=== PATIENT | female | born 1960 | race Caucasian/White ===

== ENCOUNTER → 2019-05-16 00:01 | Outpatient (RCR) | payer BC, MEDICAID, SELFPAY | LOC: ONCMED 04-18 10:42 | PROVIDERS: Visit Provider Internal Medicine Hematology & Oncology | DX: Z51.12 Encounter for antineoplastic immunotherapy (principal); C50.811 Malignant neoplasm of overlapping sites of right female breast; C77.3 Secondary and unspecified malignant neoplasm of axilla and upper limb lymph nodes; D70.1 Agranulocytosis secondary to cancer chemotherapy; K52.1 Toxic gastroenteritis and colitis; D69.59 Other secondary thrombocytopenia; T45.1X5A Adverse effect of antineoplastic and immunosuppressive drugs, initial encounter; D64.9 Anemia, unspecified; R26.9 Unspecified abnormalities of gait and mobility; R25.1 Tremor, unspecified; R11.0 Nausea; R53.1 Weakness; R53.83 Other fatigue; Z51.81 Encounter for therapeutic drug level monitoring; Z79.899 Other long term (current) drug therapy; Z17.1 Estrogen receptor negative status [ER-]; F43.21 Adjustment disorder with depressed mood; Z95.828 Presence of other vascular implants and grafts | CPT/HCPCS: 36430; 36591 ×2; 36593; 70553; 80053 ×4; 82607; 82728; 82746; 83540; 83550; 83735; 84443; 85025 ×5; 86850; 86900; 86901; 86920; 93306; 96361 ×2; 96365 ×2; 96367 ×4; 96372 ×2; 96374; 96375; 96413 ×2; 96417 ×2; 96523; 99214 ×3; A9579; J1100 ×4; J1453 ×2; J1642 ×8; J2405 ×2; J2469 ×2; J2505 ×2; J2997 ×2; J3490 ×2; J7050 ×9; J9045 ×2; J9171 ×2; J9306 ×2; J9355 ×2; P9016 ==

== ENCOUNTER 2019-05-24 14:11 | Outpatient (CLI) | payer MEDICAID, SELFPAY ==
--- NOTE | 2019-05-24 14:23 | US_ITS ---
WS: [id number] ULTRASOUND BREAST RIGHT TECHNIQUE: Ultrasound right breast focused area of concern. CLINICAL INFORMATION: RIGHT BREAST CANCER COMPARISON: Ultrasound January 17, 2019 and FINDINGS: Again seen is the hypoechoic biopsy-proven infiltrating ductal carcinoma 9 O'clock position right adilene ast. This is significantly smaller today measuring approximately 9.7 x 3.5 x 7.3 mm compared to 16 x 12 x 20 mm. Adjacent biopsy clip. A few small hypoechoic cystic appearing lesions at the 9:00 and 11: 00 position the largest measuring 4.3 mm Multiple enlarged lymph nodes right axilla the 2 largest measuring 2.1 x 0.7 x 1.3 cm and 2.1 x 0.6 x 1.7 CM. Previously the largest lymph node measured 2.5 x 1.4 cm US/US breast RT limited* [id number] IMPRESSION: 1. Significant interval improvement in the biopsy proven ductal carcinoma 9 O' clock position right breast today measuring 9.7 x 3.5 x 7.3 mm compared to 16 x 12 x 20 mm previously 2. Multiple enlarged lymph nodes right axilla the largest measuring up to 2.1 CM. This is decreased in size from previous where it measured 2.5 x 1.4 cm BI-RADS 6
[2019-05-24 15:58] LABS: Basophils % 0.4 %; Eosinophils % 0.3 %; Hematocrit 29.2 % (37.0-47.0); Hemoglobin 9.9 g/dL (11.5-15.3); Lymphocytes # 1.5 10^3/uL (0.8-4.8); Lymphocytes % 19.2 %; Mean Corpuscular HGB Conc 33.9 g/dL (30.0-36.0); Mean Corpuscular Hemoglobin 31.8 pg (28.0-34.0); Mean Corpuscular Volume 93.9 fL (81-99); Mean Platelet Volume 11.2 fL (7.4-10.4); Monocytes # 0.4 10^3/uL (0.2-0.9); Monocytes % 4.6 %; Neutrophils # 5.8 10^3/uL (1.8-7.7); Neutrophils % 74.1 %; Nucleated Red Blood Cells % 0 %; Platelet Count 78 10^3/cmm (130-400); Red Blood Count 3.11 10^6/uL (4.1-5.3); Red Cell Distribution Width 17.8 % (12.1-15.1); White Blood Count 7.9 10^3/uL (4.0-10.0)
== END 2019-05-24 14:12 | disposition home or self-care (01) ==
LOC: RAD 14:16
PROVIDERS: PCP Internal Medicine Hematology & Oncology; Visit Provider Internal Medicine Hematology & Oncology
DX: C50.411 Malignant neoplasm of upper-outer quadrant of right female breast (principal); C50.811 Malignant neoplasm of overlapping sites of right female breast; C77.3 Secondary and unspecified malignant neoplasm of axilla and upper limb lymph nodes
CPT/HCPCS: 76642; 85025

== ENCOUNTER 2019-05-31 05:35 | Outpatient (RCR) | payer MEDICAID, SELFPAY ==
[2019-05-30 18:19] LABS: Basophils # 0.1 10^3/uL (0.0-0.1); Basophils % 0.7 %; Eosinophils % 0.1 %; Hematocrit 32.3 % (37.0-47.0); Hemoglobin 10.5 g/dL (11.5-15.3); Lymphocytes # 0.8 10^3/uL (0.8-4.8); Lymphocytes % 9.4 %; Mean Corpuscular HGB Conc 32.5 g/dL (30.0-36.0); Mean Corpuscular Hemoglobin 30.9 pg (28.0-34.0); Mean Platelet Volume 10.9 fL (7.4-10.4); Monocytes # 0.2 10^3/uL (0.2-0.9); Monocytes % 2.6 %; Neutrophils # 7.5 10^3/uL (1.8-7.7); Nucleated Red Blood Cells % 0 %; Platelet Count 90 10^3/cmm (130-400); White Blood Count 8.8 10^3/uL (4.0-10.0)
[2019-05-30 19:01] LABS: Alanine Aminotransferase 19 U/L (0-33); Albumin Level 4.5 g/dL (3.5-5.2); Alkaline Phosphatase 103 IU/L (35-105); Anion Gap 20.3 (5-19); Aspartate Amino Transferase 18 U/L (0-32); Blood Urea Nitrogen 17 mg/dL (6-20); Calcium 9.9 mg/Dl (8.6-10.0); Carbon Dioxide 22 mmol/L (22-29); Chloride 101 mmol/L (98-107); Globulin 2.1 g/dL (1.3-4.6); Glomerular Filtration Rate 85.6 mL/min (90-130); Glucose 238 mg/dL (74-109); Potassium 4.3 mmol/L (3.5-5.1); Sodium 139 mmol/L (136-145); Total Bilirubin 0.5 mg/dL (0.15-1.2); Total Protein 6.6 g/dL (6.6-8.7)
[2019-05-31] MEDS: sodium chloride 0.9% 500 ML IV (09:55)
--- NOTE | 2019-06-01 07:59 | ONC FU_ITS ---
Dr. Vela follow up note Patient: Jasmin Ortiz Unit #: [id number]: 1960 Dicatated By: John Vela M.D.Date of Visit:May 31, 2019 Onc Med Follow-up/Prog Note History of Present Illness: Mrs. Ortiz is a 58-year-old female who noted pain/discomfort in her right breast and subsequently a mass. She underwent mammogram on 01/17/2019 which showed at 9:00 position, 5 cm from the nipple there is 1.6 x 1.2 x 2 cm hypoechoic solid nodule with irregular borders suspicious for neoplasm. In addition, it reported multiple enlarged right axillary lymph nodes, the largest measuring 2.5 x 1.4 cm. Skin thickness at 9:00 measures approximately 1.7 mm, it was read as BI-RADS 5. Ultrasound confirmation was done. Ms Ortiz underwent ultrasound-guided biopsy of right breast mass. The pathology came back reporting infiltrating carcinoma. Ultrasound-guided biopsy of right axillary lymph node biopsy also confirmed infiltrating carcinoma and breast cancer prognostic profile showed estrogen receptor less than 1%, progesterone less than 1% e.g. ER/MS negative HER-2/lyndon 3+ positive, Ki-67 13%, intermediate prognostic risk. 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 History of weight loss, due to poor appetite and off and on night sweats since May 2018 also occasionally fever. As far as breast cancer risk analysis concern, her menarche was at age 12, never had a , she took some hormonal supplement in 1991 when she underwent menopause but did not take any hormone the last 10 years. No family history of breast cancer. CT PET scan was requested but insurance declined coverage but allowed CT scan of chest abdomen pelvis which was done on 01/14/2019 showed no evidence of metastatic disease but with right breast mass and right axillary lymphadenopathy patient She underwent echocardiogram on 03/10/2019 which showed ejection fraction 65%. Ms Ortiz underwent ultrasound renal arterial Doppler ordered by Dr. sidhu; which showed no sonographic evidence of hemodynamically significant renal artery stenosis bilaterally. her who reports that he has seen her speech to be slurred at times and her mouth is drawing at times he states this is not super new but seems to be little worse. He states is been going on since the summer. His story is that she presented to the emergency room with a blood pressure of 250/150 and nothing was done about it . He states she reminds me of a stroke patient . He reports that she is having a slower weaker more shuffling gait. He is also noted that her left hand has consistent persistent movement such as tremors. Underwent MRI scan of the brain on 05/04/2009 which showed widespread chronic small vessel ischemic changes. 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 Cerebral and cerebellar atrophy No evidence of metastatic disease f/u Sonogram of right breast and axilla was done on 05/24/2019 after 3 cycles of chemotherapy showed significant interval improvement in the biopsy-proven ductal carcinoma at 9:00 position right breast measuring 9.7 x 3.5 x 7.3 mm compared to 16 x 12 x 20 mm previously. Multiple enlarged lymph nodes right axilla the largest measuring 2.1 cm is decreased in size from previously related was 2.5 x 1.4 cm. Came for follow-up, complaining of generalized weakness and fatigue, but no nausea or vomiting, no diarrhea constipation, no fever or chills. Patient said chemotherapy is very hard on her especially due to generalized weakness and fatigue. And also complaining of excessive urination and thirst. No peripheral numbness, no mouth sores or leg swelling. Tolerating neoadjuvant chemotherapy with TCH(P) with expected side effects. Medications: Atorvastatin Calcium 1 Tablet (of 20 mg) Oral daily, Dexamethasone (4 mg) Tablet Oral Take as Directed, HumuLIN R (100 Units/mL) Injection Take as Directed, hydroCHLOROthiazide 1 Tablet (of 25 mg) Oral daily, LORazepam 0.5 - 1 Tablet (of 1 mg) Oral t.i.d. PRN, Magnesium Oxide 1 Tablet (of 400 mg) Oral b.i.d., metFORMIN HCl 1 Tablet (of 500 mg) Oral b.i.d., OLANZapine 1 Tablet (of 20 mg) Oral at bedtime, Prochlorperazine Maleate 1 Tablet (of 10 mg) Oral q 4 hours PRN, Sertraline HCl 1 Tablet (of 50 mg) Oral daily, Valsartan 1 Tablet (of 160 mg) Oral daily Allergies: No Known Allergies. Review of Systems: Constitutional - Appetite is poor and weight is stable. No fever, chills, hot flashes. Positive for night sweats. Energy level is poor, ENMT - No sinus congestion/drainage. No mouth sores. No sore throat or difficulty swallowing, Hematologic/Lymphatic - Positive for easy bruising, Respiratory - Positive for shortness of breath and cough. No pleuritic pain or hemoptysis, Cardiovascular - Positive for palpitations, Gastrointestinal - Positive for nausea, no vomiting. No heartburn or acid reflux. No diarrhea or constipation. No blood in the stool or black stools, Genitourinary (F) - No dysuria or hematuria. No urinary frequency. No urgency. Positive for incontinence, Musculoskeletal - No joint or bone pain, Neurologic - No headache or dizziness. Hx of stroke, Psychiatric - Positive for depression, anxiety and insomnia. Vital Signs: Performed on May 31, 2019 08:51 Height - 62.00 in Weight - 151.2 lbs BSA - 1.70 sq.m BMI - 27.66 Temperature - 99.3 F (HIGH) Pulse - 87 /min Respiration - 20 /min BP - 160/97 mm(hg) (HIGH) O2 Sat - 97 % Pain - 0 Performance Status: 2 - Ambulatory/capable of all self-care, unable to perform any work activities. Up and about more than 50% of waking hours. (ECOG) Physical Examination: Respiratory - Lungs are clear to auscultation without rhonchi or wheezing, Cardiovascular - Regular rate and rhythm of heart, Extremities - no edema. Lab/Imaging: Test performed on May 30, 2019 10:25 Glucose 238 mg/dL BUN 17 mg/dL Creatinine 0.7 mg/dL Cr Clearance (Est) 92.95 mL/min Sodium 139 mmol/L Potassium 4.3 mmol/L Chloride 101 mmol/L CO2 22 mmol/L Calcium 9.9 mg/dL Protein, Total 6.6 g/dL Albumin 4.5 g/dL Globulin 2.1 g/dL Bilirubin, Total 0.5 mg/dL Alkaline Phosphatase 103 IU/L AST (SGOT) 18 IU/L ALT (SGPT) 19 IU/L WBC 8.8 10^9/L RBC 3.40 10^12/L HGB 10.5 g/dL HCT 32.3 % MCV 95.0 fl MCH 30.9 pg MCHC 32.5 g/dL RDW 20.0 % Platelet Count 90 10^9/L MPV 10.9 fL Neutrophils (Gran) 7.5 10^9/L Lymphocytes 0.8 10^9/L Monocytes 0.2 10^9/L Eosinophils 0.0 10^9/L Basophils 0.1 10^9/L Manual Lymphocytes 9.4 % Manual Monocytes 2.6 % Manual Eosinophils 0.1 % Manual Basophils 0.7 % NRBCs 0.0 /100 WBC Test performed on May 24, 2019 15:47 Neutrophil % 0.3 % Test performed on May 15, 2019 11:00 ABO & Rh Type # 2 AB POSITIVE Test performed on May 15, 2019 09:10 Packed Red Cells (PRBC) [id number] TRANSFUSED PRODUCT: LEUKOREDUCED RED CELL 1ST CONT COUNT: 1 Lymphocyte % 23.1 % Monocyte % 2.8 % Eosinophil % 1.1 % Basophils % 1.0 % CBC Slide Review SLIDE REVIEW PERFORM SLIDE REVIEW AGREES WITH AUTOMATED RESULTS Type & Screen BLD TYPE AB POSITIVE AB SCREEN GEL NEGATIVE BLD TYPE AB POSITIVE AB SCREEN GEL NEGATIVE Test performed on May 09, 2019 10:19 Anion Gap 13.7 eGFR 85.6 mL/min Test performed on Apr 18, 2019 10:55 Magnesium 1.8 mg/dL Test performed on Mar 02, 2019 13:08 CA 27.29 21.33 U/mL Impression: Right breast cancer with biopsy-proven right axillary lymph node involvement per ultrasound-guided biopsy done on 02/09/2019 which showed ER less than 1% MS less than 1% e.g. ER/MS negative and HER-2/lyndon 3+ positive, Ki-67 13% Mammogram done on 01/17/2019 showed right breast mass at 9:00 position, 5 cm from the nipple there is 1.6 x 1.2 x 2.0 cm mass irregular borders, in addition multiple enlarged right axillary lymph nodes, the largest measuring 2.5 x 1.4 Adjustment disorder/depression since teenager-controlled with medication at present. Being HER-2/lyndon positive, she was offered neoadjuvant chemotherapy regimen with docetaxel/carboplatin/Herceptin/pertuzumab every 3 weeks ???6 cycles followed by surgery. Mrs Ortiz and her prefer to preserve her breast. Mrs. Ortiz did have Port-A-Cath placement in the left sub-clavian vein by Dr. Howell on 03/09/2019. She began her first cycle of chemotherapy on 03/29/2019. She has required supportive care with hydration due to nausea and persistent diarrhea. Plan: Discussed with patient regarding her labs white blood count 8.8 hemoglobin 10.5 crit 32.3 platelets 90,000 absolute neutrophil count 7500 CMP within normal limit except glucose 238. Clinically, patient is doing reasonably well, tolerating neoadjuvant chemotherapy with TCH(P) but with expected side effects special generalized weakness and fatigue which could be multifactorial especially with uncontrolled hyperglycemia, this morning her blood sugar was around 400 as patient due to premedication with steroids last night and repeat blood sugar was again in the mid 300s. Patient is concerned about chemotherapy related side effects and her follow-up sonogram of right breast and right axilla she has shown some benefits from 3/6 cycles of neoadjuvant chemotherapy. Her follow-up lab shows progressive thrombocytopenia but now with some improvement, we will hold her schedule chemotherapy today and then repeat her CBC in 1 week if it shows resolution of thrombocytopenia then will consider next cycle of chemotherapy in the meantime we will discuss her case with Dr. Howell regarding timing of surgery as patient is discouraged and somewhat reluctant to continue neoadjuvant chemotherapy. Patient was reassured most of her symptoms are due to hyperglycemia in addition to due to chemotherapy and diabetes teaching was reinforced and also discuss about appropriate use of sliding scale. We will refer her to Dr. Howell for evaluation and if patient decided to proceed with surgery then we'll see her back after definitive surgery and then plan accordingly otherwise we'll continue neoadjuvant chemotherapy the completion.And if after surgery , final pathology report shows residual disease then will consider [place] Patient was advised to follow diabetic diet and sliding scale as recommended and also maintain good hydration. We will also give a normal saline 500 mL today and then use regular insulin based on sliding scale. Signed By: John Vela M.D. <<Signature on File>>
== END 2019-06-16 23:59 | disposition home or self-care (01) ==
LOC: ONCMED 05:35
PROVIDERS: Nurse Practitioner; Visit Provider Internal Medicine Hematology & Oncology
DX: C50.411 Malignant neoplasm of upper-outer quadrant of right female breast (principal); C77.3 Secondary and unspecified malignant neoplasm of axilla and upper limb lymph nodes; R73.9 Hyperglycemia, unspecified; Z17.1 Estrogen receptor negative status [ER-]; I70.1 Atherosclerosis of renal artery; G47.00 Insomnia, unspecified; F43.21 Adjustment disorder with depressed mood; Z79.899 Other long term (current) drug therapy; Z79.4 Long term (current) use of insulin
CPT/HCPCS: 36415; 80053; 85025; 96360; 96372; 99214; J1815; J7040

== ENCOUNTER → 2019-06-15 13:12 | Outpatient (BNVA) | payer MEDICAID, SELFPAY | PROVIDERS: Visit Provider Nurse Practitioner Psychiatric/Mental Health | DX: F06.30 Mood disorder due to known physiological condition, unspecified (principal); F41.9 Anxiety disorder, unspecified | CPT/HCPCS: 99214 ==

== ENCOUNTER 2019-06-22 09:22 | Observation (INO) | payer MEDICAID, SELFPAY ==
[2019-06-21 09:51] VITALS: BMI 24.4
[2019-06-22] VITALS (18 sets, daily range): BP systolic 84–157; BP diastolic 51–79; PULSE 74–87; RESP 12–20; TEMP 36.4–37; O2SAT 71–100
[2019-06-22 06:22] LABS: Glucose Point of Care 254 mg/dL (70-110)
[2019-06-22] MEDS: sodium chloride 0.9% 1,000 ML 30 ML IV (06:30)
--- NOTE | 2019-06-22 06:35 | ANES.PREANE2 ---
Pre-Anesthetic Assessment Pre-Anesthetic Assessment: Height/Weight: Height 1.61 m Weight 63.503 kg Temp Pulse Resp BP Pulse Ox 97.5 F L 87 18 110/79 97 06/22/19 06:11 06/22/19 06:11 06/22/19 06:11 06/22/19 06:11 06/22/19 06:11 Preop Diagnosis: Right Breast CA Proposed Procedure: Operation Date: 06/22/19 07:30 Proposed Procedures p Right Mastectomy Radial(Right) - Miguel Howell MD s Left Mastectomy Simple(Left) - Miguel Howell MD Last intake: Intake Last Liquid Date 06/21/19 Last Liquid Time 15:00 Last Solid Date 06/21/19 Last Solid Time 15:00 Social: Social History: Tobacco Packs per day: .5 Pack years: 4 Comment: 1 year Exam: Pre-Anes Outpt Exam: alert, oriented x 3, clear to auscultation bilaterally and regular rate & rhythm Airway: Submandibular: WNL Cervical ROM: WNL MP: 1 CV/HEM: CV/HEM: HTN (rx'd x 1y) : Comments: hx stones Metabolic: Metabolic: DM and Hyperlipidemia Comments: rx'd 4 months, normally 215-450 Neuropsych: Neuropsych: CVA (left sided weakness, CT with hemorrhage on right side) Anesthetic Plan: ASA status: 3 Anesthesia: General Meds/Allergies Current Medications: Current Medications Generic Name Dose Route Start Last Admin Trade Name Freq PRN Reason Stop Dose Admin Sodium Chloride 1,000 mls @ 30 ml s/hr 06/22/19 06:15 06/22/19 06:30 Sodium Chloride 0.9% IV 06/23/19 06:14 30 mls/hr .Q24H LUIS FERNANDO Administration PFSH Anesthesia PFSH: Social History (Updated 06/15/19 @ 13:38 by Jessica Doss LPN) Smoking and tobacco status: never smoked Second hand smoke exposure: Yes Data Anesthesia Other Labs: Laboratory Results - last 48 hr 06/22/19 06:20 POC Glucose 254 Cardiac Studies: No Data to Display
--- NOTE | 2019-06-22 06:47 | PM.HPUD ---
H&P update H&P Update: DATE OF SURGERY/PROCEDURE: 06/22/19 DATE H&P PERFORMED: 06/13/19 PREOP DIAGNOSIS: Right Breast CA PLANNED PROCEDURE: Operation Date: 06/22/19 07:30 Proposed Procedures p Right Mastectomy Modified Radical(Right) - Miguel Howell MD s Left Mastectomy Simple(Left) - Miguel Howell MD Full H&P Medications/Allergies: Current Medications: Current Medications Generic Name Dose Route Start Last Admin Trade Name Freq PRN Reason Stop Dose Admin Sodium Chloride 1,000 mls @ 30 ml s/hr 06/22/19 06:15 06/22/19 06:30 Sodium Chloride 0.9% IV 06/23/19 06:14 30 mls/hr .Q24H LUIS FERNANDO Administration Perinent History: Social History: Social History Smoking and tobacco status: never smoked Second hand smoke exposure: Yes
[2019-06-22] MEDS: insulin regular-human 100 units/1 mL 5 UNIT IVP (07:41)
[2019-06-22 07:54] LABS: Glucose Point of Care 200 mg/dL (70-110)
[2019-06-22] MEDS: neomycin-poly-bacitracin oint 28 gm 1 APPLIC TOPICAL (09:01)
--- NOTE | 2019-06-22 09:04 | PM.OP ---
Operative Report Date of procedure: June 22, 2019 Pre-op Diagnosis: Node positive right breast cancer, desiring bilateral mastectomy. Post-op diagnosis: same Procedure Done: 1. Right modified radical mastectomy. 2. Left simple mastectomy. Specimens removed/disposition: 1. Right breast with axillary tail. 2. Left breast. Surgeon: Miguel Howell Anesthesia: General Estimated blood loss (mL): 25 Complications: None. Condition: stable Disposition: PACU Procedure: The patient was brought to the operating room and was placed in a supine position on the operating room table. General endotracheal anesthesia was induced by means of a laryngeal mask airway. The breasts and axillae were prepped and draped in a sterile fashion. Attention was first directed to the right side. An elliptical incision was carried out from the sternum, surrounding the entire nipple areolar complex and coming back together at the inferior aspect of the axilla. Cautery was used to divide the dermis and was used to maintain hemostasis throughout the procedure. Skin flaps were created both superiorly and inferiorly by elevating the skin with skin hooks and using cautery to divide the breast tissue at the junction of the breast tissue and subcutaneous fat. This was carried out down to the chest wall both superiorly and inferiorly as well as medially, encompassing all of the breast tissue. The breast was then taken off of the chest wall using cautery from a medial to lateral direction. Significant vessels seen during the dissection were ligated with ties of 2-0 Vicryl. The dissection was then carried out around the lateral edge of the pectoralis muscle and the axilla was entered. Medially, the dissection was carried out along the chest wall and the long thoracic nerve was identified. The dissection was carried out laterally and posteriorly and the thoracodorsal vessels and nerve were identified. The tissue anterior to the nerves was brought inferiorly, once again ligating vessels with ties of 2-0 Vicryl. The specimen was removed. The entire wound was irrigated and some small bleeding points were controlled with cautery. Attention was then directed to the left side. A similar procedure was carried out with the exception of the axillary dissection. Removal of the breast was identical. A 19 [place] fluted Fredrick drain was brought from the left side of the chest underneath the sternal skin and then through a separate stab incision underneath the incision laterally under the right axilla. The drain was sewn in at the skin using a suture of 2-0 silk. The drain was laid along the anterior chest wall all the way across the chest under the skin flaps. The dermis at the incisions were brought back together using multiple inverted interrupted sutures of 3-0 Vicryl and the skin was finally approximated using skin harlan at both incisions. Some triple antibiotic ointment was placed over the incisions and sterile fluff dressings and a binder were then placed. The patient was subsequently taken to the recovery room in stable condition postoperatively.
--- NOTE | 2019-06-22 09:36 | SUR.PHASEI ---
BG 180
[2019-06-22 09:53] LABS: Glucose Point of Care 180 mg/dL (70-110)
[2019-06-22 10:58] LABS: Glucose Point of Care 217 mg/dL (70-110)
[2019-06-22] MEDS: sodium chloride 0.9% 1,000 ML 100 ML IV ×2 (11:14→19:52)
[2019-06-22] MEDS: HYDROcodone-acetaminophen 5-325 mg Tablet PO ×3 (11:44→22:01)
[2019-06-22] MEDS: heparin 5,000 unit/mL INJ 1 mL 5000 UNIT SUBCUT ×2 (11:45→22:02)
[2019-06-22] MEDS: atorvastatin 40 mg Tablet 20 MG PO (11:47)
[2019-06-22] MEDS: sodium chloride 0.9% 500 ML IV (11:48)
[2019-06-22] MEDS: ceFAZolin 1,000 MG in sodium chloride 0.9% (plus) 50 ML 100 MG IV (15:59)
[2019-06-22 17:03] LABS: Glucose Point of Care 245 mg/dL (70-110)
[2019-06-22] MEDS: magnesium oxide 400 mg tablet PO (17:41)
[2019-06-22] MEDS: metformin 500 mg Tablet PO (17:42)
[2019-06-22] MEDS: OLANZapine 10 mg TABLET 20 MG PO (22:01)
[2019-06-22 22:22] LABS: Glucose Point of Care 178 mg/dL (70-110)
[2019-06-23 00:51] VITALS: BP 109/74; PULSE 78; RESP 15; TEMP 36.9; O2SAT 95
[2019-06-23] MEDS: ceFAZolin 1,000 MG in sodium chloride 0.9% (plus) 50 ML 100 MG IV ×2 (00:56→08:03)
[2019-06-23] MEDS: sertraline 100 mg Tablet 200 MG PO (05:32)
[2019-06-23] MEDS: HYDROcodone-acetaminophen 5-325 mg Tablet PO (05:32)
[2019-06-23] MEDS: sodium chloride 0.9% 1,000 ML 100 ML IV (05:33)
[2019-06-23 05:39] LABS: Glucose Point of Care 160 mg/dL (70-110)
[2019-06-23] MEDS: atorvastatin 40 mg Tablet 20 MG PO (08:01)
[2019-06-23] MEDS: losartan 50 mg Tablet PO (08:01)
[2019-06-23] MEDS: magnesium oxide 400 mg tablet PO (08:01)
[2019-06-23] MEDS: hydroCHLOROthiazide 25 mg Tablet PO (08:01)
[2019-06-23] MEDS: metformin 500 mg Tablet PO (08:02)
--- NOTE | 2019-06-23 08:04 | PM.DCS ---
Discharge Providers Date of Admission: 06/22/19 09:22 Date of Discharge: Date of Discharge: June 23, 2019 Attending Provider at Admission: Miguel Howell MD Attending Provider at Discharge: Miguel Howell MD Primary Care Provider: Miguel Howell MD Diagnoses at Discharge Other Information Additional DC diagnoses/information: Node positive right breast cancer. Status post right modified radical mastectomy/left prophylactic simple mastectomy. Hospital Course Discharge Summary: The patient came into the hospital on 06/22/2019 and on the same day underwent a right modified radical mastectomy and left simple mastectomy. Postoperatively she was kept on the floor and did well overnight. By the following morning her discomfort was very mild. Her drain was draining some serosanguineous fluid. She was anxious to go home. She was instructed with respect to wound care, activity limitations, bathing, etc. Arranges were made for the patient to see me in the office as an outpatient. Physical Exam Narrative: EXAM NARRATIVE: The patient's mastectomy garment is in place. The Fredrick drain has some serosanguineous fluid in the bulb. Discharge Data Data Completed and Pending: Pending at discharge Category Date Time Status Pathology: Surgic al [PTH] Routine Pth 06/22/19 09:19 Received Labs from last 24 hours 06/23/19 06/22/19 06/22/19 05:34 22:11 16:55 POC Glucose 160 178 245 06/22/19 06/22/19 10:52 09:33 POC Glucose 217 180 Vitals: Last Vital Signs Temp 98.5 F 06/23/19 00:51 Pulse 78 06/23/19 00:51 Resp 15 06/23/19 00:51 BP 109/74 06/23/19 00:51 Pulse Ox 95 06/23/19 00:51 Discharge Plan Discharge Patient Disposition: Home, Self-Care Condition: Stable Prescriptions: New hydrocodone-acetaminophen 5-325 mg tablet 1 - 2 tab PO Q5H PRN (Reason: pain) Qty: 30 RF: 0 Continued atorvastatin 20 mg tablet 20 mg PO DAILY RF: 0 metformin 500 mg tablet 500 mg PO BID RF: 0 magnesium oxide 400 mg magnesium tablet 400 mg PO BID RF: 0 olanzapine 20 mg tablet 20 mg PO .QHS Qty: 30 RF: 1 sertraline 100 mg tablet 200 mg PO QAM Qty: 60 RF: 1 hydrochlorothiazide 25 mg tablet 25 mg PO DAILY RF: 0 valsartan 160 mg tablet 160 mg PO DAILY RF: 0 ondansetron HCl [Zofran] 4 mg tablet 8 mg PO TID PRN (Reason: nausea and vomiting) RF: 0 Discharge Orders: Discharge Order (Routine); Ordered 06/23/19 Ordered By: Miguel Howell Referrals: Miguel Howell MD [Primary Care Provider] - 2 weeks Discharge Diet: Advance as tolerated Discharge Activity: Increase activity as tolerated Activity Restrictions/Additional Instructions: 1. Discharge to home today. 2. Appointment to see me in 10-14 days. 3. Bandage may be removed as early as later today to shower. Keep postmastectomy garment on when not bathing. 4. Nursing: Please teach patient how to empty Fredrick drain and reconstitute bulb. Empty Fredrick drain at home as needed. 5. When dressing is off daily, manually massage/press on the areas around the incision to flatten out any ripples or ridges that may be developing to keep the skin flat. 6. [place] 5/325 1-2 tablets by mouth every 5 hours as needed for pain. #30, no refills. Discharge Attestations Time Spent in Discharge Care*: less than 30 min Quality Metrics Clinical Quality Measures During this hospital stay, did patient experience: None Coding Level of Care Code Acute Skiver Uppers Or Linings for Dakota Farr
[2019-06-23 08:12] VITALS: BP 121/84; PULSE 75; RESP 22; TEMP 36.7; O2SAT 96
[2019-06-23 08:32] VITALS: BP 121/84; PULSE 75; RESP 22; TEMP 36.7; O2SAT 96
[2019-06-23 09:46] VITALS: PULSE 73; O2SAT 94
[2019-06-23] MEDS: heparin 5,000 unit/mL INJ 1 mL 5000 UNIT SUBCUT (10:08)
--- NOTE | 2019-06-23 10:11 | PC.NURSE ---
IV DC'd intact at this time. Minimal bleeding noted.
[2019-06-23 10:45] LABS: Glucose Point of Care 219 mg/dL (70-110)
--- NOTE | 2019-06-23 10:46 | PC.NURSE ---
Pt and educated on YESENIA drain and wound care. Verbalized understanding.
[2019-06-23 10:47] VITALS: PULSE 73; O2SAT 94
== END 2019-06-23 10:48 | disposition home or self-care (01) ==
LOC: MEDSURG 09:28
PROVIDERS: Admitting Provider Surgery; PCP Surgery; Visit Provider Surgery
PROC: (CPT 19303; principal; 2019-06-22 07:30)
PROC: (CPT 19303; 2019-06-22 07:30)
DX: C50.411 Malignant neoplasm of upper-outer quadrant of right female breast (principal); I10 Essential (primary) hypertension; E11.9 Type 2 diabetes mellitus without complications; E78.5 Hyperlipidemia, unspecified; Z79.4 Long term (current) use of insulin; Z82.49 Family history of ischemic heart disease and other diseases of the circulatory system; Z83.3 Family history of diabetes mellitus
CPT/HCPCS: 19303; 19307; 12345; 36416; 82962; 88309; 96361; 96365; 96372; 96374; G0378; J0131; J0690; J1644; J1815; J2001; J2405; J2704; J3010; J3490; J7030; J7040

== ENCOUNTER 2019-07-03 12:35 | Outpatient (RCR) | payer MEDICAID, SELFPAY ==
[2019-06-20 10:41] LABS: Basophils # 0.1 10^3/uL (0.0-0.1); Basophils % 0.6 %; Eosinophils % 12.4 %; Hematocrit 34.3 % (37.0-47.0); Hemoglobin 11.2 g/dL (11.5-15.3); Lymphocytes # 1.8 10^3/uL (0.8-4.8); Lymphocytes % 23.2 %; Mean Corpuscular HGB Conc 32.7 g/dL (30.0-36.0); Mean Corpuscular Hemoglobin 31.7 pg (28.0-34.0); Mean Corpuscular Volume 97.2 fL (81-99); Monocytes # 0.6 10^3/uL (0.2-0.9); Monocytes % 7.1 %; Neutrophils # 4.3 10^3/uL (1.8-7.7); Neutrophils % 56.2 %; Nucleated Red Blood Cells % 0 %; Platelet Count 139 10^3/cmm (130-400); Red Blood Count 3.53 10^6/uL (4.1-5.3); Red Cell Distribution Width 16.1 % (12.1-15.1); White Blood Count 7.7 10^3/uL (4.0-10.0)
[2019-06-20 10:56] LABS: Alanine Aminotransferase 14 U/L (0-33); Alkaline Phosphatase 122 IU/L (35-105); Anion Gap 16.3 (5-19); Aspartate Amino Transferase 14 U/L (0-32); Blood Urea Nitrogen 24 mg/dL (6-20); Calcium 10.1 mg/dL (8.5-10.5); Carbon Dioxide 21 mmol/L (22-29); Chloride 104 mmol/L (98-107); Globulin 3.2 g/dL (1.3-4.6); Glomerular Filtration Rate 64.1 mL/min (90-130); Glucose 228 mg/dL (74-109); Potassium 4.3 mmol/L (3.5-5.1); Sodium 137 mmol/L (136-145); Total Bilirubin 0.4 mg/dL (0.15-1.2); Total Protein 7.2 g/dL (6.6-8.7)
[2019-07-03 16:12] LABS: Basophils % 0.7 %; Eosinophils # 0.5 10^3/uL (0.0-0.8); Eosinophils % 9.3 %; Hematocrit 30.3 % (37.0-47.0); Hemoglobin 9.5 g/dL (11.5-15.3); Lymphocytes # 1.6 10^3/uL (0.8-4.8); Lymphocytes % 30.5 %; Mean Corpuscular HGB Conc 31.4 g/dL (30.0-36.0); Mean Corpuscular Hemoglobin 29.9 pg (28.0-34.0); Mean Corpuscular Volume 95.3 fL (81-99); Mean Platelet Volume 9.9 fL (7.4-10.4); Monocytes # 0.3 10^3/uL (0.2-0.9); Monocytes % 6.4 %; Neutrophils # 2.8 10^3/uL (1.8-7.7); Neutrophils % 52.7 %; Nucleated Red Blood Cells % 0 %; Platelet Count 255 10^3/cmm (130-400); Red Blood Count 3.18 10^6/uL (4.1-5.3); Red Cell Distribution Width 14.2 % (12.1-15.1); White Blood Count 5.4 10^3/uL (4.0-10.0)
[2019-07-03 18:59] LABS: Alanine Aminotransferase 10 U/L (0-33); Albumin Level 3.4 g/dL (3.5-5.2); Alkaline Phosphatase 100 IU/L (35-105); Anion Gap 17.3 (5-19); Aspartate Amino Transferase 12 U/L (0-32); Blood Urea Nitrogen 12 mg/dL (6-20); Calcium 9.9 mg/dL (8.5-10.5); Carbon Dioxide 22 mmol/L (22-29); Chloride 105 mmol/L (98-107); Globulin 3.4 g/dL (1.3-4.6); Glomerular Filtration Rate 64.1 mL/min (90-130); Glucose 162 mg/dL (65-115); Potassium 4.3 mmol/L (3.5-5.1); Sodium 140 mmol/L (136-145); Total Bilirubin 0.3 mg/dL (0.15-1.2); Total Protein 6.8 g/dL (6.6-8.7)
== END 2019-07-15 23:59 | disposition home or self-care (01) ==
LOC: ONCMED 12:35
PROVIDERS: Internal Medicine Hematology & Oncology; Visit Provider Nurse Practitioner
DX: C50.411 Malignant neoplasm of upper-outer quadrant of right female breast (principal); D69.59 Other secondary thrombocytopenia; C77.3 Secondary and unspecified malignant neoplasm of axilla and upper limb lymph nodes; F43.21 Adjustment disorder with depressed mood; Z17.1 Estrogen receptor negative status [ER-]; Z79.899 Other long term (current) drug therapy
CPT/HCPCS: 36415; 80053; 85025; G0463

== ENCOUNTER → 2019-07-13 11:49 | Outpatient (BNVA) | payer MEDICAID, SELFPAY | PROVIDERS: PCP Surgery; Visit Provider Nurse Practitioner Psychiatric/Mental Health | DX: F06.30 Mood disorder due to known physiological condition, unspecified (principal); F41.9 Anxiety disorder, unspecified | CPT/HCPCS: 99213 ==

== ENCOUNTER 2019-08-11 09:31 | Outpatient (RCR) | payer MEDICAID, SELFPAY ==
--- NOTE | 2019-07-26 15:36 | ONC FU_ITS ---
Dr. Vela follow up note Patient: Jasmin Ortiz Unit #: [id number]: 1960 Dicatated By: John Vela M.D.Date of Visit:Jul 26, 2019 Onc Med Follow-up/Prog Note History of Present Illness: Mrs. Ortiz is a 58-year-old female who noted pain/discomfort in her right breast and subsequently a mass. She underwent mammogram on 01/17/2019 which showed at 9:00 position, 5 cm from the nipple there is 1.6 x 1.2 x 2 cm hypoechoic solid nodule with irregular borders suspicious for neoplasm. In addition, it reported multiple enlarged right axillary lymph nodes, the largest measuring 2.5 x 1.4 cm. Skin thickness at 9:00 measures approximately 1.7 mm, it was read as BI-RADS 5. Ultrasound confirmation was done. Ms Ortiz underwent ultrasound-guided biopsy of right breast mass. The pathology came back reporting infiltrating carcinoma. Ultrasound-guided biopsy of right axillary lymph node biopsy also confirmed infiltrating carcinoma and breast cancer prognostic profile showed estrogen receptor less than 1%, progesterone less than 1% e.g. ER/DC negative HER-2/lyndon 3+ positive, Ki-67 13%, intermediate prognostic risk. 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 History of weight loss, due to poor appetite and off and on night sweats since May 2018 also occasionally fever. As far as breast cancer risk analysis concern, her menarche was at age 12, never had a , she took some hormonal supplement in 1991 when she underwent menopause but did not take any hormone the last 10 years. No family history of breast cancer. CT PET scan was requested but insurance declined coverage but allowed CT scan of chest abdomen pelvis which was done on 01/14/2019 showed no evidence of metastatic disease but with right breast mass and right axillary lymphadenopathy patient She underwent echocardiogram on 03/10/2019 which showed ejection fraction 65%. Ms Ortiz underwent ultrasound renal arterial Doppler ordered by Dr. sidhu; which showed no sonographic evidence of hemodynamically significant renal artery stenosis bilaterally. her who reports that he has seen her speech to be slurred at times and her mouth is drawing at times he states this is not super new but seems to be little worse. He states is been going on since the summer. His story is that she presented to the emergency room with a blood pressure of 250/150 and nothing was done about it . He states she reminds me of a stroke patient . He reports that she is having a slower weaker more shuffling gait. He is also noted that her left hand has consistent persistent movement such as tremors. Underwent MRI scan of the brain on 05/04/2009 which showed widespread chronic small vessel ischemic changes. 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 Cerebral and cerebellar atrophy No evidence of metastatic disease f/u Sonogram of right breast and axilla was done on 05/24/2019 after 3 cycles of chemotherapy showed significant interval improvement in the biopsy-proven ductal carcinoma at 9:00 position right breast measuring 9.7 x 3.5 x 7.3 mm compared to 16 x 12 x 20 mm previously. Multiple enlarged lymph nodes right axilla the largest measuring 2.1 cm is decreased in size from previously related was 2.5 x 1.4 cm. because of persistent and progressive side effect related to chemotherapy, patient and her were not interested in continuing chemotherapy rather proceed with surgery, neoadjuvant chemotherapy was discontinued after 3/6 cycles of chemotherapy with TCH (P) so on 06/22/2019, she underwent bilateral mastectomy including right breast radical mastectomy which showed biopsy site present with fibrosis and dystrophic calcification, no residual viable tumor identified. 1 out of 8 lymph nodes with micro-metastasis, residual tumor less than 2 mm. Left breast shows benign findings. Came for follow-up, denies any specific complaint except generalized weakness and fatigue, patient is scheduled to see neurology in [place] for evaluation other than that now recovering from bilateral mastectomy. Denies any fever chills denies any nausea or vomiting denies any discharge from surgical wound site. Medications: Atorvastatin Calcium 1 Tablet (of 20 mg) Oral daily, Dexamethasone (4 mg) Tablet Oral Take as Directed, HumuLIN R (100 Units/mL) Injection Take as Directed, hydroCHLOROthiazide 1 Tablet (of 25 mg) Oral daily, LORazepam 0.5 - 1 Tablet (of 1 mg) Oral t.i.d. PRN, Magnesium Oxide 1 Tablet (of 400 mg) Oral b.i.d., metFORMIN HCl 1 Tablet (of 500 mg) Oral b.i.d., OLANZapine 1 Tablet (of 20 mg) Oral at bedtime, Prochlorperazine Maleate 1 Tablet (of 10 mg) Oral q 4 hours PRN, Sertraline HCl 1 Tablet (of 50 mg) Oral daily, Valsartan 1 Tablet (of 160 mg) Oral daily Allergies: No Known Allergies. Review of Systems: Constitutional - Appetite is poor and weight is stable. No fever, chills, hot flashes or night sweats. Energy level is poor, ENMT - No sinus congestion/drainage. No mouth sores. No sore throat or difficulty swallowing, Hematologic/Lymphatic - Positive for easy bruising, Respiratory - Positive for shortness of breath and cough. No pleuritic pain or hemoptysis, Cardiovascular - No chest pains or palpitations reported today, Gastrointestinal - Positive for nausea, no vomiting. No heartburn or acid reflux. No diarrhea or constipation. No blood in the stool or black stools, Genitourinary (F) - No dysuria or hematuria. No urinary frequency. No urgency. Positive for incontinence, Musculoskeletal - No joint or bone pain, Neurologic - Positive for dizziness. Pt has a significant hx of falls, Psychiatric - Positive for depression, anxiety and insomnia. Vital Signs: Performed on Jul 26, 2019 09:01 Height - 62.00 in Weight - 148.4 lbs (LOW) BSA - 1.68 sq.m BMI - 27.14 Temperature - 98.2 F (LOW) Pulse - 85 /min Respiration - 17 /min BP - 111/75 mm(hg) O2 Sat - 98 % Pain - 0 Performance Status: 0 - Fully active, able to carry on all predisease activities without restrictions. (ECOG) Physical Examination: Respiratory - Lungs are clear to auscultation without rhonchi or wheezing, Cardiovascular - Regular rate and rhythm of heart, Chest - status post bilateral mastectomy, well-healed surgical scar, Extremities - no edema. Lab/Imaging: Test performed on Jul 03, 2019 12:35 Sodium 140 mmol/L Potassium 4.3 mmol/L Chloride 105 mmol/L CO2 22 mmol/L Anion Gap 17.3 BUN 12 mg/dL Creatinine 0.9 mg/dL Cr Clearance (Est) 72.2900 mL/min eGFR 64.1 mL/min Glucose 162 mg/dL Calcium 9.9 mg/dL Protein, Total 6.8 g/dL Albumin 3.4 g/dL Globulin 3.4 g/dL Bilirubin, Total 0.3 mg/dL ALT (SGPT) 10 U/L AST (SGOT) 12 U/L Alkaline Phosphatase 100 IU/L WBC 5.4 10 3/uL RBC 3.18 10 6/uL HGB 9.5 g/dL HCT 30.3 % MCV 95.3 fL MCH 29.9 pg MCHC 31.4 g/dL RDW 14.2 % Platelet Count 255 10 3/cmm MPV 9.9 fL Neutrophils 2.8 10 3/uL Lymphocytes 1.6 10 3/uL Monocytes 0.3 10 3/uL Eosinophils 0.5 10 3/uL Basophils 0.0 10 3/uL Neutrophil % 52.7 % Lymphocyte % 30.5 % Monocyte % 6.4 % Eosinophil % 9.3 % Basophils % 0.7 % Test performed on May 30, 2019 10:25 Manual Lymphocytes 9.4 % Manual Monocytes 2.6 % Manual Eosinophils 0.1 % Manual Basophils 0.7 % NRBCs 0.0 /100 WBC Test performed on May 15, 2019 11:00 ABO & Rh Type # 2 AB POSITIVE Test performed on May 15, 2019 09:10 Packed Red Cells (PRBC) [id number] TRANSFUSED PRODUCT: LEUKOREDUCED RED CELL 1ST CONT COUNT: 1 CBC Slide Review SLIDE REVIEW PERFORM SLIDE REVIEW AGREES WITH AUTOMATED RESULTS Type & Screen BLD TYPE AB POSITIVE AB SCREEN GEL NEGATIVE BLD TYPE AB POSITIVE AB SCREEN GEL NEGATIVE Test performed on Apr 18, 2019 10:55 Magnesium 1.8 mg/dL Test performed on Mar 02, 2019 13:08 CA 27.29 21.33 U/mL Impression: after 3/6 cycles of TCH(P) underwent bilateral mastectomies on 06/22/2019 and it showed excellent response in her primary right breast carcinoma with no residual viable tumor identified and 1 out of 8 right axillary lymph node showed micrometastasis, residual tumor size less than 2 mm. Left breast shows benign findings. Right breast cancer with biopsy-proven right axillary lymph node involvement per ultrasound-guided biopsy done on 02/09/2019 which showed ER less than 1% DC less than 1% e.g. ER/DC negative and HER-2/lyndon 3+ positive, Ki-67 13% Mammogram done on 01/17/2019 showed right breast mass at 9:00 position, 5 cm from the nipple there is 1.6 x 1.2 x 2.0 cm mass irregular borders, in addition multiple enlarged right axillary lymph nodes, the largest measuring 2.5 x 1.4 Adjustment disorder/depression since teenager-controlled with medication at present. Being HER-2/lyndon positive, she was offered neoadjuvant chemotherapy regimen with docetaxel/carboplatin/Herceptin/pertuzumab every 3 weeks ???6 cycles followed by surgery. Mrs Ortiz and her prefer to preserve her breast. Mrs. Ortiz did have Port-A-Cath placement in the left sub-clavian vein by Dr. Howell on 03/09/2019. She began her first cycle of chemotherapy on 03/29/2019. She has required supportive care with hydration due to nausea and persistent diarrhea.completed 3 cycles of chemotherapy on 05/11/2019, at that time patient and her decided to discontinue recommended neoadjuvant chemotherapy because of related side effects and toxicity and decided to proceed with surgery and she underwent bilateral mastectomies on 06/22/2019 and it showed excellent response in her primary right breast carcinoma with no residual viable tumor identified and 1 out of 8 right axillary lymph node showed micrometastasis, residual tumor size less than 2 mm. Left breast shows benign findings. Plan: . Discussed with patient regarding her labs white blood count 7.4 hemoglobin 12 crit 36.7 platelets 278,000 CMP within normal limits and her final pathology report after bilateral mastectomy which showed excellent response to neoadjuvant chemotherapy with resolution of right primary breast cancer and new micrometastasis seen in 1 out of 8 right axillary lymph nodes. And this response was seen after 3 cycles of TCH(P) as patient could not complete recommended 6 cycles because of related side effect and toxicity. Earlier patient was considering breast conservation but at the time of surgery she decided for bilateral mastectomy. Role of adjuvant therapy with either 3 more cycles of chemotherapy with TCH(P) , or because of residual disease with Kadcyla every 3 weeks ???14 doses or Herceptin plus/minus Perjeta for total 12 months was discussed, patient and her doesn't want TCH(P) because of intolerance and also concerned about Kadcyla related toxicity but may consider Herceptin alone or maybe Perjeta combination. Also discuss about role of clinical trial or second opinion from tertiary care center. Patient and agreed, in that case we will refer her to breast cancer clinic at [facility] for evaluation. And she will return to clinic 1 week after evaluation. Signed By: John Vela M.D. <<Signature on File>>
--- NOTE | 2019-08-01 17:55 | ONC FU_ITS ---
Dr. Vela follow up note Patient: Jasmin Ortiz Unit #: [id number]: 1960 Dicatated By: John Vela M.D.Date of Visit:Aug 01, 2019 Onc Med Follow-up/Prog Note History of Present Illness: Mrs. Ortiz is a 58-year-old female who noted pain/discomfort in her right breast and subsequently a mass. She underwent mammogram on 01/17/2019 which showed at 9:00 position, 5 cm from the nipple there is 1.6 x 1.2 x 2 cm hypoechoic solid nodule with irregular borders suspicious for neoplasm. In addition, it reported multiple enlarged right axillary lymph nodes, the largest measuring 2.5 x 1.4 cm. Skin thickness at 9:00 measures approximately 1.7 mm, it was read as BI-RADS 5. Ultrasound confirmation was done. Ms Ortiz underwent ultrasound-guided biopsy of right breast mass. The pathology came back reporting infiltrating carcinoma. Ultrasound-guided biopsy of right axillary lymph node biopsy also confirmed infiltrating carcinoma and breast cancer prognostic profile showed estrogen receptor less than 1%, progesterone less than 1% e.g. ER/DC negative HER-2/lyndon 3+ positive, Ki-67 13%, intermediate prognostic risk. 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 History of weight loss, due to poor appetite and off and on night sweats since May 2018 also occasionally fever. As far as breast cancer risk analysis concern, her menarche was at age 12, never had a , she took some hormonal supplement in 1991 when she underwent menopause but did not take any hormone the last 10 years. No family history of breast cancer. CT PET scan was requested but insurance declined coverage but allowed CT scan of chest abdomen pelvis which was done on 01/14/2019 showed no evidence of metastatic disease but with right breast mass and right axillary lymphadenopathy patient She underwent echocardiogram on 03/10/2019 which showed ejection fraction 65%. Ms Ortiz underwent ultrasound renal arterial Doppler ordered by Dr. sidhu; which showed no sonographic evidence of hemodynamically significant renal artery stenosis bilaterally. her who reports that he has seen her speech to be slurred at times and her mouth is drawing at times he states this is not super new but seems to be little worse. He states is been going on since the summer. His story is that she presented to the emergency room with a blood pressure of 250/150 and nothing was done about it . He states she reminds me of a stroke patient . He reports that she is having a slower weaker more shuffling gait. He is also noted that her left hand has consistent persistent movement such as tremors. Underwent MRI scan of the brain on 05/04/2009 which showed widespread chronic small vessel ischemic changes. 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 Cerebral and cerebellar atrophy No evidence of metastatic disease f/u Sonogram of right breast and axilla was done on 05/24/2019 after 3 cycles of chemotherapy showed significant interval improvement in the biopsy-proven ductal carcinoma at 9:00 position right breast measuring 9.7 x 3.5 x 7.3 mm compared to 16 x 12 x 20 mm previously. Multiple enlarged lymph nodes right axilla the largest measuring 2.1 cm is decreased in size from previously related was 2.5 x 1.4 cm. because of persistent and progressive side effect related to chemotherapy, patient and her were not interested in continuing chemotherapy rather proceed with surgery, neoadjuvant chemotherapy was discontinued after 3/6 cycles of chemotherapy with TCH (P) so on 06/22/2019, she underwent bilateral mastectomy including right breast radical mastectomy which showed biopsy site present with fibrosis and dystrophic calcification, no residual viable tumor identified. 1 out of 8 lymph nodes with micro-metastasis, residual tumor less than 2 mm. Left breast shows benign findings. Came for follow-up, denies any specific complaints, no nausea vomiting no fever no chills, no diarrhea constipation, appetite is good, patient was referred to breast cancer clinic at [facility] but now patient refused to go there. Rather consider treatment here Medications: Atorvastatin Calcium 1 Tablet (of 20 mg) Oral daily, Dexamethasone (4 mg) Tablet Oral Take as Directed, HumuLIN R (100 Units/mL) Injection Take as Directed, hydroCHLOROthiazide 1 Tablet (of 25 mg) Oral daily, LORazepam 0.5 - 1 Tablet (of 1 mg) Oral t.i.d. PRN, Magnesium Oxide 1 Tablet (of 400 mg) Oral b.i.d., metFORMIN HCl 1 Tablet (of 500 mg) Oral b.i.d., OLANZapine 1 Tablet (of 20 mg) Oral at bedtime, Prochlorperazine Maleate 1 Tablet (of 10 mg) Oral q 4 hours PRN, Sertraline HCl 1 Tablet (of 50 mg) Oral daily, Valsartan 1 Tablet (of 160 mg) Oral daily Allergies: No Known Allergies. Review of Systems: Constitutional - Appetite is poor and weight is stable. No fever, chills, hot flashes or night sweats. Energy level is poor, ENMT - No sinus congestion/drainage. No mouth sores. No sore throat or difficulty swallowing, Hematologic/Lymphatic - Positive for easy bruising, Respiratory - Positive for shortness of breath and cough. No pleuritic pain or hemoptysis, Cardiovascular - No chest pains or palpitations reported today, Gastrointestinal - No nausea, no vomiting. No heartburn or acid reflux. No diarrhea or constipation. No blood in the stool or black stools, Genitourinary (F) - No dysuria or hematuria. No urinary frequency. No urgency. Positive for incontinence, Musculoskeletal - No joint or bone pain, Neurologic - Positive for dizziness. Pt has a significant hx of falls, Psychiatric - Positive for depression, anxiety and insomnia. Vital Signs: Performed on Aug 01, 2019 13:09 Height - 62.00 in Weight - 150.8 lbs (HIGH) BSA - 1.70 sq.m BMI - 27.58 Temperature - 97.5 F (LOW) Pulse - 89 /min Respiration - 20 /min BP - 134/84 mm(hg) O2 Sat - 98 % Pain - 5 Performance Status: 0 - Fully active, able to carry on all predisease activities without restrictions. (ECOG) Physical Examination: Respiratory - Lungs are clear to auscultation without rhonchi or wheezing, Cardiovascular - Regular rate and rhythm of heart, Extremities - no edema. Lab/Imaging: Test performed on Jul 03, 2019 12:35 Sodium 140 mmol/L Potassium 4.3 mmol/L Chloride 105 mmol/L CO2 22 mmol/L Anion Gap 17.3 BUN 12 mg/dL Creatinine 0.9 mg/dL Cr Clearance (Est) 72.2900 mL/min eGFR 64.1 mL/min Glucose 162 mg/dL Calcium 9.9 mg/dL Protein, Total 6.8 g/dL Albumin 3.4 g/dL Globulin 3.4 g/dL Bilirubin, Total 0.3 mg/dL ALT (SGPT) 10 U/L AST (SGOT) 12 U/L Alkaline Phosphatase 100 IU/L WBC 5.4 10 3/uL RBC 3.18 10 6/uL HGB 9.5 g/dL HCT 30.3 % MCV 95.3 fL MCH 29.9 pg MCHC 31.4 g/dL RDW 14.2 % Platelet Count 255 10 3/cmm MPV 9.9 fL Neutrophils 2.8 10 3/uL Lymphocytes 1.6 10 3/uL Monocytes 0.3 10 3/uL Eosinophils 0.5 10 3/uL Basophils 0.0 10 3/uL Neutrophil % 52.7 % Lymphocyte % 30.5 % Monocyte % 6.4 % Eosinophil % 9.3 % Basophils % 0.7 % Test performed on May 30, 2019 10:25 Manual Lymphocytes 9.4 % Manual Monocytes 2.6 % Manual Eosinophils 0.1 % Manual Basophils 0.7 % NRBCs 0.0 /100 WBC Test performed on May 15, 2019 11:00 ABO & Rh Type # 2 AB POSITIVE Test performed on May 15, 2019 09:10 Packed Red Cells (PRBC) [id number] TRANSFUSED PRODUCT: LEUKOREDUCED RED CELL 1ST CONT COUNT: 1 CBC Slide Review SLIDE REVIEW PERFORM SLIDE REVIEW AGREES WITH AUTOMATED RESULTS Type & Screen BLD TYPE AB POSITIVE AB SCREEN GEL NEGATIVE BLD TYPE AB POSITIVE AB SCREEN GEL NEGATIVE Test performed on Apr 18, 2019 10:55 Magnesium 1.8 mg/dL Test performed on Mar 02, 2019 13:08 CA 27.29 21.33 U/mL Impression: after 3/6 cycles of TCH(P) underwent bilateral mastectomies on 06/22/2019 and it showed excellent response in her primary right breast carcinoma with no residual viable tumor identified and 1 out of 8 right axillary lymph node showed micrometastasis, residual tumor size less than 2 mm. Left breast shows benign findings. Right breast cancer with biopsy-proven right axillary lymph node involvement per ultrasound-guided biopsy done on 02/09/2019 which showed ER less than 1% DC less than 1% e.g. ER/DC negative and HER-2/lyndon 3+ positive, Ki-67 13% Mammogram done on 01/17/2019 showed right breast mass at 9:00 position, 5 cm from the nipple there is 1.6 x 1.2 x 2.0 cm mass irregular borders, in addition multiple enlarged right axillary lymph nodes, the largest measuring 2.5 x 1.4 Adjustment disorder/depression since teenager-controlled with medication at present. Being HER-2/lyndon positive, she was offered neoadjuvant chemotherapy regimen with docetaxel/carboplatin/Herceptin/pertuzumab every 3 weeks ???6 cycles followed by surgery. Mrs Ortiz and her prefer to preserve her breast. Mrs. Ortiz did have Port-A-Cath placement in the left sub-clavian vein by Dr. Howell on 03/09/2019. She began her first cycle of chemotherapy on 03/29/2019. She has required supportive care with hydration due to nausea and persistent diarrhea.completed 3 cycles of chemotherapy on 05/11/2019, at that time patient and her decided to discontinue recommended neoadjuvant chemotherapy because of related side effects and toxicity and decided to proceed with surgery and she underwent bilateral mastectomies on 06/22/2019 and it showed excellent response in her primary right breast carcinoma with no residual viable tumor identified and 1 out of 8 right axillary lymph node showed micrometastasis, residual tumor size less than 2 mm. Left breast shows benign findings. Plan: . Discussed with patient regarding her labs white blood count 5 hemoglobin 11.3 crit 34.3 platelets 167,000 Clinically, patient is doing well, now with a no evidence of recurrence of disease and adjuvant chemotherapy for microscopic lymph node positive disease in the consideration. Patient completed 3 out of 6 cycles of recommended neoadjuvant chemotherapy and discontinued at patient request because of intolerability. Treatment options including completing the remaining 3 cycles followed by Herceptin for total 2 months was discussed but patient is refusing chemotherapy rather consider Herceptin plus perjeta and if could not tolerate then she will continue with Herceptin alone for total 12 month duration. We will obtain baseline echocardiogram prior to treatment and also obtain approval from her insurance. And consider chemotherapy teaching. Patient said her blood sugar stayed on 150-250 . Patient is not on anti-diabetes treatment she was advised to monitor her diet as she is considering lots of sugar. And also advised to discuss with her primary care physician for evaluation and management. Return to clinic 1 week after treatment was initiated with CBC CMP Signed By: John Vela M.D. <<Signature on File>>
--- NOTE | 2019-08-11 09:37 | USCV_ITS ---
Jasmin Ortiz Age: 58 Gender: F : 1960 Exam Date: 08/11/2019 10:04 Ordering Phys: John Vela MD Technologist: Yen Davis Exam Location: [facility] [place] Indication: breast CA, high risk medication BP: 112 / 74 HR: 84 Rhythm: Sinus Technical Quality: Adequate MEASUREMENTS (Male / Female) Normal Values 2D ECHO LV Diastolic Diameter PLAX 3.6 cm 4.2 - 5.9 / 3.9 - 5.3 cm LV Systolic Diameter PLAX 2.4 cm IVS Diastolic Thickness 1.3 cm 0.6 - 1.0 / 0.6 - 0.9 cm IVS Systolic Thickness 1.5 cm LVPW Diastolic Thickness 1.2 cm 0.6 - 1.0 / 0.6 - 0.9 cm LVPW Systolic Thickness 1.4 cm LVOT Diameter 2.0 cm LV Ejection Fraction 2D Teich 63.0 % LV Ejection Fraction MOD 2C 87.7 % LV Ejection Fraction 2C AL 89.7 % LA Diameter 2.5 cm LA Width 2.4 cm LA Height 3.5 cm RA Width 3.0 cm RA Height 3.4 cm Aorta at Sinotubular Diameter 2.4 cm M-MODE LV Diastolic Diameter MM 3.5 cm 4.2 - 5.9 / 3.9 - 5.3 cm LV Systolic Diameter MM 2.0 cm LV Ejection Fraction MM Teich 75.1 % IVS Diastolic Thickness MM 1.2 cm 0.6 - 1.0 / 0.6 - 0.9 cm IVS Systolic Thickness MM 1.5 cm LVPW Diastolic Thickness MM 1.2 cm 0.6 - 1.0 / 0.6 - 0.9 cm LVPW Systolic Thickness MM 1.5 cm Aortic Annulus Diameter 3.1 cm LA Ao Ratio MM 0.8 MV E Point Septal Separation 0.1 cm FINDINGS Left Ventricle Normal left ventricular cavity size. Increased left ventricular wall thickness. Normal left ventricular systolic function. Left ventricular ejection fraction is estimated at 75 %. No regional wall motion abnormalities. Right Ventricle Normal right ventricular size and systolic function. Right Atrium Normal right atrial size. Left Atrium Normal left atrial size. Mitral Valve Structurally normal mitral valve. No mitral valve stenosis. Aortic Valve Structurally normal trileaflet aortic valve. No aortic valve stenosis. Tricuspid Valve Structurally normal tricuspid valve. Pulmonic Valve Pulmonic valve not well visualized. No pulmonary valve regurgitation. Pericardium No pericardial effusion. Aorta Normal size aortic root and proximal ascending aorta. CONCLUSIONS 1. This is a limited study. 2. Normal left ventricular cavity size and systolic function. Left ventricular ejection fraction is estimated at 75 %. No regional wall motion abnormalities. 3. Normal right ventricular size and systolic function. 4. When compared to previous echocardiogram dated 05/16/2019, there may not have been any significant change. Anh Clark MD (Electronically Signed) Final Date: 11 August 2019 14:45 S
== END 2019-08-15 23:59 | disposition home or self-care (01) ==
LOC: ONCMED 09:31
PROVIDERS: PCP Surgery; Visit Provider Internal Medicine Hematology & Oncology
DX: C50.411 Malignant neoplasm of upper-outer quadrant of right female breast (principal); Z79.899 Other long term (current) drug therapy
CPT/HCPCS: 93308; 96376

== ENCOUNTER 2019-08-11 10:15 | Outpatient (RCR) | payer MEDICAID, SELFPAY ==
[2019-07-25 16:57] LABS: Alanine Aminotransferase 15 U/L (0-33); Albumin Level 4.3 g/dL (3.5-5.2); Alkaline Phosphatase 97 IU/L (35-105); Anion Gap 19.6 (5-19); Aspartate Amino Transferase 22 U/L (0-32); Basophils # 0.1 10^3/uL (0.0-0.1); Basophils % 0.9 %; Blood Urea Nitrogen 29 mg/dL (6-20); Calcium 9.5 mg/dL (8.5-10.5); Carbon Dioxide 23 mmol/L (22-29); Chloride 102 mmol/L (98-107); Eosinophils # 0.5 10^3/uL (0.0-0.8); Globulin 3.1 g/dL (1.3-4.6); Glomerular Filtration Rate 50.8 mL/min (90-130); Glucose 142 mg/dL (65-115); Hematocrit 36.7 % (37.0-47.0); Lymphocytes # 2.4 10^3/uL (0.8-4.8); Lymphocytes % 33.1 %; Mean Corpuscular HGB Conc 32.7 g/dL (30.0-36.0); Mean Corpuscular Hemoglobin 29.6 pg (28.0-34.0); Mean Corpuscular Volume 90.4 fL (81-99); Mean Platelet Volume 10.5 fL (7.4-10.4); Monocytes # 0.7 10^3/uL (0.2-0.9); Monocytes % 8.8 %; Neutrophils # 3.7 10^3/uL (1.8-7.7); Neutrophils % 49.7 %; Nucleated Red Blood Cells % 0 %; Osmolality Calculated 291 mOsm/kg (285-295); Platelet Count 278 10^3/cmm (130-400); Potassium 3.6 mmol/L (3.5-5.1); Red Blood Count 4.06 10^6/uL (4.1-5.3); Red Cell Distribution Width 13.9 % (12.1-15.1); Sodium 141 mmol/L (136-145); Total Bilirubin 0.4 mg/dL (0.15-1.2); Total Protein 7.4 g/dL (6.6-8.7); White Blood Count 7.4 10^3/uL (4.0-10.0)
[2019-08-01] MEDS: alteplase 1 mg/mL SDV 2 mL 2 MG INTRACATH ×2 (11:00→13:45)
[2019-08-01 13:04] LABS: Basophils % 0.8 %; Eosinophils # 0.3 10^3/uL (0.0-0.8); Eosinophils % 5.8 %; Hematocrit 34.3 % (37.0-47.0); Hemoglobin 11.3 g/dL (11.5-15.3); Lymphocytes # 1.5 10^3/uL (0.8-4.8); Lymphocytes % 28.8 %; Mean Corpuscular HGB Conc 32.9 g/dL (30.0-36.0); Mean Corpuscular Hemoglobin 30.4 pg (28.0-34.0); Mean Corpuscular Volume 92.2 fL (81-99); Mean Platelet Volume 10.5 fL (7.4-10.4); Monocytes # 0.4 10^3/uL (0.2-0.9); Monocytes % 7.3 %; Neutrophils # 2.9 10^3/uL (1.8-7.7); Neutrophils % 56.9 %; Nucleated Red Blood Cells % 0 %; Platelet Count 167 10^3/cmm (130-400); Red Blood Count 3.72 10^6/uL (4.1-5.3); Red Cell Distribution Width 13.7 % (12.1-15.1)
[2019-08-01 13:18] LABS: Alanine Aminotransferase 15 U/L (0-33); Albumin Level 4.1 g/dL (3.5-5.2); Alkaline Phosphatase 87 IU/L (35-105); Anion Gap 16.6 (5-19); Blood Urea Nitrogen 15 mg/dL (6-20); Calcium 9.8 mg/dL (8.5-10.5); Carbon Dioxide 25 mmol/L (22-29); Chloride 103 mmol/L (98-107); Globulin 2.9 g/dL (1.3-4.6); Glomerular Filtration Rate 64.1 mL/min (90-130); Glucose 143 mg/dL (65-115); Osmolality Calculated 289 mOsm/kg (285-295); Potassium 4.6 mmol/L (3.5-5.1); Sodium 140 mmol/L (136-145); Total Bilirubin 0.4 mg/dL (0.15-1.2)
[2019-08-01 13:52] LABS: Aspartate Amino Transferase 19 U/L (0-32)
== END 2019-08-15 23:59 | disposition home or self-care (01) ==
LOC: RAD 10:15
PROVIDERS: Nurse Practitioner; PCP Surgery; Visit Provider Internal Medicine Hematology & Oncology
DX: C50.411 Malignant neoplasm of upper-outer quadrant of right female breast (principal); C77.3 Secondary and unspecified malignant neoplasm of axilla and upper limb lymph nodes; T82.594A Other mechanical complication of infusion catheter, initial encounter; Y80.1 Therapeutic (nonsurgical) and rehabilitative physical medicine devices associated with adverse incidents; Z17.1 Estrogen receptor negative status [ER-]; F43.20 Adjustment disorder, unspecified; F32.9 Major depressive disorder, single episode, unspecified; Z91.81 History of falling; Z79.899 Other long term (current) drug therapy; Z90.13 Acquired absence of bilateral breasts and nipples
CPT/HCPCS: 36593; 80053; 85025; 96374; 99214; J2997

== ENCOUNTER → 2019-08-24 08:38 | Outpatient (BNVA) | payer MEDICAID, SELFPAY | PROVIDERS: Visit Provider Nurse Practitioner Psychiatric/Mental Health | DX: F06.30 Mood disorder due to known physiological condition, unspecified (principal); F41.9 Anxiety disorder, unspecified | CPT/HCPCS: 99212 ==

== ENCOUNTER 2019-09-05 06:44 | Outpatient (RCR) | payer MEDICAID, SELFPAY ==
[2019-08-16] MEDS: sodium chloride 0.9% 250 ML 75 ML IV (13:00)
[2019-08-16] MEDS: acetaminophen 325 mg Tablet 650 MG PO (13:15)
[2019-09-04 15:38] LABS: Basophils % 0.3 %; Eosinophils # 0.3 10^3/uL (0.0-0.8); Hematocrit 33.3 % (37.0-47.0); Hemoglobin 10.8 g/dL (11.5-15.3); Lymphocytes # 2.1 10^3/uL (0.8-4.8); Lymphocytes % 33.7 %; Mean Corpuscular HGB Conc 32.4 g/dL (30.0-36.0); Mean Corpuscular Hemoglobin 29.3 pg (28.0-34.0); Mean Corpuscular Volume 90.2 fL (81-99); Mean Platelet Volume 10.6 fL (7.4-10.4); Monocytes # 0.5 10^3/uL (0.2-0.9); Monocytes % 8.3 %; Neutrophils # 3.4 10^3/uL (1.8-7.7); Neutrophils % 53.4 %; Nucleated Red Blood Cells % 0 %; Platelet Count 189 10^3/cmm (130-400); Red Blood Count 3.69 10^6/uL (4.1-5.3); Red Cell Distribution Width 14.3 % (12.1-15.1); White Blood Count 6.3 10^3/uL (4.0-10.0)
[2019-09-04 16:50] LABS: Alanine Aminotransferase 15 U/L (0-33); Alkaline Phosphatase 99 IU/L (35-105); Anion Gap 21.2 (5-19); Aspartate Amino Transferase 15 U/L (0-32); Blood Urea Nitrogen 15 mg/dL (6-20); Calcium 9.5 mg/dL (8.5-10.5); Carbon Dioxide 24 mmol/L (22-29); Chloride 100 mmol/L (98-107); Globulin 3.7 g/dL (1.3-4.6); Glomerular Filtration Rate 56.7 mL/min (90-130); Glucose 146 mg/dL (65-115); Osmolality Calculated 293 mOsm/kg (285-295); Potassium 3.2 mmol/L (3.5-5.1); Sodium 142 mmol/L (136-145); Total Bilirubin 0.4 mg/dL (0.15-1.2); Total Protein 7.7 g/dL (6.6-8.7)
[2019-09-05] MEDS: sodium chloride 0.9% 250 ML 75 ML IV (11:10)
[2019-09-05] MEDS: acetaminophen 325 mg Tablet 650 MG PO (11:20)
--- NOTE | 2019-09-05 12:17 | ONC FU_ITS ---
Dr. Vela follow up note Patient: Jasmin Ortiz Unit #: [id number]: 1960 Dicatated By: John Vela M.D.Date of Visit:Sep 05, 2019 Onc Med Follow-up/Prog Note History of Present Illness: Mrs. Ortiz is a 58-year-old female who noted pain/discomfort in her right breast and subsequently a mass. She underwent mammogram on 01/17/2019 which showed at 9:00 position, 5 cm from the nipple there is 1.6 x 1.2 x 2 cm hypoechoic solid nodule with irregular borders suspicious for neoplasm. In addition, it reported multiple enlarged right axillary lymph nodes, the largest measuring 2.5 x 1.4 cm. Skin thickness at 9:00 measures approximately 1.7 mm, it was read as BI-RADS 5. Ultrasound confirmation was done. Ms Ortiz underwent ultrasound-guided biopsy of right breast mass. The pathology came back reporting infiltrating carcinoma. Ultrasound-guided biopsy of right axillary lymph node biopsy also confirmed infiltrating carcinoma and breast cancer prognostic profile showed estrogen receptor less than 1%, progesterone less than 1% e.g. ER/ND negative HER-2/lyndon 3+ positive, Ki-67 13%, intermediate prognostic risk. 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 History of weight loss, due to poor appetite and off and on night sweats since May 2018 also occasionally fever. As far as breast cancer risk analysis concern, her menarche was at age 12, never had a , she took some hormonal supplement in 1991 when she underwent menopause but did not take any hormone the last 10 years. No family history of breast cancer. CT PET scan was requested but insurance declined coverage but allowed CT scan of chest abdomen pelvis which was done on 01/14/2019 showed no evidence of metastatic disease but with right breast mass and right axillary lymphadenopathy patient She underwent echocardiogram on 03/10/2019 which showed ejection fraction 65%. Ms Ortiz underwent ultrasound renal arterial Doppler ordered by Dr. sidhu; which showed no sonographic evidence of hemodynamically significant renal artery stenosis bilaterally. her who reports that he has seen her speech to be slurred at times and her mouth is drawing at times he states this is not super new but seems to be little worse. He states is been going on since the summer. His story is that she presented to the emergency room with a blood pressure of 250/150 and nothing was done about it . He states she reminds me of a stroke patient . He reports that she is having a slower weaker more shuffling gait. He is also noted that her left hand has consistent persistent movement such as tremors. Underwent MRI scan of the brain on 05/04/2009 which showed widespread chronic small vessel ischemic changes. 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 Cerebral and cerebellar atrophy No evidence of metastatic disease f/u Sonogram of right breast and axilla was done on 05/24/2019 after 3 cycles of chemotherapy showed significant interval improvement in the biopsy-proven ductal carcinoma at 9:00 position right breast measuring 9.7 x 3.5 x 7.3 mm compared to 16 x 12 x 20 mm previously. Multiple enlarged lymph nodes right axilla the largest measuring 2.1 cm is decreased in size from previously related was 2.5 x 1.4 cm. because of persistent and progressive side effect related to chemotherapy, patient and her were not interested in continuing chemotherapy rather proceed with surgery, neoadjuvant chemotherapy was discontinued after 3/6 cycles of chemotherapy with TCH (P) so on 06/22/2019, she underwent bilateral mastectomy including right breast radical mastectomy which showed biopsy site present with fibrosis and dystrophic calcification, no residual viable tumor identified. 1 out of 8 lymph nodes with micro-metastasis, residual tumor less than 2 mm. Left breast shows benign findings.started on maintenance therapy with 3 weekly Herceptin/perjeta on 08/16/2019 Echo done on 08/11/2019 showed ejection fraction 75% Came for follow-up, denies any specific complaints, no fever or chills, no nausea or vomiting, no diarrhea constipation, no shortness of breath or chest pain, no peripheral edema. Tolerating Herceptin/perjeta well Medications: Atorvastatin Calcium 1 Tablet (of 20 mg) Oral daily, Dexamethasone (4 mg) Tablet Oral Take as Directed, HumuLIN R (100 Units/mL) Injection Take as Directed, hydroCHLOROthiazide 1 Tablet (of 25 mg) Oral daily, LORazepam 0.5 - 1 Tablet (of 1 mg) Oral t.i.d. PRN, Magnesium Oxide 1 Tablet (of 400 mg) Oral b.i.d., metFORMIN HCl 1 Tablet (of 500 mg) Oral b.i.d., OLANZapine 1 Tablet (of 20 mg) Oral at bedtime, Prochlorperazine Maleate 1 Tablet (of 10 mg) Oral q 4 hours PRN, Sertraline HCl 1 Tablet (of 50 mg) Oral daily, Valsartan 1 Tablet (of 160 mg) Oral daily Allergies: No Known Allergies. Review of Systems: Constitutional - Appetite is poor and weight is stable. No fever, chills, hot flashes or night sweats. Energy level is poor, ENMT - No sinus congestion/drainage. No mouth sores. No sore throat or difficulty swallowing, Hematologic/Lymphatic - Positive for easy bruising, Respiratory - Positive for shortness of breath and cough. No pleuritic pain or hemoptysis, Cardiovascular - No chest pains or palpitations reported today, Gastrointestinal - Positive for nausea, no vomiting. No heartburn or acid reflux. No diarrhea or constipation. No blood in the stool or black stools, Genitourinary (F) - No dysuria or hematuria. No urinary frequency. No urgency. Positive for incontinence, Musculoskeletal - No joint or bone pain, Neurologic - Positive for dizziness. Pt has a significant hx of falls, Psychiatric - Positive for depression, anxiety and insomnia. Vital Signs: Performed on Sep 05, 2019 10:08 Height - 62.00 in Weight - 143.6 lbs (LOW) BSA - 1.66 sq.m BMI - 26.26 Temperature - 98.0 F (LOW) Pulse - 64 /min Respiration - 18 /min BP - 145/93 mm(hg) (HIGH) O2 Sat - 100 % Pain - 0 Performance Status: 0 - Fully active, able to carry on all predisease activities without restrictions. (ECOG) Physical Examination: Respiratory - Lungs are clear, Cardiovascular - Regular rate and rhythm, Extremities - no visible edema. Lab/Imaging: Test performed on Aug 01, 2019 10:40 Sodium 140 mmol/L Potassium 4.6 mmol/L Chloride 103 mmol/L CO2 25 mmol/L Anion Gap 16.6 BUN 15 mg/dL Creatinine 0.9 mg/dL Cr Clearance (Est) 72.68 mL/min eGFR 64.1 mL/min Glucose 143 mg/dL Calcium 9.8 mg/dL Protein, Total 7.0 g/dL Albumin 4.1 g/dL Globulin 2.9 g/dL Bilirubin, Total 0.4 mg/dL ALT (SGPT) 15 U/L AST (SGOT) 19 U/L Alkaline Phosphatase 87 IU/L WBC 5.0 10 3/uL RBC 3.72 10 6/uL HGB 11.3 g/dL HCT 34.3 % MCV 92.2 fL MCH 30.4 pg MCHC 32.9 g/dL RDW 13.7 % Platelet Count 167 10 3/cmm MPV 10.5 fL Neutrophils 2.9 10 3/uL Lymphocytes 1.5 10 3/uL Monocytes 0.4 10 3/uL Eosinophils 0.3 10 3/uL Basophils 0.0 10 3/uL Neutrophil % 56.9 % Lymphocyte % 28.8 % Monocyte % 7.3 % Eosinophil % 5.8 % Basophils % 0.8 % Test performed on May 30, 2019 10:25 Manual Lymphocytes 9.4 % Manual Monocytes 2.6 % Manual Eosinophils 0.1 % Manual Basophils 0.7 % NRBCs 0.0 /100 WBC Test performed on May 15, 2019 11:00 ABO & Rh Type # 2 AB POSITIVE Test performed on May 15, 2019 09:10 Packed Red Cells (PRBC) [id number] TRANSFUSED PRODUCT: LEUKOREDUCED RED CELL 1ST CONT COUNT: 1 CBC Slide Review SLIDE REVIEW PERFORM SLIDE REVIEW AGREES WITH AUTOMATED RESULTS Type & Screen BLD TYPE AB POSITIVE AB SCREEN GEL NEGATIVE BLD TYPE AB POSITIVE AB SCREEN GEL NEGATIVE Test performed on Apr 18, 2019 10:55 Magnesium 1.8 mg/dL Impression: after 3/6 cycles of TCH(P) underwent bilateral mastectomies on 06/22/2019 and it showed excellent response in her primary right breast carcinoma with no residual viable tumor identified and 1 out of 8 right axillary lymph node showed micrometastasis, residual tumor size less than 2 mm. Left breast shows benign findings. Right breast cancer with biopsy-proven right axillary lymph node involvement per ultrasound-guided biopsy done on 02/09/2019 which showed ER less than 1% ND less than 1% e.g. ER/ND negative and HER-2/lyndon 3+ positive, Ki-67 13% Mammogram done on 01/17/2019 showed right breast mass at 9:00 position, 5 cm from the nipple there is 1.6 x 1.2 x 2.0 cm mass irregular borders, in addition multiple enlarged right axillary lymph nodes, the largest measuring 2.5 x 1.4 Adjustment disorder/depression since teenager-controlled with medication at present. Being HER-2/lyndon positive, she was offered neoadjuvant chemotherapy regimen with docetaxel/carboplatin/Herceptin/pertuzumab every 3 weeks ???6 cycles followed by surgery. Mrs Ortiz and her prefer to preserve her breast. Mrs. Ortiz did have Port-A-Cath placement in the left sub-clavian vein by Dr. Howell on 03/09/2019. She began her first cycle of chemotherapy on 03/29/2019. She has required supportive care with hydration due to nausea and persistent diarrhea.completed 3 cycles of chemotherapy on 05/11/2019, at that time patient and her decided to discontinue recommended neoadjuvant chemotherapy because of related side effects and toxicity and decided to proceed with surgery and she underwent bilateral mastectomies on 06/22/2019 and it showed excellent response in her primary right breast carcinoma with no residual viable tumor identified and 1 out of 8 right axillary lymph node showed micrometastasis, residual tumor size less than 2 mm. Left breast shows benign findings. Plan: . Discussed with patient regarding her labs white blood count 6.3 hemoglobin 10.8 crit 33.3 platelets 189,000 CMP within normal limit except potassium 3.2 glucose 146 Clinically, patient is doing reasonably well, tolerating Herceptin/perjeta well. Her follow-up echo done on 08/11/2019 showed ejection fraction 75%, no change from previous one. We will proceed with next 3 weekly dose of Herceptin/perjeta and then she will return to clinic in 3 weeks with CBC CMP As far as mild hypokalemia is concern, we'll give her prescription for potassium supplement she'll take 20 mEq daily for 3 days then as needed. Signed By: John Vela M.D. <<Signature on File>>
== END 2019-09-14 23:59 | disposition home or self-care (01) ==
LOC: ONCMED 06:44
PROVIDERS: Visit Provider Internal Medicine Hematology & Oncology
DX: Z51.12 Encounter for antineoplastic immunotherapy (principal); C50.811 Malignant neoplasm of overlapping sites of right female breast; Z17.1 Estrogen receptor negative status [ER-]; D24.2 Benign neoplasm of left breast; C77.3 Secondary and unspecified malignant neoplasm of axilla and upper limb lymph nodes; E87.6 Hypokalemia; F43.21 Adjustment disorder with depressed mood; R19.7 Diarrhea, unspecified; Z90.13 Acquired absence of bilateral breasts and nipples; Z92.21 Personal history of antineoplastic chemotherapy; Z79.899 Other long term (current) drug therapy; Z95.828 Presence of other vascular implants and grafts
CPT/HCPCS: 36415; 80053; 85025; 96367; 96413; 96417; 99214; J1200; J3490; J7050; J9306; J9355

== ENCOUNTER 2019-09-27 06:40 | Outpatient (RCR) | payer MEDICAID, SELFPAY ==
[2019-09-25 16:21] LABS: Basophils % 0.4 %; Eosinophils # 0.2 10^3/uL (0.0-0.8); Eosinophils % 2.8 %; Hematocrit 34.6 % (37.0-47.0); Hemoglobin 10.8 g/dL (11.5-15.3); Lymphocytes # 1.7 10^3/uL (0.8-4.8); Lymphocytes % 31.7 %; Mean Corpuscular HGB Conc 31.2 g/dL (30.0-36.0); Mean Corpuscular Hemoglobin 28.2 pg (28.0-34.0); Mean Corpuscular Volume 90.3 fL (81-99); Mean Platelet Volume 10.8 fL (7.4-10.4); Monocytes # 0.4 10^3/uL (0.2-0.9); Monocytes % 6.9 %; Neutrophils # 3.1 10^3/uL (1.8-7.7); Neutrophils % 57.8 %; Nucleated Red Blood Cells % 0 %; Platelet Count 199 10^3/cmm (130-400); Red Blood Count 3.83 10^6/uL (4.1-5.3); Red Cell Distribution Width 14.7 % (12.1-15.1); White Blood Count 5.4 10^3/uL (4.0-10.0)
[2019-09-26 01:59] LABS: Alanine Aminotransferase 12 U/L (0-33); Albumin Level 4.1 g/dL (3.5-5.2); Alkaline Phosphatase 91 IU/L (35-105); Anion Gap 18.7 (5-19); Aspartate Amino Transferase 17 U/L (0-32); Blood Urea Nitrogen 26 mg/dL (6-20); Calcium 9.3 mg/dL (8.5-10.5); Carbon Dioxide 26 mmol/L (22-29); Chloride 99 mmol/L (98-107); Globulin 3.2 g/dL (1.3-4.6); Glomerular Filtration Rate 50.8 mL/min (90-130); Glucose 125 mg/dL (65-115); Osmolality Calculated 288 mOsm/kg (285-295); Potassium 3.7 mmol/L (3.5-5.1); Sodium 140 mmol/L (136-145); Total Bilirubin 0.3 mg/dL (0.15-1.2); Total Protein 7.3 g/dL (6.6-8.7)
[2019-09-27] MEDS: alteplase 1 mg/mL SDV 2 mL 2 MG INTRACATH (09:55)
[2019-09-27] MEDS: sodium chloride 0.9% 250 ML 75 ML IV (10:44)
[2019-09-27] MEDS: acetaminophen 325 mg Tablet 650 MG PO (10:44)
--- NOTE | 2019-09-27 18:10 | ONC FU_ITS ---
Dr. Vela follow up note Patient: Jasmin Ortiz Unit #: [id number]: 1960 Dicatated By: John Vela M.D.Date of Visit:September 27, 2019 Onc Med Follow-up/Prog Note History of Present Illness: Mrs. Ortiz is a 58-year-old female who noted pain/discomfort in her right breast and subsequently a mass. She underwent mammogram on 01/17/2019 which showed at 9:00 position, 5 cm from the nipple there is 1.6 x 1.2 x 2 cm hypoechoic solid nodule with irregular borders suspicious for neoplasm. In addition, it reported multiple enlarged right axillary lymph nodes, the largest measuring 2.5 x 1.4 cm. Skin thickness at 9:00 measures approximately 1.7 mm, it was read as BI-RADS 5. Ultrasound confirmation was done. Ms Ortiz underwent ultrasound-guided biopsy of right breast mass. The pathology came back reporting infiltrating carcinoma. Ultrasound-guided biopsy of right axillary lymph node biopsy also confirmed infiltrating carcinoma and breast cancer prognostic profile showed estrogen receptor less than 1%, progesterone less than 1% e.g. ER/[place] negative HER-2/lyndon 3+ positive, Ki-67 13%, intermediate prognostic risk. 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 History of weight loss, due to poor appetite and off and on night sweats since May 2018 also occasionally fever. As far as breast cancer risk analysis concern, her menarche was at age 12, never had a , she took some hormonal supplement in 1991 when she underwent menopause but did not take any hormone the last 10 years. No family history of breast cancer. CT PET scan was requested but insurance declined coverage but allowed CT scan of chest abdomen pelvis which was done on 01/14/2019 showed no evidence of metastatic disease but with right breast mass and right axillary lymphadenopathy patient She underwent echocardiogram on 03/10/2019 which showed ejection fraction 65%. Ms Ortiz underwent ultrasound renal arterial Doppler ordered by Dr. sidhu; which showed no sonographic evidence of hemodynamically significant renal artery stenosis bilaterally. her who reports that he has seen her speech to be slurred at times and her mouth is drawing at times he states this is not super new but seems to be little worse. He states is been going on since the summer. His story is that she presented to the emergency room with a blood pressure of 250/150 and nothing was done about it . He states she reminds me of a stroke patient . He reports that she is having a slower weaker more shuffling gait. He is also noted that her left hand has consistent persistent movement such as tremors. Underwent MRI scan of the brain on 05/04/2009 which showed widespread chronic small vessel ischemic changes. 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 Cerebral and cerebellar atrophy No evidence of metastatic disease f/u Sonogram of right breast and axilla was done on 05/24/2019 after 3 cycles of chemotherapy showed significant interval improvement in the biopsy-proven ductal carcinoma at 9:00 position right breast measuring 9.7 x 3.5 x 7.3 mm compared to 16 x 12 x 20 mm previously. Multiple enlarged lymph nodes right axilla the largest measuring 2.1 cm is decreased in size from previously related was 2.5 x 1.4 cm. because of persistent and progressive side effect related to chemotherapy, patient and her were not interested in continuing chemotherapy rather proceed with surgery, neoadjuvant chemotherapy was discontinued after 3/6 cycles of chemotherapy with TCH (P) so on 06/22/2019, she underwent bilateral mastectomy including right breast radical mastectomy which showed biopsy site present with fibrosis and dystrophic calcification, no residual viable tumor identified. 1 out of 8 lymph nodes with micro-metastasis, residual tumor less than 2 mm. Left breast shows benign findings.started on maintenance therapy with 3 weekly Herceptin/perjeta on 08/16/2019 Echo done on 08/11/2019 showed ejection fraction 75% Came for follow-up, denies any specific complaints, except generalized weakness and fatigue otherwise no fever or chills, no nausea or vomiting, no diarrhea constipation, no palpitation, no shortness of breath, no lower extremity edema. Tolerating Herceptin/perjeta well otherwise Medications: Atorvastatin Calcium 1 Tablet (of 20 mg) Oral daily, Dexamethasone (4 mg) Tablet Oral Take as Directed, HumuLIN R (100 Units/mL) Injection Take as Directed, hydroCHLOROthiazide 1 Tablet (of 25 mg) Oral daily, LORazepam 0.5 - 1 Tablet (of 1 mg) Oral t.i.d. PRN, Magnesium Oxide 1 Tablet (of 400 mg) Oral b.i.d., metFORMIN HCl 1 Tablet (of 500 mg) Oral b.i.d., OLANZapine 1 Tablet (of 20 mg) Oral at bedtime, Prochlorperazine Maleate 1 Tablet (of 10 mg) Oral q 4 hours PRN, Sertraline HCl 1 Tablet (of 50 mg) Oral daily, Valsartan 1 Tablet (of 160 mg) Oral daily Allergies: No Known Allergies. Review of Systems: Review of Systems is not available for this patient. Vital Signs: Performed on September 27, 2019 08:34 Height - 62.00 in Weight - 139.4 lbs (LOW) BSA - 1.64 sq.m BMI - 25.50 Temperature - 98.0 F (LOW) Pulse - 96 /min Respiration - 18 /min BP - 136/88 mm(hg) O2 Sat - 99 % Pain - 0 Performance Status: 0 - Fully active, able to carry on all predisease activities without restrictions. (ECOG) Physical Examination: Respiratory - Lungs are clear to auscultation without rhonchi or wheezing, Cardiovascular - Regular rate and rhythm of heart, Extremities - no edema, or rash. Lab/Imaging: Test performed on September 25, 2019 12:30 Sodium 140 mmol/L Potassium 3.7 mmol/L Chloride 99 mmol/L CO2 26 mmol/L Anion Gap 18.7 BUN 26 mg/dL Creatinine 1.1 mg/dL Cr Clearance (Est) 59.4600 mL/min eGFR 50.8 mL/min Glucose 125 mg/dL Calcium 9.3 mg/dL Protein, Total 7.3 g/dL Albumin 4.1 g/dL Globulin 3.2 g/dL Bilirubin, Total 0.3 mg/dL ALT (SGPT) 12 U/L AST (SGOT) 17 U/L Alkaline Phosphatase 91 IU/L WBC 5.4 10 3/uL RBC 3.83 10 6/uL HGB 10.8 g/dL HCT 34.6 % MCV 90.3 fL MCH 28.2 pg MCHC 31.2 g/dL RDW 14.7 % Platelet Count 199 10 3/cmm MPV 10.8 fL Neutrophils 3.1 10 3/uL Lymphocytes 1.7 10 3/uL Monocytes 0.4 10 3/uL Eosinophils 0.2 10 3/uL Basophils 0.0 10 3/uL Neutrophil % 57.8 % Lymphocyte % 31.7 % Monocyte % 6.9 % Eosinophil % 2.8 % Basophils % 0.4 % Test performed on May 30, 2019 10:25 Manual Lymphocytes 9.4 % Manual Monocytes 2.6 % Manual Eosinophils 0.1 % Manual Basophils 0.7 % NRBCs 0.0 /100 WBC Test performed on May 15, 2019 11:00 ABO & Rh Type # 2 AB POSITIVE Test performed on May 15, 2019 09:10 Packed Red Cells (PRBC) [id number] TRANSFUSED PRODUCT: LEUKOREDUCED RED CELL 1ST CONT COUNT: 1 CBC Slide Review SLIDE REVIEW PERFORM SLIDE REVIEW AGREES WITH AUTOMATED RESULTS Type & Screen BLD TYPE AB POSITIVE AB SCREEN GEL NEGATIVE BLD TYPE AB POSITIVE AB SCREEN GEL NEGATIVE Test performed on Apr 18, 2019 10:55 Magnesium 1.8 mg/dL Impression: after 3/6 cycles of TCH(P) underwent bilateral mastectomies on 06/22/2019 and it showed excellent response in her primary right breast carcinoma with no residual viable tumor identified and 1 out of 8 right axillary lymph node showed micrometastasis, residual tumor size less than 2 mm. Left breast shows benign findings. Right breast cancer with biopsy-proven right axillary lymph node involvement per ultrasound-guided biopsy done on 02/09/2019 which showed ER less than 1% KY less than 1% e.g. ER/[place] negative and HER-2/lyndon 3+ positive, Ki-67 13% Mammogram done on 01/17/2019 showed right breast mass at 9:00 position, 5 cm from the nipple there is 1.6 x 1.2 x 2.0 cm mass irregular borders, in addition multiple enlarged right axillary lymph nodes, the largest measuring 2.5 x 1.4 Adjustment disorder/depression since teenager-controlled with medication at present. Being HER-2/lyndon positive, she was offered neoadjuvant chemotherapy regimen with docetaxel/carboplatin/Herceptin/pertuzumab every 3 weeks ???6 cycles followed by surgery. Mrs Ortiz and her prefer to preserve her breast. Mrs. Ortiz did have Port-A-Cath placement in the left sub-clavian vein by Dr. Howell on 03/09/2019. She began her first cycle of chemotherapy on 03/29/2019. She has required supportive care with hydration due to nausea and persistent diarrhea.completed 3 cycles of chemotherapy on 05/11/2019, at that time patient and her decided to discontinue recommended neoadjuvant chemotherapy because of related side effects and toxicity and decided to proceed with surgery and she underwent bilateral mastectomies on 06/22/2019 and it showed excellent response in her primary right breast carcinoma with no residual viable tumor identified and 1 out of 8 right axillary lymph node showed micrometastasis, residual tumor size less than 2 mm. Left breast shows benign findings. Plan: . Discussed with patient regarding her labs white blood count 5.4 hemoglobin 10.8 crit 34.6 platelets 199,000 CMP within normal limits Clinically, patient is doing well tolerating adjuvant therapy with Herceptin/perjeta well. We'll proceed with next 3 weekly dose today and then return to clinic in 3 weeks with CBC CMP Mild anemia, but stable, etiology appears multifactorial, we will consider iron studies, B12 level when she return to clinic in 3 weeks, if deficiency, consider supplements Signed By: John Vela M.D. <<Signature on File>>
== END 2019-10-15 23:59 | disposition home or self-care (01) ==
LOC: ONCMED 06:40
PROVIDERS: Visit Provider Internal Medicine Hematology & Oncology
DX: Z51.11 Encounter for antineoplastic chemotherapy (principal); C50.811 Malignant neoplasm of overlapping sites of right female breast; Z17.1 Estrogen receptor negative status [ER-]; C77.3 Secondary and unspecified malignant neoplasm of axilla and upper limb lymph nodes; D24.2 Benign neoplasm of left breast; D64.9 Anemia, unspecified; Z90.12 Acquired absence of left breast and nipple; Z90.11 Acquired absence of right breast and nipple; Z79.899 Other long term (current) drug therapy; Z79.818 Long term (current) use of other agents affecting estrogen receptors and estrogen levels
CPT/HCPCS: 36593; 80053; 85025; 96367; 96375; 96413; 96417; 99214; J1200; J2997; J3490; J7050; J9306; J9355

== ENCOUNTER → 2019-10-05 08:31 | Outpatient (BNVA) | payer MEDICAID, SELFPAY | PROVIDERS: Visit Provider Nurse Practitioner Psychiatric/Mental Health | DX: F41.9 Anxiety disorder, unspecified (principal); F06.30 Mood disorder due to known physiological condition, unspecified | CPT/HCPCS: 99212 ==

== ENCOUNTER → 2019-10-17 11:17 | Outpatient (BNVA) | payer MEDICAID, SELFPAY | PROVIDERS: Visit Provider Internal Medicine Hematology & Oncology | DX: C50.919 Malignant neoplasm of unspecified site of unspecified female breast (principal) | CPT/HCPCS: 80053; 82607; 82728; 82746; 83550; 85025 ==

== ENCOUNTER → 2019-11-06 11:46 | Outpatient (BNVA) | payer MEDICAID, SELFPAY | PROVIDERS: Visit Provider Internal Medicine Hematology & Oncology | DX: C50.919 Malignant neoplasm of unspecified site of unspecified female breast (principal) | CPT/HCPCS: 80053; 85025 ==

== ENCOUNTER 2019-11-08 06:48 | Outpatient (RCR) | payer MEDICAID, SELFPAY ==
--- NOTE | 2019-10-18 | IR_ITS ---
WS: [id number] [place] fluoroscopy [id number] REASON FOR EXAM: FLOW STUDY FOR NO BLOOD RETURN FLUOROSCOPY TIME: 1 minutes FINDINGS: Injection of contrast performed under fluoroscopic guidance there appears to be good flow t he contrast through the port area into the lower superior vena cava the port appears to be patent. IR/[place] [id number] IMPRESSION: Flow patterns through the arch show patency of the port.
[2019-10-18] MEDS: alteplase 1 mg/mL SDV 2 mL 2 MG IV ×2 (12:03→13:19)
[2019-10-18] MEDS: sodium chloride 0.9% 250 ML 75 ML IV (14:00)
[2019-10-18] MEDS: acetaminophen 325 mg Tablet 650 MG PO (14:00)
[2019-10-18] MEDS: iohexol 300 mg/mL 50 mL Btl IV (16:33)
--- NOTE | 2019-10-22 15:09 | ONC FU_ITS ---
[facility] Patient Note Patient: Jasmin Ortiz Unit #: [id number]: 1960 Dictated By: Miryam JarvisDate of Visit: Oct 18, 2019 Onc MED Follow-Up/Prog Note Chief Complaint: Right breast cancer History of Present Illness: Mrs. Ortiz is a 58-year-old female who noted pain/discomfort in her right breast and subsequently a mass. She underwent mammogram on 01/17/2019 which showed at 9:00 position, 5 cm from the nipple there is 1.6 x 1.2 x 2 cm hypoechoic solid nodule with irregular borders suspicious for neoplasm. In addition, it reported multiple enlarged right axillary lymph nodes, the largest measuring 2.5 x 1.4 cm. Skin thickness at 9:00 measures approximately 1.7 mm, it was read as BI-RADS 5. Ultrasound confirmation was done. Ms Ortiz underwent ultrasound-guided biopsy of right breast mass. The pathology came back reporting infiltrating carcinoma. Ultrasound-guided biopsy of right axillary lymph node biopsy also confirmed infiltrating carcinoma and breast cancer prognostic profile showed estrogen receptor less than 1%, progesterone less than 1% e.g. ER/VT negative HER-2/lyndon 3+ positive, Ki-67 13%, intermediate prognostic risk. 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 History of weight loss, due to poor appetite and off and on night sweats since May 2018 also occasionally fever. As far as breast cancer risk analysis concern, her menarche was at age 12, never had a , she took some hormonal supplement in 1991 when she underwent menopause but did not take any hormone the last 10 years. No family history of breast cancer. CT PET scan was requested but insurance declined coverage but allowed CT scan of chest abdomen pelvis which was done on 01/14/2019 showed no evidence of metastatic disease but with right breast mass and right axillary lymphadenopathy patient She underwent echocardiogram on 03/10/2019 which showed ejection fraction 65%. Ms Ortiz underwent ultrasound renal arterial Doppler ordered by Dr. sidhu; which showed no sonographic evidence of hemodynamically significant renal artery stenosis bilaterally. her who reports that he has seen her speech to be slurred at times and her mouth is drawing at times he states this is not super new but seems to be little worse. He states is been going on since the summer. His story is that she presented to the emergency room with a blood pressure of 250/150 and nothing was done about it . He states she reminds me of a stroke patient . He reports that she is having a slower weaker more shuffling gait. He is also noted that her left hand has consistent persistent movement such as tremors. Underwent MRI scan of the brain on 05/04/2009 which showed widespread chronic small vessel ischemic changes. 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 Cerebral and cerebellar atrophy No evidence of metastatic disease f/u Sonogram of right breast and axilla was done on 05/24/2019 after 3 cycles of chemotherapy showed significant interval improvement in the biopsy-proven ductal carcinoma at 9:00 position right breast measuring 9.7 x 3.5 x 7.3 mm compared to 16 x 12 x 20 mm previously. Multiple enlarged lymph nodes right axilla the largest measuring 2.1 cm is decreased in size from previously related was 2.5 x 1.4 cm. because of persistent and progressive side effect related to chemotherapy, patient and her were not interested in continuing chemotherapy rather proceed with surgery, neoadjuvant chemotherapy was discontinued after 3/6 cycles of chemotherapy with TCH (P) so on 06/22/2019, she underwent bilateral mastectomy including right breast radical mastectomy which showed biopsy site present with fibrosis and dystrophic calcification, no residual viable tumor identified. 1 out of 8 lymph nodes with micro-metastasis, residual tumor less than 2 mm. Left breast shows benign findings. She started on maintenance therapy with 3 weekly Herceptin/perjeta on 08/16/2019 Echo done on 08/11/2019 showed ejection fraction 75% Mrs. Ortiz is here today for follow-up. She has no new concerns. She states overall she feels pretty good. She states she tires easily but recovers well with rest. She denies any fever or chills. She denies any mouth sores or sore throat difficulty swallowing. She denies any shortness of breath orthopnea. She denies any lower extremity edema. She states she is had no chest pain. She states she really has felt pretty good. She would like to get her strength back better though. She has no new pain. She is very alert and oriented. She is on her visit today. Her ECOG is 1. Past Medical History: Depression History of kidney stones Hypertension Stroke Past Surgical History: Breast biopsy Hysterectomy/bilateral salpingectomy-oophorectomy Kidney stone removal x2 Pelvic surgery Left subclavian Venous access device-Dr Howell in 2019 Allergies: No Known Allergies. Medications: Atorvastatin Calcium 1 Tablet (of 20 mg) Oral daily BD Insulin Syringe Miscellaneous Take as Directed Dexamethasone (4 mg) Tablet Oral Take as Directed HumuLIN R (100 Units/mL) Injection Take as Directed hydroCHLOROthiazide 1 Tablet (of 25 mg) Oral daily Lancets Miscellaneous LORazepam 0.5 - 1 Tablet (of 1 mg) Oral t.i.d. PRN Magnesium Oxide 1 Tablet (of 400 mg) Oral b.i.d. metFORMIN HCl 1 Tablet (of 500 mg) Oral b.i.d. OLANZapine 1 Tablet (of 20 mg) Oral at bedtime Prochlorperazine Maleate 1 Tablet (of 10 mg) Oral q 4 hours PRN Sertraline HCl 1 Tablet (of 50 mg) Oral daily Valsartan 1 Tablet (of 160 mg) Oral daily Family History: Ms. Ortiz's mother at age 64: congestive heart failure. Ms. Ortiz's father at age 60: suicide. Social History: Ms. Ortiz is and she is a disabled. She quit smoking 1 year ago but had smoked 1.0 pack/day for 3 years. She is a former drinker. Ms. Ortiz reports the following support systems: lives with spouse, significant other, family, or friends, lives in own house, supportive family/friends willing to assist with needs, and adequate transportation available for expected visits. Her diet consists of regular meals. She indicates her activity level as: regular exercise. Review Of Symptoms: Constitutional Denies fevers, chills, night sweats, or weight loss. Having fatigue but feeling better since last visit. Allergic/Immunologic No reactions. Eyes Denies significant visual changes. No diplopia. No amaurosis. ENMT Denies changes in hearing, sore throat, mouth sores, difficulty or changes in swallowing ability, and/or sinus drainage. Endocrine No diabetes, thyroid disease or hormone replacement. Denies hot flashes or night sweats. Hematologic/Lymphatic Denies easy bruising or bleeding. The patient denies any tender or palpable lymph nodes. Respiratory Denies dyspnea on exertion, chest pain, cough or hemoptysis. Denies orthopnea. Cardiovascular Denies anginal chest pain, palpitations or orthopnea. Gastrointestinal Denies vomiting, GI bleeding, or constipation. Denies change in bowel habits and/or stool color, no heartburn or early satiety. Still queasy and has had diarrhea up to 3 stools intermittently, but she states it is better overall and she as been using Imodium and it is working well. Genitourinary (F) No hematuria, hesitancy, incontinence, vaginal bleeding, discharge or other problems with urination. Musculoskeletal Denies joint pain, swelling or redness. No decreased range of motion. Integumentary Denies chronic rashes, inflammation, ulcerations or skin changes. Neurologic Denies blurred vision, and no areas of focal weakness or numbness. Shuffled gait. Psychiatric Denies insomnia, uncontrolled depression, ignacio or mood swings. Vital Signs: Performed on Oct 18, 2019 11:14 Height - 62.00 in Weight - 141.4 lbs (HIGH) BSA - 1.65 sq.m BMI - 25.86 Temperature - 98.5 F Pulse - 78 /min Respiration - 19 /min BP - 116/72 mm(hg) O2 Sat - 99 % Pain - 0,2 - Ambulatory/capable of all self-care, unable to perform any work activities. Up and about more than 50% of waking hours. (ECOG) Physical Examination: Constitutional Alert, oriented, no acute distress. Skin pink/pale, warm and dry. denies fever. has had moderate oral intake. Head Normocephalic; atraumatic. Eyes Conjunctivae and sclerae are clear and without icterus. Pupils are reactive and equal. Neck Supple without masses or thyromegaly. No jugular venous distension. Hematologic/Lymphatic No petechiae or purpura. No tender or palpable lymph nodes in the cervical or supraclavicular areas. Respiratory Lungs are clear to auscultation without rhonchi or wheezing. Cardiovascular Regular rate and rhythm of heart without murmurs,clicks, gallops or rubs. Abdomen Non-tender, non-distended, no masses, ascites. Good bowel sounds noted in all quads. No guarding or rebound tenderness. No pulsatile masses. Back/Spine Non-tender to palpation. Extremities No visible deformities, no cyanosis, clubbing or edema. Musculoskeletal No tenderness or swelling, normal range of motion without obvious weakness. Integumentary No rashes or lesions. Neurologic Left lower forearm and hand with notable tremor, very teary and emotional, slow, shuffled gait bilaterally, and slow speech but not slurred today. She seems to have some difficulty finding words at times. This is not a new finding as she has had Psychiatric Alert and oriented times three. Coherent speech. Verbalizes understanding of our discussions today. Laboratory:Test performed on Oct 17, 2019 11:17 Ferritin 145 ng/mL Folate 16.2 ng/mL Vitamin B12 303 pg/mL TIBC 309 mcg/dL Glucose 212 mg/dL BUN 26 mg/dL Creatinine 1.0 mg/dL Cr Clearance (Est) 65.41 mL/min Sodium 136 mmol/L Potassium 3.5 mmol/L Chloride 96 mmol/L CO2 21 mmol/L Calcium 9.9 mg/dL Protein, Total 7.0 g/dL Albumin 4.0 g/dL Globulin 3.0 g/dL Bilirubin, Total 0.3 mg/dL Alkaline Phosphatase 96 IU/L AST (SGOT) 24 IU/L ALT (SGPT) 28 IU/L WBC 6.6 10^9/L RBC 3.95 10^12/L HGB 11.2 g/dL HCT 35.9 % MCV 90.9 fl MCH 28.4 pg MCHC 31.2 g/dL RDW 15.0 % Platelet Count 200 10^9/L MPV 11.8 fL Neutrophils (Gran) 4.2 10^9/L Lymphocytes 1.7 10^9/L Monocytes 0.4 10^9/L Eosinophils 0.2 10^9/L Basophils 0.0 10^9/L Manual Lymphocytes 26.2 % Manual Monocytes 6.7 % Manual Eosinophils 2.7 % Manual Basophils 0.5 % Test performed on September 25, 2019 12:30 Anion Gap 18.7 eGFR 50.8 mL/min Neutrophil % 57.8 % Lymphocyte % 31.7 % Monocyte % 6.9 % Eosinophil % 2.8 % Basophils % 0.4 % Test performed on May 30, 2019 10:25 NRBCs 0.0 /100 WBC Test performed on May 15, 2019 11:00 ABO & Rh Type # 2 AB POSITIVE Test performed on May 15, 2019 09:10 Packed Red Cells (PRBC) [id number] TRANSFUSED PRODUCT: LEUKOREDUCED RED CELL 1ST CONT COUNT: 1 CBC Slide Review SLIDE REVIEW PERFORM SLIDE REVIEW AGREES WITH AUTOMATED RESULTS Type & Screen BLD TYPE AB POSITIVE AB SCREEN GEL NEGATIVE BLD TYPE AB POSITIVE AB SCREEN GEL NEGATIVE Impression: after 3/6 cycles of TCH(P) underwent bilateral mastectomies on 06/22/2019 and it showed excellent response in her primary right breast carcinoma with no residual viable tumor identified and 1 out of 8 right axillary lymph node showed micrometastasis, residual tumor size less than 2 mm. Left breast shows benign findings. Right breast cancer with biopsy-proven right axillary lymph node involvement per ultrasound-guided biopsy done on 02/09/2019 which showed ER less than 1% VT less than 1% e.g. ER/VT negative and HER-2/lyndon 3+ positive, Ki-67 13% Mammogram done on 01/17/2019 showed right breast mass at 9:00 position, 5 cm from the nipple there is 1.6 x 1.2 x 2.0 cm mass irregular borders, in addition multiple enlarged right axillary lymph nodes, the largest measuring 2.5 x 1.4 Adjustment disorder/depression since teenager-controlled with medication at present. Being HER-2/lyndon positive, she was offered neoadjuvant chemotherapy regimen with docetaxel/carboplatin/Herceptin/pertuzumab every 3 weeks ???6 cycles followed by surgery. Mrs Ortiz and her prefer to preserve her breast. Mrs. Ortiz did have Port-A-Cath placement in the left sub-clavian vein by Dr. Howell on 03/09/2019. She began her first cycle of chemotherapy on 03/29/2019. She has required supportive care with hydration due to nausea and persistent diarrhea. She completed 3 cycles of chemotherapy on 05/11/2019, at that time patient and her decided to discontinue the recommended neoadjuvant chemotherapy because of related side effects. They decided to proceed with surgery and she underwent bilateral mastectomies on 06/22/2019 and it showed excellent response in her primary right breast carcinoma with no residual viable tumor identified; and 1 out of 8 right axillary lymph node showed micrometastasis, residual tumor size less than 2 mm. Left breast shows benign findings. Ms. Ortiz was advised to pursue additional treatment with Perjeta/Herceptin. She began combination therapy on August 16, 2019. She is tolerating it well thus far. She did have cardiac imaging on 08/11/2019 with limited views for monitoring that Herceptin. The study reported to LV EF was 75% with no regional wall motion abnormalities. Normal right ventricular size and systolic function. When compared to May 16, 2019 there may not have been any significant change no wall . Plan: 1. Proceed with Herceptin Perjeta today as scheduled. This is her fourth dose of the Perjeta/Herceptin combination. 2. She is tolerating treatment well thus far. 3. Labs from October 17, 2019 were reviewed in detail and discussed with Ms. Ortiz and a copy was given to her. White count 6.6 hemoglobin 11.2 platelets 200,000 ANC is 4200 creatinine 1.0 LFTs are normal TIBC and vitamin B12 are normal as well. Her ferritin level was 146. Folic acid is 16.2. 4. Ms. Ortiz will be due for limited Doppler imaging of her cardiac status in November 2019 as encouraged by manufacturers of Perjeta and Herceptin. 5. We will plan to see her back in 3 weeks for Herceptin Perjeta. She will be due for CBC CMP at that time. 6. Ms. Ortiz was instructed to contact us in the interim should questions or problems arise. Signed By: Miryam Jarvis-BENJIE, AODane Bunch MD <<Signature on File>>
[2019-11-08] MEDS: sodium chloride 0.9% 250 ML 75 ML IV (11:09)
[2019-11-08] MEDS: acetaminophen 325 mg Tablet 650 MG PO (11:52)
--- NOTE | 2019-11-08 17:19 | ONC FU_ITS ---
Dr. Vela follow up note Patient: Jasmin Ortiz Unit #: [id number]: 1960 Dicatated By: John Vela M.D.Date of Visit:Nov 08, 2019 Onc Med Follow-up/Prog Note History of Present Illness: Mrs. Ortiz is a 59-year-old female who noted pain/discomfort in her right breast and subsequently a mass. She underwent mammogram on 01/17/2019 which showed at 9:00 position, 5 cm from the nipple there is 1.6 x 1.2 x 2 cm hypoechoic solid nodule with irregular borders suspicious for neoplasm. In addition, it reported multiple enlarged right axillary lymph nodes, the largest measuring 2.5 x 1.4 cm. Skin thickness at 9:00 measures approximately 1.7 mm, it was read as BI-RADS 5. Ultrasound confirmation was done. Ms Ortiz underwent ultrasound-guided biopsy of right breast mass. The pathology came back reporting infiltrating carcinoma. Ultrasound-guided biopsy of right axillary lymph node biopsy also confirmed infiltrating carcinoma and breast cancer prognostic profile showed estrogen receptor less than 1%, progesterone less than 1% e.g. ER/DE negative HER-2/lyndon 3+ positive, Ki-67 13%, intermediate prognostic risk. 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 History of weight loss, due to poor appetite and off and on night sweats since May 2018 also occasionally fever. As far as breast cancer risk analysis concern, her menarche was at age 12, never had a , she took some hormonal supplement in 1991 when she underwent menopause but did not take any hormone the last 10 years. No family history of breast cancer. CT PET scan was requested but insurance declined coverage but allowed CT scan of chest abdomen pelvis which was done on 01/14/2019 showed no evidence of metastatic disease but with right breast mass and right axillary lymphadenopathy patient She underwent echocardiogram on 03/10/2019 which showed ejection fraction 65%. Ms Ortiz underwent ultrasound renal arterial Doppler ordered by Dr. sidhu; which showed no sonographic evidence of hemodynamically significant renal artery stenosis bilaterally. her who reports that he has seen her speech to be slurred at times and her mouth is drawing at times he states this is not super new but seems to be little worse. He states is been going on since the summer. His story is that she presented to the emergency room with a blood pressure of 250/150 and nothing was done about it . He states she reminds me of a stroke patient . He reports that she is having a slower weaker more shuffling gait. He is also noted that her left hand has consistent persistent movement such as tremors. Underwent MRI scan of the brain on 05/04/2009 which showed widespread chronic small vessel ischemic changes. 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 Cerebral and cerebellar atrophy No evidence of metastatic disease f/u Sonogram of right breast and axilla was done on 05/24/2019 after 3 cycles of chemotherapy showed significant interval improvement in the biopsy-proven ductal carcinoma at 9:00 position right breast measuring 9.7 x 3.5 x 7.3 mm compared to 16 x 12 x 20 mm previously. Multiple enlarged lymph nodes right axilla the largest measuring 2.1 cm is decreased in size from previously related was 2.5 x 1.4 cm. because of persistent and progressive side effect related to chemotherapy, patient and her were not interested in continuing chemotherapy rather proceed with surgery, neoadjuvant chemotherapy was discontinued after 3/6 cycles of chemotherapy with TCH (P) so on 06/22/2019, she underwent bilateral mastectomy including right breast radical mastectomy which showed biopsy site present with fibrosis and dystrophic calcification, no residual viable tumor identified. 1 out of 8 lymph nodes with micro-metastasis, residual tumor less than 2 mm. Left breast shows benign findings. She started on maintenance therapy with 3 weekly Herceptin/perjeta on 08/16/2019 Echo done on 08/11/2019 showed ejection fraction 75% Came for follow-up, denies any specific complaints, no fever chills, no nausea or vomiting, no diarrhea or constipation, no lower extremity edema, no shortness of breath or palpitation, no new bony pains, appetite is good tolerating adjuvant Herceptin/Perjeta well Medications: Atorvastatin Calcium 1 Tablet (of 20 mg) Oral daily, BD Insulin Syringe Miscellaneous Take as Directed, Dexamethasone (4 mg) Tablet Oral Take as Directed, HumuLIN R (100 Units/mL) Injection Take as Directed, hydroCHLOROthiazide 1 Tablet (of 25 mg) Oral daily, Lancets Miscellaneous, LORazepam 0.5 - 1 Tablet (of 1 mg) Oral t.i.d. PRN, Magnesium Oxide 1 Tablet (of 400 mg) Oral b.i.d., metFORMIN HCl 1 Tablet (of 500 mg) Oral b.i.d., OLANZapine 1 Tablet (of 20 mg) Oral at bedtime, Prochlorperazine Maleate 1 Tablet (of 10 mg) Oral q 4 hours PRN, Sertraline HCl 1 Tablet (of 50 mg) Oral daily, Valsartan 1 Tablet (of 160 mg) Oral daily Allergies: No Known Allergies. Review of Systems: Review of Systems is not available for this patient. Vital Signs: Performed on Nov 08, 2019 10:37 Height - 62.00 in Weight - 146.0 lbs (HIGH) BSA - 1.67 sq.m BMI - 26.70 Temperature - 98.7 F Pulse - 99 /min Respiration - 22 /min BP - 137/86 mm(hg) O2 Sat - 100 % Pain - 0 Performance Status: 0 - Fully active, able to carry on all predisease activities without restrictions. (ECOG) Physical Examination: Respiratory - Lungs are clear, Cardiovascular - Regular rate and rhythm of heart, Gastrointestinal - Abdomen, soft, bowel sounds present, nontender, Extremities - No visible edema or rash. Lab/Imaging: Test performed on Nov 06, 2019 11:46 Glucose 207 mg/dL BUN 22 mg/dL Creatinine 1.0 mg/dL Cr Clearance (Est) 64.60 mL/min Sodium 140 mmol/L Potassium 3.8 mmol/L Chloride 101 mmol/L CO2 23 mmol/L Calcium 9.3 mg/dL Protein, Total 7.3 g/dL Albumin 4.3 g/dL Globulin 3.0 g/dL Bilirubin, Total 0.3 mg/dL Alkaline Phosphatase 97 IU/L AST (SGOT) 14 IU/L ALT (SGPT) 17 IU/L WBC 5.6 10^9/L RBC 4.18 10^12/L HGB 11.9 g/dL HCT 34.9 % MCV 83.9 fl MCH 28.5 pg MCHC 34.0 g/dL RDW 16.4 % Platelet Count 187 10^9/L MPV 7.7 fL Neutrophils (Gran) 3.5 10^9/L Lymphocytes 1.5 10^9/L Monocytes 0.6 10^9/L Manual Lymphocytes 26.7 % Manual Monocytes 10.1 % Test performed on Oct 17, 2019 11:17 Ferritin 145 ng/mL Folate 16.2 ng/mL Vitamin B12 303 pg/mL TIBC 309 mcg/dL Eosinophils 0.2 10^9/L Basophils 0.0 10^9/L Manual Eosinophils 2.7 % Manual Basophils 0.5 % Test performed on September 25, 2019 12:30 Anion Gap 18.7 eGFR 50.8 mL/min Neutrophil % 57.8 % Lymphocyte % 31.7 % Monocyte % 6.9 % Eosinophil % 2.8 % Basophils % 0.4 % Test performed on May 30, 2019 10:25 NRBCs 0.0 /100 WBC Test performed on May 15, 2019 11:00 ABO & Rh Type # 2 AB POSITIVE Test performed on May 15, 2019 09:10 Packed Red Cells (PRBC) [id number] TRANSFUSED PRODUCT: LEUKOREDUCED RED CELL 1ST CONT COUNT: 1 CBC Slide Review SLIDE REVIEW PERFORM SLIDE REVIEW AGREES WITH AUTOMATED RESULTS Type & Screen BLD TYPE AB POSITIVE AB SCREEN GEL NEGATIVE BLD TYPE AB POSITIVE AB SCREEN GEL NEGATIVE Impression: after 3/6 cycles of TCH(P) underwent bilateral mastectomies on 06/22/2019 and it showed excellent response in her primary right breast carcinoma with no residual viable tumor identified and 1 out of 8 right axillary lymph node showed micrometastasis, residual tumor size less than 2 mm. Left breast shows benign findings. Right breast cancer with biopsy-proven right axillary lymph node involvement per ultrasound-guided biopsy done on 02/09/2019 which showed ER less than 1% DE less than 1% e.g. ER/DE negative and HER-2/lyndon 3+ positive, Ki-67 13% Mammogram done on 01/17/2019 showed right breast mass at 9:00 position, 5 cm from the nipple there is 1.6 x 1.2 x 2.0 cm mass irregular borders, in addition multiple enlarged right axillary lymph nodes, the largest measuring 2.5 x 1.4 Adjustment disorder/depression since teenager-controlled with medication at present. Being HER-2/lyndon positive, she was offered neoadjuvant chemotherapy regimen with docetaxel/carboplatin/Herceptin/pertuzumab every 3 weeks ???6 cycles followed by surgery. Mrs Ortiz and her prefer to preserve her breast. Mrs. Ortiz did have Port-A-Cath placement in the left sub-clavian vein by Dr. Howell on 03/09/2019. She began her first cycle of chemotherapy on 03/29/2019. She has required supportive care with hydration due to nausea and persistent diarrhea. She completed 3 cycles of chemotherapy on 05/11/2019, at that time patient and her decided to discontinue the recommended neoadjuvant chemotherapy because of related side effects. They decided to proceed with surgery and she underwent bilateral mastectomies on 06/22/2019 and it showed excellent response in her primary right breast carcinoma with no residual viable tumor identified; and 1 out of 8 right axillary lymph node showed micrometastasis, residual tumor size less than 2 mm. Left breast shows benign findings. Ms. Ortiz was advised to pursue additional treatment with Perjeta/Herceptin. She began combination therapy on August 16, 2019. She is tolerating it well thus far. She did have cardiac imaging on 08/11/2019 with limited views for monitoring that Herceptin. The study reported to LV EF was 75% with no regional wall motion abnormalities. Normal right ventricular size and systolic function. When compared to May 16, 2019 there may not have been any significant change no wall . Plan: Discussed with patient regarding her labs white blood count 5.6 hemoglobin 11.9 hematocrit 34.9 platelets 187,000 CMP within normal limits Clinically, patient doing well, tolerating adjuvant therapy with Herceptin/Perjeta well. We will proceed with next 3 weekly dose today and then she will return to clinic in 3 weeks with CBC CMP and will also consider follow-up echocardiogram before her next cycle. Mild anemia, hemoglobin continues to improve, now in the normal range. Signed By: John Vela M.D. <<Signature on File>>
== END 2019-11-14 23:59 | disposition home or self-care (01) ==
LOC: ONCMED 06:48
PROVIDERS: Visit Provider Internal Medicine Hematology & Oncology
DX: Z51.11 Encounter for antineoplastic chemotherapy (principal); C50.811 Malignant neoplasm of overlapping sites of right female breast; Z17.1 Estrogen receptor negative status [ER-]; C77.3 Secondary and unspecified malignant neoplasm of axilla and upper limb lymph nodes; F32.9 Major depressive disorder, single episode, unspecified; I10 Essential (primary) hypertension; Z86.73 Personal history of transient ischemic attack (TIA), and cerebral infarction without residual deficits; Z79.818 Long term (current) use of other agents affecting estrogen receptors and estrogen levels
CPT/HCPCS: 36593; 36598; 76000; 96367; 96375; 96376; 96413; 96417; 99214; J1200; J2997; J3490; J7050; J9306; J9355; Q9967

== ENCOUNTER → 2019-11-09 10:00 | Outpatient (BNVA) | payer MEDICAID, SELFPAY | PROVIDERS: Visit Provider Nurse Practitioner Family | DX: E11.65 Type 2 diabetes mellitus with hyperglycemia (principal); Z79.4 Long term (current) use of insulin; I10 Essential (primary) hypertension; G43.909 Migraine, unspecified, not intractable, without status migrainosus; F06.30 Mood disorder due to known physiological condition, unspecified; E78.5 Hyperlipidemia, unspecified; F41.9 Anxiety disorder, unspecified; F32.9 Major depressive disorder, single episode, unspecified | CPT/HCPCS: 80053; 80061; 83036 ==

== ENCOUNTER → 2019-11-27 10:46 | Outpatient (BNVA) | payer MEDICAID, SELFPAY | PROVIDERS: Visit Provider Internal Medicine Hematology & Oncology | DX: C50.919 Malignant neoplasm of unspecified site of unspecified female breast (principal) | CPT/HCPCS: 80053; 85025 ==

== ENCOUNTER 2019-11-29 06:43 | Outpatient (RCR) | payer MEDICAID, SELFPAY ==
--- NOTE | 2019-11-16 07:34 | USCV_ITS ---
Angel Jasmin Age: 59 Gender: F : 1960 Exam Date: 11/16/2019 07:47 Ordering Phys: John Vela MD Technologist: Óscar Chin Exam Location: [facility] [place] Indication: HIGH RISK MEDS BP: 120 / 70 HR: 72 Rhythm: Sinus Technical Quality: Good MEASUREMENTS (Male / Female) Normal Values 2D ECHO LV Diastolic Diameter PLAX 3.8 cm 4.2 - 5.9 / 3.9 - 5.3 cm LV Systolic Diameter PLAX 2.0 cm IVS Diastolic Thickness 0.8 cm 0.6 - 1.0 / 0.6 - 0.9 cm IVS Systolic Thickness 1.4 cm LVPW Diastolic Thickness 1.1 cm 0.6 - 1.0 / 0.6 - 0.9 cm LVPW Systolic Thickness 1.2 cm LVOT Diameter 2.0 cm LV Ejection Fraction 2D Teich 77.6 % LV Ejection Fraction MOD 2C 66.6 % LV Ejection Fraction 2C AL 66.5 % LA Diameter 3.5 cm LA Width 3.0 cm LA Height 3.8 cm RA Width 2.8 cm RA Height 3.5 cm Aorta at Sinotubular Diameter 2.3 cm M-MODE LV Diastolic Diameter MM 4.6 cm 4.2 - 5.9 / 3.9 - 5.3 cm LV Systolic Diameter MM 2.8 cm LV Ejection Fraction MM Teich 69.7 % IVS Diastolic Thickness MM 0.9 cm 0.6 - 1.0 / 0.6 - 0.9 cm IVS Systolic Thickness MM 1.1 cm LVPW Diastolic Thickness MM 0.9 cm 0.6 - 1.0 / 0.6 - 0.9 cm LVPW Systolic Thickness MM 1.6 cm RV Diastolic Diameter MM 1.3 cm Aortic Annulus Diameter 3.2 cm LA Ao Ratio MM 1.1 MV E Point Septal Separation 0.4 cm FINDINGS Left Ventricle Normal left ventricular cavity size. Mild left ventricular hypertrophy. Normal left ventricular systolic function. No regional wall motion abnormalities. 2D only was performed. No M-mode or Doppler. Left ventricular ejection fraction is estimated at 65 %. Right Ventricle Normal right ventricular size. Normal right ventricular systolic function. Right Atrium The right atrium is normal in size. Left Atrium The left atrium is normal in size. Mitral Valve Structurally normal mitral valve. Aortic Valve Structurally normal trileaflet aortic valve. Tricuspid Valve Structurally normal tricuspid valve. Pulmonic Valve Pulmonic valve not well visualized. Pericardium Normal pericardium without effusion. Aorta Normal ascending aorta dimension. CONCLUSIONS Normal left ventricular cavity size. Mild left ventricular hypertrophy. Normal left ventricular systolic function. No regional wall motion abnormalities. 2D only was performed. No M-mode or Doppler. Left ventricular ejection fraction is estimated at 65 %. No change from the previous study done 08/11/2019 Dr. Kurt Fernandez MD (Electronically Signed) Final Date: 16 November 2019 09:59 S
[2019-11-29] MEDS: acetaminophen 325 mg Tablet 650 MG PO (10:00)
[2019-11-29] MEDS: sodium chloride 0.9% 250 ML 75 ML IV (10:13)
--- NOTE | 2019-11-30 17:06 | ONC FU_ITS ---
Dr. Vela follow up note Patient: Jasmin Ortiz Unit #: [id number]: 1960 Dicatated By: John Vela M.D.Date of Visit:Nov 29, 2019 Onc Med Follow-up/Prog Note History of Present Illness: Mrs. Ortiz is a 59-year-old female who noted pain/discomfort in her right breast and subsequently a mass. She underwent mammogram on 01/17/2019 which showed at 9:00 position, 5 cm from the nipple there is 1.6 x 1.2 x 2 cm hypoechoic solid nodule with irregular borders suspicious for neoplasm. In addition, it reported multiple enlarged right axillary lymph nodes, the largest measuring 2.5 x 1.4 cm. Skin thickness at 9:00 measures approximately 1.7 mm, it was read as BI-RADS 5. Ultrasound confirmation was done. Ms Ortiz underwent ultrasound-guided biopsy of right breast mass. The pathology came back reporting infiltrating carcinoma. Ultrasound-guided biopsy of right axillary lymph node biopsy also confirmed infiltrating carcinoma and breast cancer prognostic profile showed estrogen receptor less than 1%, progesterone less than 1% e.g. ER/CA negative HER-2/lyndon 3+ positive, Ki-67 13%, intermediate prognostic risk. 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 History of weight loss, due to poor appetite and off and on night sweats since May 2018 also occasionally fever. As far as breast cancer risk analysis concern, her menarche was at age 12, never had a , she took some hormonal supplement in 1991 when she underwent menopause but did not take any hormone the last 10 years. No family history of breast cancer. CT PET scan was requested but insurance declined coverage but allowed CT scan of chest abdomen pelvis which was done on 01/14/2019 showed no evidence of metastatic disease but with right breast mass and right axillary lymphadenopathy patient She underwent echocardiogram on 03/10/2019 which showed ejection fraction 65%. Ms Ortiz underwent ultrasound renal arterial Doppler ordered by Dr. sidhu; which showed no sonographic evidence of hemodynamically significant renal artery stenosis bilaterally. her who reports that he has seen her speech to be slurred at times and her mouth is drawing at times he states this is not super new but seems to be little worse. He states is been going on since the summer. His story is that she presented to the emergency room with a blood pressure of 250/150 and nothing was done about it . He states she reminds me of a stroke patient . He reports that she is having a slower weaker more shuffling gait. He is also noted that her left hand has consistent persistent movement such as tremors. Underwent MRI scan of the brain on 05/04/2009 which showed widespread chronic small vessel ischemic changes. 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 Cerebral and cerebellar atrophy No evidence of metastatic disease f/u Sonogram of right breast and axilla was done on 05/24/2019 after 3 cycles of chemotherapy showed significant interval improvement in the biopsy-proven ductal carcinoma at 9:00 position right breast measuring 9.7 x 3.5 x 7.3 mm compared to 16 x 12 x 20 mm previously. Multiple enlarged lymph nodes right axilla the largest measuring 2.1 cm is decreased in size from previously related was 2.5 x 1.4 cm. because of persistent and progressive side effect related to chemotherapy, patient and her were not interested in continuing chemotherapy rather proceed with surgery, neoadjuvant chemotherapy was discontinued after 3/6 cycles of chemotherapy with TCH (P) so on 06/22/2019, she underwent bilateral mastectomy including right breast radical mastectomy which showed biopsy site present with fibrosis and dystrophic calcification, no residual viable tumor identified. 1 out of 8 lymph nodes with micro-metastasis, residual tumor less than 2 mm. Left breast shows benign findings. She started on maintenance therapy with 3 weekly Herceptin/perjeta on 08/16/2019 Echo done on 08/11/2019 showed ejection fraction 75% Repeat echocardiogram done on November 16, 2019 showed ejection fraction 65% and as per echo report, no change from previous study done on August 11, 2019 Came for follow-up, denies any specific complaints, no nausea or vomiting, no diarrhea constipation, no shortness of breath or lower extremity edema, no palpitation., No peripheral neuropathy. Tolerating Herceptin/Perjeta well Medications: Atorvastatin Calcium 1 Tablet (of 20 mg) Oral daily, BD Insulin Syringe Miscellaneous Take as Directed, Dexamethasone (4 mg) Tablet Oral Take as Directed, HumuLIN R (100 Units/mL) Injection Take as Directed, hydroCHLOROthiazide 1 Tablet (of 25 mg) Oral daily, Lancets Miscellaneous, LORazepam 0.5 - 1 Tablet (of 1 mg) Oral t.i.d. PRN, Magnesium Oxide 1 Tablet (of 400 mg) Oral b.i.d., metFORMIN HCl 1 Tablet (of 500 mg) Oral b.i.d., OLANZapine 1 Tablet (of 20 mg) Oral at bedtime, [place] 3 1 Capsule Oral daily, Prochlorperazine Maleate 1 Tablet (of 10 mg) Oral q 4 hours PRN, Sertraline HCl 1 Tablet (of 50 mg) Oral daily, Valsartan 1 Tablet (of 160 mg) Oral daily Allergies: No Known Allergies. Review of Systems: Constitutional - Appetite is poor and weight is stable. No fever, chills, hot flashes or night sweats. Energy level is poor, ENMT - No sinus congestion/drainage. No mouth sores. No sore throat or difficulty swallowing, Hematologic/Lymphatic - Positive for easy bruising, Respiratory - Positive for shortness of breath and cough. No pleuritic pain or hemoptysis, Cardiovascular - No chest pains or palpitations reported today, Gastrointestinal - Positive for nausea, no vomiting. No heartburn or acid reflux. No diarrhea or constipation. No blood in the stool or black stools, Genitourinary (F) - No dysuria or hematuria. No urinary frequency. No urgency. Positive for incontinence, Musculoskeletal - No joint or bone pain, Neurologic - Positive for dizziness. Pt has a significant hx of falls, Psychiatric - Positive for depression, anxiety and insomnia. Vital Signs: Performed on Nov 29, 2019 08:58 Height - 62.00 in Weight - 144.2 lbs (LOW) BSA - 1.66 sq.m BMI - 26.37 Temperature - 97.6 F (LOW) Pulse - 66 /min Respiration - 18 /min BP - 115/74 mm(hg) O2 Sat - 99 % Pain - 0 Performance Status: 0 - Fully active, able to carry on all predisease activities without restrictions. (ECOG) Physical Examination: Respiratory - Lungs are clear, Cardiovascular - Regular rate and rhythm of heart, Gastrointestinal - Soft, bowel sounds present, Extremities - No visible swelling or edema. Lab/Imaging: Test performed on Nov 27, 2019 10:46 Glucose 192 mg/dL BUN 23 mg/dL Creatinine 1.3 mg/dL Cr Clearance (Est) 49.69 mL/min Sodium 142 mmol/L Potassium 3.9 mmol/L Chloride 103 mmol/L CO2 26 mmol/L Calcium 9.8 mg/dL Protein, Total 7.2 g/dL Albumin 0.2 g/dL Globulin 7.0 g/dL Bilirubin, Total 0.4 mg/dL Alkaline Phosphatase 100 IU/L AST (SGOT) 14 IU/L ALT (SGPT) 14 IU/L WBC 5.6 10^9/L RBC 4.25 10^12/L HGB 11.7 g/dL HCT 37.5 % MCV 88.2 fl MCH 27.5 pg MCHC 31.2 g/dL RDW 15.9 % Platelet Count 204 10^9/L MPV 11.4 fL Neutrophils (Gran) 3.14 10^9/L Lymphocytes 1.8 10^9/L Monocytes 0.4 10^9/L Eosinophils 0.2 10^9/L Basophils 0.1 10^9/L Manual Lymphocytes 31.4 % Manual Monocytes 7.3 % Manual Eosinophils 4.3 % Manual Basophils 0.9 % Test performed on Oct 17, 2019 11:17 Ferritin 145 ng/mL Folate 16.2 ng/mL Vitamin B12 303 pg/mL TIBC 309 mcg/dL Test performed on September 25, 2019 12:30 Anion Gap 18.7 eGFR 50.8 mL/min Neutrophil % 57.8 % Lymphocyte % 31.7 % Monocyte % 6.9 % Eosinophil % 2.8 % Basophils % 0.4 % Impression: after 3/6 cycles of TCH(P)(Chemo was discontinued prematurely at patient's and her request due to related side effect toxicity) underwent bilateral mastectomies on 06/22/2019 and it showed excellent response in her primary right breast carcinoma with no residual viable tumor identified and 1 out of 8 right axillary lymph node showed micrometastasis, residual tumor size less than 2 mm. Left breast shows benign findings. Right breast cancer with biopsy-proven right axillary lymph node involvement per ultrasound-guided biopsy done on 02/09/2019 which showed ER less than 1% CA less than 1% e.g. ER/CA negative and HER-2/lyndon 3+ positive, Ki-67 13% Mammogram done on 01/17/2019 showed right breast mass at 9:00 position, 5 cm from the nipple there is 1.6 x 1.2 x 2.0 cm mass irregular borders, in addition multiple enlarged right axillary lymph nodes, the largest measuring 2.5 x 1.4 Adjustment disorder/depression since teenager-controlled with medication at present. Being HER-2/lyndon positive, she was offered neoadjuvant chemotherapy regimen with docetaxel/carboplatin/Herceptin/pertuzumab every 3 weeks ???6 cycles followed by surgery. Mrs Ortiz and her prefer to preserve her breast. Mrs. Ortiz did have Port-A-Cath placement in the left sub-clavian vein by Dr. Howell on 03/09/2019. She began her first cycle of chemotherapy on 03/29/2019. She has required supportive care with hydration due to nausea and persistent diarrhea. She completed 3 cycles of chemotherapy on 05/11/2019, at that time patient and her decided to discontinue the recommended neoadjuvant chemotherapy because of related side effects. They decided to proceed with surgery and she underwent bilateral mastectomies on 06/22/2019 and it showed excellent response in her primary right breast carcinoma with no residual viable tumor identified; and 1 out of 8 right axillary lymph node showed micrometastasis, residual tumor size less than 2 mm. Left breast shows benign findings. Ms. Ortiz was advised to pursue additional treatment Remaining 3 cycles of chemotherapy with TCH(P) But patient refused because of toxicity she experienced earlier but agreed to consider Perjeta/Herceptin. She began combination therapy on August 16, 2019. She did have cardiac imaging on 08/11/2019 with limited views for monitoring that Herceptin. The study reported to LV EF was 75% with no regional wall motion abnormalities. Normal right ventricular size and systolic function. When compared to May 16, 2019 there may not have been any significant change no wall . Plan: Discussed with patient regarding her labs white blood count 5.6 hemoglobin 11.7 hematocrit 37.5 platelets 204,000 CMP within normal limits and her follow-up echocardiogram report which showed no changes when compared with previous echo done in July 2019 Clinically, patient is doing well with no new signs symptoms suggestive of recurrence of disease, tolerating Herceptin/Perjeta well. We will proceed with next 3 weekly dose today then she will return to clinic in 3 weeks with CBC CMP Signed By: John Vela M.D. <<Signature on File>>
== END 2019-12-15 23:59 | disposition home or self-care (01) ==
LOC: ONCMED 06:43
PROVIDERS: Visit Provider Internal Medicine Hematology & Oncology
DX: Z51.12 Encounter for antineoplastic immunotherapy (principal); C50.411 Malignant neoplasm of upper-outer quadrant of right female breast; C77.3 Secondary and unspecified malignant neoplasm of axilla and upper limb lymph nodes; F32.9 Major depressive disorder, single episode, unspecified; F43.20 Adjustment disorder, unspecified; Z17.1 Estrogen receptor negative status [ER-]; Z79.899 Other long term (current) drug therapy; Z92.21 Personal history of antineoplastic chemotherapy
CPT/HCPCS: 93308; 96367; 96413; 96417; 99214; J1200; J3490; J7050; J9306; J9355

== ENCOUNTER → 2019-12-14 07:51 | Outpatient (BNVA) | payer MEDICAID, SELFPAY | PROVIDERS: Visit Provider Nurse Practitioner Psychiatric/Mental Health | DX: F06.30 Mood disorder due to known physiological condition, unspecified (principal); F41.9 Anxiety disorder, unspecified | CPT/HCPCS: 99212 ==

== ENCOUNTER → 2019-12-18 11:48 | Outpatient (BNVA) | payer MEDICAID, SELFPAY | PROVIDERS: Visit Provider Internal Medicine Hematology & Oncology | DX: C50.919 Malignant neoplasm of unspecified site of unspecified female breast (principal); E11.65 Type 2 diabetes mellitus with hyperglycemia; Z79.4 Long term (current) use of insulin | CPT/HCPCS: 80053; 85025 ==

== ENCOUNTER → 2020-01-08 12:14 | Outpatient (BNVA) | payer MEDICAID, SELFPAY | PROVIDERS: Visit Provider Internal Medicine Hematology & Oncology | DX: C50.919 Malignant neoplasm of unspecified site of unspecified female breast (principal) | CPT/HCPCS: 80053; 85025 ==

== ENCOUNTER 2020-01-10 05:40 | Outpatient (RCR) | payer MEDICAID, SELFPAY ==
[2019-12-20] MEDS: acetaminophen 325 mg Tablet 650 MG PO (11:17)
[2019-12-20] MEDS: sodium chloride 0.9% 250 ML 75 ML IV (11:17)
--- NOTE | 2019-12-20 13:11 | ONC FU_ITS ---
Dr. Vela follow up note Patient: Jasmin Ortiz Unit #: [id number]: 1960 Dicatated By: John Vela M.D.Date of Visit:Dec 20, 2019 Onc Med Follow-up/Prog Note History of Present Illness: Mrs. Ortiz is a 59-year-old female who noted pain/discomfort in her right breast and subsequently a mass. She underwent mammogram on 01/17/2019 which showed at 9:00 position, 5 cm from the nipple there is 1.6 x 1.2 x 2 cm hypoechoic solid nodule with irregular borders suspicious for neoplasm. In addition, it reported multiple enlarged right axillary lymph nodes, the largest measuring 2.5 x 1.4 cm. Skin thickness at 9:00 measures approximately 1.7 mm, it was read as BI-RADS 5. Ultrasound confirmation was done. Ms Ortiz underwent ultrasound-guided biopsy of right breast mass. The pathology came back reporting infiltrating carcinoma. Ultrasound-guided biopsy of right axillary lymph node biopsy also confirmed infiltrating carcinoma and breast cancer prognostic profile showed estrogen receptor less than 1%, progesterone less than 1% e.g. ER/SC negative HER-2/lyndon 3+ positive, Ki-67 13%, intermediate prognostic risk. 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 History of weight loss, due to poor appetite and off and on night sweats since May 2018 also occasionally fever. As far as breast cancer risk analysis concern, her menarche was at age 12, never had a , she took some hormonal supplement in 1991 when she underwent menopause but did not take any hormone the last 10 years. No family history of breast cancer. CT PET scan was requested but insurance declined coverage but allowed CT scan of chest abdomen pelvis which was done on 01/14/2019 showed no evidence of metastatic disease but with right breast mass and right axillary lymphadenopathy patient She underwent echocardiogram on 03/10/2019 which showed ejection fraction 65%. Ms Ortiz underwent ultrasound renal arterial Doppler ordered by Dr. sidhu; which showed no sonographic evidence of hemodynamically significant renal artery stenosis bilaterally. her who reports that he has seen her speech to be slurred at times and her mouth is drawing at times he states this is not super new but seems to be little worse. He states is been going on since the summer. His story is that she presented to the emergency room with a blood pressure of 250/150 and nothing was done about it . He states she reminds me of a stroke patient . He reports that she is having a slower weaker more shuffling gait. He is also noted that her left hand has consistent persistent movement such as tremors. Underwent MRI scan of the brain on 05/04/2009 which showed widespread chronic small vessel ischemic changes. 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 Cerebral and cerebellar atrophy No evidence of metastatic disease Started on neoadjuvant chemotherapy with TCH(P) On March 29, 2019 f/u Sonogram of right breast and axilla was done on 05/24/2019 after 3 cycles of chemotherapy showed significant interval improvement in the biopsy-proven ductal carcinoma at 9:00 position right breast measuring 9.7 x 3.5 x 7.3 mm compared to 16 x 12 x 20 mm previously. Multiple enlarged lymph nodes right axilla the largest measuring 2.1 cm is decreased in size from previously related was 2.5 x 1.4 cm. because of persistent and progressive side effect related to chemotherapy, patient and her were not interested in continuing chemotherapy rather proceed with surgery, neoadjuvant chemotherapy was discontinued after 3/6 cycles of chemotherapy with TCH (P) so on 06/22/2019, she underwent bilateral mastectomy including right breast radical mastectomy which showed biopsy site present with fibrosis and dystrophic calcification, no residual viable tumor identified. 1 out of 8 lymph nodes with micro-metastasis, residual tumor less than 2 mm. Left breast shows benign findings. She started on maintenance therapy with 3 weekly Herceptin/perjeta on 08/16/2019 Echo done on 08/11/2019 showed ejection fraction 75% Repeat echocardiogram done on November 16, 2019 showed ejection fraction 65% and as per echo report, no change from previous study done on August 11, 2019 Came for follow-up, denies any specific complaints, no fever chills, no nausea or vomiting, no diarrhea constipation, no shortness of breath, no lower extremity edema, no palpitation Tolerating Herceptin/Perjeta well Medications: Atorvastatin Calcium 1 Tablet (of 20 mg) Oral daily, BD Insulin Syringe Miscellaneous Take as Directed, Dexamethasone (4 mg) Tablet Oral Take as Directed, HumuLIN R (100 Units/mL) Injection Take as Directed, hydroCHLOROthiazide 1 Tablet (of 25 mg) Oral daily, Lancets Miscellaneous, LORazepam 0.5 - 1 Tablet (of 1 mg) Oral t.i.d. PRN, Magnesium Oxide 1 Tablet (of 400 mg) Oral b.i.d., metFORMIN HCl 1 Tablet (of 500 mg) Oral b.i.d., OLANZapine 1 Tablet (of 20 mg) Oral at bedtime, [place] 3 1 Capsule Oral daily, Prochlorperazine Maleate 1 Tablet (of 10 mg) Oral q 4 hours PRN, Sertraline HCl 1 Tablet (of 50 mg) Oral daily, Valsartan 1 Tablet (of 160 mg) Oral daily Allergies: No Known Allergies. Review of Systems: Review of Systems is not available for this patient. Vital Signs: Performed on Dec 20, 2019 10:23 Height - 62.00 in Weight - 145.6 lbs (HIGH) BSA - 1.67 sq.m BMI - 26.63 Temperature - 97.8 F (LOW) Pulse - 68 /min Respiration - 20 /min BP - 130/86 mm(hg) O2 Sat - 98 % Pain - 0 Performance Status: 0 - Fully active, able to carry on all predisease activities without restrictions. (ECOG) Physical Examination: Respiratory - Lungs are clear, Cardiovascular - Regular rate and rhythm of heart, Gastrointestinal - Soft, bowel sounds present, Extremities - No visible edema or rash. Lab/Imaging: Test performed on Dec 18, 2019 11:48 Glucose 183 mg/dL BUN 35 mg/dL Creatinine 1.1 mg/dL Cr Clearance (Est) 58.73 mL/min Sodium 138 mmol/L Potassium 3.8 mmol/L Chloride 101 mmol/L CO2 23 mmol/L Calcium 9.1 mg/dL Protein, Total 7.2 g/dL Albumin 4.2 g/dL Globulin 3.0 g/dL Bilirubin, Total 0.3 mg/dL Alkaline Phosphatase 87 IU/L AST (SGOT) 13 IU/L ALT (SGPT) 11 IU/L WBC 7.1 10^9/L RBC 4.04 10^12/L HGB 11.3 g/dL HCT 35.7 % MCV 88.4 fl MCH 28.0 pg MCHC 31.7 g/dL RDW 15.9 % Platelet Count 192 10^9/L MPV 11.3 fL Neutrophils (Gran) 4.62 10^9/L Lymphocytes 1.8 10^9/L Monocytes 0.5 10^9/L Eosinophils 0.1 10^9/L Basophils 0.0 10^9/L Manual Lymphocytes 25.1 % Manual Monocytes 7.3 % Manual Eosinophils 2.0 % Manual Basophils 0.6 % Test performed on Oct 17, 2019 11:17 Ferritin 145 ng/mL Folate 16.2 ng/mL Vitamin B12 303 pg/mL TIBC 309 mcg/dL Test performed on September 25, 2019 12:30 Anion Gap 18.7 eGFR 50.8 mL/min Neutrophil % 57.8 % Lymphocyte % 31.7 % Monocyte % 6.9 % Eosinophil % 2.8 % Basophils % 0.4 % Impression: after 3/6 cycles of TCH(P)(Chemo was discontinued prematurely at patient's and her request due to related side effect toxicity) underwent bilateral mastectomies on 06/22/2019 and it showed excellent response in her primary right breast carcinoma with no residual viable tumor identified and 1 out of 8 right axillary lymph node showed micrometastasis, residual tumor size less than 2 mm. Left breast shows benign findings. Right breast cancer with biopsy-proven right axillary lymph node involvement per ultrasound-guided biopsy done on 02/09/2019 which showed ER less than 1% SC less than 1% e.g. ER/SC negative and HER-2/lyndon 3+ positive, Ki-67 13% Mammogram done on 01/17/2019 showed right breast mass at 9:00 position, 5 cm from the nipple there is 1.6 x 1.2 x 2.0 cm mass irregular borders, in addition multiple enlarged right axillary lymph nodes, the largest measuring 2.5 x 1.4 Adjustment disorder/depression since teenager-controlled with medication at present. Being HER-2/lyndon positive, she was offered neoadjuvant chemotherapy regimen with docetaxel/carboplatin/Herceptin/pertuzumab every 3 weeks ???6 cycles followed by surgery. Mrs Ortiz and her prefer to preserve her breast. Mrs. Ortiz did have Port-A-Cath placement in the left sub-clavian vein by Dr. Howell on 03/09/2019. She began her first cycle of chemotherapy on 03/29/2019. She has required supportive care with hydration due to nausea and persistent diarrhea. She completed 3 cycles of chemotherapy on 05/11/2019, at that time patient and her decided to discontinue the recommended neoadjuvant chemotherapy because of related side effects. They decided to proceed with surgery and she underwent bilateral mastectomies on 06/22/2019 and it showed excellent response in her primary right breast carcinoma with no residual viable tumor identified; and 1 out of 8 right axillary lymph node showed micrometastasis, residual tumor size less than 2 mm. Left breast shows benign findings. Ms. Ortiz was advised to pursue additional treatment Remaining 3 cycles of chemotherapy with TCH(P) But patient refused because of toxicity she experienced earlier but agreed to consider Perjeta/Herceptin. She began combination therapy on August 16, 2019. She did have cardiac imaging on 08/11/2019 with limited views for monitoring that Herceptin. The study reported to LV EF was 75% with no regional wall motion abnormalities. Normal right ventricular size and systolic function. When compared to May 16, 2019 there may not have been any significant change no wall . Plan: I discussed with patient regarding her labs white blood count 7.1 hemoglobin 11.3 hematocrit 35.7 platelets 192,000 CMP within normal limits Clinically, patient doing well with no signs symptoms suggestive of recurrence of disease, tolerating Herceptin/Perjeta well but with expected side effects. We will proceed with next 3 weekly dose today???return to clinic in 3 weeks with CBC CMP Signed By: John Vela M.D. <<Signature on File>>
== END 2020-01-10 11:00 | disposition home or self-care (01) ==
LOC: ONCMED 05:40
PROVIDERS: Visit Provider Internal Medicine Hematology & Oncology
DX: Z51.11 Encounter for antineoplastic chemotherapy (principal); Z51.12 Encounter for antineoplastic immunotherapy; C50.811 Malignant neoplasm of overlapping sites of right female breast; C77.3 Secondary and unspecified malignant neoplasm of axilla and upper limb lymph nodes; R19.7 Diarrhea, unspecified; R29.6 Repeated falls; R41.82 Altered mental status, unspecified; F43.21 Adjustment disorder with depressed mood; Z17.1 Estrogen receptor negative status [ER-]; Z90.13 Acquired absence of bilateral breasts and nipples; Z79.899 Other long term (current) drug therapy
CPT/HCPCS: 96367; 96413; 96417; 99214; 99215; J1200; J2405; J3490; J7050; J9306; J9355

== ENCOUNTER 2020-01-10 11:38 | Inpatient (IN) | payer MEDICAID, SELFPAY ==
[2020-01-10] VITALS (7 sets, daily range): BP systolic 98–130; BP diastolic 56–82; PULSE 68–94; RESP 14–18; TEMP 36.6–37.1; O2SAT 92–98; BMI 25.6
--- NOTE | 2020-01-10 13:19 | XRR_ITS ---
PROCEDURE INFORMATION: Exam: XR Chest, 1 View Exam date and time: 01/10/2020 1:49 PM Age: 59 years old Clinical indication: Other: Dizziness; Prior surgery; Surgery type: Port TECHNIQUE: Imaging protocol: XR of the chest Views: 1 view. COMPARISON: CR Chest 1 [place] [id number] 04/09/2019 10:59 AM FINDINGS: Tubes, catheters and devices: There is a left subclavian catheter whose tip is in the superior vena cava. Lungs: Unremarkable. No consolidation. Pleural space: Unremarkable. No pleural effusion. No pneumothorax. Heart/Mediastinum: Unremarkable. No cardiomegaly. Bones/joints: Unremarkable. XR/XR chest 1V portable [id number] IMPRESSION: There are no acute concerning abnormalities.
--- NOTE | 2020-01-10 13:30 | CT_ITS ---
WS: [id number] CT HEAD TECHNIQUE: Noncontrast CT of the head obtained from the skullbase to the vertex. CLINICAL INFORMATION: h/o cancer, new neuro findings COMPARISON: Multiple prior comparisons including MRI , November 04, 2018, and CTs . DLP: 736.[address] scans at [facility] use at least one of these dose optimization techniques: automat ed exposure control; mA and/or kV adjustment per patient size (includes targeted exams where dose is matched to clinical indication); or iterative reconstruction. FINDINGS: No evidence of intracranial hemorrhage or mass effect. Ventricular system and basal cisterns are small nt. Mild small vessel changes with moderate parenchymal volume loss. Chronic lacunar infarct left manuel lamus. Benign basal ganglia calcifications. No extra-axial fluid collections. No evidence of mass or mass effect. Normal hastings-white differentiation. Paranasal sinuses and mastoid air cells are well aerated. .Normal visualized soft tissues. CT/CT head wo con* [id number] IMPRESSION: 1. No evidence of intracranial hemorrhage or mass effect. 2. Mild small vessel changes. Moderate parenchymal volume loss. 3. Chronic lacunar infarct left thalamus. 4. Benign basal ganglia calcifications. 5. No acute intracranial findings and no changes since . Notified Nickie Hall MD at 01/10/2020 3:47 PM.
--- NOTE | 2020-01-10 13:45 | W.ED.DIZZY ---
HPI - Dizziness General: Chief Complaint: Dizziness Stated Complaint: DIZZY AND FALLING Time Seen by Provider: 01/10/20 13:04 History of Present Illness: HPI Narrative: This patient is a 59-year-old female who presents today with dizziness. She reports that for about the last 3 weeks she has had difficulty standing because she gets dizzy and passes out. She does not feel dizzy when she is just laying flat in her bed. She also gets extremely dizzy and falls or passes out whenever she tries to bend over. She feels generally weak. She was diagnosed with breast cancer in 2019 and was initially treated with chemotherapy. She stopped that due to side effects and had bilateral mastectomies. Since then she has been on Herceptin. At the time of her mastectomy she had some lymphatic metastases. She does not have any known brain mets. She has had some headaches intermittently but no vomiting. MD elicited complaint: dizziness, lightheadedness and near syncope Pertinent past history: syncope Timing: gradual onset and constant Description: off-balance, difficulty walking and near-syncope Context: change in body position and exertion History of similar symptoms: No Exacerbating factors: movement/ambulation Associated symptoms: Reports headache(s) and malaise; Denies chest pain, chills, nausea or vomiting Associated neuro symptoms: Deny numbness in extremities Review of Systems General: Reports: 10 or more systems reviewed and unremarkable except in HPI and below Const: Reports: fatigue and malaise; Denies: fever(s) or chills Eyes: Denies: change in vision ENMT: Denies: odynophagia Card: Denies: chest pain or swelling of feet/ankles Resp: Denies: dyspnea, productive cough or non-productive cough GI: Denies: abdominal pain, nausea or vomiting : Denies: flank pain or difficulty voiding Musc: Denies: neck pain or back pain Skin/Breast: Denies: rash Neuro: Reports: headache(s), weakness in extremities, lack of coordination, difficulty walking, frequent falls and dizziness; Denies: numbness in extremities Dougie/Lymph: Denies: easy bruising or easy bleeding PFS ED PFSH: Medical History Anxiety disorder Dyslipidemia History of renal stone Hx of breast cancer Mood disorder due to a general medical condition Port-A-Cath in place Surgical History Hx of breast biopsy Hx of cystoscopy Hx of hysterectomy Hx of pelvic surgery S/P mastectomy, bilateral Family History Mother Diabetes Heart disease Father Suicide Social History Smoking and tobacco status: never smoked Second hand smoke exposure: Yes Alcohol intake: never Lives independently: Yes Household members: spouse Marital status: Current occupational status: retired History of recent travel: No Current gender identity: Female Physical Exam Const: COMMON NORMALS: no acute distress and patient oriented x3 GENERAL APPEARANCE: cooperative and lethargic (Slightly) ORIENTATION/CONSCIOUSNESS: Yes lethargic (Slightly) OTHER: Speech is slow and deliberate, slightly slurred HENMT: HEAD & SCALP: normal to inspection FACE & SINUS: normal facial exam Eye: GENERAL EYE: appearance normal, both eyes and all related structures VISUAL ALFARO: Yes left visual field cut ALIGNMENT: Yes alignment normal EYELID: eyelids normal Neck/C-Spine: COMMON NORMALS: supple, no meningeal signs and no JVD Chest: COMMONS NORMALS: normal inspection of the chest Resp: COMMON NORMALS: normal respiratory effort, No use of accessory muscles and clear to auscultation bilaterally AUSCULTATION: clear to auscultation bilaterally Cardio: COMMON NORMALS: no JVD, regular rate, regular rhythm and No murmurs present (Cardio) RATE: regular rate RHYTHM: regular rhythm GI: COMMON NORMALS: Normal to inspection, nondistended, normoactive bowel sounds present, Soft to palpation and non-tender INSPECTION: Yes normal to inspection AUSCULTATION: Yes normoactive bowel sounds PALPATION: Yes Soft to palpation Back/Pelvis: COMMON NORMALS: thoracic and lumbar spine normal to inspection Extremity: COMMON NORMALS: normal to inspection Neuro: COMMON NORMALS: patient oriented x3, moves all extremities and no sensory deficits noted SENSORIUM/ORIENTATION: Yes lethargic (Slightly) MENINGEAL SIGNS: Yes no meningeal signs COORDINATION/BALANCE: No [id number] test normal, [id number] test normal (Unable to test is raising her legs caused her back pain.) and No Normal rapid alternating movements of the distal upper extremity present (Neuro) SPEECH: abnormal speech GAIT: Yes Unable to assess gait COORDINATION: [id number] test abnormal, [id number] test normal (Unable to test is raising her legs caused her back pain.) and abnormal rapid alternating movement UE Psych: COMMON NORMALS: mental status grossly normal, cooperative and normal affect Skin: COMMON NORMALS: no rashes or lesions noted and turgor normal GENERAL SKIN EXAM: no rashes or lesions noted and turgor normal Course ED course: Patient presenting with several weeks of increasing difficulty with her balance and coordination. She has some speech deficit and a visual field defect on the left. Her CT was unremarkable. I consulted with Dr. Vela and Dr. Ruffin. We will proceed with an MRI and MRA. This will have to be done noncontrast as the CT was due to her kidney function. I spoke with the hospitalist about admitting her and he would like to get the MRI done tonight. She went over for MRI and then directly to the floor. Vital Signs: Vital signs: Vital Signs Temperature 98.0 F 01/10/20 13:00 Pulse Rate 80 01/10/20 17:54 Respiratory Rate 17 01/10/20 17:54 Blood Pressure 127/82 01/10/20 17:54 Pulse Oximetry 98 01/10/20 17:54 MDM - Dizziness Lab Data: Labs: Lab Results 01/10/20 01/10/20 01/10/20 Range/Units 13:42 13:42 13:42 WBC 6.3 (4.0-10.0) 10^3/ uL RBC 3.43 L (4.1-5.3) 10^6/u L Hgb 9.8 L (11.5-15.3) g/dL Hct 29.9 L (37.0-47.0) % MCV 87.2 (81-99) fL MCH 28.6 (28.0-34.0) pg MCHC 32.8 (30.0-36.0) g/dL RDW 15.7 H (12.1-15.1) % Plt Count 195 (130-400) 10^3/c mm MPV 10.7 H (7.4-10.4) fL Neut % (Auto) 69.3 % Lymph % (Auto) 22.3 % Mills % (Auto) 5.2 % Eos % (Auto) 2.1 % Baso % (Auto) 0.6 % Neut # (Auto) 4.36 (1.8-7.7) 10^3/u L Lymph # (Auto) 1.4 (0.8-4.8) 10^3/u L Mills # (Auto) 0.3 (0.2-0.9) 10^3/u L Eos # (Auto) 0.1 (0.0-0.8) 10^3/u L Baso # (Auto) 0.0 (0.0-0.1) 10^3/u L Nucleated RBC % (a uto) 0 % Nucleated RBCs # 0.0 /100WBC Sodium 135 L (136-145) mmol/L Potassium 3.6 (3.5-5.1) mmol/L Chloride 103 (98-107) mmol/L Carbon Dioxide 20 L (22-29) mmol/L Anion Gap 15.6 (5-19) BUN 62 H (8-23) mg/dL Creatinine 2.0 H (0.5-0.9) mg/dL GFR Calculation 25.4 L (90-130) mL/min Glucose 342 H (65-115) mg/dL Calculated Osmolal ity 292 (285-295) mOsm/k g Lactic Acid 1.9 (0.5-2.2) mmol/L Calcium 9.5 (8.5-10.5) mg/dL Total Bilirubin 0.2 (0.15-1.2) mg/dL AST 13 (0-32) U/L ALT 20 (0-33) U/L Alkaline Phosphata se 87 (35-105) IU/L Total Protein 6.9 (6.6-8.7) g/dL Albumin 4.0 (3.5-5.2) g/dL Globulin 2.9 (1.3-4.6) g/dL Urine Color (Yellow) Urine Appearance (CLEAR) Urine pH (5-7) Ur Specific Gravit y (1.005-1.030) Urine Protein (Negative) Urine Glucose (UA) (Normal) Urine Ketones (Negative) Urine Blood (Negative) Urine Nitrate (Negative) Urine Bilirubin (NEGATIVE) Urine Urobilinogen (Negative) mg/dL Ur Leukocyte Marcy ase (Negative) Urine RBC (0-2) /hpf Urine WBC (0-5) /hpf Ur Squamous Epith Cells (0-5) Amorphous Sediment Urine Bacteria (NONE) 01/10/20 Range/Units 14:45 WBC (4.0-10.0) 10^3/ uL RBC (4.1-5.3) 10^6/u L Hgb (11.5-15.3) g/dL Hct (37.0-47.0) % MCV (81-99) fL MCH (28.0-34.0) pg MCHC (30.0-36.0) g/dL RDW (12.1-15.1) % Plt Count (130-400) 10^3/c mm MPV (7.4-10.4) fL Neut % (Auto) % Lymph % (Auto) % Mills % (Auto) % Eos % (Auto) % Baso % (Auto) % Neut # (Auto) (1.8-7.7) 10^3/u L Lymph # (Auto) (0.8-4.8) 10^3/u L Mills # (Auto) (0.2-0.9) 10^3/u L Eos # (Auto) (0.0-0.8) 10^3/u L Baso # (Auto) (0.0-0.1) 10^3/u L Nucleated RBC % (a uto) % Nucleated RBCs # /100WBC Sodium (136-145) mmol/L Potassium (3.5-5.1) mmol/L Chloride (98-107) mmol/L Carbon Dioxide (22-29) mmol/L Anion Gap (5-19) BUN (8-23) mg/dL Creatinine (0.5-0.9) mg/dL GFR Calculation (90-130) mL/min Glucose (65-115) mg/dL Calculated Osmolal ity (285-295) mOsm/k g Lactic Acid (0.5-2.2) mmol/L Calcium (8.5-10.5) mg/dL Total Bilirubin (0.15-1.2) mg/dL AST (0-32) U/L ALT (0-33) U/L Alkaline Phosphata se (35-105) IU/L Total Protein (6.6-8.7) g/dL Albumin (3.5-5.2) g/dL Globulin (1.3-4.6) g/dL Urine Color Yellow (Yellow) Urine Appearance Clear (CLEAR) Urine pH 5 (5-7) Ur Specific Gravit y 1.015 (1.005-1.030) Urine Protein Neg (Negative) Urine Glucose (UA) Trace H (Normal) Urine Ketones Negative (Negative) Urine Blood Neg (Negative) Urine Nitrate Negative (Negative) Urine Bilirubin Neg (NEGATIVE) Urine Urobilinogen Norm (Negative) mg/dL Ur Leukocyte Marcy ase Trace H (Negative) Urine RBC None (0-2) /hpf Urine WBC 15-25 H (0-5) /hpf Ur Squamous Epith Cells None (0-5) Amorphous Sediment Not Reportable Urine Bacteria 2+ H (NONE) Discharge Plan Discharge Patient Disposition: Admitted As Inpatient Admit Provider: Cosme Latif Condition: Good Discharge Date/Time: 01/10/20 18:12 Coding Level of Care Code ED 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
--- NOTE | 2020-01-10 13:45 | PC.NURSE ---
portable xray at bedside
[2020-01-10 14:04] LABS: Basophils % 0.6 %; Eosinophils # 0.1 10^3/uL (0.0-0.8); Eosinophils % 2.1 %; Hematocrit 29.9 % (37.0-47.0); Hemoglobin 9.8 g/dL (11.5-15.3); Lymphocytes # 1.4 10^3/uL (0.8-4.8); Lymphocytes % 22.3 %; Mean Corpuscular HGB Conc 32.8 g/dL (30.0-36.0); Mean Corpuscular Hemoglobin 28.6 pg (28.0-34.0); Mean Corpuscular Volume 87.2 fL (81-99); Mean Platelet Volume 10.7 fL (7.4-10.4); Monocytes # 0.3 10^3/uL (0.2-0.9); Monocytes % 5.2 %; Neutrophils # 4.36 10^3/uL (1.8-7.7); Neutrophils % 69.3 %; Nucleated Red Blood Cells % 0 %; Platelet Count 195 10^3/cmm (130-400); Red Blood Count 3.43 10^6/uL (4.1-5.3); Red Cell Distribution Width 15.7 % (12.1-15.1); White Blood Count 6.3 10^3/uL (4.0-10.0)
[2020-01-10 14:23] LABS: Lactic Sepsis W/Reflex 1.9 mmol/L (0.5-2.2)
[2020-01-10] MEDS: sodium chloride 0.9% 1,000 ML 999 ML IV ×2 (14:23→16:29)
[2020-01-10 14:24] LABS: Alanine Aminotransferase 20 U/L (0-33); Alkaline Phosphatase 87 IU/L (35-105); Anion Gap 15.6 (5-19); Aspartate Amino Transferase 13 U/L (0-32); Blood Urea Nitrogen 62 mg/dL (8-23); Calcium 9.5 mg/dL (8.5-10.5); Carbon Dioxide 20 mmol/L (22-29); Chloride 103 mmol/L (98-107); Globulin 2.9 g/dL (1.3-4.6); Glomerular Filtration Rate 25.4 mL/min (90-130); Glucose 342 mg/dL (65-115); Osmolality Calculated 292 mOsm/kg (285-295); Potassium 3.6 mmol/L (3.5-5.1); Sodium 135 mmol/L (136-145); Total Bilirubin 0.2 mg/dL (0.15-1.2); Total Protein 6.9 g/dL (6.6-8.7)
[2020-01-10 16:03] LABS: Urine Appearance Clear (CLEAR); Urine Color Yellow (Yellow)
[2020-01-10 16:04] LABS: Add Urine Microscopic? YES; Bilirubin Urine Neg (NEGATIVE); Blood Urine Neg (Negative); Glucose Urine UA Trace (Normal); Ketones Urine Negative (Negative); Leukocyte Esterase Urine Trace (Negative); Nitrate Urine Negative (Negative); Protein Urine Neg (Negative); Specific Gravity, Urine 1.015 (1.005-1.030); Urobilinogen Urine Norm (Negative); WBC Urine 15-25 /hpf (0-5); pH Urine 5 (5-7)
[2020-01-10 16:05] LABS: Add Urine Culture? Yes; Bacteria Urine 2+
[2020-01-10] MEDS: cefTRIAXone 1,000 MG in sodium chloride 0.9% (plus) 50 ML 100 MG IV (16:28)
--- NOTE | 2020-01-10 17:07 | P.HP_ITS ---
Providers/Chief Complaint Chief Complaint: DIZZY AND FALLING History of Present Illness Jasmin Ortiz is a 59 year old female who presented to emergency department with complaint of several weeks of falling over when she bends over, as well as clumsiness with her hands. On questioning does report that she has been having history grabbing onto objects including caps, dishes, utensils, etc. She denies any vertigo. Denies any ear pain, discharge, loss of hearing. Has not had any headache. She does have underlying breast cancer, although plain head CT in ER did not show obvious metastatic disease. Noted to have chronic lacunar infarct in left thalamus. Benign vasoganglia calcifications. Mild small vessel changes, moderate parenchymal volume loss. She does require assistance ambulating due to ataxia, even short distances. She otherwise denies any fever, chills, shortness of breath, cough, or other symptoms of infection, although does say her throat has been bothering her for several weeks. She denies any history of prior CVA. She is a never smoker. Denies any alcohol or drug use. She is not found to be in window for any acute intervention including TPA or stent retriever per discussion of ER physician with neurologist. MRI and MRA, noncontrast studies due to acute kidney injury have been ordered. She will be admitted for additional assessment. She is noted to have acute kidney injury with creatinine of 2, baseline to be closer to 1. She does say she has been taking ibuprofen at home. Urinalysis in ER is showing 15-25 WBCs. Review of Systems Const: Denies: fever(s), chills, body aches or malaise Eyes: Denies: change in vision or eye redness ENMT: Reports: throat pain; Denies: oral sores or ear or mastoid pain Card: Denies: chest pain, edema, pre-syncope or dyspnea on exertion Resp: Denies: dyspnea, productive cough, change in phlegm color or hemoptysis GI: Denies: abdominal pain, nausea, vomiting, diarrhea, constipation, hematochezia or melena : Denies: flank pain, urinary frequency or hematuria Musc: Denies: back pain, joint swelling or joint redness Skin/Breast: Denies: rash, sores or new lesions Neuro: Reports: lack of coordination, difficulty walking and frequent falls; Denies: headache(s), numbness in extremities, weakness in extremities, dizziness, vertigo, confusion or seizure-like activity Endo: Denies: polyuria or polydipsia Dougie/Lymph: Denies: easy bleeding or purpura All/Imm: Denies: urticaria, throat swelling or tongue swelling Medications/Allergies Home Medications Medication Instructions Recorded Confirmed Last Taken Type hydrochlorothiazide 25 mg tablet 25 mg PO DAILY tab 06/15/19 01/10/20 01/10/20 History magnesium oxide 400 mg PO BID 06/15/19 01/10/20 01/09/20 History metformin 500 mg tablet 500 mg PO BID 06/15/19 01/10/20 01/09/20 History ondansetron HCl 4 mg tablet 8 mg PO TID PRN tab 06/15/19 01/10/20 06/21/19 H istory atorvastatin 20 mg tablet 20 mg PO DAILY #30 tab 09/06/19 01/10/20 01/09/20 Rx valsartan 160 mg tablet 160 mg PO DAILY 90 Days #90 tab 09/06/19 01/10/20 Unknown Rx folic acid 800 mcg tablet 0.8 mg PO BEDTIME tab 11/09/19 01/10/20 01/09/20 History insulin regular human 100 unit/mL See Rx Instructions SUBCUT TID #10 11/09/19 01/10/20 01/10/20 Rx injection solution ml melatonin 3 mg capsule 6 mg PO DAILY cap 11/09/19 01/10/20 01/09/20 History mirtazapine 15 mg tablet 15 mg PO DAILY #30 tab 12/14/19 01/10/20 01/09/20 Rx olanzapine 20 mg PO BEDTIME 01/10/20 01/10/20 01/09/20 History sertraline [Zoloft] 200 mg PO QAM 01/10/20 01/10/20 01/09/20 History Allergies Allergy/AdvReac Type Severity Reaction Status Date / Time No Known Allergies Allergy Verified 01/10/20 14:47 PFSH Acute PFSH: Medical History Anxiety disorder Dyslipidemia History of renal stone Hx of breast cancer Mood disorder due to a general medical condition Port-A-Cath in place Surgical History Hx of breast biopsy Hx of cystoscopy Hx of hysterectomy Hx of pelvic surgery S/P mastectomy, bilateral Family History Mother Diabetes Heart disease Father Suicide Social History Smoking and tobacco status: never smoked Second hand smoke exposure: Yes Alcohol intake: never Lives independently: Yes Household members: spouse Marital status: Current occupational status: retired History of recent travel: No Current gender identity: Female Vitals/I&O/Wt Last Vital Signs Temp 98.0 F 01/10/20 13:00 Pulse 70 01/10/20 16:30 Resp 14 01/10/20 13:00 BP 108/68 01/10/20 16:30 Pulse Ox 95 01/10/20 16:30 01/10/20 01/10/20 01/10/20 06:59 14:59 22:59 Intake Total 1000 / 1000 Balance 1000 / 1000 Weight last 48 hrs Weight 63.503 kg Physical Exam Const: COMMON NORMALS: no acute distress and patient oriented x3 GENERAL APPEARANCE: frail appearing OTHER: Disheveled HENMT: COMMON NORMALS: oropharynx normal Neck/C-Spine: COMMON NORMALS: no JVD Resp: COMMON NORMALS: normal respiratory effort and clear to auscultation bilaterally AUSCULTATION: clear to auscultation bilaterally Cardio: COMMON NORMALS: no JVD, regular rhythm, S1 normal heart sound present, S2 normal heart sound present and No murmurs present (Cardio) RHYTHM: regular rhythm HEART SOUNDS: S1 normal heart sound present and S2 normal heart sound present GI: COMMON NORMALS: Normal to inspection, nondistended, normoactive bowel sounds present, Soft to palpation and non-tender PALPATION: Yes Soft to palpation Extremity: COMMON NORMALS: no joint enlargement and no pedal edema Neuro: COMMON NORMALS: patient oriented x3 and moves all extremities COORDINATION/BALANCE: [id number]-wm-ltyp test normal (Takes her quite a bit of effort to try to perform fkkswd-vu-sbeu test correctly, although does hit the finger with effort. A little bit easier for her to touch her nose.), No tandem gait normal, Romberg test positive and No Normal rapid alternating movements of the distal upper extremity present (Neuro) (Slow, although does perform correct ly) GAIT: Yes Ataxic gait present SENSORY EXAM: Yes Abnormal double simultaneous stimulation for sensation (ignores left side to simultaneous touch) Double similtaneous stimulation abnormal: left-sided extinction MOTOR EXAM: Pronator motor function not present Skin: COMMON NORMALS: no rashes or lesions noted GENERAL SKIN EXAM: no rashes or lesions noted Data : 01/10/20 13:42 01/10/20 13:42 A&P Assessment and plan (1) Ataxia: Reports several weeks of ataxia symptoms which have not improved, so she has decided to come for evaluation. Reports that she has been falling over when she leans forward especially, like when trying to put her shoes on. Reports also has been missing objects and try to grab them. At this time discussed with her high concern that she may have had CVA, possibly posterior circulation, is also noted to have left-sided visual field cut found by emergency physician. CT did show chronic lacunar thalamic infarct. She is currently going to undergo MRI and MRA testing. Was not a candidate for TPA or other acute intervention. She denies being on aspirin chronically. Denies history of prior CVA. At this time will go ahead and monitor her, as w ell as monitor blood pressures which are somewhat on the soft side. Will hold blood pressure medications. Avoid hypotension especially if this is posterior circulation CVA. Gentle IV hydration. Will assess for risk factors of CVA. MRI should hopefully also give little bit better definition to exclude metastatic disease to the brain. Monitor for any signs of infection, although so far there is no suspicion of this. Appears to also have UTI, although doubt that this should be given her specific focal abnormalities. HCTZ can sometimes contribute to vertigo, although she denies objects moving about her. Discussed concerns with her. She verbalized understanding agreement with plan of assessment. Status: Acute (2) DEBORAH (acute kidney injury): Does say she has been taking ibuprofen at home, also takes losartan. Hold losartan for now. Discussed with her to discontinue ibuprofen. For now gentle fluid challenge. Monitor renal function. Avoid nephrotoxins. Could not have contrast studies at this time. Discussed with her. She verbalized understanding and also states will discontinue ibuprofen in the future. Status: Acute (3) UTI (urinary tract infection): Appears to have urinary tract infection, although doubt this should be responsible her her symptoms. Appears to be incidental finding. WBC 15-25. Follow-up culture. Continue Rocephin for now. Status: Acute Additional A&P Information History of breast cancer. Continue follow-up with oncology. Hypertension: For now hold of blood pressure medications blood pressure soft. Anxiety disorder: Continue medications Mood disorder: Continue medications HLD: Continue statin Port-A-Cath in place Attestations Medical Necessity Statement*: Admission of over 2 midnights continued for assessment of management of ataxia, suspected new CVA in a lady with history of breast cancer, hypertension, hyperlipidemia. 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
--- NOTE | 2020-01-10 17:30 | MRR_ITS ---
PROCEDURE INFORMATION: Exam: MR Angiogram Head Without Contrast, Arteries Exam date and time: 01/10/2020 5:30 PM Age: 59 years old Clinical indication: Visual disturbance; Additional info: AMS, cerebellar TECHNIQUE: Imaging protocol: MR angiogram head without contrast. Exam focused on the arteries. COMPARISON: MRI Head w/wo* [id number] 05/04/2019 3:17 PM FINDINGS: ANTERIOR CIRCULATION: Right internal carotid artery: Intracranial segment is patent with no significant stenosis. No aneurysm. Right middle cerebral artery: No occlusion or significant stenosis. No aneurysm. Right anterior cerebral artery: No occlusion or significant stenosis. No aneurysm. Left internal carotid artery: Intracranial segment is patent with no significant stenosis. No aneurysm. Left middle cerebral artery: No occlusion or significant stenosis. No aneurysm. Left anterior cerebral artery: No occlusion or significant stenosis. No aneurysm. POSTERIOR CIRCULATION: Right vertebral artery: No occlusion or significant stenosis. No aneurysm. Left vertebral artery: No occlusion or significant stenosis. No aneurysm. Basilar artery: No occlusion or significant stenosis. No aneurysm. Right posterior cerebral artery: No occlusion or significant stenosis. No aneurysm. Left posterior cerebral artery: No occlusion or significant stenosis. No aneurysm. MR/MR angio head wo con [id number] IMPRESSION: Patent intracranial arteries.
--- NOTE | 2020-01-10 17:30 | MRR_ITS ---
PROCEDURE INFORMATION: Exam: MR Head Without Contrast Exam date and time: 01/10/2020 4:54 PM Age: 59 years old Clinical indication: Visual disturbance; Additional info: AMS, cerebellar TECHNIQUE: Imaging protocol: MR of the head without contrast. COMPARISON: MRI Head w/wo* [id number] 05/04/2019 3:17 PM FINDINGS: Mild patient motion occurs during the examination Brain: Mild atrophy and mild white matter chronic microvascular changes are again noted. No acute hemorrhage or acute infarction is seen. Small area of old hemorrhage is again seen in the right parietal lobe . Ventricles: Normal. No ventriculomegaly. Bones/joints: Unremarkable. Sinuses: Normal as visualized. No acute sinusitis. Mastoid air cells: Normal as visualized. No mastoid effusion. Orbits: Unremarkable. Soft tissues: Unremarkable. MR/MR head wo con* [id number] IMPRESSION: No acute intracranial abnormality.
[2020-01-10] MEDS: diazePAM 2 mg Tablet PO (17:53)
[2020-01-10] MEDS: heparin 5,000 unit/mL INJ 1 mL 5000 UNIT SUBCUT (20:58)
[2020-01-10] MEDS: OLANZapine 10 mg TABLET 20 MG PO (20:58)
[2020-01-10 21:06] LABS: Estmated Average Glucose 166; Hemoglobin A1C 7.4 % (4.0-6.0)
[2020-01-11 03:48] VITALS: BP 108/64; PULSE 68; RESP 18; TEMP 37.1; O2SAT 96
[2020-01-11] MEDS: sertraline 100 mg Tablet 200 MG PO (05:08)
[2020-01-11] MEDS: heparin 5,000 unit/mL INJ 1 mL 5000 UNIT SUBCUT ×3 (05:08→21:56)
[2020-01-11 06:09] LABS: Basophils % 0.6 %; Eosinophils # 0.2 10^3/uL (0.0-0.8); Eosinophils % 3.2 %; Hematocrit 27.3 % (37.0-47.0); Lymphocytes # 1.2 10^3/uL (0.8-4.8); Lymphocytes % 24.4 %; Mean Corpuscular Hemoglobin 28.9 pg (28.0-34.0); Mean Corpuscular Volume 87.8 fL (81-99); Mean Platelet Volume 10.9 fL (7.4-10.4); Monocytes # 0.4 10^3/uL (0.2-0.9); Monocytes % 7.2 %; Neutrophils # 3.23 10^3/uL (1.8-7.7); Neutrophils % 64.4 %; Nucleated Red Blood Cells % 0 %; Platelet Count 154 10^3/cmm (130-400); Red Blood Count 3.11 10^6/uL (4.1-5.3); Red Cell Distribution Width 15.4 % (12.1-15.1)
[2020-01-11 06:29] LABS: Anion Gap 13.1 (5-19); Blood Urea Nitrogen 44 mg/dL (8-23); Calcium 9.3 mg/dL (8.5-10.5); Carbon Dioxide 20 mmol/L (22-29); Chloride 108 mmol/L (98-107); Glomerular Filtration Rate 41.8 mL/min (90-130); Glucose 216 mg/dL (65-115); Osmolality Calculated 290 mOsm/kg (285-295); Potassium 3.1 mmol/L (3.5-5.1); Sodium 138 mmol/L (136-145)
[2020-01-11 07:23] VITALS: BP 135/87; PULSE 76; RESP 18; TEMP 36.7; O2SAT 97
[2020-01-11] MEDS: mirtazapine 15 mg Tablet PO (08:17)
[2020-01-11] MEDS: atorvastatin 40 mg Tablet PO (08:17)
[2020-01-11 08:20] LABS: Glucose Point of Care 302 mg/dL (70-110)
[2020-01-11] MEDS: diphenhydrAMINE 25 mg Capsule PO (09:59)
[2020-01-11] MEDS: predniSONE 20 mg Tablet 40 MG PO (09:59)
--- NOTE | 2020-01-11 10:42 | USCV_ITS ---
Jasmin Ortiz Age: 59 Gender: F : 1960 Exam Date: 01/11/2020 13:48 Ordering Phys: Cosme Latif MD Technologist: Óscar Chin [place] [facility] [place]: CVA Risk Factors: None Previous Vascular Surgery: None Right Brachial BP: / Left Brachial BP: / Right Left Velocity (cm/s) Spectral Plaque Velocity (cm/s) Spectral Plaque Syst/Diast Broadening Syst/Diast Broadening 74.90/ 11.80 Prox CCA 52.30 / 12.90 77.35/ 13.30 Mid CCA 70.20 / 17.30 73.45/ 14.80 Distal CCA 65.40 / 13.50 64.10/ 12.80 Prox ICA 70.20 / 17.30 91.70/ 29.60 Mid ICA 63.40 / 17.30 78.00/ 24.00 Distal ICA 57.70 / 15.40 78.85 ECA 119.20 1.21 ICA/CCA 1.00 Antegrade Vertebral Not Visualized 65.20/ 23.20 cm/s 43.30/ 12.50 cm/s Subclavian 79.80 91.30 FINDINGS LARGE CLOT IN RT JUG AND INOMINATE VEIN. CALLED DR AGUILAR Extensive thrombus Right jugular vein and innominate vein. Right ICA stenosis <50%. Left ICA stenosis <50%. Normal antegrade Doppler flow noted in the right vertebral artery. Left vertebral not seen Referring physician notified by [employer] at time of study Wu Sepulveda MD (Electronically Signed) Final Date: 11 January 2020 16:48 S
--- NOTE | 2020-01-11 10:47 | P.PN_ITS ---
Subjective Subjective: Interval history: This morning she is noted to have worsening swelling around her eyes, lips. She says she was sleeping and did not notice when the swelling had come back on. She says that this happens on occasion. Is not sure of any particular trigger. Denies that this happens in other family members. Vitals/I&O/Wt Last Vital Signs Temp 98.1 F 01/11/20 07:23 Pulse 76 01/11/20 07:23 Resp 18 01/11/20 07:23 BP 135/87 01/11/20 07:23 Pulse Ox 97 01/11/20 07:23 01/10/20 01/11/20 01/11/20 22:59 06:59 14:59 Intake Total 2049 240 / 2290 240 / 240 Output Total 300 / 300 Balance 2049 -1989 240 / 240 Weight last 48 hrs Weight 63.503 kg Physical Exam Const: COMMON NORMALS: no acute distress and patient oriented x3 GENERAL APPEARANCE: frail appearing OTHER: Disheveled HENMT: COMMON NORMALS: oropharynx normal OTHER: Facial swelling around the eyes and lips. No tongue swelling. Eye: OTHER: swelling around the eyes Neck/C-Spine: COMMON NORMALS: no JVD Resp: COMMON NORMALS: normal respiratory effort and clear to auscultation bilaterally AUSCULTATION: clear to auscultation bilaterally Cardio: COMMON NORMALS: no JVD, regular rhythm, S1 normal heart sound present, S2 normal heart sound present and No murmurs present (Cardio) RHYTHM: regular rhythm HEART SOUNDS: S1 normal heart sound present and S2 normal heart sound present GI: COMMON NORMALS: Normal to inspection, nondistended, normoactive bowel sounds present, Soft to palpation and non-tender PALPATION: Yes Soft to palpation Extremity: COMMON NORMALS: no joint enlargement and no pedal edema Neuro: COMMON NORMALS: patient oriented x3 and moves all extremities COORDINATION/BALANCE: tncuxk-xq-uywl test normal (Takes her quite a bit of effort to try to perform ivrlah-ft-btex test correctly, although does hit the finger with effort. A little bit easier for her to touch her nose.), No tandem gait normal, Romberg test positive and No Normal rapid alternating movements of the distal upper extremity present (Neuro) (Slow, although does perform correctly) GAIT: Yes Ataxic gait present SENSORY EXAM: Yes Abnormal double simultaneous stimulation for sensation (ignores left side to simultaneous touch) Double similtaneous stimulation abnormal: left-sided extinction MOTOR EXAM: Pronator motor function not present COORDINATION: curayr-pq-nylb test normal (Takes her quite a bit of effort to try to perform wamawm-eb-ilcd test correctl y, although does hit the finger with effort. A little bit easier for her to touch her nose.), tandem gait abnormal and abnormal rapid alternating movement UE (Slow, although does perform correctly) Skin: COMMON NORMALS: no rashes or lesions noted GENERAL SKIN EXAM: no rashes or lesions noted Data : 01/11/20 05:03 01/11/20 05:03 A&P Assessment and plan (1) Facial edema: Swelling around the eyes, around the mouth. Tongue is not swollen. I do not hear stridor. No wheezing. reports she is previously had this at the beginning of December and was prescribed a course of prednisone, initially with some improvement, but then edema seem to be coming back again. Appears to be worse today. She started on Solu-Medrol, Benadryl, famotidine. At this time does not have respiratory compromise. At the same time on several discussions regarding CODE STATUS she is adamant would not want any CPR or intubation even on temporary basis. On review of her medications, does not appear to have any new medicines other than did receive Rocephin in ER yesterday for UTI. At this time we will switch this to Cipro, although since swelling has been present previously doubt that this was the causative medication. She appears used to be on lisinopril in the past, but currently has a valsartan at home, which has not been restarted here. This should not really cause such symptoms. She denies any history of recurrent swelling in herself, denies any prior history of facial swelling and anybody in her family to suggest hereditary an gioedema. Has history of breast cancer, chemotherapy, acquired C1 esterase inhibitor deficiency may be considered, although lower down on differential. Will request for C1 inhibitor level. Appreciate pulmonology assessment. Tick panel panel, carotid doppler. Discussed with her . Status: Acute (2) Ataxia: Discussed with neurologist, her, and her with regards to her condition and results of the MRI study. Appears she is concern for some possible prior right parietal hemorrhage. Does not appear to be new. Prescription with the he states she had an MRI about 6 months ago and there was some finding of hemorrhage at that time. He does report some episodes of very high blood pressure in the past. Does not appear to have any other explanation. With regards to ataxia, dysmetria, appreciate neurology recommendations. Neurologist recommends outpatient MRI with gadolinium contrast, outpatient EEG, starting on antiseizure medication at a lower chance in case there are some focal seizure episodes causing partial seizure to be responsible for her symptoms. does report some on and off tremors which are not currently present. At this time hold off on any antiplatelet medication. Reports several weeks of ataxia symptoms which have not improved, so she has decided to come for evaluation. Reports that she has been falling over when she leans forward especially, like when trying to put her shoes on. Reports also has been missing objects and try to grab them. At this time discussed with her high concern that she may have had CVA, possibly posterior circulation, is also noted to have left-sided visual field cut found by emergency physician. CT did show chronic lacunar thalamic infarct. Assessment by PT, OT. May benefit from rehabilitation if is able to go to SNF. Status: Acute (3) DEBORAH (acute kidney injury): Cr improved to 1.3. Continue gentle hydration. Does say she has been taking ibuprofen at home, also takes losartan. Hold losartan for now. Discussed with her to discontinue ibuprofen. For now gentle fluid challenge. Monitor renal function. Avoid nephrotoxins. C ould not have contrast studies at this time. Discussed with her. She verbalized understanding and also states will discontinue ibuprofen in the future. Status: Acute (4) UTI (urinary tract infection): Appears to have urinary tract infection, although doubt this should be responsible her her symptoms. Appears to be incidental finding. WBC 15-25. Follow-up culture. Change antibiotic to Cipro from Rocephin given facial swelling has worsened. does report has seen Dr. Katz in the past. Status: Acute Additional A&P Information History of breast cancer. Continue follow-up with oncology. Hypertension: For now hold of blood pressure medications blood pressure soft. Anxiety disorder: Continue medications Mood disorder: Continue medications HLD: Continue statin Port-A-Cath in place Attestations Medical Necessity Statement*: Continue admission for assessment and management of facial swelling, ataxia, dysmetria. 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
[2020-01-11 10:59] LABS: Glucose Point of Care 263 mg/dL (70-110)
[2020-01-11] MEDS: famotidine 20 mg/2 mL INJ IVP ×2 (11:07→23:35)
[2020-01-11 11:28] VITALS: BP 113/75; PULSE 80; RESP 18; TEMP 36.9; O2SAT 96
[2020-01-11 13:29] VITALS: PULSE 91; O2SAT 96
[2020-01-11 16:00] VITALS: BP 123/84; PULSE 86; RESP 18; TEMP 36.7; O2SAT 95
[2020-01-11 16:38] LABS: Glucose Point of Care 392 mg/dL (70-110)
[2020-01-11] MEDS: ciprofloxacin 400 MG/200 ML PREMIX 200 MG IV (17:30)
[2020-01-11 19:50] VITALS: BP 131/77; PULSE 87; RESP 25; TEMP 36.9; O2SAT 92
[2020-01-11 20:16] LABS: Glucose Point of Care 383 mg/dL (70-110)
--- NOTE | 2020-01-11 20:30 | USCV_ITS ---
Jasmin Ortiz Age: 59 Gender: F : 1960 Exam Date: 01/11/2020 07:05 Ordering Phys: Cosme Latif MD Technologist: Óscar Chin Exam Location: [facility] – [place] Indication: CVA BP: 108 / 64 HR: 76 Rhythm: Sinus Technical Quality: Fair MEASUREMENTS (Male / Female) Normal Values 2D ECHO LV Diastolic Diameter PLAX 3.1 cm 4.2 - 5.9 / 3.9 - 5.3 cm LV Systolic Diameter PLAX 1.8 cm IVS Diastolic Thickness 0.9 cm 0.6 - 1.0 / 0.6 - 0.9 cm IVS Systolic Thickness 1.1 cm LVPW Diastolic Thickness 0.9 cm 0.6 - 1.0 / 0.6 - 0.9 cm LVPW Systolic Thickness 0.9 cm LVOT Diameter 2.0 cm LV Ejection Fraction 2D Teich 71.9 % LV Ejection Fraction MOD 2C 76.1 % LV Ejection Fraction 2C AL 76.5 % LA Diameter 3.2 cm LA Width 3.2 cm LA Height 4.6 cm RA Width 3.3 cm RA Height 3.8 cm M-MODE LV Diastolic Diameter MM 3.9 cm 4.2 - 5.9 / 3.9 - 5.3 cm LV Systolic Diameter MM 2.5 cm LV Ejection Fraction MM Teich 65.6 % IVS Diastolic Thickness MM 1.1 cm 0.6 - 1.0 / 0.6 - 0.9 cm IVS Systolic Thickness MM 0.9 cm LVPW Diastolic Thickness MM 1.1 cm 0.6 - 1.0 / 0.6 - 0.9 cm LVPW Systolic Thickness MM 1.8 cm RV Diastolic Diameter MM 1.4 cm Aortic Annulus Diameter 3.4 cm LA Ao Ratio MM 0.9 MV E Point Septal Separation 0.8 cm DOPPLER AV Peak Velocity 142.0 cm/s LVOT Peak Velocity 147.0 cm/s AV Area Cont Eq vti 3.3 cm squared AV Area Cont Eq pk 3.3 cm squared MV Area PHT 5.0 cm squared Mitral E to A Ratio 0.8 MV E' Velocity 9.0 cm/s Mitral E to MV E' Ratio 7.7 Mitral E to LV E' Lateral Ratio 7.4 Mitral E to LV E' Septal Ratio 8.1 TR Peak Velocity 136.0 cm/s TR Peak Gradient 7.4 mmHg TV Peak E Velocity 85.0 cm/s Right Atrial Pressure 3.0 mmHg Pulmonary Artery Systolic Pressu 10.4 mmHg FINDINGS Left Ventricle Normal left ventricular size, systolic function and wall thickness, with no regional wall motion abnormalities. Left ventricular ejection fraction is estimated at 70 %. Normal diastolic function. Right Ventricle Normal right ventricular size and systolic function. Right ventricular systolic pressure 10.4 mmHg. Right Atrium Normal right atrial size. Left Atrium Normal left atrial size. Mitral Valve Structurally normal mitral valve. No mitral valve stenosis. No mitral valve regurgitation. Aortic Valve Structurally normal trileaflet aortic valve. No aortic valve stenosis. No aortic valve regurgitation. Tricuspid Valve Structurally normal tricuspid valve. Trace tricuspid valve regurgitation. Pulmonic Valve Structurally normal pulmonic valve. No pulmonary valve stenosis. Trace pulmonary valve regurgitation. Pericardium No pericardial effusion. Aorta Normal size aortic root and proximal ascending aorta. CONCLUSIONS 1. Normal left ventricular size, systolic function and wall thickness, with no regional wall motion abnormalities. Left ventricular ejection fraction is estimated at 70 %. Normal diastolic function. 2. Normal right ventricular size and systolic function. 3. Normal pulmonary artery pressure. 4. No significant valvular abnormality. Anh Clark MD (Electronically Signed) Final Date: 11 January 2020 22:31 S
[2020-01-11] MEDS: OLANZapine 10 mg TABLET 20 MG PO (21:57)
[2020-01-12] VITALS (7 sets, daily range): BP systolic 112–163; BP diastolic 67–85; PULSE 64–84; RESP 17–19; TEMP 36.3–37.1; O2SAT 95–97
[2020-01-12] MEDS: ciprofloxacin 400 MG/200 ML PREMIX 200 MG IV ×2 (03:43→15:55)
[2020-01-12] MEDS: heparin 5,000 unit/mL INJ 1 mL 5000 UNIT SUBCUT ×3 (03:43→21:34)
--- NOTE | 2020-01-12 04:01 | PC.NURSE ---
[facility] called to check on update on patient. Still waiting for a bed, speaker on phone stated they had a pretty lengthy waiting list.
[2020-01-12 04:18] LABS: Basophils % 0.4 %; Eosinophils % 0.2 %; Hematocrit 25.7 % (37.0-47.0); Hemoglobin 8.5 g/dL (11.5-15.3); Lymphocytes # 0.6 10^3/uL (0.8-4.8); Lymphocytes % 11.4 %; Mean Corpuscular HGB Conc 33.1 g/dL (30.0-36.0); Mean Corpuscular Hemoglobin 28.4 pg (28.0-34.0); Mean Platelet Volume 10.4 fL (7.4-10.4); Monocytes # 0.3 10^3/uL (0.2-0.9); Monocytes % 4.5 %; Neutrophils # 4.65 10^3/uL (1.8-7.7); Neutrophils % 82.8 %; Nucleated Red Blood Cells % 0 %; Platelet Count 161 10^3/cmm (130-400); Red Blood Count 2.99 10^6/uL (4.1-5.3); Red Cell Distribution Width 14.7 % (12.1-15.1); White Blood Count 5.6 10^3/uL (4.0-10.0)
[2020-01-12 04:52] LABS: Anion Gap 14.5 (5-19); Blood Urea Nitrogen 40 mg/dL (8-23); Calcium 9.3 mg/dL (8.5-10.5); Carbon Dioxide 21 mmol/L (22-29); Chloride 105 mmol/L (98-107); Glomerular Filtration Rate 32.9 mL/min (90-130); Glucose 269 mg/dL (65-115); Osmolality Calculated 291 mOsm/kg (285-295); Potassium 3.5 mmol/L (3.5-5.1); Sodium 137 mmol/L (136-145)
--- NOTE | 2020-01-12 05:43 | PC.NURSE ---
Shift Summary Pt was able to answer neurologic questions appropriately throughout the night but was still altered. She would get out of bed without using her call light, bed alarm was activated and pt was educated but pt did not seem to comprehend. At one point, pt had IV tipped over into her bed. Pt was very unsteady but was quick to get to the bathroom. This nurse had to steady pt on multiple attempts to keep from falling. Pt's face seeming to swell slightly but pt does not complain of vision problems or any other issues with the swelling. Pt up to the bathroom multiple times and voided with no hesitancy. No c/o pain throughout the night.
[2020-01-12] MEDS: sertraline 100 mg Tablet 200 MG PO (06:28)
[2020-01-12 06:44] LABS: Glucose Point of Care 312 mg/dL (70-110)
[2020-01-12] MEDS: mirtazapine 15 mg Tablet PO (08:23)
[2020-01-12] MEDS: atorvastatin 40 mg Tablet PO (08:23)
[2020-01-12] MEDS: famotidine 20 mg/2 mL INJ IVP ×2 (11:00→22:16)
--- NOTE | 2020-01-12 12:31 | PC.NURSE ---
Vitals charted by nursing students
[2020-01-12 12:46] LABS: Lyme AB Screen <0.90 index
[2020-01-12 17:18] LABS: Glucose Point of Care 444 mg/dL (70-110)
--- NOTE | 2020-01-12 18:33 | PC.NURSE ---
Pt at beginning of shift was very confused and not sure of where she was or date. After lunch time the pt was more alert and oriented she could verbalize where she was and the date appropriately. pt has had no other changes at this time.
[2020-01-12 21:01] LABS: Glucose Point of Care 497 mg/dL (70-110)
--- NOTE | 2020-01-12 21:05 | PM.PN ---
Subjective Subjective: Interval history: In the morning reportedly somewhat confused, trying to get up from bed, walk out of the room. During my visit is lucid, appears to have good insight. Asking when a bed might open at [facility]. Denies any new symptoms. Vitals/I&O/Wt Last Vital Signs Temp 98.2 F 01/12/20 20:00 Pulse 84 01/12/20 20:00 Resp 18 01/12/20 20:00 BP 139/82 01/12/20 20:00 Pulse Ox 97 01/12/20 20:00 01/12/20 01/12/20 01/12/20 06:59 14:59 22:59 Intake Total 305 / 1570 120 / 120 120 / 240 Balance 305 / 1570 120 / 120 120 / 240 Physical Exam Const: COMMON NORMALS: no acute distress and patient oriented x3 GENERAL APPEARANCE: frail appearing OTHER: Disheveled HENMT: COMMON NORMALS: oropharynx normal OTHER: Facial swelling around the eyes and lips. No tongue swelling. Eye: OTHER: swelling around the eyes Neck/C-Spine: COMMON NORMALS: no JVD Resp: COMMON NORMALS: normal respiratory effort and clear to auscultation bilaterally AUSCULTATION: clear to auscultation bilaterally Cardio: COMMON NORMALS: no JVD, regular rhythm, S1 normal heart sound present, S2 normal heart sound present and No murmurs present (Cardio) RHYTHM: regular rhythm HEART SOUNDS: S1 normal heart sound present and S2 normal heart sound present GI: COMMON NORMALS: Normal to inspection, nondistended, normoactive bowel sounds present, Soft to palpation and non-tender PALPATION: Yes Soft to palpation Extremity: COMMON NORMALS: no joint enlargement and no pedal edema Neuro: COMMON NORMALS: patient oriented x3 and moves all extremities COORDINATION/BALANCE: [id number] test normal (Takes her quite a bit of effort to try to perform [id number]-[id number] test correctly, although does hit the finger with effort. A little bit easier for her to touch her nose.), No tandem gait normal, Romberg test positive and No Normal rapid alternating movements of the distal upper extremity present (Neuro) (Slow, although does perform correctly) GAIT: Yes Ataxic gait present SENSORY EXAM: Yes Abnormal double simultaneous stimulation for sensation (ignores left side to simultaneous touch) Double similtaneous stimulation abnormal: left-sided extinction MOTOR EXAM: Pronator motor function not present COORDINATION: [id number] test normal (Takes her quite a bit of effort to try to perform [id number] test correctly, although does hit the finger with effort. 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 This was discussed with patient, , as well as accepting physician over at [facility]. At this time concern with starting anticoagulation given prior hemorrhagic CVA, presence of appearance of remaining sequela of prior hemorrhage in the right parietal lobe on head MRI this visit. Discussed with her and her that we do not have a neurosurgeon currently in house, and was concerned regarding starting anticoagulation. She is so far without significant changes tolerated prophylactic dose heparin. May require removal of Port-A-Cath. Awaiting bed opening at [facility] for transfer for additional assessment for concern of possible leptomeningeal disease due to recent neurologic changes per discussion with her oncologist, requiring additional imaging, assessment by senior quality assurance specialist comfortable with diagnosing leptomeningeal disease, as well as additional assessment and treatment at a tertiary care facility. Swelling around the eyes, around the mouth. Tongue is not swollen. I do not hear stridor. No wheezing. reports she is previously had this at the beginning of December and was prescribed a course of prednisone, initially with some improvement, but then edema seem to be coming back again. Appears to be worse today. She started on Solu-Medrol, Benadryl, famotidine. At this time does not have respiratory compromise. On several discussions regarding CODE STATUS she is adamant would not want any CPR or intubation even on temporary basis. This was discussed with the and he confirms that she has discussed this with him in the past as well. On review of her medications, does not appear to have any new medicines other than did receive Rocephin in ER yesterday for UTI. At this time we will switch this to Cipro, although since swelling has been present previously doubt that this was the causative medication. She appears used to be on lisinopril in the past, but currently has a valsartan at home, which has not been restarted here. This should not really cause such symptoms. She denies any history of recurrent swelling in herself, denies any prior history of facial swelling and anybody in her family to suggest hereditary angioedema. Has history of breast cancer, chemotherapy, acquired C1 esterase inhibitor deficiency may be considered, although lower down on differential. C1 inhibitor level. Appreciate pulmonology assessment. Tick panel panel, carotid doppler otherwise without arterial occlusion. Status: Acute (2) Ataxia: Concern for possible leptomeningeal disease with history of breast cancer, incomplete adjuvant chemotherapy, although initially responsive disease. As above. Discussed with neurologist, her, and her with regards to her condition and results of the MRI study. Appears she is concern for some possible prior right parietal hemorrhage. Does not appear to be new. Prescription with the he states she had an MRI about 6 months ago and there was some finding of hemorrhage at that time. He does report some episodes of very high blood pressure in the past. Does not appear to have any other explanation. With regards to ataxia, dysmetria, appreciate neurology recommendations. Neurologist recommends outpatient MRI with gadolinium contrast, outpatient EEG, starting on antiseizure medication at a lower chance in case there are some focal seizure episodes causing partial seizure to be responsible for her symptoms. does report some on and off tremors which are not currently present. At this time hold off on any antiplatelet medication. Reports several weeks of ataxia symptoms which have not improved, so she has decided to come for evaluation. Reports that she has been falling over when she leans forward especially, like when trying to put her shoes on. Reports also has been missing objects and try to grab them. At this time discussed with her high concern that she may have had CVA, possibly posterior circulation, is also noted to have left-sided visual field cut found by emergency physician. CT did show chronic lacunar thalamic infarct. Assessment by PT, OT. May benefit from rehabilitation if is able to go to SNF. Status: Acute (3) DEBORAH (acute kidney injury): Slight worsening creatinine up to 1.6 today. Further IV hydration held for now. Does say she has been taking ibuprofen at home, also takes losartan. Hold losartan for now. Discussed with her to discontinue ibuprofen. Status: Acute (4) UTI (urinary tract infection): Appears to have urinary tract infection, although doubt this should be responsible her her symptoms. Appears to be incidental finding. WBC 15-25. Follow-up culture. Currently having gram-negative rods. Continue Cipro. does report has seen Dr. Katz in the past. Status: Acute Additional A&P Information History of breast cancer. Partial adjuvant chemotherapy, subsequently mastectomy. Hypertension: For now hold of blood pressure medications blood pressure soft. 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 DEBORAH. UTI. Coding Level of Care Code Acute Dormitory Maid for [facility] Fwd Diagnoses Facial edema R60.0 Ataxia R27.0 DEBORAH (acute kidney injury) N17.9 UTI (urinary tract infection) N39.0
[2020-01-12] MEDS: OLANZapine 10 mg TABLET 20 MG PO (21:34)
[2020-01-13] VITALS (7 sets, daily range): BP systolic 125–142; BP diastolic 75–89; PULSE 68–87; RESP 16–18; TEMP 36.3–37; O2SAT 93–96
[2020-01-13] MEDS: ciprofloxacin 400 MG/200 ML PREMIX 200 MG IV (04:03)
[2020-01-13] MEDS: heparin 5,000 unit/mL INJ 1 mL 5000 UNIT SUBCUT ×2 (04:03→13:02)
[2020-01-13 04:15] LABS: Basophils % 0.3 %; Eosinophils % 0.2 %; Hematocrit 25.2 % (37.0-47.0); Hemoglobin 8.3 g/dL (11.5-15.3); Lymphocytes # 0.7 10^3/uL (0.8-4.8); Lymphocytes % 11.4 %; Mean Corpuscular HGB Conc 32.9 g/dL (30.0-36.0); Mean Corpuscular Volume 85.1 fL (81-99); Mean Platelet Volume 10.7 fL (7.4-10.4); Monocytes # 0.3 10^3/uL (0.2-0.9); Monocytes % 5.1 %; Neutrophils # 4.96 10^3/uL (1.8-7.7); Neutrophils % 79.8 %; Nucleated Red Blood Cells % 0 %; Platelet Count 170 10^3/cmm (130-400); Red Blood Count 2.96 10^6/uL (4.1-5.3); Red Cell Distribution Width 14.5 % (12.1-15.1); White Blood Count 6.2 10^3/uL (4.0-10.0)
[2020-01-13 04:35] LABS: Anion Gap 12.9 (5-19); Blood Urea Nitrogen 42 mg/dL (8-23); Calcium 9.5 mg/dL (8.5-10.5); Carbon Dioxide 22 mmol/L (22-29); Chloride 108 mmol/L (98-107); Glomerular Filtration Rate 38.4 mL/min (90-130); Glucose 269 mg/dL (65-115); Osmolality Calculated 295 mOsm/kg (285-295); Potassium 3.9 mmol/L (3.5-5.1); Sodium 139 mmol/L (136-145)
[2020-01-13] MEDS: sertraline 100 mg Tablet 200 MG PO (06:05)
--- NOTE | 2020-01-13 06:13 | PC.NURSE ---
Shift Summary Pt slept well mostly until midnight with 1:1 sitter in the room. Pt was able to answer neuro questions appropriately throughout the night. Pt was able to touch bilateral fingers to nose, but seemed to struggle when bending her arm. 1:1 was discontinued at 0000 01/13/20. Pt's bed alarm was set to more sensitive positioning due to how fast pt is able to get up and level of unsteadiness. Pt amb to bathroom with one assist. This morning pt asking if anymore information has been heard from [facility].
[2020-01-13 06:45] LABS: Glucose Point of Care 376 mg/dL (70-110)
[2020-01-13] MEDS: atorvastatin 40 mg Tablet PO (09:17)
[2020-01-13] MEDS: mirtazapine 15 mg Tablet PO (09:17)
[2020-01-13 11:32] LABS: Glucose Point of Care 389 mg/dL (70-110)
--- NOTE | 2020-01-13 12:15 | P.PN_ITS ---
Subjective Subjective: Interval history: She says she is doing about the same. He is feeling her nose is a little bit congested. Vitals/I&O/Wt Last Vital Signs Temp 97.3 F L 01/13/20 11:27 Pulse 78 01/13/20 11:27 Resp 18 01/13/20 11:27 BP 135/89 01/13/20 11:27 Pulse Ox 96 01/13/20 11:27 01/12/20 01/13/20 01/13/20 22:59 06:59 14:59 Intake Total 320 / 545 305 / 305 Output Total 400 / 400 Balance 320 / 545 -400 / 145 305 / 305 Physical Exam Const: COMMON NORMALS: no acute distress and patient oriented x3 GENERAL APPEARANCE: frail appearing OTHER: Disheveled HENMT: COMMON NORMALS: oropharynx normal OTHER: Facial swelling around the eyes and lips were just the worst, also involving cheeks, upper neck. No tongue swelling. Neck/C-Spine: COMMON NORMALS: no JVD Resp: COMMON NORMALS: normal respiratory effort and clear to auscultation bilaterally AUSCULTATION: clear to auscultation bilaterally Cardio: COMMON NORMALS: no JVD, regular rhythm, S1 normal heart sound present, S2 normal heart sound present and No murmurs present (Cardio) RHYTHM: regular rhythm HEART SOUNDS: S1 normal heart sound present and S2 normal heart sound present GI: COMMON NORMALS: Normal to inspection, nondistended, normoactive bowel sounds present, Soft to palpation and non-tender PALPATION: Yes Soft to palpation Extremity: COMMON NORMALS: no joint enlargement and no pedal edema Neuro: COMMON NORMALS: patient oriented x3 and moves all extremities COORDINATION/BALANCE: luldqx-gg-veen test normal (Takes her quite a bit of effort to try to perform imjkku-mk-utry test correctly, although does hit the finger with effort. A little bit easier for her to touch her nose.), No tandem gait normal, Romberg test positive and No Normal rapid alternating movements of the distal upper extremity present (Neuro) (Slow, although does perform correctly) GAIT: Yes Ataxic gait present SENSORY EXAM: Yes Abnormal double simultaneous stimulation for sensation (ignores left side to simultaneous touch) Double similtaneous stimulation abnormal: left-sided extinction MOTOR EXAM: Pronator motor function not present COORDINATION: yuetxi-np-kzpe test normal (Takes her quite a bit of effort to try to perform ytjfis-sm-ymyz test correctly, although does hit the finger with effort. A little bit easier for her to touch her nose.), tandem gait abnormal and abnormal rapid alternating movement UE (Slow, although does perform correctly) Skin: COMMON NORMALS: no rashes or lesions noted GENERAL SKIN EXAM: no rashes or lesions noted Data : 01/13/20 03:44 01/13/20 03:44 Micro: Microbiology 01/10/20 14:45 Urine Culture - Final Urine,Clean Catch Escherichia coli A&P Assessment and plan (1) Facial edema: Protecting airway. 96% on RA. HOB 30 deg. Cont prophylactic dose heparin while awaiting transfer. Called [facility] as well, will place her on waiting list there as well. Noted extensive thrombus of right jugular vein and innominate vein on carotid Doppler. This was discussed with patient, , as well as accepting physician over at [facility]. At this time concern with starting anticoagulation given prior hemorrhagic CVA, presence of appearance of remaining sequela of prior hemorrhage in the right parietal lobe on head MRI this visit. Discussed with her and her that we do not have a neurosurgeon currently in house, and was concerned regarding starting anticoagulation. She is so far without significant changes tolerated prophylactic dose heparin. May require removal of Port-A-Cath. Awaiting bed opening at [facility] for transfer for additional assessment for concern of possible leptomeningeal disease due to recent neurologic changes per discussion with her oncologist, requiring additional imaging, assessment by water resource engineering specialist comfortable with diagnosing leptomeningeal disease, as well as additional assessment and treatment at a tertiary care facility. Swelling around the eyes, around the mouth. Tongue is not swollen. I do not hear stridor. No wheezing. reports she is previously had this at the beginning of December and was prescribed a course of prednisone, initially with some improvement, but then edema seem to be coming back again. Appears to be worse today. She started on Solu-Medrol, Benadryl, famotidine. At this time does not have respiratory compromise. On several discussions regarding CODE STATUS she is adamant would not want any CPR or intubation even on temporary basis. This was discussed with the and he confirms that she has discussed this with him in the past as well. On review of her medications, does not appear to have any new medicines other than did receive Rocephin in ER yesterday for UTI. At this time we will switch this to Cipro, although since swelling has been present previously doubt that this was the causative medication. She appears used to be on lisinopril in the past, but currently has a valsartan at home, which has not been restarted here. This should not really cause such symptoms. She denies any history of recurrent swelling in herself, denies any prior history of facial swelling and anybody in her family to suggest hereditary angioedema. Has history of breast cancer, chemotherapy, acquired C1 esterase inhibitor deficiency may be considered, although lower down on differential. C1 inhibitor level. Appreciate pulmonology assessment. Tick panel panel, carotid doppler otherwise without arterial occlusion. Status: Acute (2) Ataxia: Concern for possible leptomeningeal disease with history of breast cancer, incomplete adjuvant chemotherapy, although initially responsive disease. As above. Discussed with neurologist, her, and her with regards to her condition and results of the MRI study. Appears she is concern for some possible prior right parietal hemorrhage. Does not appear to be new. Prescription with the he states she had an MRI about 6 months ago and there was some finding of hemorrhage at that time. He does report some episodes of very high blood pressure in the past. Does not appear to have any other explanation. With regards to ataxia, dysmetria, appreciate neurology recommendations. Neurologist recommends outpatient MRI with gadolinium contrast, outpatient EEG, starting on antiseizure medication at a lower chance in case there are some focal seizure episodes causing partial seizure to be responsible for her symptoms. does report some on and off tremors which are not currently present. At this time hold off on any antiplatelet medication. Reports several weeks of ataxia symptoms which have not improved, so she has decided to come for evaluation. Reports that she has been falling over when she leans forward especially, like when trying to put her shoes on. Reports also has been missing objects and try to grab them. At this time discussed with her high concern that she may have had CVA, possibly posterior circulation, is also noted to have left-sided visual field cut found by emergency physician. CT did show chronic lacunar thalamic infarct. Assessment by PT, OT. May benefit from rehabilitation if is able to go to SNF. Status: Acute (3) DEBORAH (acute kidney injury): Some fluctuation creatinine, but appears to have stabilized around 1.5. Further IV hydration held. Does say she has been taking ibuprofen at home, also takes losartan. Hold lo sartan for now. Discussed with her to discontinue ibuprofen. Status: Acute (4) UTI (urinary tract infection): UTI with pansensitive E. coli. We will switch antibiotics to tablet form to reduce chance of fluid overload. Appears to have urinary tract infection, although doubt this should be responsible her her symptoms. does report has seen Dr. Jones in the past. Status: Acute Additional A&P Information History of breast cancer. Partial adjuvant chemotherapy, subsequently mastectomy. Hypertension: For now hold of blood pressure medications blood pressure soft. Anxiety disorder: Continue medications Mood disorder: Continue medications HLD: Continue statin Port-A-Cath in L chest Attestations Medical Necessity Statement*: Continue monitoring and supportive care while awaiting transfer to tertiary facility. Coding Level of Care Code Acute [facility] for [facility] Fwd Diagnoses Facial edema R60.0 Ataxia R27.0 DEBORAH (acute kidney injury) N17.9 UTI (urinary tract infection) N39.0
[2020-01-13] MEDS: famotidine 20 mg/2 mL INJ IVP (13:02)
[2020-01-13] MEDS: levETIRAcetam 500 mg Tablet PO (13:03)
[2020-01-13 17:15] LABS: Glucose Point of Care 311 mg/dL (70-110)
--- NOTE | 2020-01-13 18:36 | PC.NURSE ---
Report called to Aura Fernando RN at [facility].
[2020-01-13] MEDS: ciprofloxacin 500 mg Tablet PO (19:00)
--- NOTE | 2020-01-13 19:34 | PC.NURSE ---
Called to update pt's , Abdiel, on status of transportation-- no answer-- left a voicemail and instructions to call back if he had any questions.
--- NOTE | 2020-01-13 20:36 | P.TS_ITS ---
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 (4) Intracerebral hemorrhage: Status: Acute Problem details: Past intracerebral hemorrhage R parietal lobe seen on MRI brain (5) DEBORAH (acute kidney injury): Status: Acute (6) UTI (urinary tract infection): Status: Acute Reason for Visit Reason for Visit: DIZZY AND FALLING Hospital Course Hospital Course: Pleasant 59-year-old lady with history of ER/SC negative and HER-2/Aristeo +ve breast cancer who underwent incomplete adjuvant therapy, which was interrupted due to side effects of chemotherapy, patient her elected to proceed with surgery, with neoadjuvant chemotherapy discontinued after 3/6 cycles, and on 06/22/2019 underwent bilateral mastectomy including right breast radical mastectomy, which showed biopsy site present with fibrosis and dystrophic calcification without residual viable tumor identification. 1/8 lymph nodes with micrometastasis, residual tumor less than 2 mm, left breast with benign findings. Had maintenance therapy with 3 weekly Herceptin/Perjeta. She follows with Dr. Vela here in [place]. She was admitted to the hospital after presenting with recurrent episodes of on and off falling down, with ataxia noted on admission, as well as dysmetria, and left visual field cut. She was out of the window for any acute intervention. Underwent additional assessment by noncontrast MRI brain and MRA ordered in ER without contrast due to acute kidney injury, with creatinine 2.1 on presentation. This showed no acute CVA, but did show small area of old hemorrhage in the right parietal lobe. MRA showed patent intracranial arteries. She was started empirically on Keppra and EEG was planned in case episodes were related to focal seizure. On presentation she was also noted to have some facial swelling, for which she says underwent a course of prednisone treatment several weeks earlier as it was thought to be related to symptoms of allergies. Per discussion with her , she may have had some minimal improvement in his symptoms, although swelling did come back subsequently. In the hospital also noted to have urinary tract infection for which initially was started on Rocephin, with cultures later growing pansensitive E. coli. As swelling was noted with some worsening Rocephin was switched over to ciprofloxacin. Allergic etiology was a possibility, and so she was started on IV steroids, histamine blockers. She did not have stridor or airway compromise. No tongue swelling. Blood pressures remained stable. She denied history of slight swelling in the family, or p reviously in herself. She was not on ACEI. C1 inhibitor level was requested. She did undergo ultrasonographic assessment of carotid arteries which did reveal patent arteries, but showed large clot in the right jugular and innominate veins. She does have a Port-A-Cath in place in the left chest. Per discussion with her and her facial swelling is more likely secondary to venous thrombosis precluding normal venous outflow. Per discussion with her oncologist also he is concerned regarding possible recurrence of breast cancer with leptomeningeal disease given new neurologic symptoms and she has not completed adjuvant chemotherapy, advising additional assessment at a tertiary facility with studies that may include MRI with contrast read preferably by radiologist experienced in diagnosing leptomeningeal disease, possibly LP, etc. 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 She and her were both agreeable for transfer to higher level facility. She was on a waiting list after accepted to [facility] for transfer, however, no bed became available, and she was placed on waiting list to [facility] where she was kindly accepted for additional assessment and management. Physical Exam Const: COMMON NORMALS: no acute distress and patient oriented x3 GENERAL APPEARANCE: frail appearing OTHER: Disheveled HENMT: COMMON NORMALS: oropharynx normal OTHER: Facial swelling around the eyes and lips were just the worst, also involving cheeks, upper neck. No tongue swelling. Neck/C-Spine: COMMON NORMALS: no JVD Resp: COMMON NORMALS: normal respiratory effort and clear to auscultation bilaterally AUSCULTATION: clear to auscultation bilaterally Cardio: COMMON NORMALS: no JVD, regular rhythm, S1 normal heart sound present, S2 normal heart sound present and No murmurs present (Cardio) RHYTHM: r egular rhythm HEART SOUNDS: S1 normal heart sound present and S2 normal heart sound present GI: COMMON NORMALS: Normal to inspection, nondistended, normoactive bowel sounds present, Soft to palpation and non-tender PALPATION: Yes Soft to palpation Extremity: COMMON NORMALS: no joint enlargement and no pedal edema Neuro: COMMON NORMALS: patient oriented x3 and moves all extremities COORDINATION/BALANCE: gnluky-wq-oyth test normal (Takes her quite a bit of effort to try to perform fqzfzd-ld-qwfl test correctly, although does hit the finger with effort. A little bit easier for her to touch her nose.), No tandem gait normal, Romberg test positive and No Normal rapid alternating movements of the distal upper extremity present (Neuro) (Slow, although does perform correctly) GAIT: Yes Ataxic gait present SENSORY EXAM: Yes Abnormal double simultaneous stimulation for sensation (ignores left side to simultaneous touch) Double similtaneous stimulation abnormal: left-sided extinction MOTOR EXAM: Pronator motor function not present COORDINATION: jyvqvl-mf-zkrm test normal (Takes her quite a bit of effort to try to perform hazetg-rh-gova test correctly, although does hit the finger with effort. A little bit easier for her to touch her nose.), tandem gait abnormal and abnormal rapid alternating m ovement UE (Slow, although does perform correctly) Skin: COMMON NORMALS: no rashes or lesions noted GENERAL SKIN EXAM: no rashes or lesions noted TS Data Data Completed and Pending: Completed Studies During Hospitalization Category Date Time Status CT head wo con* [id number] Urgent Cat Scan 01/10/20 13:30 Completed XR chest 1V iris ble [id number] Stat Exams 01/10/20 13:19 Completed MR angio head wo con [id number] Urgent MRI 01/10/20 17:30 Completed MR head wo con* [id number] Urgent MRI 01/10/20 17:30 Completed CV carotid duplex BI* [id number] Routine Ultrasound 01/11/20 10:42 Completed CV echo complete* [id number] Routine Ultrasound 01/11/20 20:30 Completed Pending at discharge Category Date Time Status Miscellaneous Agatha t Routine Lab 01/11/20 12:18 Received Tick Panel Routin e Lab 01/11/20 12:18 Results Labs from last 24 hours 08/29/20 08/29/20 08/29/20 17:07 11:11 06:41 WBC RBC Hgb Hct MCV MCH MCHC RDW Plt Count MPV Neut % (Auto) Lymph % (Auto) Surry % (Auto) Eos % (Auto) Baso % (Auto) Neut # (Auto) Lymph # (Auto) Surry # (Auto) Eos # (Auto) Baso # (Auto) Nucleated RBC % (a uto) Nucleated RBCs # Sodium Potassium Chloride Carbon Dioxide Anion Gap BUN Creatinine GFR Calculation Glucose POC Glucose 311 389 376 Calculated Osmolal ity Calcium 01/13/20 01/13/20 01/12/20 03:44 03:44 20:40 WBC 6.2 RBC 2.96 L Hgb 8.3 L Hct 25.2 L MCV 85.1 MCH 28.0 MCHC 32.9 RDW 14.5 Plt Count 170 MPV 10.7 H Neut % (Auto) 79.8 Lymph % (Auto) 11.4 Surry % (Auto) 5.1 Eos % (Auto) 0.2 Baso % (Auto) 0.3 Neut # (Auto) 4.96 Lymph # (Auto) 0.7 L Surry # (Auto) 0.3 Eos # (Auto) 0.0 Baso # (Auto) 0.0 Nucleated RBC % (a uto) 0 Nucleated RBCs # 0.0 Sodium 139 Potassium 3.9 Chloride 108 H Carbon Dioxide 22 Anion Gap 12.9 BUN 42 H Creatinine 1.4 H GFR Calculation 38.4 L Glucose 269 H POC Glucose 497 Calculated Osmolal ity 295 Calcium 9.5 Vitals: Last Vital Signs Temp 98.4 F 01/13/20 20:00 Pulse 68 01/13/20 19:41 Resp 16 01/13/20 19:41 BP 142/87 01/13/20 19:41 Pulse Ox 93 01/13/20 19:41 TS Medications Medications Home Medications hydrochlorothiazide 25 mg tablet 25 mg PO DAILY tab 06/15/19 [History Confirmed 01/10/20] magnesium oxide 400 mg PO BID 06/15/19 [History Confirmed 01/10/20] metformin 500 mg tablet 500 mg PO BID 06/15/19 [History Confirmed 01/10/20] ondansetron HCl 4 mg tablet 8 mg PO TID PRN tab 06/15/19 [History Confirmed 01/10/20] atorvastatin 20 mg tablet 20 mg PO DAILY #30 tab 09/06/19 [Rx Confirmed 01/10/20] valsartan 160 mg tablet 160 mg PO DAILY 90 Days #90 tab 09/06/19 [Rx Confirmed 01/10/20] folic acid 800 mcg tablet 0.8 mg PO BEDTIME tab 11/09/19 [History Confirmed 01/10/20] insulin regular human 100 unit/mL injection solution See Rx Instructions SUBCUT TID #10 ml 11/09/19 [Rx Confirmed 01/10/20] melatonin 3 mg capsule 6 mg PO DAILY cap 11/09/19 [History Confirmed 01/10/20] mirtazapine 15 mg tablet 15 mg PO DAILY #30 tab 12/14/19 [Rx Confirmed 01/10/20] olanzapine 20 mg PO BEDTIME 01/10/20 [History Confirmed 01/10/20] sertraline [Zoloft] 200 mg PO QAM 01/10/20 [History Confirmed 01/10/20] Discharge Plan Discharge Patient Disposition: Xfer Short-Term Hosp Condition: Stable Prescriptions: No Action metformin 500 mg tablet 500 mg PO BID RF: 0 magnesium oxide 400 mg magnesium tablet 400 mg PO BID RF: 0 hydrochlorothiazide 25 mg tablet 25 mg PO DAILY RF: 0 ondansetron HCl [Zofran] 4 mg tablet 8 mg PO TID PRN (Reason: nausea and vomiting) RF: 0 mirtazapine [Remeron] 15 mg tablet 15 mg PO DAILY Qty: 30 RF: 1 melatonin 3 mg capsule 6 mg PO DAILY RF: 0 folic acid 800 mcg tablet 0.8 mg PO BEDTIME RF: 0 Humulin R Regular U-100 Insuln 100 unit/mL solution See Rx Instructions SUBCUT TID Qty: 10 RF: 2 valsartan 160 mg tablet 160 mg PO DAILY 90 Days Qty: 90 RF: 3 atorvastatin 20 mg tablet 20 mg PO DAILY Qty: 30 RF: 3 Zoloft 100 mg tablet 200 mg PO QAM RF: 0 olanzapine 20 mg tablet 20 mg PO BEDTIME RF: 0 Referrals: John Vela MD [Staff Physician] - (Follow up as needed with Dr. Vela when you get discharged from [facility].) Discharge Date/Time: 01/13/20 19:45 Transfer Attestations Time Spent in Transfer Care*: greater than 30 min Quality Metrics Clinical Quality Measures: During this hospital stay, did patient experience: None Coding Level of Care Code Acute Instrument Man for [facility] Fwd Diagnoses Facial edema R60.0 Ataxia R27.0 Jugular vein thrombosis I82.890 Intracerebral hemorrhage I61.9 DEBORAH (acute kidney injury) N17.9 UTI (urinary tract infection) N39.0
--- NOTE | 2020-01-13 20:53 | PC.NURSE ---
Addendum entered by Maggie Escobar RN 01/13/20 21:10: Pt went to [facility], not [facility], report was called to [facility] by Manisha Bullard RN during day shift. [facility] was notified that they were not receiving this patient. Original Note: Report called to CLAYTON Marin at [facility], Pt going to room 18829 bed A.
[2020-01-14 15:56] LABS: E. Chaffeensis AB IGG <1:64; E. Chaffeensis AB IGM <1:20
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
--- NOTE | 2020-01-17 14:19 | PC.SOCIAL ---
Per Dr Latif request called [facility] to see if they received the transfer summary from our floor. Nurse that answered is the nurse caring for patient however, indicates it is her first day and she is unsure. When asked if this nurse should resend she indicates yes but you are going to ask me the fax number and I dont know it. This nurse inquired if she is working with anyone else on the floor who might know it and she indicates no. She then said to hold on and she will find out. Fax number provided is [phone]. Faxed information with confirmation that fax was sent successfully.
[2020-01-17 16:02] LABS: RMSF IGG NOT DETECTED; RMSF IGM NOT DETECTED
== END 2020-01-13 19:45 | disposition short-term general hospital (02) | DRG 92 ==
LOC: ER 17:14 → MEDSURG 17:35
PROVIDERS: Admitting Provider Internal Medicine; Emergency Provider Emergency Medicine; Visit Provider Internal Medicine
DX: R27.0 Ataxia, unspecified (principal); N17.9 Acute kidney failure, unspecified; N39.0 Urinary tract infection, site not specified; I82.C11 Acute embolism and thrombosis of right internal jugular vein; Z85.3 Personal history of malignant neoplasm of breast; F41.9 Anxiety disorder, unspecified; E78.5 Hyperlipidemia, unspecified; Z87.442 Personal history of urinary calculi; F06.30 Mood disorder due to known physiological condition, unspecified; Z90.13 Acquired absence of bilateral breasts and nipples; I10 Essential (primary) hypertension; R60.0 Localized edema; Z66 Do not resuscitate; Z86.73 Personal history of transient ischemic attack (TIA), and cerebral infarction without residual deficits; Z92.21 Personal history of antineoplastic chemotherapy
CPT/HCPCS: 12345; 36415; 36416; 70450; 70544; 70551; 71045; 80048; 80053; 81001; 82962; 83036; 83605; 85025; 86161; 86618; 86666; 86757; 87077; 87086; 87186; 93306; 93880; 94762; 96372; 96375; 99283; J0696; J0744; J1644; J1815; J1953; J2930; J3490; J7030; J7512

== ENCOUNTER → 2020-01-30 11:59 | Outpatient (BNVA) | payer MEDICAID, SELFPAY | PROVIDERS: Visit Provider Nurse Practitioner Family | DX: I10 Essential (primary) hypertension (principal) | CPT/HCPCS: 80053; 85025 ==

== ENCOUNTER 2020-02-12 06:01 | Outpatient (CLI) | payer MEDICAID, SELFPAY ==
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
== END 2020-02-12 06:02 | disposition home or self-care (01) ==
PROVIDERS: Visit Provider Internal Medicine Hematology & Oncology
DX: C50.811 Malignant neoplasm of overlapping sites of right female breast (principal); Z17.1 Estrogen receptor negative status [ER-]; C77.3 Secondary and unspecified malignant neoplasm of axilla and upper limb lymph nodes; F43.21 Adjustment disorder with depressed mood; Z79.899 Other long term (current) drug therapy
CPT/HCPCS: 99214

== ENCOUNTER 2020-02-13 07:59 | Outpatient (RCR) | payer MEDICAID, SELFPAY ==
--- NOTE | 2020-01-12 16:34 | ONC FU_ITS ---
Dr. Vela follow up note Patient: Jasmin Ortiz Unit #: [id number]: 1960 Dicatated By: John Vela M.D.Date of Visit:Jan 10, 2020 Onc Med Follow-up/Prog Note History of Present Illness: Mrs. Ortiz is a 59-year-old female who noted pain/discomfort in her right breast and subsequently a mass. She underwent mammogram on 01/17/2019 which showed at 9:00 position, 5 cm from the nipple there is 1.6 x 1.2 x 2 cm hypoechoic solid nodule with irregular borders suspicious for neoplasm. In addition, it reported multiple enlarged right axillary lymph nodes, the largest measuring 2.5 x 1.4 cm. Skin thickness at 9:00 measures approximately 1.7 mm, it was read as BI-RADS 5. Ultrasound confirmation was done. Ms Ortiz underwent ultrasound-guided biopsy of right breast mass. The pathology came back reporting infiltrating carcinoma. Ultrasound-guided biopsy of right axillary lymph node biopsy also confirmed infiltrating carcinoma and breast cancer prognostic profile showed estrogen receptor less than 1%, progesterone less than 1% e.g. ER/WY negative HER-2/lyndon 3+ positive, Ki-67 13%, intermediate prognostic risk. 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 History of weight loss, due to poor appetite and off and on night sweats since May 2018 also occasionally fever. As far as breast cancer risk analysis concern, her menarche was at age 12, never had a , she took some hormonal supplement in 1991 when she underwent menopause but did not take any hormone the last 10 years. No family history of breast cancer. CT PET scan was requested but insurance declined coverage but allowed CT scan of chest abdomen pelvis which was done on 01/14/2019 showed no evidence of metastatic disease but with right breast mass and right axillary lymphadenopathy patient She underwent echocardiogram on 03/10/2019 which showed ejection fraction 65%. Ms Ortiz underwent ultrasound renal arterial Doppler ordered by Dr. sidhu; which showed no sonographic evidence of hemodynamically significant renal artery stenosis bilaterally. her who reports that he has seen her speech to be slurred at times and her mouth is drawing at times he states this is not super new but seems to be little worse. He states is been going on since the summer. His story is that she presented to the emergency room with a blood pressure of 250/150 and nothing was done about it . He states she reminds me of a stroke patient . He reports that she is having a slower weaker more shuffling gait. He is also noted that her left hand has consistent persistent movement such as tremors. Underwent MRI scan of the brain on 05/04/2009 which showed widespread chronic small vessel ischemic changes. 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 Cerebral and cerebellar atrophy No evidence of metastatic disease f/u Sonogram of right breast and axilla was done on 05/24/2019 after 3 cycles of chemotherapy showed significant interval improvement in the biopsy-proven ductal carcinoma at 9:00 position right breast measuring 9.7 x 3.5 x 7.3 mm compared to 16 x 12 x 20 mm previously. Multiple enlarged lymph nodes right axilla the largest measuring 2.1 cm is decreased in size from previously related was 2.5 x 1.4 cm. because of persistent and progressive side effect related to chemotherapy, patient and her were not interested in continuing chemotherapy rather proceed with surgery, neoadjuvant chemotherapy was discontinued after 3/6 cycles of chemotherapy with TCH (P) so on 06/22/2019, she underwent bilateral mastectomy including right breast radical mastectomy which showed biopsy site present with fibrosis and dystrophic calcification, no residual viable tumor identified. 1 out of 8 lymph nodes with micro-metastasis, residual tumor less than 2 mm. Left breast shows benign findings. She started on maintenance therapy with 3 weekly Herceptin/perjeta on 08/16/2019 Echo done on 08/11/2019 showed ejection fraction 75% Repeat echocardiogram done on November 16, 2019 showed ejection fraction 65% and as per echo report, no change from previous study done on August 11, 2019 Tolerating Herceptin/Perjeta well Came for follow-up, complaining of generalized weakness and fatigue and now falling off, dizziness for the last 2 weeks also noted some facial puffiness but denies taking any new medication, denies any insect bite or exposure to any allergens, denies any fever chills but mild diarrhea for the last 2 to 3 weeks. Also complaining of blurred vision but no double vision. No focal weakness, Medications: Atorvastatin Calcium 1 Tablet (of 20 mg) Oral daily, BD Insulin Syringe Miscellaneous Take as Directed, Dexamethasone (4 mg) Tablet Oral Take as Directed, HumuLIN R (100 Units/mL) Injection Take as Directed, hydroCHLOROthiazide 1 Tablet (of 25 mg) Oral daily, Lancets Miscellaneous, LORazepam 0.5 - 1 Tablet (of 1 mg) Oral t.i.d. PRN, Magnesium Oxide 1 Tablet (of 400 mg) Oral b.i.d., metFORMIN HCl 1 Tablet (of 500 mg) Oral b.i.d., OLANZapine 1 Tablet (of 20 mg) Oral at bedtime, [place] 3 1 Capsule Oral daily, Prochlorperazine Maleate 1 Tablet (of 10 mg) Oral q 4 hours PRN, Sertraline HCl 1 Tablet (of 50 mg) Oral daily, Valsartan 1 Tablet (of 160 mg) Oral daily Allergies: No Known Allergies. Review of Systems: Constitutional - Appetite is poor and weight is stable. No fever, chills, hot flashes or night sweats. Energy level is poor, ENMT - No sinus congestion/drainage. No mouth sores. No sore throat or difficulty swallowing, Hematologic/Lymphatic - Positive for easy bruising, Respiratory - Positive for shortness of breath and cough. No pleuritic pain or hemoptysis, Cardiovascular - Positive for palpitations, Gastrointestinal - Positive for nausea, no vomiting. No heartburn or acid reflux. Positive for diarrhea, no constipation. No blood in the stool or black stools, Genitourinary (F) - No dysuria or hematuria. No urinary frequency. No urgency. Positive for incontinence, Musculoskeletal - No joint or bone pain, Neurologic - Positive for dizziness. Pt has a significant hx of falls, with a noted increase within the past 3 weeks, Psychiatric - Positive for depression, anxiety and insomnia. Vital Signs: Performed on Jan 10, 2020 11:02 Height - 62.00 in Temperature - 97.7 F (LOW) Pulse - 84 /min Respiration - 20 /min BP - 103/64 mm(hg) O2 Sat - 97 % Pain - 0 Performance Status: 3 - Capable of only limited self-care, confined to bed or chair more than 50% of waking hours. (ECOG) Physical Examination: Respiratory - Lungs are clear, Cardiovascular - Regular rate and rhythm of heart, Gastrointestinal - , Soft, bowel sounds present, nontender, Extremities - , No visible edema, no focal weakness, Dry oral mucosa. Lab/Imaging: Test performed on Jan 08, 2020 12:14 Glucose 243 mg/dL BUN 63 mg/dL Creatinine 2.1 mg/dL Cr Clearance (Est) 30.76 mL/min Sodium 138 mmol/L Potassium 3.6 mmol/L Chloride 102 mmol/L CO2 19 mmol/L Calcium 8.8 mg/dL Protein, Total 7.0 g/dL Albumin 4.1 g/dL Globulin 2.9 g/dL Bilirubin, Total 0.3 mg/dL Alkaline Phosphatase 85 IU/L AST (SGOT) 14 IU/L ALT (SGPT) 26 IU/L WBC 7.3 10^9/L RBC 3.77 10^12/L HGB 10.5 g/dL HCT 33.1 % MCV 87.8 fl MCH 27.9 pg MCHC 31.7 g/dL RDW 15.6 % Platelet Count 207 10^9/L MPV 11.3 fL Neutrophils (Gran) 4.74 10^9/L Lymphocytes 1.8 10^9/L Monocytes 0.6 10^9/L Eosinophils 0.2 10^9/L Basophils 0.1 10^9/L Manual Lymphocytes 24.2 % Manual Monocytes 8.2 % Manual Eosinophils 2.0 % Manual Basophils 0.7 % Test performed on Oct 17, 2019 11:17 Ferritin 145 ng/mL Folate 16.2 ng/mL Vitamin B12 303 pg/mL TIBC 309 mcg/dL Test performed on September 25, 2019 12:30 Anion Gap 18.7 eGFR 50.8 mL/min Neutrophil % 57.8 % Lymphocyte % 31.7 % Monocyte % 6.9 % Eosinophil % 2.8 % Basophils % 0.4 % Impression: after 3/6 cycles of TCH(P)(Chemo was discontinued prematurely at patient's and her request due to related side effect toxicity) underwent bilateral mastectomies on 06/22/2019 and it showed excellent response in her primary right breast carcinoma with no residual viable tumor identified and 1 out of 8 right axillary lymph node showed micrometastasis, residual tumor size less than 2 mm. Left breast shows benign findings. Right breast cancer with biopsy-proven right axillary lymph node involvement per ultrasound-guided biopsy done on 02/09/2019 which showed ER less than 1% WY less than 1% e.g. ER/WY negative and HER-2/lyndon 3+ positive, Ki-67 13% Mammogram done on 01/17/2019 showed right breast mass at 9:00 position, 5 cm from the nipple there is 1.6 x 1.2 x 2.0 cm mass irregular borders, in addition multiple enlarged right axillary lymph nodes, the largest measuring 2.5 x 1.4 Adjustment disorder/depression since teenager-controlled with medication at present. Being HER-2/lyndon positive, she was offered neoadjuvant chemotherapy regimen with docetaxel/carboplatin/Herceptin/pertuzumab every 3 weeks ???6 cycles followed by surgery. Mrs Ortiz and her prefer to preserve her breast. Mrs. Ortiz did have Port-A-Cath placement in the left sub-clavian vein by Dr. Howell on 03/09/2019. She began her first cycle of chemotherapy on 03/29/2019. She has required supportive care with hydration due to nausea and persistent diarrhea. She completed 3 cycles of chemotherapy on 05/11/2019, at that time patient and her decided to discontinue the recommended neoadjuvant chemotherapy because of related side effects. They decided to proceed with surgery and she underwent bilateral mastectomies on 06/22/2019 and it showed excellent response in her primary right breast carcinoma with no residual viable tumor identified; and 1 out of 8 right axillary lymph node showed micrometastasis, residual tumor size less than 2 mm. Left breast shows benign findings. Ms. Ortiz was advised to pursue additional treatment Remaining 3 cycles of chemotherapy with TCH(P) But patient refused because of toxicity she experienced earlier but agreed to consider Perjeta/Herceptin. She began combination therapy on August 16, 2019. She did have cardiac imaging on 08/11/2019 with limited views for monitoring that Herceptin. The study reported to LV EF was 75% with no regional wall motion abnormalities. Normal right ventricular size and systolic function. When compared to May 16, 2019 there may not have been any significant change no wall . Plan: Discussed with patient regarding her labs white blood count 7.3 hemoglobin 10.5 hematocrit 33.1 platelets 207,000 CMP within normal limit except glucose 243 creatinine 2.1 Clinically, patient is in mild to moderate distress but alert and oriented, clinically appears dehydrated probably due to diarrhea and poor oral intake, and concern is her frequent falling and off and on mental status changes, she may have brain mets or sepsis or meningitis, we will hold her neck schedule dose of Herceptin/Perjeta and send her to emergency room for evaluation and possibly inpatient care. Signed By: John Vela M.D. <<Signature on File>>
[2020-02-13] MEDS: sodium chloride 0.9% 250 ML 75 ML IV (13:18)
[2020-02-13] MEDS: acetaminophen 325 mg Tablet 650 MG PO (13:20)
== END 2020-02-14 23:59 | disposition home or self-care (01) ==
LOC: ONCMED 07:59
PROVIDERS: Visit Provider Internal Medicine Hematology & Oncology
DX: Z51.11 Encounter for antineoplastic chemotherapy (principal); C50.411 Malignant neoplasm of upper-outer quadrant of right female breast; Z17.1 Estrogen receptor negative status [ER-]; C77.3 Secondary and unspecified malignant neoplasm of axilla and upper limb lymph nodes
CPT/HCPCS: 96367; 96413; 96417; J1200; J2405; J3490; J7050; J9306; J9355

== ENCOUNTER 2020-02-14 19:27 | Emergency (ER) | payer MEDICAID, SELFPAY ==
--- NOTE | 2020-02-14 19:32 | XR_ITS ---
WS: [id number] Portable AP upright chest, 02/14/2020 Clinical Data: Chest pain/shortness of breath Comparison: Portable chest, 01/10/2020. Findings: No nodules, masses or effusions are seen. The heart is normal. The pulmonary vascularity is not increased. No pneumonia or pneumothorax is seen. There is a left Port-A-Cath with a loop which m ay extend into the left internal jugular vein. The tip is barely within the superior vena cava. Monit or leads are on the chest wall. The aortic arch and descending aorta are minimally tortuous. XR/XR chest 1V portable [id number] Impression: Atherosclerosis.
--- NOTE | 2020-02-14 19:33 | ECG_ITS ---
[facility] Test Date: 2020-02-14 Pat Name: Jasmin Ortiz Department: Room: Gender: Female Range Aide: : 1960 Requested By: Shahnaz Monsivais Order Number: [id number] Camacho MD: Evaristo Castillo M.D. Measurements Intervals [place] Rate: 74 P: 42 NE: 152 QRS: 48 QRSD: 75 T: 46 QT: 371 QTc: 413 Interpretive Statements SINUS RHYTHM Compared to ECG 10/26/2018 14:49:46 T-wave abnormality no longer present Electronically Signed On 02-15-2020 19:18:44 CDT by Evaristo Castillo M.D. [email or web address] [email or web address] [email or web address] rehabilitation hospitalNexxo Financialtrumbull [email or web address] medical center.[id number] f
[2020-02-14 19:35] VITALS: BP 152/94; PULSE 72; RESP 17; TEMP 36.7; O2SAT 97; BMI 25.7
--- NOTE | 2020-02-14 19:39 | CTR_ITS ---
PROCEDURE INFORMATION: Exam: CT Angiography Chest With Contrast Exam date and time: 02/14/2020 7:58 PM Age: 59 years old Clinical indication: Pain; Shortness of breath; Chest pressure; Prior surgery; Surgery type: Bilat mastectomy, port; Additional info: Cp TECHNIQUE: Imaging protocol: Computed tomographic angiography of the chest with intravenous contrast. 3D rendering (Not supervised by radiologist): MIP and/or 3D reconstructed images were created by the technologist. Radiation optimization: All CT scans at this facility use at least one of these dose optimization techniques: automated exposure control; mA and/or kV adjustment per patient size (includes targeted exams where dose is matched to clinical indication); or iterative reconstruction. Contrast material: VISI 320; Contrast volume: 67 ml; Contrast route: INTRAVENOUS (IV); COMPARISON: CT Chest/Abdomen/Pelvis w IV* 03/16/2019 2:31 PM RADIATION DOSE METRICS: Total DLP (mGy-cm): 519 FINDINGS: Pulmonary arteries: Normal. No pulmonary emboli. Aorta: Unremarkable. No aortic aneurysm. No aortic dissection. Lungs: Unremarkable. No consolidation. No masses. Pleural space: Unremarkable. No pneumothorax. No pleural effusion. Heart: Unremarkable. No cardiomegaly. No pericardial effusion. Lymph nodes: Unremarkable. No enlarged lymph nodes. Spleen: There is splenomegaly measuring 13.4 cm in length. Bones/joints: Unremarkable. No acute fracture. Soft tissues: Unremarkable. CT/CT angio chest PE protcl [id number] IMPRESSION: There are no acute concerning abnormalities. There is no evidence for a pulmonary embolus. Radiation Dose CTDIVOL = (mGy): DLP = 519 (mGy-cm)
--- NOTE | 2020-02-14 19:45 | ED_ITS ---
HPI - Chest Pain General: Chief Complaint: Chest Pain Stated Complaint: sob/chest pains Time Seen by Provider: 02/14/20 19:33 Source: patient Mode of arrival: ambulatory History of Present Illness: HPI narrative: 59-year-old female with history of breast cancer and bilateral mastectomies. States over the last 2 to 3 days she is had intermittent chest pains is a pressure type pain in the center of her ch est along with shortness of breath. She denies any diaphoresis. She denies any worsening improving factors. States pain is currently 4 out of 10. Denies any vomiting or diarrhea. Associated symptoms: Reports dyspnea; Deny abdominal pain, fever(s), nausea or vomiting Review of Systems Const: Denies: fever(s), chills, body aches or change in appetite Eyes: Denies: blurry vision or eye discomfort ENMT: Denies: throat pain or dental pain Card: Reports: chest pain Resp: Reports: dyspnea GI: Denies: abdominal pain, nausea, vomiting or diarrhea : Denies: dysuria Musc: Denies: neck pain or back pain Skin/Breast: Denies: rash Neuro: Denies: headache(s) Psych: Denies: depression Dougie/Lymph: Denies: easy bruising All/Imm: Denies: urticaria PFSH ED PFSH: Medical History (Updated 02/14/20 @ 21:54 by Nicolette Plaza MD) Anxiety disorder Dyslipidemia History of renal stone Hx of breast cancer Mood disorder due to a general medical condition Port-A-Cath in place Surgical History Hx of breast biopsy Hx of cystoscopy Hx of hysterectomy Hx of pelvic surgery S/P mastectomy, bilateral Family History Mother Diabetes Heart disease Father Suicide Social History Smoking and tobacco status: never smoked Second hand smoke exposure: Yes Alcohol intake: never Lives independently: Yes Household members: spouse Marital status: Current occupational status: retired History of recent travel: No Current gender identity: Female Physical Exam Const: COMMON NORMALS: no acute distress, patient oriented x3 and healthy appearing HENMT: COMMON NORMALS: normocephalic and atraumatic HEAD & SCALP: normocephalic and atraumatic Eye: COMMON NORMALS: Equal, round and reactive pupils present and EOMs intact bilaterally PUPIL: Yes Equal, round and reactive pupils present Neck/C-Spine: COMMON NORMALS: full ROM and supple Chest: COMMONS NORMALS: normal inspection of the chest and normal palpation of entire chest wall Resp: COMMON NORMALS: normal respiratory effort, No retractions, No use of accessory muscles and clear to auscultation bilaterally AUSCULTATION: clear to auscultation bilaterally Cardio: COMMON NORMALS: regular rate, regular rhythm and No murmurs present (Cardio) RATE: regular rate RHYTHM: regular rhythm GI: COMMON NORMALS: Normal to inspection, nondistended, normoactive bowel sounds present, Soft to palpation, non-tender and no masses PALPATION: Yes Soft to palpation Extremity: COMMON NORMALS: normal to inspection and full ROM Neuro: COMMON NORMALS: patient oriented x3, moves all extremities and no focal motor deficits Psych: COMMON NORMALS: mental status grossly normal, Normal thought process present and cooperative THOUGHT PROCESS: Normal thought process present Skin: COMMON NORMALS: no rashes or lesions noted and no wounds GENERAL SKIN EXAM: no rashes or lesions noted Course Vital Signs: Vital signs: Vital Signs Temperature 98.0 F 02/14/20 19:35 Pulse Rate 76 02/14/20 21:43 Respiratory Rate 16 02/14/20 21:43 Blood Pressure 123/89 02/14/20 21:43 Pulse Oximetry 96 02/14/20 21:43 MDM - Chest Pain MDM Narrative: Medical decision making narrative: Patient presents with chest pain is. She has been having pain. Her initial repeat troponins here are normal. CT scan showed no signs of pulmonary embolism. Patient feels improved after morphine and is stable for discharge. She has no signs of acute coronary syndrome. She is to follow-up with PCP in 3 to 5 days return if worsening. She understands and agrees to plan. Lab Data: Labs: Lab Results 02/14/20 02/14/20 02/14/20 Range/Units 19:49 19:49 19:49 WBC 5.2 (4.0-10.0) 10^3/ uL RBC 3.53 L (4.1-5.3) 10^6/u L Hgb 10.1 L (11.5-15.3) g/dL Hct 31.1 L (37.0-47.0) % MCV 88.1 (81-99) fL MCH 28.6 (28.0-34.0) pg MCHC 32.5 (30.0-36.0) g/dL RDW 15.9 H (12.1-15.1) % Plt Count 196 (130-400) 10^3/c mm MPV 11.1 H (7.4-10.4) fL Neut % (Auto) 64.8 % Lymph % (Auto) 28.0 % [place] % (Auto) 5.0 % Eos % (Auto) 1.6 % Baso % (Auto) 0.4 % Neut # (Auto) 3.34 (1.8-7.7) 10^3/u L Lymph # (Auto) 1.4 (0.8-4.8) 10^3/u L [place] # (Auto) 0.3 (0.2-0.9) 10^3/u L Eos # (Auto) 0.1 (0.0-0.8) 10^3/u L Baso # (Auto) 0.0 (0.0-0.1) 10^3/u L Nucleated RBC % (a uto) 0 % Nucleated RBCs # 0.0 /100WBC PT 15.90 H (12.1-14.9) SECO NDS INR 1.23 H (0.8-1.2) Sodium 137 (136-145) mmol/L Potassium 3.7 (3.5-5.1) mmol/L Chloride 104 (98-107) mmol/L Carbon Dioxide 23 (22-29) mmol/L Anion Gap 13.7 (5-19) BUN 19 (8-23) mg/dL Creatinine 1.1 H (0.5-0.9) mg/dL GFR Calculation 50.7 L (90-130) mL/min Glucose 114 (65-115) mg/dL Calculated Osmolal ity 287 (285-295) mOsm/k g Calcium 9.2 (8.5-10.5) mg/dL Magnesium 1.6 L (1.7-2.3) mg/dL Total Bilirubin 0.4 (0.15-1.2) mg/dL AST 16 (0-32) U/L ALT 17 (0-33) U/L Alkaline Phosphata se 78 (35-105) IU/L Troponin T Baselin e (0-10) ng/L Troponin T 120 Min [place] (0-10) ng/L Delta Troponin T (0-10) ABS# Total Protein 6.9 (6.6-8.7) g/dL Albumin 3.8 (3.5-5.2) g/dL Globulin 3.1 (1.3-4.6) g/dL Lipase 29 (13-60) U/L 02/14/20 02/14/20 Range/Units 19:49 21:11 WBC (4.0-10.0) 10^3/ uL RBC (4.1-5.3) 10^6/u L Hgb (11.5-15.3) g/dL Hct (37.0-47.0) % MCV (81-99) fL MCH (28.0-34.0) pg MCHC (30.0-36.0) g/dL RDW (12.1-15.1) % Plt Count (130-400) 10^3/c mm MPV (7.4-10.4) fL Neut % (Auto) % Lymph % (Auto) % [place] % (Auto) % Eos % (Auto) % Baso % (Auto) % Neut # (Auto) (1.8-7.7) 10^3/u L Lymph # (Auto) (0.8-4.8) 10^3/u L [place] # (Auto) (0.2-0.9) 10^3/u L Eos # (Auto) (0.0-0.8) 10^3/u L Baso # (Auto) (0.0-0.1) 10^3/u L Nucleated RBC % (a uto) % Nucleated RBCs # /100WBC PT (12.1-14.9) SECO NDS INR (0.8-1.2) Sodium (136-145) mmol/L Potassium (3.5-5.1) mmol/L Chloride (98-107) mmol/L Carbon Dioxide (22-29) mmol/L Anion Gap (5-19) BUN (8-23) mg/dL Creatinine (0.5-0.9) mg/dL GFR Calculation (90-130) mL/min Glucose (65-115) mg/dL Calculated Osmolal ity (285-295) mOsm/k g Calcium (8.5-10.5) mg/dL Magnesium (1.7-2.3) mg/dL Total Bilirubin (0.15-1.2) mg/dL AST (0-32) U/L ALT (0-33) U/L Alkaline Phosphata se (35-105) IU/L Troponin T Baselin e 12 H (0-10) ng/L Troponin T 120 Min [place] 12.56 H (0-10) ng/L Delta Troponin T 0.56 (0-10) ABS# Total Protein (6.6-8.7) g/dL Albumin (3.5-5.2) g/dL Globulin (1.3-4.6) g/dL Lipase (13-60) U/L Imaging Data^: CT Chest: Radiologist's impression: [address] [address] [address] Scan Report Signed Patient: Jasmin Ortiz Unit #: [id number] : 1960 Age/Sex: 59 / F ADM Date: 02/14/20 Loc: ER Room/Bed: Attending Dr: Ordering Provider/Ordering MD: Nicolette Plaza MD Date of Service: 02/14/20 Procedure(s): CT angio chest PE protcl [id number] Accession Number(s): [id number] Report Number: [id number] PROCEDURE INFORMATION: Exam: CT Angiography Chest With Contrast Exam date and time: 02/14/2020 7:58 PM Age: 59 years old Clinical indication: Pain; Shortness of breath; Chest pressure; Prior surgery; Surgery type: Bilat mastectomy, port; Additional info: Cp TECHNIQUE: Imaging protocol: Computed tomographic angiography of the chest with intravenous contrast. 3D rendering (Not supervised by radiologist): MIP and/or 3D reconstructed images were created by the technologist. Radiation optimization: All CT scans at this facility use at least one of these dose optimization techniques: automated exposure control; mA and/or kV adjustment per patient size (includes targeted exams where dose is matched to clinical indication); or iterative reconstruction. Contrast material: VISI 320; Contrast volume: 67 ml; Contrast route: INTRAVENOUS (IV); COMPARISON: CT Chest/Abdomen/Pelvis w IV* 03/16/2019 2:31 PM RADIATION DOSE METRICS: Total DLP (mGy-cm): 519 FINDINGS: Pulmonary arteries: Normal. No pulmonary emboli. Aorta: Unremarkable. No aortic aneurysm. No aortic dissection. Lungs: Unremarkable. No consolidation. No masses. Pleural space: Unremarkable. No pneumothorax. No pleural effusion. Heart: Unremarkable. No cardiomegaly. No pericardial effusion. Lymph nodes: Unremarkable. No enlarged lymph nodes. Spleen: There is splenomegaly measuring 13.4 cm in length. Bones/joints: Unremarkable. No acute fracture. Soft tissues: Unremarkable. CT/CT angio chest PE protcl [id number] IMPRESSION: There are no acute concerning abnormalities. There is no evidence for a pulmonary embolus. EKG Data^: EKG 1: Attestation: I personally reviewed and interpreted this EKG as follows: EKG interpretation date: 02/14/20 EKG interpretation time: 19:37 Interpretation: nsr hr [address] or t wave abnormalities qrs 75 qtc 398 EKG 2: Attestation: I personally reviewed and interpreted this EKG as follows: EKG interpretation date: 02/14/20 EKG interpretation time: 21:17 Interpretation: nsr hr [address] or t wave abnormalities qrs 86 qtc 415 Discharge Plan Discharge Patient Disposition: Home Clinical Impression: Atypical chest pain Condition: Stable Prescriptions: No Action metformin 500 mg tablet 500 mg PO BID RF: 0 melatonin 3 mg capsule 6 mg PO BEDTIME RF: 0 folic acid 800 mcg tablet 800 mcg PO BEDTIME RF: 0 valsartan 160 mg tablet 160 mg PO DAILY 90 Days Qty: 90 RF: 3 hydrochlorothiazide 25 mg tablet 25 mg PO DAILY Qty: 90 RF: 3 Humulin R Regular U-100 Insuln 100 unit/mL solution See Rx Instructions .ROUTE .COMPLEX RF: 0 Eliquis 5 mg tablet 5 mg PO BID RF: 0 Fish Oil 1 cap PO DAILY RF: 0 atorvastatin 20 mg tablet 40 mg PO BEDTIME RF: 0 Remeron 15 mg tablet 15 mg PO BEDTIME RF: 0 sertraline [Zoloft] 100 mg tablet 200 mg PO QAM RF: 0 olanzapine 20 mg tablet 20 mg PO BEDTIME RF: 0 Discharge Orders: Discharge Order (Routine); Ordered 02/14/20 Ordered By: Nicolette Plaza Discharge Diet: Advance as tolerated Discharge Activity: Resume usual activity Patient Instructions: Chest Pain (ED) Coding Level of Care Code 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
[2020-02-14] MEDS: ondansetron 2 mg/ML SDV 2 mL 4 MG IVP (19:56)
[2020-02-14] MEDS: aspirin 81 mg Chew Tablet 324 MG PO (19:56)
[2020-02-14] MEDS: morphine 4 mg/mL SDV 1 mL IVP (19:56)
[2020-02-14 19:59] LABS: Basophils % 0.4 %; Eosinophils # 0.1 10^3/uL (0.0-0.8); Eosinophils % 1.6 %; Hematocrit 31.1 % (37.0-47.0); Hemoglobin 10.1 g/dL (11.5-15.3); Lymphocytes # 1.4 10^3/uL (0.8-4.8); Mean Corpuscular HGB Conc 32.5 g/dL (30.0-36.0); Mean Corpuscular Hemoglobin 28.6 pg (28.0-34.0); Mean Corpuscular Volume 88.1 fL (81-99); Mean Platelet Volume 11.1 fL (7.4-10.4); Monocytes # 0.3 10^3/uL (0.2-0.9); Neutrophils # 3.34 10^3/uL (1.8-7.7); Neutrophils % 64.8 %; Nucleated Red Blood Cells % 0 %; Platelet Count 196 10^3/cmm (130-400); Red Blood Count 3.53 10^6/uL (4.1-5.3); Red Cell Distribution Width 15.9 % (12.1-15.1); White Blood Count 5.2 10^3/uL (4.0-10.0)
[2020-02-14] MEDS: iodixanol 320 mg/mL 100mL Btl IV (20:06)
[2020-02-14 20:14] VITALS: BP 104/86; PULSE 72; RESP 16; O2SAT 92
[2020-02-14 20:14] LABS: Alanine Aminotransferase 17 U/L (0-33); Albumin Level 3.8 g/dL (3.5-5.2); Alkaline Phosphatase 78 IU/L (35-105); Anion Gap 13.7 (5-19); Aspartate Amino Transferase 16 U/L (0-32); Blood Urea Nitrogen 19 mg/dL (8-23); Calcium 9.2 mg/dL (8.5-10.5); Carbon Dioxide 23 mmol/L (22-29); Chloride 104 mmol/L (98-107); Globulin 3.1 g/dL (1.3-4.6); Glomerular Filtration Rate 50.7 mL/min (90-130); Glucose 114 mg/dL (65-115); Lipase 29 U/L (13-60); Magnesium 1.6 mg/dL (1.7-2.3); Osmolality Calculated 287 mOsm/kg (285-295); Potassium 3.7 mmol/L (3.5-5.1); Sodium 137 mmol/L (136-145); Total Bilirubin 0.4 mg/dL (0.15-1.2); Total Protein 6.9 g/dL (6.6-8.7)
[2020-02-14 20:16] LABS: Troponin(5th) Baseline 12 ng/L (0-10)
[2020-02-14 20:26] LABS: INR 1.23 (0.8-1.2)
[2020-02-14 21:36] LABS: Troponin 5 2HR 12.56 ng/L (0-10); Troponin 5 2HR Delta 0.56 ABS# (0-10)
[2020-02-14 21:43] VITALS: BP 123/89; PULSE 76; RESP 16; O2SAT 96
[2020-02-14 22:14] VITALS: BP 119/81; PULSE 76; RESP 16; O2SAT 99
== END 2020-02-14 22:15 | disposition home or self-care (01) ==
PROVIDERS: Emergency Medicine; Emergency Provider Emergency Medicine
DX: R07.89 Other chest pain (principal); Z79.01 Long term (current) use of anticoagulants; Z79.4 Long term (current) use of insulin; E78.5 Hyperlipidemia, unspecified; Z85.3 Personal history of malignant neoplasm of breast; Z87.891 Personal history of nicotine dependence
CPT/HCPCS: 12345; 71045; 71275; 80053; 83690; 83735; 84484; 85025; 85610; 93005; 96374; 96375; 99282; 99284; J2270; J2405; Q9967

== ENCOUNTER 2020-02-16 11:18 | Emergency (ER) | payer MEDICAID, SELFPAY ==
[2020-02-16 11:20] VITALS: BP 150/88; PULSE 73; RESP 16; TEMP 36.5; O2SAT 99; BMI 25.6
--- NOTE | 2020-02-16 11:31 | ED_ITS ---
HPI - Allergic Reaction General: Chief complaint: Allergic Reaction Stated complaint: ALLERGIC REACTION TO MEDICATION Time Seen by Provider: 02/16/20 11:23 Source: patient Mode of arrival: ambulatory Limitations: no limitations History of Present Illness: HPI narrative: 59 yo female patient presents to ER stating she was sent by oncologist for allergic reaction to Chemo. Pt states she has facial swelling and itchy scratchy throat that started this am. Pt denies any chest pain or SOB. Pt denies any dificulty swallowing. pt deies any fever, n/v/d. Pt denies taking any izzy inhibitors. MD complaint: allergic reaction and facial swelling Associated symptoms: Reports lip swelling; Deny abdominal pain, difficulty breathing, dysphagia, dizziness or tongue swelling Severity: moderate Treatment prior to arrival: none Review of Systems General: Reports: 10 or more systems reviewed and unremarkable except in HPI and below Const: Denies: fever(s), chills or body aches Eyes: Denies: change in vision or blurry vision ENMT: Reports: swelling of lips/tongue (pt states her lips feel swollen and tingly denies swelling of tongue); Denies: throat pain, mouth pain or dental pain Card: Denies: chest pain, palpitations, irregular heart rhythm, lightheadedness or syncope Resp: Denies: dyspnea, productive cough, non-productive cough, wheezing, stridor or pain on inspiration GI: Denies: abdominal pain or dysphagia : Denies: flank pain or difficulty voiding Musc: Denies: neck pain or back pain Skin/Breast: Reports: skin swelling (facial - bilateral cheeks); Denies: rash Neuro: Denies: headache(s) or dizziness Psych: Denies: anxiety, suicidal ideation or homicidal ideation All/Imm: Denies: tongue swelling PFSH ED PFSH: Medical History Anxiety disorder Dyslipidemia History of renal stone Hx of breast cancer Mood disorder due to a general medical condition Port-A-Cath in place Surgical History Hx of breast biopsy Hx of cystoscopy Hx of hysterectomy Hx of pelvic surgery S/P mastectomy, bilateral Family History Mother Diabetes Heart disease Father Suicide Social History Smoking and tobacco status: never smoked Second hand smoke exposure: Yes Alcohol intake: never Lives independently: Yes Household members: spouse Marital status: Current occupational status: retired History of recent travel: No Current gender identity: Female Physical Exam Const: COMMON NORMALS: no acute distress, average body habitus, patient oriented x3, no limitations, healthy appearing, alert and well nourished HENMT: COMMON NORMALS: normocephalic, atraumatic, hearing grossly normal bilaterally, external ears normal, EAC's normal, TM's normal bilaterally, Normal external nose present, Normal nasal mucous membranes and turbinates present, moist oral mucous membranes, oropharynx normal, dentition normal and gingiva normal HEAD & SCALP: normocephalic and atraumatic FACE & SINUS: edema (mildly swollen) bilaterally NOSE: Normal external nose present and Normal nasal mucous membranes and turbinates present EXTERNAL EAR: Yes external ears normal EXTERNAL AUDITORY CANAL: EAC's normal TYMPANIC MEMBRANE: TM's normal bilaterally Eye: COMMON NORMALS: Equal, round and reactive pupils present, EOMs intact bilaterally, conjunctivae normal, no scleral icterus, no papilledema, normal visual carbone by confrontation and fundi normal bilaterally CONJUNCTIVA: Yes conjunctivae normal PUPIL: Yes Equal, round and reactive pupils present DIRECT OPHTHALMOSCOPY: Yes no papilledema and Yes fundi normal bilaterally Neck/C-Spine: COMMON NORMALS: full ROM, no lymphadenopathy, supple, no meningeal signs, no JVD, Thyroid normal and No carotid bruits THYROID: Thyroid normal Lymph: LYMPHATIC: no lymphadenopathy noted Chest: COMMONS NORMALS: normal inspection of the chest, normal palpation of entire chest wall, normal inspection of the breasts and normal palpation of the breasts Resp: COMMON NORMALS: normal respiratory effort, No retractions, No use of accessory muscles, clear to auscultation bilaterally and percussion normal AUSCULTATION: clear to auscultation bilaterally PERCUSSION: percussion normal Cardio: COMMON NORMALS: no JVD, regular rate, regular rhythm, No gallops present (Cardio), No clicks present (Cardio), No murmurs present (Cardio) and No rub (Cardio) RATE: regular rate RHYTHM: regular rhythm GI: COMMON NORMALS: Normal to inspection, nondistended, normoactive bowel sounds present, Soft to palpation, non-tender, No hepatosplenomegaly present, no masses and no bruits PALPATION: Yes Soft to palpation and Yes No hepatosplenomegaly present Neuro: COMMON NORMALS: patient oriented x3 SENSORIUM/ORIENTATION: Yes alert MENINGEAL SIGNS: Yes no meningeal signs Course Vital Signs: Vital signs: Vital Signs Temperature 97.7 F 02/16/20 11:20 Pulse Rate 72 02/16/20 13:30 Respiratory Rate 18 02/16/20 13:06 Blood Pressure 122/85 02/16/20 13:30 Pulse Oximetry 99 02/16/20 13:30 MDM - Allergic Reaction MDM Narrative: Medical decision making narrative: Pt is well appearing non toic and in no acute distress. Pt c/o facial swelling, lip swelling and lip tibgling. Pt states her oncologist thinks its an allergic reaction to chemo. pt denies use of izzy inhibitor. I did treat patient with SQ epi, solu-medrol, pepcid, benadryl. Pt did have complete resolutions of symptoms. Pts LUNGS CTA. there was no evience of wheezing or stridor noted. Pts VSS. Pt monitored and remains stable and improved. I will send patient home with short course of steroids and have her followup with oncologist next week as scheduled. Return precautions advised and home care reviewed Differential Diagnosis: Differential Diagnosis allergic reaction: Likely anaphylaxis, allergic reaction, angioedema, contact dermatitis and adverse reaction to drug Discharge Plan Discharge Patient Disposition: Home Clinical Impression: Allergic reaction Qualifiers: Encounter type: initial encounter Qualified Code(s): T78.40XA - Allergy, unspecified, initial encounter Anaphylaxis Qualifiers: Encounter type: initial encounter Qualified Code(s): T78.2XXA - Anaphylactic shock, unspecified, initial encounter Condition: Stable Prescriptions: New prednisone 20 mg tablet 20 mg PO BID 5 Days Qty: 10 RF: 0 No Action metformin 500 mg tablet 500 mg PO BID RF: 0 melatonin 3 mg capsule 6 mg PO BEDTIME RF: 0 folic acid 800 mcg tablet 800 mcg PO BEDTIME RF: 0 valsartan 160 mg tablet 160 mg PO DAILY 90 Days Qty: 90 RF: 3 hydrochlorothiazide 25 mg tablet 25 mg PO DAILY Qty: 90 RF: 3 Humulin R Regular U-100 Insuln 100 unit/mL solution See Rx Instructions .ROUTE .COMPLEX RF: 0 Eliquis 5 mg tablet 5 mg PO BID RF: 0 Fish Oil 1 cap PO DAILY RF: 0 atorvastatin 20 mg tablet 40 mg PO BEDTIME RF: 0 mirtazapine [Remeron] 15 mg tablet 15 mg PO BEDTIME RF: 0 sertraline [Zoloft] 100 mg tablet 200 mg PO QAM RF: 0 olanzapine 20 mg tablet 20 mg PO BEDTIME RF: 0 Discharge Orders: Discharge Order (Routine); Ordered 02/16/20 Ordered By: Mary Jane Lindo Discharge Diet: Advance as tolerated Discharge Activity: Resume usual activity Activity Restrictions/Additional Instructions: Please follow up with your oncologist as scheduled Please take meds as prescribed Please return with any return or worsening of symptoms or any other concerns Coding Level 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
[2020-02-16] MEDS: sodium chloride 0.9% 1,000 ML 999 ML IV (12:00)
[2020-02-16] MEDS: diphenhydrAMINE 50 mg/mL SDV 1mL IVP (12:02)
[2020-02-16] MEDS: famotidine 20 mg/2 mL INJ IVP (12:04)
[2020-02-16 12:29] VITALS: PULSE 66; RESP 17; O2SAT 100
[2020-02-16] MEDS: albuterol 8 gm MDI 2 PUFF INHALATION (12:29)
--- NOTE | 2020-02-16 13:04 | PC.NURSE ---
Patient symptoms Symptoms including facial swelling has improved significantly after medications, breathing treatment, and IV fluids. Patient reports feeling better, now just drowsy due to medications
[2020-02-16 13:06] VITALS: BP 114/89; PULSE 71; RESP 18; O2SAT 100
[2020-02-16 13:30] VITALS: BP 122/85; PULSE 72; O2SAT 99
[2020-02-16 14:24] VITALS: BP 112/87; PULSE 74; RESP 18; O2SAT 98
== END 2020-02-16 14:24 | disposition home or self-care (01) ==
PROVIDERS: Emergency Provider Registered Nurse
DX: T78.40XA Allergy, unspecified, initial encounter (principal); T78.2XXA Anaphylactic shock, unspecified, initial encounter; Z79.4 Long term (current) use of insulin; Z79.01 Long term (current) use of anticoagulants; E78.5 Hyperlipidemia, unspecified; Z85.3 Personal history of malignant neoplasm of breast; Z87.891 Personal history of nicotine dependence
CPT/HCPCS: 12345; 94640; 96361; 96374; 96375; 99282; 99283; J1200; J2930; J3490; J3535; J7030

== ENCOUNTER → 2020-03-04 12:14 | Outpatient (BNVA) | payer MEDICAID, SELFPAY | PROVIDERS: Visit Provider Internal Medicine Hematology & Oncology | DX: C50.919 Malignant neoplasm of unspecified site of unspecified female breast (principal); R19.7 Diarrhea, unspecified | CPT/HCPCS: 80053; 85025 ==

== ENCOUNTER → 2020-03-11 10:35 | Outpatient (BNVA) | payer MEDICAID, SELFPAY | PROVIDERS: Visit Provider Internal Medicine Hematology & Oncology | DX: C50.919 Malignant neoplasm of unspecified site of unspecified female breast (principal); R19.7 Diarrhea, unspecified | CPT/HCPCS: 80053; 85025 ==

== ENCOUNTER 2020-03-13 05:25 | Outpatient (RCR) | payer MEDICAID, SELFPAY ==
[2020-03-05] MEDS: ondansetron 2 mg/ML SDV 2 mL 8 MG IVP (12:07)
[2020-03-05] MEDS: diphenoxylate/atropine Tablet 1 TAB PO (12:19)
--- NOTE | 2020-03-05 14:24 | XRR_ITS ---
PROCEDURE INFORMATION: Exam: XR Chest, 2 Views Exam date and time: 03/05/2020 2:43 PM Age: 59 years old Clinical indication: Cough and shortness of breath; Prior surgery; Surgery type: Double mastectomy, port; Additional info: Cough, short of breath, breast cancer TECHNIQUE: Imaging protocol: XR of the chest Views: 2 views. COMPARISON: CR XR chest 1V portable [id number] 02/14/2020 8:06 PM FINDINGS: Tubes, catheters and devices: There is a left subclavian catheter whose tip is in the left brachiocephalic vein in unaltered position. Lungs: Unremarkable. No consolidation. Pleural space: Unremarkable. No pleural effusion. No pneumothorax. Heart/Mediastinum: Unremarkable. No cardiomegaly. Bones/joints: Unremarkable. XR/XR chest 2V* [id number] IMPRESSION: There are no acute concerning abnormalities.
[2020-03-05 16:48] LABS: Magnesium 1.3 mg/dL (1.7-2.3)
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
== END 2020-03-16 23:59 | disposition home or self-care (01) ==
LOC: ONCMED 05:25
PROVIDERS: Nurse Practitioner; Visit Provider Internal Medicine Hematology & Oncology
DX: E87.6 Hypokalemia (principal); C50.411 Malignant neoplasm of upper-outer quadrant of right female breast; C77.3 Secondary and unspecified malignant neoplasm of axilla and upper limb lymph nodes; F43.21 Adjustment disorder with depressed mood; Z17.1 Estrogen receptor negative status [ER-]; R19.7 Diarrhea, unspecified; Z79.4 Long term (current) use of insulin; Z79.899 Other long term (current) drug therapy; Z87.891 Personal history of nicotine dependence; Z86.718 Personal history of other venous thrombosis and embolism; Z86.73 Personal history of transient ischemic attack (TIA), and cerebral infarction without residual deficits; Z87.442 Personal history of urinary calculi; Z90.13 Acquired absence of bilateral breasts and nipples
CPT/HCPCS: 71046; 83735; 87493; 96365; 96366; 96375; 99214; J2405; J3475; J3480; J7030

== ENCOUNTER 2020-03-16 09:43 | Emergency (ER) | payer MEDICAID, SELFPAY ==
--- NOTE | 2020-03-16 09:49 | ED_ITS ---
HPI - General Adult General: Chief complaint: COVID symptoms Stated complaint: Wanting Covid test Time Seen by Provider: 03/16/20 09:49 History of Present Illness: HPI narrative: Patient is a 59-year-old female comes to the ED to get COVID-19 screening tests performed before having a procedure. Patient has a port and is getting it replaced on March 20. They instructed her to get tested for Covid before procedure. Patient is having no Covid symptoms and has no known Covid positive patient contact. Denies fever, chills, shortness of breath, cough, nausea, vomiting, bowel symptoms. Associated symptoms: Deny chest pain, dyspnea, headache(s), nausea, rash, palpitations or vomiting Review of Systems Narrative: Patient denies any symptoms. She says she is here for preprocedure screen for Covid. Const: Denies: fever(s), chills or fatigue Eyes: Denies: change in vision or eye discomfort ENMT: Denies: throat pain, odynophagia, nasal discharge or nasal congestion Card: Denies: chest pain, palpitations, edema, swelling of feet/ankles, dyspnea on exertion or orthopnea Resp: Denies: dyspnea, productive cough or non-productive cough GI: Denies: abdominal pain, nausea, vomiting, diarrhea, constipation or hematochezia : Denies: flank pain, dysuria or hematuria Musc: Denies: neck pain, back pain or extremity swelling Skin/Breast: Denies: rash or new lesions Neuro: Denies: headache(s), numbness in extremities or weakness in extremities PFSH ED PFSH: Medical History Anxiety disorder Dyslipidemia History of renal stone Hx of breast cancer Mood disorder due to a general medical condition Port-A-Cath in place Surgical History Hx of breast biopsy Hx of cystoscopy Hx of hysterectomy Hx of pelvic surgery S/P mastectomy, bilateral Family History Mother Diabetes Heart disease Father Suicide Denies family history of Anesthesia complication Bleeding disorder Social History Smoking and tobacco status: never smoked Second hand smoke exposure: Yes Alcohol intake: never Lives independently: Yes Household members: spouse Marital status: Current occupational status: retired History of recent travel: No Current gender identity: Female Physical Exam Const: COMMON NORMALS: no acute distress, patient oriented x3 and alert GENERAL APPEARANCE: cooperative and comfortable HENMT: COMMON NORMALS: normocephalic HEAD & SCALP: normocephalic MOUTH: Normal oral and palatal mucosa present THROAT: posterior oropharynx normal and uvula midline Neck/C-Spine: COMMON NORMALS: supple GENERAL: Yes normal visual inspection Resp: COMMON NORMALS: normal respiratory effort, No retractions, No use of accessory muscles and clear to auscultation bilaterally EFFORT & INSPECTION: Yes able to speak in complete sentences, No tachypneic, No respiratory distress and No Actively coughing AUSCULTATION: clear to auscultation bilaterally Cardio: COMMON NORMALS: regular rate, regular rhythm, S1 normal heart sound present, S2 normal heart sound present, No gallops present (Cardio), No clicks present (Cardio), No murmurs present (Cardio) and Peripheral pulses 2+ throughout RATE: regular rate RHYTHM: regular rhythm HEART SOUNDS: S1 normal heart sound present and S2 normal heart sound present PERIPHERAL PULSES: Peripheral pulses 2+ throughout GI: COMMON NORMALS: Normal to inspection, nondistended, normoactive bowel sounds present, Soft to palpation, non-tender and no masses PALPATION: Yes Soft to palpation : COMMON NORMALS: Yes no CVA tenderness BLADDER/KIDNEY EXAM: Yes no CVA tenderness Back/Pelvis: COMMON NORMALS: no CVA tenderness Extremity: COMMON NORMALS: normal to inspection Neuro: COMMON NORMALS: patient oriented x3 and moves all extremities SENSORIUM/ORIENTATION: Yes alert Skin: GENERAL SKIN EXAM: dry skin MDM - General Adult MDM Narrative: Medical decision making narrative: Patient is a 59-year-old female who comes to the ED for preprocedure screening for Covid. Patient is going to have port changed on March 20 and they told her that she needs to be tested for Covid before procedure. Patient says she has no symptoms of Covid. Physical exam showed a 5-year-old female in no acute respiratory distress and exam was normal. [facility] Covid testing was performed and she was instructed that results should come back in the next 2 to 3 days. I instructed her that we will call her with results and I also informed her that she can call [facility] here to get results if she has not heard from hospital. She was instructed on self quarantine and told to return to ED if she has any worsening symptoms or shortness of breath. Patient understood and agreed with plan Discharge Plan Discharge Patient Disposition: Home Clinical Impression: Encounter for preprocedure screening laboratory testing for COVID-19 Condition: Stable Prescriptions: No Action metformin 500 mg tablet 500 mg PO BID RF: 0 melatonin 3 mg capsule 6 mg PO BEDTIME RF: 0 folic acid 800 mcg tablet 800 mcg PO BEDTIME RF: 0 valsartan 160 mg tablet 160 mg PO DAILY 90 Days Qty: 90 RF: 3 hydrochlorothiazide 25 mg tablet 25 mg PO DAILY Qty: 90 RF: 3 Eliquis 5 mg tablet 5 mg PO BID Qty: 180 RF: 3 Humulin R Regular U-100 Insuln 100 unit/mL solution See Rx Instructions .ROUTE .COMPLEX RF: 0 Fish Oil 1 cap PO DAILY RF: 0 atorvastatin 20 mg tablet 40 mg PO BEDTIME RF: 0 mirtazapine [Remeron] 15 mg tablet 15 mg PO BEDTIME RF: 0 sertraline [Zoloft] 100 mg tablet 200 mg PO QAM RF: 0 olanzapine 20 mg tablet 20 mg PO BEDTIME RF: 0 Discharge Orders: Discharge Order (Routine); Ordered 03/16/20 Ordered By: Mikhail Carranza Referrals: Nichelle Stephenson MD [Primary Care Provider] - Discharge Diet: Regular Discharge Activity: Limit activity as instructed Activity Restrictions/Additional Instructions: Follow-up with medical provider as directed in 7-10 days. COVID testing was performed and sent to lab and results will be back in 2 to 3 days. Self quarantine for the next 3 days or up to 12 days pending on COVID testing results. Contact [facility] in 2 to 3 days to get results or [facility] will contact you with results. Take ibuprofen or Tylenol for fevers. Drink plenty of fluids and stay hydrated. Symptom management with lifn-nap-uvweptk cough and nasal decongestant meds. Return to the ER or your medical provider if condition worsens. Please read and understand discharge instructions. If any questions, please ask. Coding Level of Care Code ED Nail Expert for Dakota Farr
[2020-03-16 09:54] VITALS: BP 103/66; PULSE 58; RESP 16; TEMP 35.6; O2SAT 100; BMI 23.8
[2020-03-17 16:43] LABS: Quest SARS-CoV-2 RNA NOT DETECTED (NOT DETECTED)
--- NOTE | 2020-03-18 08:37 | PC.NURSE ---
Pt called and notified of negative COVID result.
== END 2020-03-16 10:02 | disposition home or self-care (01) ==
LOC: ER 09:52
PROVIDERS: Emergency Provider Physician Assistant; PCP Family Medicine
DX: Z20.828 Contact with and (suspected) exposure to other viral communicable diseases (principal); Z79.01 Long term (current) use of anticoagulants; Z79.4 Long term (current) use of insulin; Z79.84 Long term (current) use of oral hypoglycemic drugs; E78.5 Hyperlipidemia, unspecified; Z85.3 Personal history of malignant neoplasm of breast; Z77.22 Contact with and (suspected) exposure to environmental tobacco smoke (acute) (chronic)
CPT/HCPCS: 12345; 87635; 99282

== ENCOUNTER 2020-03-20 05:46 | Day surgery (SDC) | payer MEDICAID, SELFPAY ==
[2020-03-19 09:23] VITALS: BMI 24.1
--- NOTE | 2020-03-20 | SCC_ITS ---
Procedure Done: Exchange of PowerPort in left subclavian vein 125.7 seconds of fluoroscopic guidance, for a cumulative dose of 16.42 mGy, was provided to Dr. Arrieta by the radiology department. C-arm images of the chest were saved for the patient's permanent record. [facility]
[2020-03-20 05:58] VITALS: BP 144/101; PULSE 55; RESP 16; TEMP 36.4; O2SAT 100
--- NOTE | 2020-03-20 06:17 | P.ANESASSM_ITS ---
Pre-Anesthetic Assessment Pre-Anesthetic Assessment: Height/Weight: Height 1.57 m Weight 59.874 kg Temp Pulse Resp BP Pulse Ox 97.5 F L 55 L 16 144/101 100 03/20/20 05:58 03/20/20 05:58 03/20/20 05:58 03/20/20 05:58 03/20/20 05:58 Preop Diagnosis: Nonfunctioning PowerPort Proposed Procedure: Operation Date: 03/20/20 07:00 Proposed Procedures p Portacath Placement 52073 C50.919(Not Applicable) - Neel Arrieta MD Familial anesthetic complications: None Last intake: Intake NPO > 8 hrs Last Liquid Date 03/19/20 Last Solid Date 03/19/20 Social: Social History: No alcohol and No tobacco Exam: Pre-Anes Outpt Exam: alert, oriented x 3, clear to auscultation bilate rally and regular rate & rhythm Airway: Cervical ROM: WNL MP: 3 Dentition: Other (no teeth) CV/HEM: CV/HEM: HTN Metabolic: Metabolic: DM and Hyperlipidemia Neuropsych: Neuropsych: Seizure (? occured last year (unknown etiology) ) Anesthetic Plan: ASA status: 3 Anesthesia: MAC Risk of > 500 ml blood loss (7ml/kg in children): No PFSH Anesthesia PFSH: Medical History Anxiety disorder Dyslipidemia History of renal stone Hx of breast cancer Mood disorder due to a general medical condition Port-A-Cath in place Surgical History Hx of breast biopsy Hx of cystoscopy Hx of hysterectomy Hx of pelvic surgery S/P mastectomy, bilateral Family History Mother Diabetes Heart disease Father Suicide Denies family history of Anesthesia complication Bleeding disorder Social History Smoking and tobacco status: never smoked Second hand smoke exposure: Yes Alcohol intake: never Lives independently: Yes Household members: spouse Marital status: Current occupational status: retired History of recent travel: No Current gender identity: Female Data Anesthesia Cardiac Studies: No Data to Display
[2020-03-20] MEDS: sodium chloride 0.9% 1,000 ML 30 ML IV (06:20)
[2020-03-20 06:29] LABS: Glucose Point of Care 152 mg/dL (70-110)
--- NOTE | 2020-03-20 06:54 | W.PM.OPSUD ---
Surgery/Procedure H&P Update DATE OF PROCEDURE: March 20, 2020 DATE H&P PERFORMED: 03/12/20 H&P UPDATE INFORMATION: I have reviewed H&P completed within last 30 days, I have examined patient prior to procedure and No changes to prior documentation PREOP DIAGNOSIS: Nonfunctioning PowerPort PLANNED PROCEDURE: Operation Date: 03/20/20 07:00 Proposed Procedures p Portacath Placement 00553 C50.919(Not Applicable) - Neel Arrieta MD
--- NOTE | 2020-03-20 06:55 | SC_ITS ---
WS: [id number] INTRAOPERATIVE TECHNIQUE: 5 Spot fluoroscopic images for intraoperative purposes. FLUOROSCOPY TIME: 125.7 seconds CLINICAL INFORMATION: port placement COMPARISON: None. FINDINGS: Left Port-A-Cath with tip in the mid to distal SVC. No visualized pneumothorax. SC/C-arm [place] CVA [id number] IMPRESSION: Images obtained for intraoperative purposes.
[2020-03-20 07:02] LABS: Potassium 3.3 mmol/L (3.5-5.1)
[2020-03-20] MEDS: lidocaine 1% INJ 20 mL SUBCUT (07:14)
[2020-03-20] MEDS: heparin, porcine 1,000 unit/mL INJ 10 mL 10000 UNIT INJECTION (07:14)
[2020-03-20 08:10] VITALS: BP 107/61; PULSE 52; RESP 18; TEMP 35.9; O2SAT 96
[2020-03-20 08:25] VITALS: BP 121/68; PULSE 55; RESP 18; O2SAT 97
[2020-03-20 08:55] VITALS: BP 140/78; PULSE 52; O2SAT 97
--- NOTE | 2020-03-20 09:30 | ANE.PACU2 ---
Inpatient post-anesthesia follow up: Airway intact: Yes Vital signs: Temperature 96.7 F Pulse Rate 52 Respiratory Rate 18 Blood Pressure 140/78 Pulse Oximetry 97 Oxygen Delivery Me thod Room Air Oxygen Flow Rate Fraction of Inspir ed Oxygen Hydration adequate: Yes Nausea and vomiting: No Pain level: 2 Mental status: Baseline
--- NOTE | 2020-03-20 09:51 | PM.OP ---
Operative Report Date of procedure: March 20, 2020 Pre-op Diagnosis: Nonfunctioning PowerPort Post-op Diagnosis: Nonfunctioning port with the tip of the catheter in the brachiocephalic vein Procedure Done: Exchange of PowerPort in left subclavian vein Fluoroscopic guidance and interpretation for placement of catheter Pathology: none sent Surgeon: Neel Arrieta Anesthesia: MAC Condition: stable Disposition: same day Procedure: The patient was taken to the Operating Room and the chest and neck bilaterally were prepped and draped in a sterile manner after the antibiotic had been administered and shoulder rolls had been placed. A total of 20 mL of 1% lidocaine with 0.5% Marcaine was infiltrated under the clavicle on the left side at the site of the planned entry into the subclavian vein. 11 blade skin stab incision was made under the left clavicle where the existing catheter entered the left subclavian vein, the catheter was dissected free from the surrounding subcutaneous tissue and partially pulled out from the subclavian vein and divided after being clamped. The existing incision on the left chest was opened using a 15 blade, subcutaneous tissue was divided using electrocautery and the existing port was freed up and removed. The capsule was dissected free from the surrounding subcutaneous tissue using electrocautery and a new Powerport was introduced and 2-0 Vicryl suture was used to suture the port to the pectoral fascia in the pocket on 3 sides. The catheter, after having been flushed with hep saline, was attached to the tunneler and a tunnel created between the port site and the subclavian vein entry site. A stiff J-wire had to be passed through the catheter in the left subclavian vein and the catheter was removed, under fluoroscopy the dilator sheath was passed over the guidewire into the proximal superior vena cava. The inner dilator was removed and the sheath left behind and the catheter was introduced through the peel-away sheath with the tip in the superior vena cava. The peel-away sheath was removed. The proximal end of the catheter was cut to the right size and was attached to the port. Using a Rodriguez needle the port was accessed, it withdrew blood easily and flushed easily. A final 5cc of heparin was used to flush the PowerPort. The subcutaneous tissue was approximated using interrupted 3-0 Vicryl sutures and the skin at the introducer site and the port site was closed using subcuticular running 4-0 Monocryl sutures. Surgical glue was applied and the patient was stable throughout the procedure. Fluoroscopic guidance and interpretation was performed for introduction of the guidewire in the left subclavian vein, passage of dilator and placement of catheter tip in the distal superior vena cava.
== END 2020-03-20 09:30 | disposition home or self-care (01) ==
PROVIDERS: Anesthesiology; PCP Family Medicine; Visit Provider Surgery
PROC: (CPT 36582; principal; 2020-03-20 07:00)
DX: T82.598A Other mechanical complication of other cardiac and vascular devices and implants, initial encounter (principal); F41.9 Anxiety disorder, unspecified; E78.5 Hyperlipidemia, unspecified; Z85.3 Personal history of malignant neoplasm of breast
CPT/HCPCS: 36582; 12345; 36416; 77001; 82962; 84132; 96365; C1788; J0690; J1644; J2250; J2704; J3010; J3490; J7030

== ENCOUNTER → 2020-03-21 13:20 | Outpatient (BNVA) | payer MEDICAID, SELFPAY | PROVIDERS: PCP Family Medicine; Visit Provider Family Medicine | DX: C50.919 Malignant neoplasm of unspecified site of unspecified female breast (principal) | CPT/HCPCS: 80053; 85025 ==

== ENCOUNTER 2020-04-08 11:00 | Outpatient (RCR) | payer MEDICAID, SELFPAY ==
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
[2020-03-26 11:02] LABS: Basophils # 0.1 10^3/uL (0.0-0.1); Basophils % 0.7 %; Eosinophils # 0.1 10^3/uL (0.0-0.8); Eosinophils % 1.3 %; Hemoglobin 10.4 g/dL (11.5-15.3); Lymphocytes # 2.6 10^3/uL (0.8-4.8); Lymphocytes % 38.7 %; Mean Corpuscular HGB Conc 31.5 g/dL (30.0-36.0); Mean Corpuscular Hemoglobin 27.7 pg (28.0-34.0); Mean Corpuscular Volume 87.8 fL (81-99); Mean Platelet Volume 10.3 fL (7.4-10.4); Monocytes # 0.4 10^3/uL (0.2-0.9); Monocytes % 6.1 %; Neutrophils # 3.54 10^3/uL (1.8-7.7); Neutrophils % 52.6 %; Nucleated Red Blood Cells % 0 %; Platelet Count 210 10^3/cmm (130-400); Red Blood Count 3.76 10^6/uL (4.1-5.3); Red Cell Distribution Width 14.9 % (12.1-15.1); White Blood Count 6.7 10^3/uL (4.0-10.0)
[2020-03-26 11:14] LABS: Alanine Aminotransferase 6 U/L (0-33); Alkaline Phosphatase 67 IU/L (35-105); Anion Gap 15.6 (5-19); Aspartate Amino Transferase 8 U/L (0-32); Blood Urea Nitrogen 26 mg/dL (8-23); Calcium 9.6 mg/dL (8.5-10.5); Carbon Dioxide 27 mmol/L (22-29); Chloride 103 mmol/L (98-107); Globulin 2.8 g/dL (1.3-4.6); Glomerular Filtration Rate 56.6 mL/min (90-130); Glucose 112 mg/dL (65-115); Osmolality Calculated 300 mOsm/kg (285-295); Potassium 3.6 mmol/L (3.5-5.1); Sodium 142 mmol/L (136-145); Total Bilirubin 0.3 mg/dL (0.15-1.2); Total Protein 6.8 g/dL (6.6-8.7)
[2020-03-26] MEDS: sodium chloride 0.9% 250 ML 75 ML IV (14:25)
[2020-03-26] MEDS: acetaminophen 325 mg Tablet 650 MG PO (14:28)
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
== END 2020-04-15 10:30 | disposition home or self-care (01) ==
LOC: ONCMED 11:00
PROVIDERS: Internal Medicine Hematology & Oncology; PCP Family Medicine; Visit Provider Nurse Practitioner
DX: C50.811 Malignant neoplasm of overlapping sites of right female breast (principal); Z17.1 Estrogen receptor negative status [ER-]; C77.3 Secondary and unspecified malignant neoplasm of axilla and upper limb lymph nodes; F43.21 Adjustment disorder with depressed mood; Z79.899 Other long term (current) drug therapy
CPT/HCPCS: 80053; 85025; 96367; 96413; 96417; 99214; J1200; J2405; J3490; J7050; J9306; J9355

== ENCOUNTER 2020-04-08 11:54 | Outpatient (CLI) | payer MEDICAID, SELFPAY ==
--- NOTE | 2020-04-08 10:39 | USCV_ITS ---
Jasmin Ortiz Age: 59 Gender: F : 1960 Exam Date: 04/08/2020 12:08 Ordering Phys: Gillian Patricia NP Technologist: Zeinab Morris Exam Location: [facility] Indication: BREAST CA BP: 88 / 68 HR: 73 Rhythm: Sinus Technical Quality: Adequate MEASUREMENTS (Male / Female) Normal Values 2D ECHO LV Diastolic Diameter PLAX 3.2 cm 4.2 - 5.9 / 3.9 - 5.3 cm LV Systolic Diameter PLAX 1.6 cm LV Chamber Size 2.6 cm IVS Diastolic Thickness 1.2 cm 0.6 - 1.0 / 0.6 - 0.9 cm IVS Systolic Thickness 1.2 cm LVPW Diastolic Thickness 1.6 cm 0.6 - 1.0 / 0.6 - 0.9 cm LVPW Systolic Thickness 2.0 cm RV Chamber Size 2.1 cm LVOT Diameter 2.0 cm LV Ejection Fraction 2D Teich 82.1 % LV Ejection Fraction MOD 2C 55.5 % LV Ejection Fraction 2C AL 55.6 % LA Diameter 2.6 cm LA Width 2.5 cm LA Height 2.9 cm RA Width 1.8 cm RA Height 2.8 cm Aorta at Sinotubular Diameter 2.0 cm M-MODE LV Diastolic Diameter MM 4.5 cm 4.2 - 5.9 / 3.9 - 5.3 cm LV Systolic Diameter MM 3.0 cm LV Ejection Fraction MM Teich 61.6 % IVS Diastolic Thickness MM 0.9 cm 0.6 - 1.0 / 0.6 - 0.9 cm IVS Systolic Thickness MM 1.0 cm LVPW Diastolic Thickness MM 0.8 cm 0.6 - 1.0 / 0.6 - 0.9 cm LVPW Systolic Thickness MM 1.2 cm Aortic Annulus Diameter 2.9 cm LA Ao Ratio MM 1.0 MV E Point Septal Separation 0.4 cm FINDINGS Left Ventricle Normal left ventricular size, systolic function and wall thickness, with no regional wall motion abnormalities. Normal left ventricular wall thickness. Right Ventricle The right ventricle is normal in size and function. Right Atrium The right atrium is normal in size. Left Atrium The left atrium is normal in size. Mitral Valve Mitral valve is opening and closing fine regurgitation, and the absence of Doppler data further valvular assessment such as regurgitation is not possible Aortic Valve Aortic valve is opening and closing fine in the absence of Doppler analysis further assessment is not possible Tricuspid Valve Tricuspid valve is opening and closing fine hemodynamics cannot be assessed due to lack of Doppler data Pulmonic Valve Not well-visualized Pericardium Normal pericardium without effusion. Aorta Normal ascending aorta dimension. CONCLUSIONS 1-Normal left ventricular size, systolic function and wall thickness, with no regional wall motion abnormalities. Normal left ventricular wall thickness. 2 It appeared to me that all the valves including aortic mitral tricuspid and pulmonic valvular opening and closing fine however in the absence of lack of Doppler data further assessment such as regurgitation and stenosis not possible. 3-There is no pericardial effusion. 4-When compared to the prior echocardiogram dated 11 January 2020. left ventricular ejection fraction has not changed and stays at normal 61%. Dillon Hartley MD (Electronically Signed) Final Date: 08 April 2020 20:21 S
== END 2020-04-08 11:55 | disposition home or self-care (01) ==
LOC: US 11:54
PROVIDERS: PCP Family Medicine; Visit Provider Nurse Practitioner
DX: C50.411 Malignant neoplasm of upper-outer quadrant of right female breast (principal); C50.811 Malignant neoplasm of overlapping sites of right female breast
CPT/HCPCS: 93308

== ENCOUNTER 2020-04-15 10:33 | Inpatient (IN) | payer MEDICAID, SELFPAY ==
[2020-04-15 10:40] VITALS: BP 109/78; PULSE 75; RESP 20; TEMP 36.4; O2SAT 100; BMI 25.6
--- NOTE | 2020-04-15 11:01 | ECG_ITS ---
[facility] Test Date: 2020-04-15 Pat Name: Jasmin Ortiz Department: Room: Gender: Female Locator: : 1960 Requested By: Shady Belcher Order Number: [id number] Reading MD: MILTON ASIF Measurements Intervals [place] Rate: 78 P: 46 PA: 157 QRS: 11 QRSD: 94 T: 40 QT: 390 QTc: 446 Interpretive Statements SINUS RHYTHM Compared to ECG 02/14/2020 19:37:34 No significant changes Electronically Signed On 04-15-2020 17:29:14 [employer]HT[employer] MAINTAINER by MILTON ASIF [email or web address]
--- NOTE | 2020-04-15 11:01 | XRR_ITS ---
PROCEDURE INFORMATION: Exam: XR Chest, 1 View Exam date and time: 04/15/2020 11:16 AM Age: 59 years old Clinical indication: Cough and dyspnea; Additional info: Dyspnea/cough TECHNIQUE: Imaging protocol: XR of the chest Views: 1 view. COMPARISON: CR XR chest 2V* [id number] 03/05/2020 2:45 PM FINDINGS: Lungs: Unremarkable. No consolidation. Pleural space: Unremarkable. No pleural effusion. No pneumothorax. Heart/Mediastinum: Unremarkable. No cardiomegaly. Vasculature: A MediPort catheter projects in satisfactory position with the tip in the SVC. Bones/joints: Unremarkable. XR/XR chest 1V portable [id number] IMPRESSION: No significant cardiopulmonary abnormality.
[2020-04-15 11:47] LABS: Glucose Point of Care 175 mg/dL (70-110)
--- NOTE | 2020-04-15 11:51 | CT_ITS ---
WS: [id number] CTA OF THE CHEST WITH PULMONARY EMBOLISM PROTOCOL TECHNIQUE: High-resolution contrast enhanced CTA of the chest with coronal and sagittal reformatted i mages with pulmonary embolism protocol. MIP images are also reviewed. CLINICAL INFORMATION: dyspnea COMPARISON: CT February 14, 2020 DLP: 585.[address] scans at [facility] use at least one of these dose optimization techniques: automat ed exposure control; mA and/or kV adjustment per patient size (includes targeted exams where dose is matched to clinical indication); or iterative reconstruction. FINDINGS: Proximal main pulmonary arteries are normal. Segmental and subsegmental pulmonary arteries are normal . No evidence for pulmonary embolus. Normal caliber thoracic aorta. No mediastinal or hilar lymphaden opathy. Mild chronic emphysematous changes. No acute pulmonary infiltrates. No focal pneumonia or pleural flu id. Slight atelectasis in the lung bases. Adrenal glands are normal. Prior mastectomies. CT/CT angio chest PE protcl [id number] IMPRESSION: 1. No evidence for pulmonary embolus. 2. Mild chronic emphysematous changes. No acute pulmonary infiltrates. 3. Normal caliber thoracic aorta. Notified Shady Michelle DO at 04/15/2020 12:58 PM.
[2020-04-15 11:58] LABS: Add Urine Microscopic? NO
[2020-04-15 11:59] LABS: Bilirubin Urine Neg (Negative); Blood Urine Neg (Negative); Glucose Urine UA Norm (Normal); Ketones Urine Negative (Negative); Leukocyte Esterase Urine Negative (Negative); Nitrate Urine Negative (Negative); Protein Urine Neg (Negative); Specific Gravity, Urine 1.015 (1.005-1.030); Urine Appearance Clear (CLEAR); Urine Color Yellow (Yellow); Urobilinogen Urine Norm (Negative); pH Urine 5 (5-7)
[2020-04-15] MEDS: iohexol 350 mg/mL 100 mL Btl IV (12:22)
--- NOTE | 2020-04-15 12:26 | ED_ITS ---
HPI - SOB/Dyspnea General: Chief Complaint: Shortness of Breath/Dyspnea Stated Complaint: WEAKNESS, SOB, CANCER PT Time Seen by Provider: 04/15/20 10:34 History of Present Illness: HPI Narrative: 59-year-old female presents to the emergency room complaining of week numbness and shortness of breath. When I came to talk to her she could barely speak loud enough to be heard. She is somewhat lethargic. However her oxygen sats are 100% on room air during the entire time. She said she had chest pain for last 3 days accompanied with vomiting and some loose stools. She has had a cough its been nonproductive. She relates it is being worse with exertion better with rest. She is not had any hematochezia melena hematemesis or coffee-ground emesis. She denies dysuria urgency or frequency. Pain is slightly reproducible palpation across the right lateral lower third of the sternum. MD elicited complaint: shortness of breath and cough Onset (ago): day(s) (3) Context: occurred during exertion Timing: constant Severity: severe Exacerbating factors: exertion and coughing Relieving factors: rest Known history of: diabetes Associated symptoms: Deny abdominal pain, chest congestion, chest pain, cough, diaphoresis, dizziness, extremity pain, fever(s), hemoptysis, lightheadedness, myalgias, nausea, orthopnea, palpitations, paresthesias, polydipsia, polyuria, rash, sense of impending doom, syncope or vomiting Review of Systems Const: Denies: fever(s) or diaphoresis ENMT: Denies: throat pain, ear or mastoid pain, nasal discharge or nasal congestion Card: Denies: chest pain, palpitations, lightheadedness, syncope or orthopnea Resp: Denies: hemoptysis or chest congestion GI: Denies: abdominal pain, nausea or vomiting : Denies: flank pain, difficulty voiding, dysuria, urinary frequency or urinary urgency Musc: Denies: extremity pain Skin/Breast: Denies: rash or pruritus Neuro: Denies: dizziness Endo: Denies: polyuria or polydipsia PFS ED PFSH: Medical History (Updated 04/15/20 @ 14:17 by Shady Michelle DO) Anxiety disorder Dyslipidemia History of renal stone Hx of breast cancer Mood disorder due to a general medical condition Port-A-Cath in place Surgical History Hx of breast biopsy Hx of cystoscopy Hx of hysterectomy Hx of pelvic surgery S/P mastectomy, bilateral Family History Mother Diabetes Heart disease Father Suicide Denies family history of Anesthesia complication Bleeding disorder Social History Smoking and tobacco status: never smoked Second hand smoke exposure: Yes Alcohol intake: never Lives independently: Yes Household members: spouse Marital status: Current occupational status: retired History of recent travel: No Current gender identity: Female Physical Exam Const: COMMON NORMALS: no acute distress GENERAL APPEARANCE: cooperative and comfortable ORIENTATION/CONSCIOUSNESS: Yes awake HENMT: COMMON NORMALS: normocephalic, atraumatic and hearing grossly normal bilaterally HEAD & SCALP: normocephalic and atraumatic Eye: COMMON NORMALS: Equal, round and reactive pupils present, EOMs intact bilaterally, conjunctivae normal and no scleral icterus CONJUNCTIVA: Yes conjunctivae normal PUPIL: Yes Equal, round and reactive pupils present Neck/C-Spine: COMMON NORMALS: full ROM, no lymphadenopathy, supple and no JVD Lymph: LYMPHATIC: no lymphadenopathy noted and no lymphedema noted Resp: COMMON NORMALS: normal respiratory effort, No retractions, No use of accessory muscles and clear to auscultation bilaterally AUSCULTATION: clear to auscultation bilaterally Cardio: COMMON NORMALS: no JVD, regular rate, regular rhythm and No murmurs present (Cardio) RATE: regular rate RHYTHM: regular rhythm GI: COMMON NORMALS: Soft to palpation and No hepatosplenomegaly present AUSCULTATION: Yes normoactive bowel sounds PALPATION: Yes Soft to palpation, No Tenderness to palpation present (GI), No Guarding due to palpation present (GI) and Yes No hepatosplenomegaly present Extremity: COMMON NORMALS: normal to inspection, capillary refill normal, no clubbing, cyanosis or edema, no calf tenderness and no pedal edema Skin: COMMON NORMALS: no rashes or lesions noted GENERAL SKIN EXAM: no rashes or lesions noted Course Vital Signs: Vital signs: Vital Signs Temperature 97.6 F 04/15/20 10:40 Pulse Rate 64 04/15/20 14:41 Respiratory Rate 16 04/15/20 14:41 Blood Pressure 109/78 04/15/20 10:40 Pulse Oximetry 96 04/15/20 14:41 MDM - SOB/Dyspnea MDM Narrative: Medical decision making narrative: Hemoglobin is profoundly low MCV is normal monitor BUN is elevated suspected GI source we will Hemoccult her stools ordered 2 units of blood for transfusion will admit discussed with hospitalist orders written Her initial hemoglobin was reported by the lab as 4.3. Later I was advised after we had ordered blood transfusion orders and discussed with the hospitalist and orders were written to the hospital that her hemoglobin is actually 10.9. Discussed with the patient will still admit her for weakness and acute kidney injury but she will not require blood transfusion Lab Data: Labs: Lab Results 04/15/20 04/15/20 04/15/20 Range/Units 10:59 11:40 12:40 WBC 11.3 H (4.0-10.0) 10^3/ uL RBC 1.51 L (4.1-5.3) 10^6/u L Hgb 4.3 L* (11.5-15.3) g/dL Hct 12.7 L* (37.0-47.0) % MCV 84.1 (81-99) fL MCH 28.5 (28.0-34.0) pg MCHC 33.9 (30.0-36.0) g/dL RDW 15.2 H (12.1-15.1) % Plt Count 311 (130-400) 10^3/c mm MPV 11.4 H (7.4-10.4) fL Neut % (Auto) 72.6 % Lymph % (Auto) 20.5 % [place] % (Auto) 5.0 % Eos % (Auto) 1.2 % Baso % (Auto) 0.3 % Neut # (Auto) 8.18 H (1.8-7.7) 10^3/u L Lymph # (Auto) 2.3 (0.8-4.8) 10^3/u L [place] # (Auto) 0.6 (0.2-0.9) 10^3/u L Eos # (Auto) 0.1 (0.0-0.8) 10^3/u L Baso # (Auto) 0.0 (0.0-0.1) 10^3/u L Nucleated RBC % (a uto) 0 % Nucleated RBCs # 0.0 /100WBC Sodium (136-145) mmol/L Potassium (3.5-5.1) mmol/L Chloride (98-107) mmol/L Carbon Dioxide (22-29) mmol/L Anion Gap (5-19) BUN (8-23) mg/dL Creatinine (0.5-0.9) mg/dL GFR Calculation (90-130) mL/min Glucose (65-115) mg/dL POC Glucose 175 (70-110) mg/dL Calculated Osmolal ity (285-295) mOsm/k g Calcium (8.5-10.5) mg/dL Magnesium (1.7-2.3) mg/dL Total Bilirubin (0.15-1.2) mg/dL AST (0-32) U/L ALT (0-33) U/L Alkaline Phosphata se (35-105) IU/L Creatine Kinase (26-192) U/L Troponin T Baselin e (0-10) ng/L Total Protein (6.6-8.7) g/dL Albumin (3.5-5.2) g/dL Globulin (1.3-4.6) g/dL Lipase (13-60) U/L Urine Color Yellow (Yellow) Urine Appearance Clear (CLEAR) Urine pH 5 (5-7) Ur Specific Gravit y 1.015 (1.005-1.030) Urine Protein Neg (Negative) Urine Glucose (UA) Norm (Normal) Urine Ketones Negative (Negative) Urine Blood Neg (Negative) Urine Nitrate Negative (Negative) Urine Bilirubin Neg (Negative) Urine Urobilinogen Norm (Negative) mg/dL Ur Leukocyte Marcy ase Negative (Negative) 04/15/20 04/15/20 04/15/20 Range/Units 12:40 12:40 12:40 WBC (4.0-10.0) 10^3/ uL RBC (4.1-5.3) 10^6/u L Hgb (11.5-15.3) g/dL Hct (37.0-47.0) % MCV (81-99) fL MCH (28.0-34.0) pg MCHC (30.0-36.0) g/dL RDW (12.1-15.1) % Plt Count (130-400) 10^3/c mm MPV (7.4-10.4) fL Neut % (Auto) % Lymph % (Auto) % [place] % (Auto) % Eos % (Auto) % Baso % (Auto) % Neut # (Auto) (1.8-7.7) 10^3/u L Lymph # (Auto) (0.8-4.8) 10^3/u L [place] # (Auto) (0.2-0.9) 10^3/u L Eos # (Auto) (0.0-0.8) 10^3/u L Baso # (Auto) (0.0-0.1) 10^3/u L Nucleated RBC % (a uto) % Nucleated RBCs # /100WBC Sodium 131 L (136-145) mmol/L Potassium 3.2 L (3.5-5.1) mmol/L Chloride 99 (98-107) mmol/L Carbon Dioxide 16 L (22-29) mmol/L Anion Gap 19.2 H (5-19) BUN 79 H (8-23) mg/dL Creatinine 2.0 H (0.5-0.9) mg/dL GFR Calculation 25.4 L (90-130) mL/min Glucose 139 H (65-115) mg/dL POC Glucose (70-110) mg/dL Calculated Osmolal ity 298 H (285-295) mOsm/k g Calcium 8.4 L (8.5-10.5) mg/dL Magnesium 2.2 (1.7-2.3) mg/dL Total Bilirubin 0.3 (0.15-1.2) mg/dL AST 8 (0-32) U/L ALT 7 (0-33) U/L Alkaline Phosphata se 69 (35-105) IU/L Creatine Kinase 46 (26-192) U/L Troponin T Baselin e 17 H (0-10) ng/L Total Protein 6.6 (6.6-8.7) g/dL Albumin 3.9 (3.5-5.2) g/dL Globulin 2.7 (1.3-4.6) g/dL Lipase 46 (13-60) U/L Urine Color (Yellow) Urine Appearance (CLEAR) Urine pH (5-7) Ur Specific Gravit y (1.005-1.030) Urine Protein (Negative) Urine Glucose (UA) (Normal) Urine Ketones (Negative) Urine Blood (Negative) Urine Nitrate (Negative) Urine Bilirubin (Negative) Urine Urobilinogen (Negative) mg/dL Ur Leukocyte Marcy ase (Negative) Discharge Plan Discharge Patient Disposition: Admitted As Inpatient Admit Provider: Leticia Rivera Clinical Impression: Acute dehydration, Acute kidney injury, Breast CA, Weakness Condition: Stable Coding Level of Care Code ED Civil Draftsman for Chg Fwd Exam Comprehensive
[2020-04-15 12:58] LABS: Basophils % 0.3 %; Eosinophils # 0.1 10^3/uL (0.0-0.8); Eosinophils % 1.2 %; Lymphocytes # 2.3 10^3/uL (0.8-4.8); Lymphocytes % 20.5 %; Mean Corpuscular HGB Conc 33.9 g/dL (30.0-36.0); Mean Corpuscular Hemoglobin 28.5 pg (28.0-34.0); Mean Corpuscular Volume 84.1 fL (81-99); Mean Platelet Volume 11.4 fL (7.4-10.4); Monocytes # 0.6 10^3/uL (0.2-0.9); Neutrophils # 8.18 10^3/uL (1.8-7.7); Neutrophils % 72.6 %; Nucleated Red Blood Cells % 0 %; Platelet Count 311 10^3/cmm (130-400); Red Blood Count 1.51 10^6/uL (4.1-5.3); Red Cell Distribution Width 15.2 % (12.1-15.1); White Blood Count 11.3 10^3/uL (4.0-10.0)
--- NOTE | 2020-04-15 13:01 | ECG_ITS ---
[facility] Test Date: 2020-04-15 Pat Name: Jasmin Ortiz Department: Room: 259 Gender: Female Safety Engineer: : 1960 Requested By: Shady Belcher Order Number: [id number] Reading MD: MILTON ASIF Measurements Intervals [place] Rate: 71 P: 14 LA: 165 QRS: -7 QRSD: 91 T: 22 QT: 398 QTc: 434 Interpretive Statements SINUS RHYTHM MINIMAL VOLTAGE CRITERIA FOR LVH, CONSIDER NORMAL VARIANT [MEETS CRITERIA IN ONE OF: R(aVL), S(V1), R(V5), R(V5/V6)+S(V1)] SEPTAL MYOCARDIAL INFARCTION , OF INDETERMINATE AGE [40+ ms Q WAVE IN V1/V2] Compared to ECG 04/15/2020 11:15:12 Myocardial infarct finding now present Electronically Signed On 04-15-2020 17:32:45 RUBBER STAMP ASSEMBLER by MILTON ASIF [email or web address]
[2020-04-15 13:11] LABS: Hematocrit 12.7 % (37.0-47.0); Hemoglobin 4.3 g/dL (11.5-15.3)
[2020-04-15 13:21] LABS: Troponin(5th) Baseline 17 ng/L (0-10)
--- NOTE | 2020-04-15 13:29 | CT_ITS ---
WS: [id number] CT ABDOMEN PELVIS TECHNIQUE: Contrast-enhanced CT of the abdomen and pelvis with coronal and sagittal reformatted image s. CLINICAL INFORMATION: abd pain COMPARISON: CT chest abdomen pelvis DLP: 534.[address] scans at [facility] use at least one of these dose optimization techniques: automat ed exposure control; mA and/or kV adjustment per patient size (includes targeted exams where dose is matched to clinical indication); or iterative reconstruction. FINDINGS: Diffuse fatty infiltration liver. Normal portal vein and splenic vein. Splenomegaly. Lung bases are w ell aerated. Adrenal glands are normal. Normal renal parenchymal enhancement. No hydronephrosis. Norm al ureteral excretion from the prior contrast administration earlier today. Normal gallbladder. Susanna l pancreas. Normal caliber abdominal aorta. No periaortic or inguinal lymphadenopathy. No pelvic lymphadenopathy. Mild compression inferior endpl ate L4 is new from . Left pericentral protrusion L1-2 with mild central canal stenosis. Normal sigmoid colon. No evidence of small or large bowel obstruction. Prior hysterectomy. CT/CT abdomen pelvis w con* [id number] IMPRESSION: 1. No evidence of metastatic disease in the abdomen or pelvis. 2. Diffuse fatty infiltration of the liver. Splenomegaly measuring 14.4 cm 3. Normal caliber abdominal aorta. 4. No hydronephrosis in either kidney. 5. Sigmoid diverticulosis. No evidence of acute diverticulitis. 6. Mild compression inferior endplate L4 is new since . 7. Mild disc bulging lumbar spine with mild central canal stenosis L1 with a l eft pericentral protrusion.
[2020-04-15 13:38] LABS: Alanine Aminotransferase 7 U/L (0-33); Albumin Level 3.9 g/dL (3.5-5.2); Alkaline Phosphatase 69 IU/L (35-105); Anion Gap 19.2 (5-19); Aspartate Amino Transferase 8 U/L (0-32); Blood Urea Nitrogen 79 mg/dL (8-23); Calcium 8.4 mg/dL (8.5-10.5); Carbon Dioxide 16 mmol/L (22-29); Chloride 99 mmol/L (98-107); Creatine Phosphokinase 46 U/L (26-192); Globulin 2.7 g/dL (1.3-4.6); Glucose 139 mg/dL (65-115); Lipase 46 U/L (13-60); Osmolality Calculated 298 mOsm/kg (285-295); Potassium 3.2 mmol/L (3.5-5.1); Sodium 131 mmol/L (136-145); Total Bilirubin 0.3 mg/dL (0.15-1.2); Total Protein 6.6 g/dL (6.6-8.7)
[2020-04-15 13:47] LABS: Glomerular Filtration Rate 25.4 mL/min (90-130)
[2020-04-15 14:09] LABS: Basophils % 0.5 %; Eosinophils # 0.1 10^3/uL (0.0-0.8); Eosinophils % 1.5 %; Hematocrit 32.6 % (37.0-47.0); Hemoglobin 10.9 g/dL (11.5-15.3); Lymphocytes # 1.8 10^3/uL (0.8-4.8); Lymphocytes % 24.1 %; Mean Corpuscular HGB Conc 33.4 g/dL (30.0-36.0); Mean Corpuscular Hemoglobin 27.7 pg (28.0-34.0); Mean Corpuscular Volume 82.7 fL (81-99); Mean Platelet Volume 11.3 fL (7.4-10.4); Monocytes # 0.4 10^3/uL (0.2-0.9); Monocytes % 5.7 %; Neutrophils # 5.04 10^3/uL (1.8-7.7); Neutrophils % 67.9 %; Nucleated Red Blood Cells % 0 %; Platelet Count 235 10^3/cmm (130-400); Red Blood Count 3.94 10^6/uL (4.1-5.3); White Blood Count 7.4 10^3/uL (4.0-10.0)
[2020-04-15 14:30] LABS: Magnesium 2.2 mg/dL (1.7-2.3)
[2020-04-15 14:41] VITALS: PULSE 64; RESP 16; O2SAT 96
[2020-04-15] MEDS: iodixanol 320 mg/mL 100mL Btl IV (14:45)
[2020-04-15 15:02] LABS: Troponin 5 2HR 17.71 ng/L (0-10); Troponin 5 2HR Delta 0.71 ABS# (0-10)
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
[2020-04-15] MEDS: pantoprazole 40 mg SDV IVP (15:10)
[2020-04-15] MEDS: sodium chloride 0.9% 1,000 ML 999 ML IV (15:10)
[2020-04-15 15:18] LABS: Alanine Aminotransferase 7 U/L (0-33); Albumin Level 4.2 g/dL (3.5-5.2); Alkaline Phosphatase 76 IU/L (35-105); Anion Gap 19.5 (5-19); Aspartate Amino Transferase 8 U/L (0-32); Blood Urea Nitrogen 79 mg/dL (8-23); Calcium 8.8 mg/dL (8.5-10.5); Carbon Dioxide 18 mmol/L (22-29); Chloride 100 mmol/L (98-107); Creatine Phosphokinase 49 U/L (26-192); Glucose 130 mg/dL (65-115); Lipase 51 U/L (13-60); Osmolality Calculated 303 mOsm/kg (285-295); Potassium 3.5 mmol/L (3.5-5.1); Sodium 134 mmol/L (136-145); Total Bilirubin 0.3 mg/dL (0.15-1.2); Total Protein 7.2 g/dL (6.6-8.7)
--- NOTE | 2020-04-15 15:35 | PC.NURSE ---
Dr. Kelly called at this time, patient potassium level is 3.[address] Kelly orders to hold the potassium chloride infusion at this time. Orders read back and confirmed.
[2020-04-15 16:00] VITALS: BP 104/60; PULSE 90; RESP 17; TEMP 36.3; O2SAT 95
--- NOTE | 2020-04-15 16:30 | PC.NURSE ---
Sent Dr Rivera message stating Patient in 259-2 has Hgb of 10.9 and there are two units of blood ordered. I seen where her Hgb was 4.3. Just making sure we are giving two units of blood. Thank you [facility] message from Dr Rivera stating, No need for blood.
--- NOTE | 2020-04-15 17:01 | ECG_ITS ---
[facility] Test Date: 2020-04-15 Pat Name: Jasmin Ortiz Department: Room: 259 Gender: Female Emergency Room Nurse: : 1960 Requested By: Shady Belcher Order Number: [id number] Reading MD: MILTON ASIF Measurements Intervals [place] Rate: 71 P: 48 AR: 151 QRS: 53 QRSD: 98 T: 40 QT: 407 QTc: 442 Interpretive Statements SINUS RHYTHM Compared to ECG 04/15/2020 14:05:11 Myocardial infarct finding no longer present Electronically Signed On 04-15-2020 17:31:49 SYRUP MIXER HELPER by MILTON ASIF [id number]
[2020-04-15 19:00] VITALS: BP 95/63; PULSE 68; RESP 18; TEMP 36.6; O2SAT 99
[2020-04-15 19:11] LABS: Troponin 5 6HR 16.57 ng/L (0-10)
[2020-04-15 19:17] LABS: Troponin 5 6HR Delta -0.43 ng/L (0-12)
[2020-04-15 19:40] VITALS: PULSE 73
[2020-04-15] MEDS: atorvastatin 40 mg Tablet 20 MG PO (21:23)
[2020-04-15 21:59] LABS: Glucose Point of Care 178 mg/dL (70-110)
[2020-04-15] MEDS: sodium chloride 0.9% 1,000 ML 100 ML IV (22:09)
[2020-04-16] VITALS (7 sets, daily range): BP systolic 83–103; BP diastolic 52–68; PULSE 60–82; RESP 18; TEMP 36.4–36.9; O2SAT 93–98
[2020-04-16] MEDS: acetaminophen 325 mg Tablet 650 MG PO ×3 (04:52→23:09)
[2020-04-16 05:25] LABS: Basophils % 0.6 %; Eosinophils # 0.2 10^3/uL (0.0-0.8); Eosinophils % 3.2 %; Hematocrit 29.7 % (37.0-47.0); Hemoglobin 9.8 g/dL (11.5-15.3); Lymphocytes # 1.8 10^3/uL (0.8-4.8); Mean Corpuscular Hemoglobin 27.5 pg (28.0-34.0); Mean Corpuscular Volume 83.4 fL (81-99); Mean Platelet Volume 10.9 fL (7.4-10.4); Monocytes # 0.5 10^3/uL (0.2-0.9); Monocytes % 7.7 %; Neutrophils # 3.75 10^3/uL (1.8-7.7); Neutrophils % 60.2 %; Nucleated Red Blood Cells % 0 %; Platelet Count 215 10^3/cmm (130-400); Red Blood Count 3.56 10^6/uL (4.1-5.3); White Blood Count 6.2 10^3/uL (4.0-10.0)
[2020-04-16 05:57] LABS: Alanine Aminotransferase 6 U/L (0-33); Albumin Level 3.6 g/dL (3.5-5.2); Alkaline Phosphatase 69 IU/L (35-105); Anion Gap 16.9 (5-19); Aspartate Amino Transferase 7 U/L (0-32); Blood Urea Nitrogen 48 mg/dL (8-23); Calcium 8.7 mg/dL (8.5-10.5); Carbon Dioxide 19 mmol/L (22-29); Chloride 105 mmol/L (98-107); Globulin 2.8 g/dL (1.3-4.6); Glomerular Filtration Rate 41.8 mL/min (90-130); Glucose 127 mg/dL (65-115); Osmolality Calculated 300 mOsm/kg (285-295); Sodium 138 mmol/L (136-145); Total Bilirubin 0.4 mg/dL (0.15-1.2); Total Protein 6.4 g/dL (6.6-8.7)
[2020-04-16 05:59] LABS: Potassium 2.9 mmol/L (3.5-5.1)
[2020-04-16 06:38] LABS: Glucose Point of Care 233 mg/dL (70-110)
[2020-04-16] MEDS: potassium chloride ER 20 mEq Tablet 80 MEQ PO ×2 (06:44→11:17)
--- NOTE | 2020-04-16 06:49 | PC.NURSE ---
SHIFT SUMMARY Has rested well tonight. Woke early this morning c/o back pain. Medicated with po Tylenol. Also was c/o didn't eat yesterday and is hungry. Given a sandwich and ate well. Up to BSC with assist and urinating well. Has some confusion with neurochecks done
[2020-04-16] MEDS: sodium chloride 0.9% 1,000 ML 100 ML IV ×2 (08:34→17:11)
[2020-04-16] MEDS: apixaban 5 mg Tablet PO ×2 (08:34→17:10)
[2020-04-16 11:00] LABS: Glucose Point of Care 172 mg/dL (70-110)
--- NOTE | 2020-04-16 13:55 | PC.NURSE ---
stool sample sent to lab
--- NOTE | 2020-04-16 14:06 | PC.NURSE ---
redness noted to crack of buttocks, aleo vista applied
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
[2020-04-16 17:00] LABS: Glucose Point of Care 183 mg/dL (70-110)
[2020-04-16 20:41] LABS: Glucose Point of Care 150 mg/dL (70-110)
[2020-04-16] MEDS: atorvastatin 40 mg Tablet 20 MG PO (21:33)
[2020-04-17] VITALS (8 sets, daily range): BP systolic 90–125; BP diastolic 52–72; PULSE 64–79; RESP 15–18; TEMP 36.5–36.9; O2SAT 93–99
[2020-04-17] MEDS: sodium chloride 0.9% 1,000 ML 100 ML IV ×2 (03:05→13:21)
[2020-04-17 05:30] LABS: Basophils % 0.7 %; Eosinophils # 0.3 10^3/uL (0.0-0.8); Eosinophils % 4.6 %; Hematocrit 26.9 % (37.0-47.0); Hemoglobin 8.5 g/dL (11.5-15.3); Lymphocytes # 1.9 10^3/uL (0.8-4.8); Lymphocytes % 33.7 %; Mean Corpuscular HGB Conc 31.6 g/dL (30.0-36.0); Mean Corpuscular Hemoglobin 27.9 pg (28.0-34.0); Mean Corpuscular Volume 88.2 fL (81-99); Mean Platelet Volume 11.3 fL (7.4-10.4); Monocytes # 0.4 10^3/uL (0.2-0.9); Monocytes % 6.8 %; Neutrophils # 3.02 10^3/uL (1.8-7.7); Neutrophils % 53.8 %; Nucleated Red Blood Cells % 0 %; Platelet Count 159 10^3/cmm (130-400); Red Blood Count 3.05 10^6/uL (4.1-5.3); Red Cell Distribution Width 15.5 % (12.1-15.1); White Blood Count 5.6 10^3/uL (4.0-10.0)
[2020-04-17 06:01] LABS: Anion Gap 13.4 (5-19); Blood Urea Nitrogen 29 mg/dL (8-23); Calcium 8.9 mg/dL (8.5-10.5); Carbon Dioxide 18 mmol/L (22-29); Chloride 114 mmol/L (98-107); Glomerular Filtration Rate 45.8 mL/min (90-130); Glucose 149 mg/dL (65-115); Osmolality Calculated 301 mOsm/kg (285-295); Potassium 4.4 mmol/L (3.5-5.1); Sodium 141 mmol/L (136-145)
[2020-04-17] MEDS: acetaminophen 325 mg Tablet 650 MG PO ×2 (07:24→13:55)
[2020-04-17] MEDS: apixaban 5 mg Tablet PO ×2 (07:24→16:58)
[2020-04-17 07:34] LABS: Glucose Point of Care 168 mg/dL (70-110)
[2020-04-17 10:40] LABS: Glucose Point of Care 178 mg/dL (70-110)
--- NOTE | 2020-04-17 14:19 | PC.NURSE ---
patient resting with eyes closed.
--- NOTE | 2020-04-17 14:39 | PC.NURSE ---
notified Dr Rivera that the skin tear on patient's right arm is looking more red and puffy today and she had streaks of blood in stool today
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
[2020-04-17 16:51] LABS: Glucose Point of Care 199 mg/dL (70-110)
[2020-04-17 20:09] LABS: Glucose Point of Care 222 mg/dL (70-110)
[2020-04-17] MEDS: doxycycline 100 mg Tablet PO (20:20)
[2020-04-17] MEDS: atorvastatin 40 mg Tablet 20 MG PO (20:20)
[2020-04-18] VITALS: BP 107/68; PULSE 81; RESP 16; TEMP 36.8; O2SAT 96
--- NOTE | 2020-04-18 | USCV_ITS ---
Ordering Provider/Ordering MD: Date of Service: Procedure(s): Accession Number(s): Report Number: [id number] Jasmin Ortiz Age: 59 Gender: F : 1960 Exam Date: 04/18/2020 07:26 Ordering Phys: Leticia Rivera MD Technologist: Óscar Chin [place]am Location[place] [facility] [place]: possible DVT, facial edema HISTORY: history DVT, IJV PROCEDURES: Venous duplex imaging was performed in only the left upper extremity. FINDINGS: DVT noted in left brachial vein. CONCLUSIONS DVT left brachial vein. Remainder of LUE venous structures are patent. Wu Sepulveda MD (Electronically Signed) Final Date: 18 April 2020 12:41 S HIEND
--- NOTE | 2020-04-18 | USCV_ITS ---
Jasmin Ortiz Age: 59 Gender: F : 1960 Exam Date: 04/18/2020 07:26 Ordering Phys: Leticia Rivera MD Technologist: Óscar Chin Exam Location: [facility] – [place] Indication: possible DVT, facial edema HISTORY: history DVT, IJV PROCEDURES: Venous duplex imaging was performed in only the left upper extremity. FINDINGS: DVT noted in left brachial vein. CONCLUSIONS DVT left brachial vein. Remainder of LUE venous structures are patent. Wu Sepulveda MD (Electronically Signed) Final Date: 18 April 2020 12:41 S HIEND
[2020-04-18] MEDS: acetaminophen 325 mg Tablet 650 MG PO ×2 (00:35→09:02)
[2020-04-18 04:00] VITALS: BP 123/73; PULSE 72; RESP 18; TEMP 36.5; O2SAT 96
[2020-04-18 05:24] LABS: Basophils % 0.5 %; Eosinophils % 0.2 %; Hematocrit 24.1 % (37.0-47.0); Lymphocytes # 0.5 10^3/uL (0.8-4.8); Lymphocytes % 8.4 %; Mean Corpuscular HGB Conc 33.2 g/dL (30.0-36.0); Mean Corpuscular Hemoglobin 27.5 pg (28.0-34.0); Mean Corpuscular Volume 82.8 fL (81-99); Mean Platelet Volume 11.3 fL (7.4-10.4); Monocytes # 0.1 10^3/uL (0.2-0.9); Monocytes % 1.2 %; Nucleated Red Blood Cells % 0 %; Platelet Count 154 10^3/cmm (130-400); Red Blood Count 2.91 10^6/uL (4.1-5.3); Red Cell Distribution Width 15.4 % (12.1-15.1)
[2020-04-18 05:55] LABS: Anion Gap 16.5 (5-19); Blood Urea Nitrogen 27 mg/dL (8-23); Carbon Dioxide 16 mmol/L (22-29); Chloride 110 mmol/L (98-107); Glomerular Filtration Rate 56.6 mL/min (90-130); Glucose 197 mg/dL (65-115); Osmolality Calculated 297 mOsm/kg (285-295); Potassium 4.5 mmol/L (3.5-5.1); Sodium 138 mmol/L (136-145)
[2020-04-18 06:34] LABS: Glucose Point of Care 204 mg/dL (70-110)
[2020-04-18 07:52] VITALS: BP 116/82; PULSE 70; RESP 16; TEMP 36.4; O2SAT 98
[2020-04-18] MEDS: apixaban 5 mg Tablet PO ×2 (09:03→17:50)
[2020-04-18] MEDS: doxycycline 100 mg Tablet PO ×2 (09:03→17:50)
[2020-04-18 10:59] LABS: Glucose Point of Care 308 mg/dL (70-110)
[2020-04-18 11:51] VITALS: BP 122/82; PULSE 67; RESP 19; TEMP 36.6; O2SAT 98
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
[2020-04-18 16:00] VITALS: BP 122/82; PULSE 67; RESP 19; TEMP 36.6; O2SAT 98
[2020-04-18 17:01] LABS: Glucose Point of Care 301 mg/dL (70-110)
--- NOTE | 2020-04-18 19:17 | USCV_ITS ---
Jasmin Ortiz Age: 59 Gender: F : 1960 Exam Date: 04/18/2020 07:11 Ordering Phys: Leticia Rivera MD Technologist: Óscar Chin Exam Location: [facility] [place] Indication: FACIAL EDEMA, hx of RT IJ thrombus Risk Factors: Previous Vascular Surgery: Right Brachial BP: / Left Brachial BP: / Right Left Velocity (cm/s) Spectral Plaque Velocity (cm/s) Spectral Plaque Syst/Diast Broadening Syst/Diast Broadening 59.50/ 15.40 Prox CCA 55.70 / 19.95 46.00/ 11.80 Mid CCA 56.05 / 15.65 56.50/ 16.40 Distal CCA 56.50 / 13.80 44.00/ 10.20 Prox ICA 66.30 / 17.80 42.90/ 11.20 Mid ICA 63.90 / 17.00 46.00/ 12.80 Distal ICA 59.80 / 24.30 75.60 ECA 70.30 0.77 ICA/CCA 1.00 Antegrade Vertebral Antegrade 29.10/ 8.70 cm/s 26.20/ 8.60 cm/s Tri Subclavian Tri 40.40 54.00 CONCLUSIONS Right ICA stenosis <50%. Left ICA stenosis <50%. Normal antegrade Doppler flow noted in the right vertebral artery. Normal antegrade Doppler flow noted in the left vertebral artery. Wu Sepulveda MD (Electronically Signed) Final Date: 18 April 2020 12:44 S
--- NOTE | 2020-04-18 19:23 | USCV_ITS ---
Jasmin Ortiz Age: 59 Gender: F : 1960 Exam Date: 04/18/2020 07:26 Ordering Phys: Leticia Rivera MD Technologist: Óscar Chin Exam Location: [facility] [place] Indication: possible DVT, facial edema HISTORY: history DVT, IJV PROCEDURES: Venous duplex imaging was performed in only the left upper extremity. FINDINGS: DVT noted in left brachial vein. CONCLUSIONS DVT left brachial vein. Remainder of LUE venous structures are patent. Wu Sepulveda MD (Electronically Signed) Final Date: 18 April 2020 12:41 S
[2020-04-18 20:00] VITALS: BP 132/87; PULSE 70; PULSE 72; RESP 17; TEMP 37.5; O2SAT 100
[2020-04-18 20:51] LABS: Glucose Point of Care 307 mg/dL (70-110)
[2020-04-18] MEDS: atorvastatin 40 mg Tablet 20 MG PO (21:52)
[2020-04-19] VITALS: BP 134/88; PULSE 62; RESP 17; TEMP 36.6; O2SAT 96
[2020-04-19 04:00] VITALS: BP 125/78; PULSE 57; RESP 17; TEMP 36.8; O2SAT 96
[2020-04-19 05:39] LABS: Hematocrit 24.2 % (37.0-47.0)
[2020-04-19 06:05] LABS: Blood Urea Nitrogen 33 mg/dL (8-23); Calcium 9.3 mg/dL (8.5-10.5); Carbon Dioxide 17 mmol/L (22-29); Chloride 111 mmol/L (98-107); Glomerular Filtration Rate 45.8 mL/min (90-130); Glucose 197 mg/dL (65-115); Osmolality Calculated 297 mOsm/kg (285-295); Sodium 137 mmol/L (136-145)
[2020-04-19 06:06] LABS: Anion Gap 13.4 (5-19); Potassium 4.4 mmol/L (3.5-5.1)
[2020-04-19 06:36] LABS: Glucose Point of Care 212 mg/dL (70-110)
[2020-04-19 07:25] VITALS: BP 137/89; PULSE 57; RESP 18; TEMP 36.9; O2SAT 97
[2020-04-19] MEDS: doxycycline 100 mg Tablet PO (08:34)
[2020-04-19] MEDS: apixaban 5 mg Tablet PO (08:34)
[2020-04-19 10:51] LABS: Glucose Point of Care 269 mg/dL (70-110)
[2020-04-19 11:18] VITALS: BP 136/87; PULSE 60; RESP 18; TEMP 36.4; O2SAT 99
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
[2020-04-19 15:27] VITALS: BP 147/83; PULSE 82; RESP 18; TEMP 36.8; O2SAT 96
[2020-04-19 16:17] VITALS: BP 147/83; PULSE 82; RESP 18; TEMP 36.8; O2SAT 96
== END 2020-04-19 16:20 | disposition home or self-care (01) | DRG 683 ==
LOC: ER 14:23 → MEDSURG 14:27
PROVIDERS: Admitting Provider Family Medicine; Emergency Provider Family Medicine; PCP Family Medicine; Visit Provider Family Medicine
DX: N17.9 Acute kidney failure, unspecified (principal); I82.C29 Chronic embolism and thrombosis of unspecified internal jugular vein; R29.6 Repeated falls; C50.011 Malignant neoplasm of nipple and areola, right female breast; Z79.899 Other long term (current) drug therapy; Z79.01 Long term (current) use of anticoagulants; F41.9 Anxiety disorder, unspecified; E78.5 Hyperlipidemia, unspecified; Z87.442 Personal history of urinary calculi; Z17.1 Estrogen receptor negative status [ER-]; Z86.73 Personal history of transient ischemic attack (TIA), and cerebral infarction without residual deficits; Z86.718 Personal history of other venous thrombosis and embolism; F06.30 Mood disorder due to known physiological condition, unspecified; E11.22 Type 2 diabetes mellitus with diabetic chronic kidney disease; I12.9 Hypertensive chronic kidney disease with stage 1 through stage 4 chronic kidney disease, or unspecified chronic kidney disease; N18.31 Chronic kidney disease, stage 3a; Z79.4 Long term (current) use of insulin; Z90.13 Acquired absence of bilateral breasts and nipples; E86.0 Dehydration; E87.6 Hypokalemia; D64.9 Anemia, unspecified; R22.0 Localized swelling, mass and lump, head; I65.23 Occlusion and stenosis of bilateral carotid arteries; Z66 Do not resuscitate; E11.65 Type 2 diabetes mellitus with hyperglycemia
CPT/HCPCS: 12345; 36415; 36416; 36591; 71045; 71275; 74177; 80048; 80053; 81003; 82550; 82962; 83690; 83735; 84484; 85014; 85018; 85025; 93005; 93880; 93971; 96372; 96375; 97110; 97116; 97161; 97166; 97530; 97535; 99283; C9113; J1815; J2920; J7030; Q9967

== ENCOUNTER 2020-04-21 12:28 | Emergency (ER) | payer MEDICAID, SELFPAY ==
[2020-04-21] VITALS (14 sets, daily range): BP systolic 103–143; BP diastolic 58–93; PULSE 57–92; RESP 16–18; O2SAT 94–100; BMI 25.6
--- NOTE | 2020-04-21 12:36 | XRR_ITS ---
PROCEDURE INFORMATION: Exam: XR Chest, 1 View Exam date and time: 04/21/2020 1:00 PM Age: 59 years old Clinical indication: Cough; Additional info: Dyspnea/cough TECHNIQUE: Imaging protocol: XR of the chest Views: 1 view. COMPARISON: CR XR chest 1V portable [id number] 04/15/2020 11:03 AM FINDINGS: Tubes, catheters and devices: Left subclavian chest port in place. Lungs: Unremarkable. No consolidation. Pleural space: Unremarkable. No pleural effusion. No pneumothorax. Heart/Mediastinum: Unremarkable. No cardiomegaly. Vasculature: Mildly tortuous aorta. Bones/joints: Unremarkable. XR/XR chest 1V portable [id number] IMPRESSION: No acute process evident.
--- NOTE | 2020-04-21 12:39 | W.ED.GENADLT ---
Documented by User: Shady Michelle DO 04/22/20 08:38 HPI - General Adult General: Chief complaint: General Medical Stated complaint: FACIAL AND ARM SWELLING; SOB Time Seen by Provider: 04/21/20 12:29 History of Present Illness: HPI narrative: 59-year-old female presents emergency room with complaint of swelling in the face and on the right arm as well as being somewhat short of breath. Admitted her through the emergency room on 1130 she was discharged home on 04 19. H&P and discharge summary reviewed from the most recent hospitalization did note that the stopped hydrochlorothiazide continue the ARB. Onset (ago): day(s) Location: face Severity: moderate Quality: aching Pain Consistency: constant Relieving factors: none Exacerbating factors: none Associated symptoms: Reports confusion and decreased appetite; Deny chest pain, cough, diaphoresis, dyspnea, fevers/chills, headache(s), malaise, nausea, rash, palpitations, seizures, short of breath, syncope, vomiting or weakness Treatments prior to arrival: none Review of Systems Const: Denies: malaise or diaphoresis ENMT: Denies: throat pain, ear or mastoid pain, nasal discharge or nasal congestion Card: Denies: chest pain, palpitations or syncope Resp: Denies: dyspnea GI: Denies: nausea or vomiting : Denies: flank pain, difficulty voiding, dysuria, urinary frequency or urinary urgency Skin/Breast: Denies: rash Neuro: Reports: confusion; Denies: headache(s) PFSH ED PFSH: Medical History Anxiety disorder Dyslipidemia History of renal stone Hx of breast cancer -R breast cancer (infiltrating carcinoma) -HER-2/lyndon 3+ positive Hypertension -d/c HCTZ, continue ARB Intracerebral hemorrhage Past intracerebral hemorrhage R parietal lobe seen on MRI brain 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 -on AC with Eliquis Mood disorder due to a general medical condition Port-A-Cath in place Type 2 diabetes mellitus -insulin dependent -last A1c-7.4 Surgical History Hx of breast biopsy Hx of cystoscopy Hx of hysterectomy Hx of pelvic surgery S/P mastectomy, bilateral Family History Mother Diabetes Heart disease Father Suicide Denies family history of Anesthesia complication Bleeding disorder Social History Smoking and tobacco status: never smoked Second hand smoke exposure: Yes Alcohol intake: never Lives independently: Yes Household members: spouse Marital status: Current occupational status: retired History of recent travel: No Current gender identity: Female Physical Exam Const: COMMON NORMALS: no acute distress GENERAL APPEARANCE: cooperative and comfortable HENMT: COMMON NORMALS: normocephalic, atraumatic and hearing grossly normal bilaterally HEAD & SCALP: normocephalic and atraumatic OTHER: Moderate facial swelling. Neck/C-Spine: COMMON NORMALS: no JVD Resp: COMMON NORMALS: normal respiratory effort, No retractions, No use of accessory muscles and clear to auscultation bilaterally AUSCULTATION: clear to auscultation bilaterally Cardio: COMMON NORMALS: no JVD, regular rate, regular rhythm and No murmurs present (Cardio) RATE: regular rate RHYTHM: regular rhythm GI: COMMON NORMALS: Soft to palpation and No hepatosplenomegaly present AUSCULTATION: Yes normoactive bowel sounds PALPATION: Yes Soft to palpation, No Tenderness to palpation present (GI), No Guarding due to palpation present (GI) and Yes No hepatosplenomegaly present Extremity: COMMON NORMALS: normal to inspection, capillary refill normal, no clubbing, cyanosis or edema, no calf tenderness and no pedal edema Course Vital Signs: Vital signs: Vital Signs Temperature 98.2 F 04/22/20 04:04 Pulse Rate 58 L 04/22/20 04:30 Respiratory Rate 18 04/22/20 04:30 Blood Pressure 120/78 04/22/20 04:30 Pulse Oximetry 100 04/22/20 04:30 MDM - General Adult MDM Narrative: Medical decision making narrative: Care transferred to Dr. Alejandro at change of shift see his notes for final diagnosis and disposition Lab Data: Labs: Lab Results 04/21/20 04/21/20 04/21/20 Range/Units 12:49 12:49 12:49 WBC 7.7 (4.0-10.0) 10^3/ uL RBC 3.32 L (4.1-5.3) 10^6/u L Hgb 9.2 L (11.5-15.3) g/dL Hct 28.3 L (37.0-47.0) % MCV 85.2 (81-99) fL MCH 27.7 L (28.0-34.0) pg MCHC 32.5 (30.0-36.0) g/dL RDW 15.4 H (12.1-15.1) % Plt Count 202 (130-400) 10^3/c mm MPV 10.9 H (7.4-10.4) fL Neut % (Auto) 69.7 % Lymph % (Auto) 21.0 % Milam % (Auto) 6.2 % Eos % (Auto) 1.6 % Baso % (Auto) 0.3 % Neut # (Auto) 5.40 (1.8-7.7) 10^3/u L Lymph # (Auto) 1.6 (0.8-4.8) 10^3/u L Milam # (Auto) 0.5 (0.2-0.9) 10^3/u L Eos # (Auto) 0.1 (0.0-0.8) 10^3/u L Baso # (Auto) 0.0 (0.0-0.1) 10^3/u L Nucleated RBC % (a uto) 0 % Nucleated RBCs # 0.0 /100WBC Sodium 140 (136-145) mmol/L Potassium 3.8 (3.5-5.1) mmol/L Chloride 108 H (98-107) mmol/L Carbon Dioxide 21 L (22-29) mmol/L Anion Gap 14.8 (5-19) BUN 31 H (8-23) mg/dL Creatinine 1.1 H (0.5-0.9) mg/dL GFR Calculation 50.7 L (90-130) mL/min Glucose 145 H (65-115) mg/dL Calculated Osmolal ity 299 H (285-295) mOsm/k g Calcium 8.9 (8.5-10.5) mg/dL Magnesium 1.3 L (1.7-2.3) mg/dL Total Bilirubin 0.4 (0.15-1.2) mg/dL AST 8 (0-32) U/L ALT 11 (0-33) U/L Alkaline Phosphata se 104 (35-105) IU/L Creatine Kinase 24 L (26-192) U/L Troponin T Baselin e 12 H (0-10) ng/L Troponin T 120 Min [place] (0-10) ng/L Delta Troponin T (0-10) ABS# Troponin T Hi Sens 6Hr (0-10) ng/L Troponin T Hi Sens 6Hr Delta (0-12) ng/L NT-Pro-B Natriuret Pep 1470 H (0-125) pg/mL Total Protein 5.8 L (6.6-8.7) g/dL Albumin 3.7 (3.5-5.2) g/dL Globulin 2.1 (1.3-4.6) g/dL Urine Color (Yellow) Urine Appearance (CLEAR) Urine pH (5-7) Ur Specific Gravit y (1.005-1.030) Urine Protein (Negative) Urine Glucose (UA) (Normal) Urine Ketones (Negative) Urine Blood (Negative) Urine Nitrate (Negative) Urine Bilirubin (Negative) Urine Urobilinogen (Negative) mg/dL Ur Leukocyte Marcy ase (Negative) 04/21/20 04/21/20 04/21/20 Range/Units 14:30 15:20 19:55 WBC (4.0-10.0) 10^3/ uL RBC (4.1-5.3) 10^6/u L Hgb (11.5-15.3) g/dL Hct (37.0-47.0) % MCV (81-99) fL MCH (28.0-34.0) pg MCHC (30.0-36.0) g/dL RDW (12.1-15.1) % Plt Count (130-400) 10^3/c mm MPV (7.4-10.4) fL Neut % (Auto) % Lymph % (Auto) % Milam % (Auto) % Eos % (Auto) % Baso % (Auto) % Neut # (Auto) (1.8-7.7) 10^3/u L Lymph # (Auto) (0.8-4.8) 10^3/u L Milam # (Auto) (0.2-0.9) 10^3/u L Eos # (Auto) (0.0-0.8) 10^3/u L Baso # (Auto) (0.0-0.1) 10^3/u L Nucleated RBC % (a uto) % Nucleated RBCs # /100WBC Sodium (136-145) mmol/L Potassium (3.5-5.1) mmol/L Chloride (98-107) mmol/L Carbon Dioxide (22-29) mmol/L Anion Gap (5-19) BUN (8-23) mg/dL Creatinine (0.5-0.9) mg/dL GFR Calculation (90-130) mL/min Glucose (65-115) mg/dL Calculated Osmolal ity (285-295) mOsm/k g Calcium (8.5-10.5) mg/dL Magnesium (1.7-2.3) mg/dL Total Bilirubin (0.15-1.2) mg/dL AST (0-32) U/L ALT (0-33) U/L Alkaline Phosphata se (35-105) IU/L Creatine Kinase (26-192) U/L Troponin T Baselin e (0-10) ng/L Troponin T 120 Min [place] 11.50 H (0-10) ng/L Delta Troponin T -0.50 L (0-10) ABS# Troponin T Hi Sens 6Hr 9.53 (0-10) ng/L Troponin T Hi Sens 6Hr Delta -2.47 L (0-12) ng/L NT-Pro-B Natriuret Pep (0-125) pg/mL Total Protein (6.6-8.7) g/dL Albumin (3.5-5.2) g/dL Globulin (1.3-4.6) g/dL Urine Color Straw (Yellow) Urine Appearance Clear (CLEAR) Urine pH 5 (5-7) Ur Specific Gravit y 1.020 (1.005-1.030) Urine Protein Neg (Negative) Urine Glucose (UA) Norm (Normal) Urine Ketones Negative (Negative) Urine Blood Neg (Negative) Urine Nitrate Negative (Negative) Urine Bilirubin Neg (Negative) Urine Urobilinogen Norm (Negative) mg/dL Ur Leukocyte Marcy ase Negative (Negative) Discharge Plan Discharge Patient Disposition: Xfer 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 Documented by User: Alvarado Alejandro DO 04/22/20 03:14 HPI - General Adult General: Chief complaint: General Medical Stated complaint: FACIAL AND ARM SWELLING; SOB Time Seen by Provider: 04/21/20 12:29 PFSH ED PFSH: Medical History Anxiety disorder Dyslipidemia History of renal stone Hx of breast cancer -R breast cancer (infiltrating carcinoma) -HER-2/lyndon 3+ positive Hypertension -d/c HCTZ, continue ARB Intracerebral hemorrhage Past intracerebral hemorrhage R parietal lobe seen on MRI brain 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 -on AC with Eliquis Mood disorder due to a general medical condition Port-A-Cath in place Type 2 diabetes mellitus -insulin dependent -last A1c-7.4 Surgical History Hx of breast biopsy Hx of cystoscopy Hx of hysterectomy Hx of pelvic surgery S/P mastectomy, bilateral Family History Mother Diabetes Heart disease Father Suicide Denies family history of Anesthesia complication Bleeding disorder Social History Smoking and tobacco status: never smoked Second hand smoke exposure: Yes Alcohol intake: never Lives independently: Yes Household members: spouse Marital status: Current occupational status: retired History of recent travel: No Current gender identity: Female Course Vital Signs: Vital signs: Vital Signs Temperature 98.2 F 04/22/20 04:04 Pulse Rate 58 L 04/22/20 04:30 Respiratory Rate 18 04/22/20 04:30 Blood Pressure 120/78 04/22/20 04:30 Pulse Oximetry 100 12/07/20 04:30 MDM - General Adult MDM Narrative: Medical decision making narrative: 59-year-old female checked out to me at shift change by Dr. Michelle. This lady has facial swelling. It is somewhat improved after administration of Solu-Medrol. She can now stick out her tongue, and her voice is more normal. There is no evidence of airway compromise, and she is handling her own secretions at this point. CT a of the neck ordered by Dr. Michelle showed edema, suggestive of possible SVC syndrome. 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 Spoke with our chest surgeon about this. He notes that the patient may need some sort of vascular stenting or intervention to treat this kind of problem. This lady has a history of cancer and has been seen at [facility], as well as [facility] in the past. [facility] if [facility] available for her. Spoke with the hospitalist at [facility], who is concerned about the neck swelling as a potential airway compromise. He would prefer her to go through the ER. I spoke with the attending in the ER, who was willing to take in transfer. They will alert vascular to her coming as well. Currently her saturations are 98% on room air. She is still swollen, that remains improved after administration of steroids. Lab Data: Labs: Lab Results 04/21/20 04/21/20 04/21/20 Range/Units 12:49 12:49 12:49 WBC 7.7 (4.0-10.0) 10^3/ uL RBC 3.32 L (4.1-5.3) 10^6/u L Hgb 9.2 L (11.5-15.3) g/dL Hct 28.3 L (37.0-47.0) % MCV 85.2 (81-99) fL MCH 27.7 L (28.0-34.0) pg MCHC 32.5 (30.0-36.0) g/dL RDW 15.4 H (12.1-15.1) % Plt Count 202 (130-400) 10^3/c mm MPV 10.9 H (7.4-10.4) fL Neut % (Auto) 69.7 % Lymph % (Auto) 21.0 % Milam % (Auto) 6.2 % Eos % (Auto) 1.6 % Baso % (Auto) 0.3 % Neut # (Auto) 5.40 (1.8-7.7) 10^3/u L Lymph # (Auto) 1.6 (0.8-4.8) 10^3/u L Milam # (Auto) 0.5 (0.2-0.9) 10^3/u L Eos # (Auto) 0.1 (0.0-0.8) 10^3/u L Baso # (Auto) 0.0 (0.0-0.1) 10^3/u L Nucleated RBC % (a uto) 0 % Nucleated RBCs # 0.0 /100WBC Sodium 140 (136-145) mmol/L Potassium 3.8 (3.5-5.1) mmol/L Chloride 108 H (98-107) mmol/L Carbon Dioxide 21 L (22-29) mmol/L Anion Gap 14.8 (5-19) BUN 31 H (8-23) mg/dL Creatinine 1.1 H (0.5-0.9) mg/dL GFR Calculation 50.7 L (90-130) mL/min Glucose 145 H (65-115) mg/dL Calculated Osmolal ity 299 H (285-295) mOsm/k g Calcium 8.9 (8.5-10.5) mg/dL Magnesium 1.3 L (1.7-2.3) mg/dL Total Bilirubin 0.4 (0.15-1.2) mg/dL AST 8 (0-32) U/L ALT 11 (0-33) U/L Alkaline Phosphata se 104 (35-105) IU/L Creatine Kinase 24 L (26-192) U/L Troponin T Baselin e 12 H (0-10) ng/L Troponin T 120 Min [place] (0-10) ng/L Delta Troponin T (0-10) ABS# Troponin T Hi Sens 6Hr (0-10) ng/L Troponin T Hi Sens 6Hr Delta (0-12) ng/L NT-Pro-B Natriuret Pep 1470 H (0-125) pg/mL Total Protein 5.8 L (6.6-8.7) g/dL Albumin 3.7 (3.5-5.2) g/dL Globulin 2.1 (1.3-4.6) g/dL Urine Color (Yellow) Urine Appearance (CLEAR) Urine pH (5-7) Ur Specific Gravit y (1.005-1.030) Urine Protein (Negative) Urine Glucose (UA) (Normal) Urine Ketones (Negative) Urine Blood (Negative) Urine Nitrate (Negative) Urine Bilirubin (Negative) Urine Urobilinogen (Negative) mg/dL Ur Leukocyte Marcy ase (Negative) 04/21/20 04/21/20 04/21/20 Range/Units 14:30 15:20 19:55 WBC (4.0-10.0) 10^3/ uL RBC (4.1-5.3) 10^6/u L Hgb (11.5-15.3) g/dL Hct (37.0-47.0) % MCV (81-99) fL MCH (28.0-34.0) pg MCHC (30.0-36.0) g/dL RDW (12.1-15.1) % Plt Count (130-400) 10^3/c mm MPV (7.4-10.4) fL Neut % (Auto) % Lymph % (Auto) % Milam % (Auto) % Eos % (Auto) % Baso % (Auto) % Neut # (Auto) (1.8-7.7) 10^3/u L Lymph # (Auto) (0.8-4.8) 10^3/u L Milam # (Auto) (0.2-0.9) 10^3/u L Eos # (Auto) (0.0-0.8) 10^3/u L Baso # (Auto) (0.0-0.1) 10^3/u L Nucleated RBC % (a uto) % Nucleated RBCs # /100WBC Sodium (136-145) mmol/L Potassium (3.5-5.1) mmol/L Chloride (98-107) mmol/L Carbon Dioxide (22-29) mmol/L Anion Gap (5-19) BUN (8-23) mg/dL Creatinine (0.5-0.9) mg/dL GFR Calculation (90-130) mL/min Glucose (65-115) mg/dL Calculated Osmolal ity (285-295) mOsm/k g Calcium (8.5-10.5) mg/dL Magnesium (1.7-2.3) mg/dL Total Bilirubin (0.15-1.2) mg/dL AST (0-32) U/L ALT (0-33) U/L Alkaline Phosphata se (35-105) IU/L Creatine Kinase (26-192) U/L Troponin T Baselin e (0-10) ng/L Troponin T 120 Min [place] 11.50 H (0-10) ng/L Delta Troponin T -0.50 L (0-10) ABS# Troponin T Hi Sens 6Hr 9.53 (0-10) ng/L Troponin T Hi Sens 6Hr Delta -2.47 L (0-12) ng/L NT-Pro-B Natriuret Pep (0-125) pg/mL Total Protein (6.6-8.7) g/dL Albumin (3.5-5.2) g/dL Globulin (1.3-4.6) g/dL Urine Color Straw (Yellow) Urine Appearance Clear (CLEAR) Urine pH 5 (5-7) Ur Specific Gravit y 1.020 (1.005-1.030) Urine Protein Neg (Negative) Urine Glucose (UA) Norm (Normal) Urine Ketones Negative (Negative) Urine Blood Neg (Negative) Urine Nitrate Negative (Negative) Urine Bilirubin Neg (Negative) Urine Urobilinogen Norm (Negative) mg/dL Ur Leukocyte Marcy ase Negative (Negative) Discharge Plan Discharge Patient Disposition: Xfer 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
[2020-04-21 13:23] LABS: Basophils % 0.3 %; Eosinophils # 0.1 10^3/uL (0.0-0.8); Eosinophils % 1.6 %; Hematocrit 28.3 % (37.0-47.0); Hemoglobin 9.2 g/dL (11.5-15.3); Lymphocytes # 1.6 10^3/uL (0.8-4.8); Mean Corpuscular HGB Conc 32.5 g/dL (30.0-36.0); Mean Corpuscular Hemoglobin 27.7 pg (28.0-34.0); Mean Corpuscular Volume 85.2 fL (81-99); Mean Platelet Volume 10.9 fL (7.4-10.4); Monocytes # 0.5 10^3/uL (0.2-0.9); Monocytes % 6.2 %; Neutrophils % 69.7 %; Nucleated Red Blood Cells % 0 %; Platelet Count 202 10^3/cmm (130-400); Red Blood Count 3.32 10^6/uL (4.1-5.3); Red Cell Distribution Width 15.4 % (12.1-15.1); White Blood Count 7.7 10^3/uL (4.0-10.0)
[2020-04-21] MEDS: diphenhydrAMINE 50 mg/mL SDV 1mL 12.5 MG IVP (13:24)
[2020-04-21 13:32] LABS: Troponin(5th) Baseline 12 ng/L (0-10)
[2020-04-21 13:40] LABS: Alanine Aminotransferase 11 U/L (0-33); Albumin Level 3.7 g/dL (3.5-5.2); Alkaline Phosphatase 104 IU/L (35-105); Anion Gap 14.8 (5-19); Aspartate Amino Transferase 8 U/L (0-32); Blood Urea Nitrogen 31 mg/dL (8-23); Calcium 8.9 mg/dL (8.5-10.5); Carbon Dioxide 21 mmol/L (22-29); Chloride 108 mmol/L (98-107); Creatine Phosphokinase 24 U/L (26-192); Globulin 2.1 g/dL (1.3-4.6); Glomerular Filtration Rate 50.7 mL/min (90-130); Glucose 145 mg/dL (65-115); Magnesium 1.3 mg/dL (1.7-2.3); NT Pro B Type Natriuretic Pept 1470 pg/mL (0-125); Osmolality Calculated 299 mOsm/kg (285-295); Potassium 3.8 mmol/L (3.5-5.1); Sodium 140 mmol/L (136-145); Total Bilirubin 0.4 mg/dL (0.15-1.2); Total Protein 5.8 g/dL (6.6-8.7)
--- NOTE | 2020-04-21 14:34 | CTR_ITS ---
PROCEDURE INFORMATION: Exam: CT Angiography Neck With Contrast Exam date and time: 04/21/2020 2:49 PM Age: 59 years old Clinical indication: Mass, lump, or swelling in head and mass, lump, or swelling in neck; Prior surgery; Surgery date: 6+ months; Surgery type: B mast, port; Patient HX: Facial/neck swelling - HX of breast CA and recent discharge from hospital; Additional info: Selling TECHNIQUE: Imaging protocol: Computed tomography angiography of the neck with intravenous contrast. 3D rendering (Not supervised by radiologist): MIP and/or 3D reconstructed images were created by the technologist. Radiation optimization: All CT scans at this facility use at least one of these dose optimization techniques: automated exposure control; mA and/or kV adjustment per patient size (includes targeted exams where dose is matched to clinical indication); or iterative reconstruction. Contrast material: VISI 320; Contrast volume: 95 ml; Contrast route: INTRAVENOUS (IV); COMPARISON: No relevant prior studies available. RADIATION DOSE METRICS: Total DLP (mGy-cm): 1370.73 FINDINGS: Right common carotid artery: No stenosis. No dissection or occlusion. Right internal carotid artery: No stenosis of the extracranial segment. No dissection or occlusion. Right external carotid artery: No occlusion or stenosis of the origin. Right vertebral artery: No stenosis. No dissection or occlusion. Left common carotid artery: No stenosis. No dissection or occlusion. Left internal carotid artery: No stenosis of the extracranial segment. No dissection or occlusion. Left external carotid artery: No occlusion or stenosis of the origin. Left vertebral artery: No stenosis. No dissection or occlusion. Other vasculature: Left subclavian chest port in place. Contrast injection via left arm vein. Partially visualized lower aspect of left innominate vein is diffusely narrowed/strictured with extensive neck, spinal and chest wall collaterals along with contrast reflux up the left jugular vein. Bones/joints: Several mm sclerotic areas within the T1 posterior spinous process and C2 left posterior lamina are nonspecific and may represent bone islands although blastic metastatic disease without or with healing response not excluded. Soft tissues: Subcutaneous fat stranding throughout portions of anterior chest wall and anterior neck suggesting inflammation or edema. There also appears to be some precervical retropharyngeal swelling/edema C2, C3 and C4 levels. No rim enhancing abscess evident. CT/CT angio neck [id number] IMPRESSION: 1.) No arterial stenosis or occlusion evident. 2.) Left subclavian chest port in place. Partially visualized left innominate vein shows diffuse distal narrowing/stricturing with extensive collaterals. This finding along with probable anterior chest wall, anterior neck and retropharyngeal swelling/edema raises the possibility of underlying SVC stenosis/stricture and SVC syndrome and clinical correlation is requested. CT of chest with contrast enhancement and delayed venous mediastinal imaging could further evaluate as clinically indicated. REFERENCES: NASCET CRITERIA. The degree of internal carotid artery stenosis is based on NASCET criteria. Normal is no stenosis. Mild is less than 50% stenosis. Moderate is 50-69% stenosis. Severe is 70% to 99% stenosis. Total occlusion is no detectable patent lumen. Radiation Dose CTDIVOL = (mGy): DLP = 1370.73 (mGy-cm)
--- NOTE | 2020-04-21 14:36 | ECG_ITS ---
[facility] Test Date: 2020-04-21 Pat Name: Jasmin Ortiz Department: Room: Gender: Female District Gauger: : 1960 Requested By: Shady Belcher Order Number: [id number] Janice MD: MILTON ASIF Measurements Intervals [place] Rate: 58 P: 15 SD: 141 QRS: 5 QRSD: 83 T: 6 QT: 397 QTc: 390 Interpretive Statements SINUS BRADYCARDIA LOW QRS VOLTAGE IN PRECORDIAL LEADS [QRS DEFLECTION < 1.0 mV IN CHEST LEADS] Compared to ECG 04/15/2020 17:25:36 Low QRS voltage now present Sinus rhythm no longer present Electronically Signed On 04-21-2020 15:47:38 LINUX DEVOPS ENGINEER by MILTON ASIF [id number]
--- NOTE | 2020-04-21 14:44 | PC.NURSE ---
2nd troponin collected at 1430.
[2020-04-21] MEDS: iodixanol 320 mg/mL 100mL Btl IV ×2 (15:12→17:56)
[2020-04-21 15:37] LABS: Add Urine Microscopic? NO
[2020-04-21 15:46] LABS: Bilirubin Urine Neg (Negative); Blood Urine Neg (Negative); Glucose Urine UA Norm (Normal); Ketones Urine Negative (Negative); Leukocyte Esterase Urine Negative (Negative); Nitrate Urine Negative (Negative); Protein Urine Neg (Negative); Urine Appearance Clear (CLEAR); Urine Color Straw (Yellow); Urobilinogen Urine Norm (Negative); pH Urine 5 (5-7)
--- NOTE | 2020-04-21 16:58 | CTR_ITS ---
PROCEDURE INFORMATION: Exam: CT Chest With Contrast; Diagnostic Exam date and time: 04/21/2020 5:32 PM Age: 59 years old Clinical indication: Abnormal findings; Abnormal radiologic exam of lung or chest; Prior surgery; Surgery date: 6+ months; Surgery type: Jr mast, port; Patient HX: ? Svc syndrome - delayed venous mediastinal images TECHNIQUE: Imaging protocol: Diagnostic computed tomography of the chest with intravenous contrast. Radiation optimization: All CT scans at this facility use at least one of these dose optimization techniques: automated exposure control; mA and/or kV adjustment per patient size (includes targeted exams where dose is matched to clinical indication); or iterative reconstruction. Contrast material: VISI 320; Contrast volume: 55 ml; Contrast route: INTRAVENOUS (IV); COMPARISON: CT angio chest PE protcl [id number] 04/15/2020 12:05 PM RADIATION DOSE METRICS: Total DLP (mGy-cm): 387.99 FINDINGS: Tubes, catheters and devices: Left subclavian chest port in place. Catheter tip mid SVC region. Lungs: Minor volume loss/atelectasis lung bases posteriorly. Pleural space: Unremarkable. No pneumothorax. No pleural effusion. Heart: Unremarkable. No cardiomegaly. No pericardial effusion. Pulmonary arteries: No PE evident. Aorta: Unremarkable. No aortic aneurysm. Veins: Diffuse narrowing/stricturing of the left brachiocephalic vein and upper most SVC, possibly catheter related/catheter induced. The right brachiocephalic vein also appears narrowed/strictured distally and contains some low-density thrombus. The above findings would produce SVC syndrome. Extensive lower neck and chest wall venous collaterals with patent azygos vein. The infra-azygos portion of SVC is patent. Lymph nodes: Unremarkable. No enlarged lymph nodes. Bones/joints: 6 mm sclerotic focus T1 posterior spinous process, possible bone island or less likely blastic metastatic disease (with or without healing response). Soft tissues: Bilateral mastectomies. Upper anterior chest wall subcutaneous fat stranding suggesting edema. CT/CT chest w con* [id number] IMPRESSION: 1.) Left subclavian chest port in place. Catheter tip mid SVC region. 2.) Diffuse narrowing/stricturing of the left brachiocephalic vein and upper most SVC, possibly catheter related/catheter induced. The right brachiocephalic vein also appears narrowed/strictured distally and contains some low-density thrombus. The above findings would produce SVC syndrome and clinical correlation is requested. Radiation Dose CTDIVOL = (mGy): DLP = 387.99 (mGy-cm)
--- NOTE | 2020-04-21 18:36 | ECG_ITS ---
[facility] Test Date: 2020-04-21 Pat Name: Jasmin Ortiz Department: Room: Gender: Female Quality Systems Engineer: : 1960 Requested By: Shady Belcher Order Number: [id number] Janice MD: Anh Clark M.D. Measurements Intervals [place] Rate: 61 P: -5 NM: 132 QRS: 2 QRSD: 81 T: 2 QT: 405 QTc: 411 Interpretive Statements SINUS RHYTHM WITH OCCASIONAL VENTRICULAR PREMATURE COMPLEXES LOW QRS VOLTAGE IN PRECORDIAL LEADS [QRS DEFLECTION < 1.0 mV IN CHEST LEADS] Compared to ECG 04/21/2020 14:32:25 Ventricular premature complex(es) now present Sinus bradycardia no longer present Electronically Signed On 04-23-2020 17:18:32 COSTUME RENTAL CLERK by Anh Clark M.D. [id number]
[2020-04-21] MEDS: acetaminophen 500 mg Tablet 1000 MG PO (20:34)
[2020-04-21 21:29] LABS: Troponin 5 6HR 9.53 ng/L (0-10)
[2020-04-21 21:39] LABS: Troponin 5 6HR Delta -2.47 ng/L (0-12)
[2020-04-22] VITALS (11 sets, daily range): BP systolic 109–134; BP diastolic 68–88; PULSE 55–64; RESP 16–18; TEMP 36.8; O2SAT 95–100
--- NOTE | 2020-04-22 05:09 | PC.NURSE ---
Pt out via stretcher with [employer] in stable condition
== END 2020-04-22 05:09 | disposition other institution (70) ==
PROVIDERS: Family Medicine; Emergency Provider Emergency Medicine; PCP Family Medicine
DX: I87.1 Compression of vein (principal); Z77.22 Contact with and (suspected) exposure to environmental tobacco smoke (acute) (chronic); E78.5 Hyperlipidemia, unspecified; Z85.3 Personal history of malignant neoplasm of breast; I10 Essential (primary) hypertension; E11.9 Type 2 diabetes mellitus without complications
CPT/HCPCS: 12345; 70498; 71045; 71260; 80053; 81003; 82550; 83735; 83880; 84484; 85025; 93005; 99284; 99285; J1200; J2930; Q9967

== ENCOUNTER → 2020-05-20 11:41 | Outpatient (BNVA) | payer MEDICAID, SELFPAY | PROVIDERS: PCP Family Medicine; Visit Provider Internal Medicine Hematology & Oncology | DX: C50.011 Malignant neoplasm of nipple and areola, right female breast (principal); Z17.1 Estrogen receptor negative status [ER-] | CPT/HCPCS: 80053; 85025 ==

== ENCOUNTER 2020-06-19 08:06 | Outpatient (CLI) | payer MEDICAID, SELFPAY ==
[2020-06-19 08:47] LABS: Basophils # 0.1 10^3/uL (0.0-0.1); Basophils % 0.8 %; Eosinophils # 0.6 10^3/uL (0.0-0.8); Eosinophils % 7.6 %; Hematocrit 32.7 % (37.0-47.0); Hemoglobin 10.6 g/dL (11.5-15.3); Lymphocytes # 2.4 10^3/uL (0.8-4.8); Lymphocytes % 30.1 %; Mean Corpuscular HGB Conc 32.4 g/dL (30.0-36.0); Mean Corpuscular Hemoglobin 28.7 pg (28.0-34.0); Mean Corpuscular Volume 88.6 fL (81-99); Mean Platelet Volume 11.3 fL (7.4-10.4); Monocytes # 0.4 10^3/uL (0.2-0.9); Monocytes % 5.2 %; Neutrophils # 4.38 10^3/uL (1.8-7.7); Nucleated Red Blood Cells % 0 %; Platelet Count 196 10^3/cmm (130-400); Red Blood Count 3.69 10^6/uL (4.1-5.3); Red Cell Distribution Width 14.9 % (12.1-15.1); White Blood Count 7.8 10^3/uL (4.0-10.0)
[2020-06-19 09:34] LABS: Alanine Aminotransferase 7 U/L (0-33); Albumin Level 3.9 g/dL (3.5-5.2); Alkaline Phosphatase 96 IU/L (35-105); Anion Gap 14.7 (5-19); Aspartate Amino Transferase 8 U/L (0-32); Blood Urea Nitrogen 43 mg/dL (8-23); Calcium 9.6 mg/dL (8.5-10.5); Carbon Dioxide 23 mmol/L (22-29); Chloride 106 mmol/L (98-107); Globulin 2.8 g/dL (1.3-4.6); Glomerular Filtration Rate 45.8 mL/min (90-130); Glucose 202 mg/dL (65-115); Osmolality Calculated 307 mOsm/kg (285-295); Potassium 3.7 mmol/L (3.5-5.1); Sodium 140 mmol/L (136-145); Total Bilirubin 0.2 mg/dL (0.15-1.2); Total Protein 6.7 g/dL (6.6-8.7)
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
== END 2020-06-19 08:07 | disposition home or self-care (01) ==
LOC: ONCMED 08:07
PROVIDERS: PCP Family Medicine; Visit Provider Internal Medicine Hematology & Oncology
DX: C50.811 Malignant neoplasm of overlapping sites of right female breast (principal); C77.3 Secondary and unspecified malignant neoplasm of axilla and upper limb lymph nodes; Z17.1 Estrogen receptor negative status [ER-]; Z86.718 Personal history of other venous thrombosis and embolism; Z79.01 Long term (current) use of anticoagulants; Z79.899 Other long term (current) drug therapy; Z90.13 Acquired absence of bilateral breasts and nipples
CPT/HCPCS: 36415; 80053; 85025; 99214

== ENCOUNTER → 2020-07-16 11:30 | Outpatient (BNVA) | payer MEDICAID, SELFPAY | PROVIDERS: PCP Family Medicine; Visit Provider Internal Medicine Hematology & Oncology | DX: C50.919 Malignant neoplasm of unspecified site of unspecified female breast (principal); Z17.0 Estrogen receptor positive status [ER+] | CPT/HCPCS: 80053; 85025 ==

== ENCOUNTER 2020-07-17 09:18 | Outpatient (CLI) | payer MEDICAID, SELFPAY ==
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
== END 2020-07-17 09:19 | disposition home or self-care (01) ==
LOC: ONCMED 09:19
PROVIDERS: PCP Family Medicine; Visit Provider Internal Medicine Hematology & Oncology
DX: C50.811 Malignant neoplasm of overlapping sites of right female breast (principal); C77.3 Secondary and unspecified malignant neoplasm of axilla and upper limb lymph nodes; I87.1 Compression of vein; R93.3 Abnormal findings on diagnostic imaging of other parts of digestive tract; F43.21 Adjustment disorder with depressed mood; Z17.1 Estrogen receptor negative status [ER-]; Z90.13 Acquired absence of bilateral breasts and nipples; Z92.21 Personal history of antineoplastic chemotherapy; Z92.22 Personal history of monoclonal drug therapy; Z86.718 Personal history of other venous thrombosis and embolism
CPT/HCPCS: 99214

== ENCOUNTER 2020-08-07 09:05 | Outpatient (CLI) | payer MEDICAID, SELFPAY ==
--- NOTE | 2020-08-07 09:30 | USCV_ITS ---
Jasmin Ortiz Age: 59 Gender: F : 1960 Exam Date: 08/07/2020 09:25 Ordering Phys: Dillon Hartley MD ([email or web address]) Technologist: Jerman Martinez Exam Location: [facility] [place] Indication: PVD RIGHT LEFT Brachial 109.00 mmHg Brachial 113.00 mmHg Pressure (mmHg) Waveform Pressure (mmHg) Waveform 127.00 Above Knee 108.00 140.00 Below Knee 133.00 126.00 SHOE SALESPERSON 134.00 138.00 DPA 120.00 1.22 Ankle/Brachial Index 1.19 57.00 Pre-Exercise Toe Pressure 94.00 0.50 Pre-Exercise Toe/Brachial Index 0.83 FINDINGS Resting FRANNIE of 1.22 on the right side and 1.19 on the left side. The resting TBI was 0.5 on the right side and 0.83 on the left side CONCLUSIONS Normal resting FRANNIE and TBI on the left side suggesting no significant peripheral arterial disease. Normal resting FRANNIE with abnormal resting TBI, suggestive of mild peripheral artery disease involving the distal vessels on the right side Dr Evaristo Castillo MD [facility] (Electronically Signed) Final Date: 08 August 2020 20:25 S
--- NOTE | 2020-08-07 10:10 | USCV_ITS ---
Jasmin Ortiz Age: 59 Gender: F : 1960 Exam Date: 08/07/2020 10:20 Ordering Phys: Dillon Hartley MD ([email or web address]) Technologist: Óscar Chin [place] [facility] [place]ication: HIGH RISK MEDS BP: 111 / 79 HR: 61 Rhythm: Sinus Technical Quality: Adequate MEASUREMENTS (Male / Female) Normal Values 2D ECHO LV Diastolic Diameter PLAX 2.5 cm 4.2 - 5.9 / 3.9 - 5.3 cm LV Systolic Diameter PLAX 1.7 cm IVS Diastolic Thickness 1.6 cm 0.6 - 1.0 / 0.6 - 0.9 cm IVS Systolic Thickness 1.7 cm LVPW Diastolic Thickness 1.6 cm 0.6 - 1.0 / 0.6 - 0.9 cm LVPW Systolic Thickness 1.6 cm LVOT Diameter 2.0 cm LV Ejection Fraction 2D Teich 60.3 % LV Ejection Fraction MOD 2C 71.9 % LV Ejection Fraction 2C AL 72.7 % LA Diameter 3.2 cm LA Width 3.1 cm LA Height 3.6 cm RA Width 3.2 cm RA Height 3.9 cm Aorta at Sinotubular Diameter 2.5 cm M-MODE LV Diastolic Diameter MM 3.9 cm 4.2 - 5.9 / 3.9 - 5.3 cm LV Systolic Diameter MM 2.2 cm LV Ejection Fraction MM Teich 74.6 % IVS Diastolic Thickness MM 1.2 cm 0.6 - 1.0 / 0.6 - 0.9 cm IVS Systolic Thickness MM 1.7 cm LVPW Diastolic Thickness MM 1.2 cm 0.6 - 1.0 / 0.6 - 0.9 cm LVPW Systolic Thickness MM 1.3 cm Aortic Annulus Diameter 2.4 cm LA Ao Ratio MM 1.3 MV E Point Septal Separation 0.2 cm DOPPLER AV Peak Velocity 132.0 cm/s LVOT Peak Velocity 104.0 cm/s AV Area Cont Eq vti 2.4 cm squared AV Area Cont Eq pk 2.5 cm squared MV Area PHT 3.1 cm squared Mitral E to A Ratio 0.8 MV E' Velocity 39.0 cm/s Mitral E to MV E' Ratio 5.9 Mitral E to LV E' Lateral Ratio 5.9 Mitral E to LV E' Septal Ratio 6.0 TR Peak Velocity 204.3 cm/s TR Peak Gradient 16.7 mmHg TR Mean Velocity 196.8 cm/s TR Mean Gradient 15.9 mmHg TR Velocity Time Integral 68.9 cm Right Atrial Pressure 3.0 mmHg Pulmonary Artery Systolic Pressu 19.7 mmHg PV Peak Velocity 81.0 cm/s RV Acceleration Time 0.1 s RV Ejection Time 0.3 s RV AcT/ET 0.4 FINDINGS Left Ventricle Normal left ventricular cavity size. Normal left ventricular systolic function. No regional wall motion abnormalities. Left ventricular ejection fraction is estimated at 65 %. Right Ventricle The right ventricle is normal in size and function. Right Atrium The right atrium is normal in size. Left Atrium The left atrium is normal in size. Mitral Valve Structurally normal mitral valve without significant stenosis or prolapse. There is no mitral regurgitation. Aortic Valve Aortic valve sclerosis without stenosis or regurgitation. Tricuspid Valve Structurally normal tricuspid valve without significant stenosis or regurgitation. Pulmonary artery systolic pressure is normal. Pulmonic Valve Structurally normal pulmonic valve without significant stenosis. There is no pulmonic regurgitation. Pericardium Normal pericardium without effusion. Aorta Normal ascending aorta dimension. CONCLUSIONS 1-Normal left ventricular cavity size. Normal left ventricular systolic function. No regional wall motion abnormalities. Left ventricular ejection fraction is estimated at 65 %. 2-Aortic valve sclerosis without stenosis or regurgitation. 3-There is no pericardial effusion. 4-Pulmonary artery systolic pressure is within normal limits. 5-Right atrial pressure is around 5 mm of mercury. 6-No significant change since the prior echocardiogram study of 01/11/2020 . Dillon Hartley MD (Electronically Signed) Final Date: 12 August 2020 12:51 S
== END 2020-08-07 09:06 | disposition home or self-care (01) ==
PROVIDERS: PCP Family Medicine; Visit Provider Internal Medicine Cardiovascular Disease
DX: Z79.899 Other long term (current) drug therapy (principal); I35.8 Other nonrheumatic aortic valve disorders; I73.9 Peripheral vascular disease, unspecified
CPT/HCPCS: 93306; 93923

== ENCOUNTER → 2020-08-10 10:14 | Outpatient (BNVA) | payer MEDICAID, SELFPAY | PROVIDERS: PCP Family Medicine; Visit Provider Surgery | DX: Z20.822 Contact with and (suspected) exposure to COVID-19 (principal) | CPT/HCPCS: 87635 ==

== ENCOUNTER 2020-08-15 05:55 | Day surgery (SDC) | payer MEDICAID, SELFPAY ==
[2020-08-13 14:24] VITALS: BMI 25.6
[2020-08-15 06:24] VITALS: BP 117/83; PULSE 71; RESP 18; TEMP 36.9; O2SAT 100
[2020-08-15] MEDS: sodium chloride 0.9% 1,000 ML 30 ML IV (06:29)
[2020-08-15 06:38] LABS: Glucose Point of Care 189 mg/dL (70-110)
--- NOTE | 2020-08-15 06:42 | ANES.PREANE2 ---
Pre-Anesthetic Assessment Pre-Anesthetic Assessment: Height/Weight: Height 1.57 m Weight 63.503 kg Temp Pulse Resp BP Pulse Ox 98.5 F 71 18 117/83 100 08/15/20 06:24 08/15/20 06:24 08/15/20 06:24 08/15/20 06:24 08/15/20 06:24 Preop Diagnosis: h/o colon cancer Proposed Procedure: Operation Date: 08/15/20 07:00 Proposed Procedures p Colonoscopy 40890 R94.8 Z80.0(Not Applicable) - Miguel Howell MD Familial anesthetic complications: none Was Beta Patricio taken within 24 hours: N/A Was Clonidine taken within 24 hours: N/A Last intake: Intake Last Liquid Date 08/14/20 Last Solid Date 08/13/20 Social: Social History: No alcohol and No tobacco Exam: Pre-Anes Outpt Exam: alert, oriented x 3, clear to auscultation bilaterally and regular rate & rhythm Airway: Submandibular: WNL Cervical ROM: WNL MP: 1 Dentition: False Pulmonary: Pulmonary: None reported CV/HEM: CV/HEM: HTN and PVD Comments: blood clots to the brain : : None reported Hepatic: Hepatic: None reported GI: GI: None reported Metabolic: Metabolic: DM and Hyperlipidemia Musc/skel: Musc/skel: None reported Neuropsych: Neuropsych: CVA (right sided, slurred speech, left sided weakness) Anesthetic Plan: ASA status: 3 Anesthesia: MAC Risk of > 500 ml blood loss (7ml/kg in children): No Meds/Allergies Current Medications: Current Medications Generic Name Dose Route Start Last Admin Trade Name Freq PRN Reason Stop Dose Admin Sodium Chloride 1,000 mls @ 30 ml s/hr 08/15/20 06:30 08/15/20 06:29 Sodium Chloride 0.9% IV 30 mls/hr .Q24H LUIS FERNANDO Administration PFSH Anesthesia PFSH: Medical History Anxiety disorder Cancer of breast Claudication Dyslipidemia History of renal stone Hx of breast cancer -R breast cancer (infiltrating carcinoma) -HER-2/lyndon 3+ positive Hypertension -d/c HCTZ, continue ARB Intracerebral hemorrhage Past intracerebral hemorrhage R parietal lobe seen on MRI brain 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 -on AC with Eliquis Mood disorder due to a general medical condition Port-A-Cath in place Type 2 diabetes mellitus -insulin dependent -last A1c-7.4 Urolithiasis Surgical History Hx of breast biopsy Hx of cystoscopy Hx of hysterectomy Hx of pelvic surgery S/P mastectomy, bilateral Family History Mother Diabetes Heart disease Father Suicide Denies family history of Anesthesia complication Bleeding disorder Social History Smoking and tobacco status: never smoked Second hand smoke exposure: Yes Alcohol intake: never Lives independently: Yes Household members: spouse Marital status: Current occupational status: retired History of recent travel: No Current gender identity: Female Data Anesthesia Other Labs: Laboratory Results - last 48 hr 08/15/20 06:35 POC Glucose 189 H Cardiac Studies: No Data to Display
[2020-08-15 07:27] VITALS: BP 109/82; PULSE 69; RESP 16; TEMP 36.3; O2SAT 96
--- NOTE | 2020-08-15 07:32 | ANE.PACU2 ---
Inpatient post-anesthesia follow up: Airway intact: Yes Vital signs: Temperature 98.5 F Pulse Rate 71 Respiratory Rate 18 Blood Pressure 117/83 Pulse Oximetry 100 Oxygen Delivery Me thod Oxygen Flow Rate Fraction of Inspir ed Oxygen Hydration adequate: Yes Nausea and vomiting: No Pain level: 1 Mental status: Baseline
[2020-08-15 07:42] VITALS: BP 106/87; PULSE 63; RESP 16; TEMP 36.6; O2SAT 99
--- NOTE | 2020-08-15 14:32 | ANE.PACU2 ---
Inpatient post-anesthesia follow up: Airway intact: Yes Vital signs: Temperature 97.8 F Pulse Rate 63 Respiratory Rate 16 Blood Pressure 106/87 Pulse Oximetry 99 Oxygen Delivery Me thod Room Air Oxygen Flow Rate 2 Fraction of Inspir ed Oxygen Hydration adequate: Yes Nausea and vomiting: No Pain level: 1 Mental status: Baseline
--- NOTE | 2020-08-19 07:57 | W.PM.OPSUD ---
Surgery/Procedure H&P Update DATE OF PROCEDURE: August 19, 2020 DATE H&P PERFORMED: 07/09/20 H&P UPDATE INFORMATION: No changes to prior documentation PREOP DIAGNOSIS: h/o colon cancer PLANNED PROCEDURE: Operation Date: 08/15/20 07:00 Proposed Procedures p Colonoscopy 61583 R94.8 Z80.0(Not Applicable) - Miguel Howell MD
== END 2020-08-15 08:35 | disposition home or self-care (01) ==
PROVIDERS: PCP Family Medicine; Visit Provider Surgery
PROC: 0DJD8ZZ Inspection of Lower Intestinal Tract, Via Natural or Artificial Opening Endoscopic (ICD-10-PCS; CPT 45378; principal; 2020-08-15 07:00)
DX: D12.5 Benign neoplasm of sigmoid colon (principal); D12.8 Benign neoplasm of rectum; K57.30 Diverticulosis of large intestine without perforation or abscess without bleeding; K64.8 Other hemorrhoids; Z80.0 Family history of malignant neoplasm of digestive organs; F41.9 Anxiety disorder, unspecified; Z85.3 Personal history of malignant neoplasm of breast; E78.5 Hyperlipidemia, unspecified; I10 Essential (primary) hypertension; E11.9 Type 2 diabetes mellitus without complications; Z79.84 Long term (current) use of oral hypoglycemic drugs; I69.854 Hemiplegia and hemiparesis following other cerebrovascular disease affecting left non-dominant side; I69.828 Other speech and language deficits following other cerebrovascular disease
CPT/HCPCS: 12345; 36416; 45385; 82962; 88305; 96360; 96361; J2704; J7030

== ENCOUNTER → 2020-08-26 11:54 | Outpatient (BNVA) | payer MEDICAID, SELFPAY | PROVIDERS: PCP Family Medicine; Visit Provider Family Medicine | DX: I10 Essential (primary) hypertension (principal); E11.42 Type 2 diabetes mellitus with diabetic polyneuropathy; E87.6 Hypokalemia; E78.5 Hyperlipidemia, unspecified | CPT/HCPCS: 80053; 80061; 83036; 83721; 84443; 85025 ==

== ENCOUNTER 2020-09-03 12:57 | Outpatient (CLI) | payer MEDICAID, SELFPAY ==
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
== END 2020-09-03 12:58 | disposition home or self-care (01) ==
LOC: ONCMED 12:59
PROVIDERS: PCP Family Medicine; Visit Provider Internal Medicine Hematology & Oncology
DX: C50.811 Malignant neoplasm of overlapping sites of right female breast (principal); Z17.1 Estrogen receptor negative status [ER-]; Z90.11 Acquired absence of right breast and nipple; Z90.12 Acquired absence of left breast and nipple; F32.9 Major depressive disorder, single episode, unspecified; F43.20 Adjustment disorder, unspecified; Z79.899 Other long term (current) drug therapy; Z92.21 Personal history of antineoplastic chemotherapy
CPT/HCPCS: 99215

== ENCOUNTER 2020-09-12 07:55 | Outpatient (CLI) | payer MEDICAID, SELFPAY ==
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
== END 2020-09-12 07:56 | disposition home or self-care (01) ==
LOC: ONCMED 07:56
PROVIDERS: PCP Family Medicine; Visit Provider Internal Medicine Hematology & Oncology
DX: C50.811 Malignant neoplasm of overlapping sites of right female breast (principal); Z17.1 Estrogen receptor negative status [ER-]; C77.3 Secondary and unspecified malignant neoplasm of axilla and upper limb lymph nodes; F43.23 Adjustment disorder with mixed anxiety and depressed mood; Z86.010 Personal history of colon polyps; Z79.899 Other long term (current) drug therapy
CPT/HCPCS: 99214

== ENCOUNTER 2020-10-01 12:40 | Outpatient (CLI) | payer MEDICAID, SELFPAY ==
[2020-10-01 15:06] LABS: Basophils # 0.1 10^3/uL (0.0-0.1); Basophils % 0.7 %; Eosinophils # 0.3 10^3/uL (0.0-0.8); Eosinophils % 3.3 %; Hematocrit 35.7 % (37.0-47.0); Hemoglobin 12.2 g/dL (11.5-15.3); Lymphocytes # 2.2 10^3/uL (0.8-4.8); Lymphocytes % 23.9 %; Mean Corpuscular HGB Conc 34.2 g/dL (30.0-36.0); Mean Corpuscular Hemoglobin 31.1 pg (28.0-34.0); Mean Corpuscular Volume 91.1 fL (81-99); Mean Platelet Volume 11.3 fL (7.4-10.4); Monocytes # 0.5 10^3/uL (0.2-0.9); Monocytes % 5.6 %; Neutrophils # 6.06 10^3/uL (1.8-7.7); Neutrophils % 66.2 %; Nucleated Red Blood Cells % 0 %; Platelet Count 225 10^3/cmm (130-400); Red Blood Count 3.92 10^6/uL (4.1-5.3); Red Cell Distribution Width 14.1 % (12.1-15.1); White Blood Count 9.2 10^3/uL (4.0-10.0)
--- NOTE | 2020-10-01 15:12 | XRR_ITS ---
PROCEDURE INFORMATION: Exam: XR Lumbosacral Spine Exam date and time: 10/01/2020 3:45 PM Age: 59 years old Clinical indication: Low back pain; Prior surgery; Surgery type: Coccyx; Patient HX: HX of breast cancer; Additional info: Lower back pain/metastatic breast cancer TECHNIQUE: Imaging protocol: XR of the lumbosacral spine. Views: 2 or 3 views. COMPARISON: CT abdomen pelvis w con* [id number] 04/15/2020 2:36 PM FINDINGS: Bones/joints: Moderate chronic L4 compression fracture. No acute compression fractures. No lytic or blastic bone lesions are demonstrated. Mild degenerative disc space narrowing at L1-L2. Intervertebral disc heights are otherwise preserved. Soft tissues: The soft tissues appear unremarkable. XR/XR lumbar spine 2-3V* [id number] IMPRESSION: 1. Moderate chronic L4 compression fracture. This is unchanged from 04/15/2020. No acute compression fractures. 2. No acute abnormality of the lumbar spine.
--- NOTE | 2020-10-01 15:12 | XRR_ITS ---
PROCEDURE INFORMATION: Exam: XR Pelvis Exam date and time: 10/01/2020 3:45 PM Age: 59 years old Clinical indication: Other: Lower back pain; Prior surgery; Surgery type: Coccyx; Additional info: Lower back pain/metastatic breast cancer TECHNIQUE: Imaging protocol: XR pelvis. Views: 1 or 2 view. COMPARISON: CT abdomen pelvis w con* [id number] 04/15/2020 2:36 PM FINDINGS: Bones/joints: No fracture or other acute osseous abnormality. SI joints and symphysis pubis are intact. The hip joints appear unremarkable. Soft tissues: The soft tissues appear unremarkable. XR/XR pelvis 1-2V* [id number] IMPRESSION: 1. No acute abnormality demonstrated. 2. There is no interval change from the prior examination.
--- NOTE | 2020-10-01 15:12 | XRR_ITS ---
PROCEDURE INFORMATION: Exam: XR Sacrum and Coccyx, 2 or More Views Exam date and time: 10/01/2020 3:45 PM Age: 59 years old Clinical indication: Pain in coccyx area; Prior surgery; Surgery type: Coccyx surgery; Additional info: Lower back pain/metastatic breast cancer TECHNIQUE: Imaging protocol: XR of the sacrum and coccyx, 2 or more views. COMPARISON: CT abdomen pelvis w con* [id number] 04/15/2020 2:36 PM FINDINGS: Bones/joints: SI joints and symphysis pubis are intact. No fracture or other acute osseous abnormality. No lytic or blastic bone lesions. Mild L4 compression fracture, unchanged from 04/15/2020. The L5 vertebral body is normal in height. Soft tissues: The soft tissues appear unremarkable. XR/XR sacrum coccyx min 2V [id number] IMPRESSION: No acute abnormality demonstrated.
[2020-10-01 15:18] LABS: Add Urine Microscopic? YES; Bilirubin Urine Neg (Negative); Blood Urine Neg (Negative); Glucose Urine UA Norm (Normal); Ketones Urine Negative (Negative); Leukocyte Esterase Urine Negative (Negative); Nitrate Urine Positive (Negative); Protein Urine Neg (Negative); Urine Appearance Hazy (CLEAR); Urine Color Yellow (Yellow); Urobilinogen Urine Norm (Negative); pH Urine 5 (5-7)
[2020-10-01 15:33] LABS: Add Urine Culture? Yes; Bacteria Urine 2+ /hpf
[2020-10-01 20:06] LABS: Alanine Aminotransferase 12 U/L (0-33); Albumin Level 4.4 g/dL (3.5-5.2); Alkaline Phosphatase 77 IU/L (35-105); Anion Gap 24.2 (5-19); Aspartate Amino Transferase 11 U/L (0-32); Blood Urea Nitrogen 41 mg/dL (8-23); Calcium 9.8 mg/dL (8.5-10.5); Carbon Dioxide 22 mmol/L (22-29); Chloride 96 mmol/L (98-107); Globulin 3.2 g/dL (1.3-4.6); Glomerular Filtration Rate 32.9 mL/min (90-130); Glucose 292 mg/dL (65-115); Osmolality Calculated 307 mOsm/kg (285-295); Potassium 4.2 mmol/L (3.5-5.1); Sodium 138 mmol/L (136-145); Total Bilirubin 0.5 mg/dL (0.15-1.2); Total Protein 7.6 g/dL (6.6-8.7)
[2020-10-01 20:11] LABS: Cancer Antigen 19 9 9.77 U/mL (0-35)
--- NOTE | 2020-10-10 10:00 | ONC FU_ITS ---
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 effective as when it is given in recommended period of Time . other option is to consider observation and intervene if there is evidence of recurrence. We will also consider follow-up CT PET scan in a month and if it shows no evidence of disease and patient decided not to consider lapatinib, then will proceed with observation alone. At this point we will consider lapatinib 1250 mg p.o. daily, all the side effect possible benefits including but not limited to cardiac toxicity, allergic reaction, diarrhea, shortness of breath were mentioned further teaching will be done by chemotherapy nurse, again we will obtain approval from her insurance prior to the treatment, especially under the circumstances when patient has very poor IV access. Dr Vela requested that Mrs Ortiz to clinic 1 week after lapatinib started for evaluation. A. Proceed with lapatinib 1250 mg (5-250 mg tablets daily). B. She is advised to take on empty stomach???1 hour before or 1 hour after a meal. She is instructed to take all the tablets at once and not divide them throughout the day. C. SHE IS ADVISED TO AVOID GRAPEFRUIT PRODUCTS WITH THE LAPATINIB D. She was advised to use [id number] Imodium as needed for diarrhea and encouraged not to ignore the diarrhea E. Have asked for baseline CBC CMP UA and CA 27-29. F. We will ask to see if she would qualify for home health for weekly CBC CMP and hydration 1 L of normal saline echo 3 times weekly as needed. She did have significant dehydration with her treatment in the past. 2. Pelvic and lower back pain A. She is having tailbone and lower back pain after tripping over her dog and falling on her tailbone. She states this occurred about 2 weeks ago and the pain is not getting any better. B. I have asked for plain films of the pelvis and LS spine for investigating her lower back pain. 3. Follow-up plan A. She will have weekly CBC CMP most of this can be done be at home health. B. Supportive care as needed with hydration through home health if possible. If she needs antiemetics unfortunately she will need to come to the office for that. C. We will have her see Dr. Vela back in 2 weeks as she does not plan to start the [place] for another couple of days. D. Shan Angel was instructed to contact us in the interim should questions or problems arise. 4. Chemotherapy teaching plan A. The patient and family were informed of chemotherapy plan and specific drugs were discussed. We also discussed how chemotherapy works and identified common side effects including alopecia; myelosuppression-including neutropenia, anemia, thrombocytopenia; peripheral neuropathy; fatigue; nausea; diarrhea; constipation; bleeding or bruising; skin changes-rash/dryness; mouth sores; drug hypersensitivity/allergic reactions or anaphylaxis and increased risk of blood clots. They have also been informed how to contact the clinic with side effects or symptoms, including but not limited to fever greater than 100.4???, chills, sore throat, bleeding or bruising that is not explained or mouth sores, cough, nasal discharge, diarrhea, constipation, nausea and/or vomiting not relieved with medications on hand at home, as well as any other concern or question they may have. Our hours are 8:00 a.m. to 4:30 p.m. on Wednesday through and 8-12:00 on Wednesday. 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 We have also discussed potential long-term side effects of chemotherapy including secondary cancers, infertility, pulmonary complications, cardiac complications, and again peripheral neuropathy. We have discussed that they certainly need to let us know before taking any antioxidants or herbal or further dietary supplements, as we are unsure of how these agents react with chemotherapy and we request that they avoid these products for now. They were informed that it is okay to take multivitamins at normal doses. They verbally state that they understand to take all medications as directed by their healthcare provider unless otherwise indicated. Instructions for oral care with baking soda and salt water rinses as well as a guide for use of [id number] medication were provided with the treatment plan. They have been given a written patient treatment plan, of which a copy is in the chart, as well as specific drug information. They have no questions and verbalized understanding and are willing to proceed with chemotherapy at this time. Total time spent on Mrs. Ortiz's care today including records review prior to her visit, discussion of current treatment plan, side effect identification, answering questions and post visit documentation was 57 minutes. Signed By: Miryam Jarvis-, [facility] John Vela MD <<Signature on File>>
== END 2020-10-01 12:41 | disposition home or self-care (01) ==
PROVIDERS: PCP Family Medicine; Visit Provider Nurse Practitioner
DX: C50.811 Malignant neoplasm of overlapping sites of right female breast (principal); Z17.1 Estrogen receptor negative status [ER-]; F43.21 Adjustment disorder with depressed mood; G89.3 Neoplasm related pain (acute) (chronic); Z90.11 Acquired absence of right breast and nipple; Z90.12 Acquired absence of left breast and nipple; Z92.21 Personal history of antineoplastic chemotherapy; Z79.899 Other long term (current) drug therapy
CPT/HCPCS: 36415; 72100; 72170; 72220; 80053; 81001; 85025; 86301; 87077; 87086; 87186; 99215

== ENCOUNTER 2020-10-17 07:58 | Outpatient (CLI) | payer MEDICAID, SELFPAY ==
[2020-10-17] MEDS: sodium chloride 0.9% 1,000 ML 999 ML IV (08:40)
[2020-10-17 08:49] LABS: Basophils # 0.1 10^3/uL (0.0-0.1); Eosinophils # 0.2 10^3/uL (0.0-0.8); Eosinophils % 3.4 %; Hematocrit 31.5 % (37.0-47.0); Hemoglobin 10.4 g/dL (11.5-15.3); Lymphocytes # 2.8 10^3/uL (0.8-4.8); Lymphocytes % 39.3 %; Mean Corpuscular Hemoglobin 30.2 pg (28.0-34.0); Mean Corpuscular Volume 91.6 fL (81-99); Mean Platelet Volume 11.1 fL (7.4-10.4); Monocytes # 0.5 10^3/uL (0.2-0.9); Monocytes % 6.5 %; Neutrophils # 3.52 10^3/uL (1.8-7.7); Neutrophils % 49.5 %; Nucleated Red Blood Cells % 0 %; Platelet Count 177 10^3/cmm (130-400); Red Blood Count 3.44 10^6/uL (4.1-5.3); White Blood Count 7.1 10^3/uL (4.0-10.0)
[2020-10-17 09:07] LABS: Alanine Aminotransferase 8 U/L (0-33); Albumin Level 3.9 g/dL (3.5-5.2); Alkaline Phosphatase 65 IU/L (35-105); Anion Gap 17.8 (5-19); Aspartate Amino Transferase 12 U/L (0-32); Blood Urea Nitrogen 33 mg/dL (8-23); Calcium 9.4 mg/dL (8.5-10.5); Carbon Dioxide 27 mmol/L (22-29); Chloride 100 mmol/L (98-107); Globulin 2.8 g/dL (1.3-4.6); Glucose 121 mg/dL (65-115); Osmolality Calculated 301 mOsm/kg (285-295); Potassium 3.8 mmol/L (3.5-5.1); Sodium 141 mmol/L (136-145); Total Bilirubin 0.6 mg/dL (0.15-1.2); Total Protein 6.7 g/dL (6.6-8.7)
[2020-10-17 10:32] LABS: Ferritin 63 ng/mL (15-150); Iron 83 ug/dL (37-145); Percent Saturation 30.8 % (20-50); Total Iron Binding Capacity 269 mcg/dl; Unsaturated Iron Binding 186 ug/dL (112-347)
[2020-10-17 12:47] LABS: Folate Level 19.1 ng/mL (4.8-37.3)
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
== END 2020-10-17 07:59 | disposition home or self-care (01) ==
LOC: ONCMED 08:00
PROVIDERS: PCP Family Medicine; Visit Provider Internal Medicine Hematology & Oncology
DX: C50.811 Malignant neoplasm of overlapping sites of right female breast (principal); Z92.21 Personal history of antineoplastic chemotherapy; Z79.811 Long term (current) use of aromatase inhibitors; F32.9 Major depressive disorder, single episode, unspecified; F43.20 Adjustment disorder, unspecified; Z79.899 Other long term (current) drug therapy; Z90.11 Acquired absence of right breast and nipple
CPT/HCPCS: 36415; 80053; 82728; 82746; 83540; 83550; 85025; 96360; 99215; J7030

== ENCOUNTER 2020-11-07 09:12 | Outpatient (CLI) | payer MEDICAID, SELFPAY ==
--- NOTE | 2020-11-07 09:18 | NM_ITS ---
WS: [id number] NUCLEAR MEDICINE WHOLE BODY BONE SCAN HISTORY: BONE PAIN/HX OF BREAST CANCER COMPARISON: None available. TECHNIQUE: The patient was injected with 26.3 mCi of Technetium 99m HDP and serial whole-body scintig willie have been performed with anterior and posterior images. Normal uptake in the osseous skeleton and soft tissues. Mild increased uptake within the L4 vertebral body. Compression fracture has been previously described at the L4 level. Fracture was noted on a pr ior CT of 04/15/2020. Normal uptake in the kidneys. NM/NM bone scan whole body* [id number] IMPRESSION: 1. Moderate uptake at L4. Corresponds to compression fracture is seen on 04/15. 2. No evidence for metastatic disease.
== END 2020-11-07 09:13 | disposition home or self-care (01) ==
PROVIDERS: PCP Family Medicine; Visit Provider Internal Medicine Hematology & Oncology
DX: M89.8X9 Other specified disorders of bone, unspecified site (principal); Z85.3 Personal history of malignant neoplasm of breast
CPT/HCPCS: 78306; A9561

== ENCOUNTER 2020-12-16 12:39 | Outpatient (CLI) | payer MEDICAID, SELFPAY ==
[2020-12-16 13:41] LABS: Basophils % 0.7 %; Eosinophils # 0.4 10^3/uL (0.0-0.8); Eosinophils % 6.1 %; Hematocrit 43.6 % (37.0-47.0); Hemoglobin 14.6 g/dL (11.5-15.3); Lymphocytes # 1.5 10^3/uL (0.8-4.8); Mean Corpuscular HGB Conc 33.5 g/dL (30.0-36.0); Mean Corpuscular Hemoglobin 30.5 pg (28.0-34.0); Mean Platelet Volume 11.4 fL (7.4-10.4); Monocytes # 0.3 10^3/uL (0.2-0.9); Monocytes % 5.3 %; Neutrophils # 3.78 10^3/uL (1.8-7.7); Neutrophils % 62.6 %; Nucleated Red Blood Cells % 0 %; Platelet Count 127 10^3/cmm (130-400); Positive C 1; Red Blood Count 4.79 10^6/uL (4.1-5.3); Red Cell Distribution Width 14.8 % (12.1-15.1)
[2020-12-16 14:08] LABS: Alanine Aminotransferase 12 U/L (0-33); Alkaline Phosphatase 80 IU/L (35-105); Anion Gap 18.8 (5-19); Aspartate Amino Transferase 12 U/L (0-32); Blood Urea Nitrogen 29 mg/dL (8-23); Calcium 9.1 mg/dL (8.5-10.5); Carbon Dioxide 25 mmol/L (22-29); Chloride 99 mmol/L (98-107); Globulin 2.5 g/dL (1.3-4.6); Glomerular Filtration Rate 38.2 mL/min (90-130); Glucose 164 mg/dL (65-115); Osmolality Calculated 297 mOsm/kg (285-295); Potassium 3.8 mmol/L (3.5-5.1); Sodium 139 mmol/L (136-145); Total Bilirubin 0.8 mg/dL (0.15-1.2); Total Protein 6.5 g/dL (6.6-8.7)
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
== END 2020-12-16 12:40 | disposition home or self-care (01) ==
LOC: ONCMED 12:41
PROVIDERS: PCP Family Medicine; Visit Provider Internal Medicine Hematology & Oncology
DX: C50.811 Malignant neoplasm of overlapping sites of right female breast (principal); Z17.1 Estrogen receptor negative status [ER-]; F43.21 Adjustment disorder with depressed mood; Z90.11 Acquired absence of right breast and nipple; Z90.12 Acquired absence of left breast and nipple; Z79.811 Long term (current) use of aromatase inhibitors; Z79.899 Other long term (current) drug therapy; Z92.21 Personal history of antineoplastic chemotherapy
CPT/HCPCS: 36415; 80053; 85025; 99214

== ENCOUNTER 2021-01-15 14:21 | Inpatient (IN) | payer MEDICAID, SELFPAY ==
[2021-01-15] VITALS (8 sets, daily range): BP systolic 133–198; BP diastolic 85–126; PULSE 66–75; RESP 16–23; TEMP 36.7–36.8; O2SAT 95–99
--- NOTE | 2021-01-15 15:18 | CT_ITS ---
WS: [id number] CT HEAD NONCONTRAST HISTORY: possible old stroke TECHNIQUE: Contiguous axial imaging performed through the brain in 2.5 mm imaging. Bone and soft tiss ue windows. Sagittal and coronal reformats reviewed. All CT scans at [facility] use at le ast one of these dose optimization techniques: automated exposure control; mA and/or kV adjustment pe r patient size (includes targeted exams where dose is matched to clinical indication); or iterative r econstruction. DLP: 819.58 mGy.cm COMPARISON: 01/10/2020 No acute intracranial hemorrhage, midline shift or mass effect. Mild atrophy and mild chronic microvascular ischemic disease. Remote multiple lacunar infarct in the LEFT thalamus and RIGHT caudate head. Ventricles: Normal size with no hydrocephalus. Paranasal sinuses: As visualized are clear. Mastoid air cells: Well pneumatized. Calvarium and scalp: Skull is intact with no soft tissue edema or swelling. CT/CT head wo con* [id number] IMPRESSION: 1. No acute intracranial hemorrhage or edema. 2. Small remote lacunar infarct in the RIGHT caudate head and LEFT thalamus.
--- NOTE | 2021-01-15 15:18 | ECG_ITS ---
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 Measurements Intervals [place] Rate: 71 P: 7 IL: 147 QRS: 14 QRSD: 82 T: 15 QT: 366 QTc: 400 Interpretive Statements SINUS RHYTHM Compared to ECG 04/21/2020 20:20:14 Ventricular premature complex(es) no longer present Electronically Signed On 01-15-2021 19:44:20 CDT by Evaristo Castillo M.D. [id number]
--- NOTE | 2021-01-15 15:45 | ED_ITS ---
HPI - General Adult General: Chief complaint: Neuro Symptoms/Deficit Stated complaint: SENT BY PCP/POSS STROKE Time Seen by Provider: 01/15/21 15:16 History of Present Illness: HPI narrative: Patient is a 60-year-old female history of diabetes, hypertension, prior strokes, breast cancer on chemotherapy who presents the emergency room for concerns of right-sided lower facial droop x5 -6 days. Patient went to see her primary care provider and was told to [facility] room for a stroke workup. Has no other focal complaints at this time. Onset:6 days ago Duration:6 days Location:home Severity:severe Review of Systems Narrative: Constitutional: No fever, no chills. HEENT: No vision changes, +R sided facial droop CV: No chest pain, no palpitations PULM: no cough, no dyspnea. GI: No abdominal pain, no N/V/D. : No dysuria MSKEL: No muscle pain SKIN: No new rashes, no lesions. NEURO: No headache, no focal weakness. 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 -on AC with Eliquis Mood disorder due to a general medical condition Port-A-Cath in place Type 2 diabetes mellitus -insulin dependent -last A1c-7.4 Urolithiasis Surgical History Hx of breast biopsy Hx of cystoscopy Hx of hysterectomy Hx of pelvic surgery S/P mastectomy, bilateral Family History Mother Diabetes Heart disease Father Suicide Denies family history of Anesthesia complication Bleeding disorder Social History Smoking and tobacco status: never smoked Second hand smoke exposure: Yes Alcohol intake: never Lives independently: Yes Household members: spouse Marital status: Current occupational status: retired History of recent travel: No Current gender identity: Female Female Reproductive History: Date of last menstrual period: 08/08/20 Physical Exam Narrative: EXAM NARRATIVE: Head: Atraumatic Eyes: PERRL, conjunctiva without injection ENT: Mucous membrane moist NECK: Supple, ROM intact LUNGS: LCTAB, no crackles/rhonchi CV: RRR ABDOMEN: Soft, nontender in all quadrants EXTREMITY: Normal ROM SKIN: No rash or erythema NEURO: Mental status? Awake, alert, and oriented to self, year, month, location, and situation.? Following simple axial and appendicular commands.? Has appropriate fund of knowledge, comprehension, and insight.? Able to recall and understands pertinent aspects of medical history and current treatment status.? ? Language? Speech is fluent without word-finding difficulties.? Intact naming, expression, medical receptionist biller, and repetition.? ? Cranial nerves? 2,3,4,6: PERRL, EOMI with no nystagmus. 5: +decreased sensation to touch R, +L intact 7: +R sided facial droop mild 8: Hearing grossly intact.? 9,10: Normal palate movement.? 11: Normal strength in trapezius bilaterally 12: Tongue protrudes midline.? ? Motor examination? Normal bulk & tone. Strength as follows (R/L): Delts (5/5), Biceps (5/5), Triceps (5/5), Wrist ext (5/5), hip flexors (5/5), plantarflexors (5/5), dorsiflexors (5/5). ? Sensation? Light Touch: Grossly intact and equal in upper and lower extremities bilaterally? Romberg: Negative.? Distal joint position sense intact ? Coordination? Oymyef-xh-lwhl-finger movements intact without dysmetria or past-pointing.? Rapid fingertaps: preserved amplitude without decriment.? No tremor, myoclonus or truncal ataxia.? ? Gait/stance? +wide stance gait PSYCH: Normal mood and affect Course Vital Signs: Vital signs: Vital Signs Temperature 98.3 F 01/16/21 04:00 Pulse Rate 75 01/16/21 04:01 Respiratory Rate 17 01/16/21 04:00 Blood Pressure 147/91 01/16/21 04:00 Pulse Oximetry 95 01/16/21 04:00 MDM - General Adult MDM Narrative: Medical decision making narrative: Patient is a 60-year-old female with history of diabetes, hypertension, prior CVA, breast cancer on chemotherapy who presents to the emergency room with complaints of right-sided facial drooping x5-6 days. On exam, patient is noted to have mild right-sided facial droop with some facial swelling and decreased sensation on the affected side. Patient has a history of VTE is currently on blood thinners. Reports in the past has had multiple facial puffiness from blood clots. Given stroke-like symptoms (out of intervention window), patient will be admitted to hospital for stroke work-up including echo and carotid studies. Disposition: admission Imaging Data^: Other Imaging: Radiologist's impression: [address] [address]MB Scan ReportSigned Patient: Jasmin Ortiz AUnit #: [id number]: [id number]#:[id number]/Sex: 60 / FADM Date: 01/15/21Loc: ERRoom/Bed:Attending Dr: Ordering Provider/Ordering MD: Bar Taylor MD Date of Service: 01/15/21 Procedure(s): CT head wo con* [id number] Accession Number(s): [id number] Report Number: [id number] WS: [id number] CT HEAD NONCONTRAST HISTORY: possible old stroke TECHNIQUE: Contiguous axial imaging performed through the brain in 2.5 mm imaging. Bone and soft tissue windows. Sagittal and coronal reformats reviewed. All CT scans at [facility] use at least one of these dose optimization techniques: automated exposure control; mA and/or kV adjustment per patient size (includes targeted exams where dose is matched to clinical indication); or iterative reconstruction. DLP: 819.58 mGy.cm COMPARISON: 01/10/2020 No acute intracranial hemorrhage, midline shift or mass effect. Mild atrophy and mild chronic microvascular ischemic disease. Remote multiple lacunar infarct in the LEFT thalamus and RIGHT caudate head. Ventricles: Normal size with no hydrocephalus. Paranasal sinuses: As visualized are clear. Mastoid air cells: Well pneumatized. Calvarium and scalp: Skull is intact with no soft tissue edema or swelling. CT/CT head wo con* [id number] IMPRESSION: 1. No acute intracranial hemorrhage or edema. 2. Small remote lacunar infarct in the RIGHT caudate head and LEFT thalamus. Dictated By:Chana Silva DOSigned By:Chana Silva DOSigned Date/Time:01/15/21 1540DD/ 1536 Discharge Plan Discharge Patient Disposition: Admitted As Inpatient Admit Provider: Toshia Llanos Clinical Impression: Facial droop Condition: Stable Coding Level of Care Code ED Surgical Corsetier for Dakota Frar
[2021-01-15] MEDS: aspirin 325 mg Tablet PO (16:03)
--- NOTE | 2021-01-15 16:13 | PC.PHAR ---
PT BROUGHT IN MEDICATION BOTTLES-PTS STATES HE GIVES THE PT HER MEDICATIONS-PTS STATES THE PT HASNT HAD ANY MEDICATION EXCEPT FOR THE LAPATINIB TODAY AT 11:00-PTS STATES THE DR WEND HER HCTZ ABOUT 2-3 WEEKS AGO
[2021-01-15 16:21] LABS: Basophils % 0.6 %; Eosinophils # 0.3 10^3/uL (0.0-0.8); Eosinophils % 4.6 %; Hematocrit 29.5 % (37.0-47.0); Hemoglobin 9.8 g/dL (11.5-15.3); Lymphocytes # 1.8 10^3/uL (0.8-4.8); Lymphocytes % 24.8 %; Mean Corpuscular HGB Conc 33.2 g/dL (30.0-36.0); Mean Corpuscular Hemoglobin 31.3 pg (28.0-34.0); Mean Corpuscular Volume 94.2 fl (81-99); Mean Platelet Volume 10.7 fL (7.4-10.4); Monocytes # 0.4 10^3/uL (0.2-0.9); Monocytes % 5.8 %; Neutrophils # 4.64 10^3/uL (1.8-7.7); Neutrophils % 63.9 %; Nucleated Red Blood Cells % 0 %; Platelet Count 160 10^3/cmm (130-400); Red Blood Count 3.13 10^6/uL (4.1-5.3); Red Cell Distribution Width 14.8 % (12.1-15.1); White Blood Count 7.3 10^3/uL (4.0-10.0)
[2021-01-15 16:33] LABS: INR 1.34 (0.8-1.2); Partial Thromboplastin Time 32.4 SECONDS (23.9-36.7)
[2021-01-15 16:41] LABS: Troponin T (5th) Once 16 ng/L (0-10)
[2021-01-15 16:43] LABS: Albumin Level 3.9 g/dL (3.5-5.2); Alkaline Phosphatase 59 IU/L (35-105); Chloride 108 mmol/L (98-107); Potassium 3.8 mmol/L (3.5-5.1); Sodium 143 mmol/L (136-145)
--- NOTE | 2021-01-15 17:00 | PC.NURSE ---
From ER received pt from er. Pt alert, oriented x4, awake.denies any pain or discomfort. periorbital and facial non pitting edema noted. Speech clear. Noted minimal facial droop. hand sagger preparer equal in strength, able to move and elevate legs bilaterally. bilateral mastectomy noted and old scar on left chest noted from previous iris cath. call light within reach.
[2021-01-15 17:06] LABS: Alanine Aminotransferase 8 U/L (0-33); Anion Gap 17.8 (5-19); Aspartate Amino Transferase 11 U/L (0-32); Blood Urea Nitrogen 13 mg/dL (8-23); Carbon Dioxide 21 mmol/L (22-29); Globulin 2.1 g/dL (1.3-4.6); Glomerular Filtration Rate 45.7 mL/min (90-130); Glucose 108 mg/dL (65-115); Lipase 22 U/L (13-60); Osmolality Calculated 297 mOsm/kg (285-295); Total Bilirubin 0.7 mg/dL (0.15-1.2)
[2021-01-15 17:38] LABS: Glucose Point of Care 113 mg/dL (70-110)
--- NOTE | 2021-01-15 21:01 | PM.HP ---
Providers/Chief Complaint Admitting Physician: Toshia Llanos MD Primary Care Provider: Nichelle Stephenson MD Chief Complaint: SENT BY PCP/POSS STROKE History of Present Illness Jasmin Ortiz is a 60 year old female with past medical history of diabetes, hyperlipidemia, thrombus, hypertension to the ER with a 1 week history of left-sided facial droop. She describes it as facial swelling. She reports that she has a history of a CVA. She also reports history of jugular vein thrombus. She is currently on Eliquis for this. Patient was seen by her primary care today. Reported to have facial drooping slurred speech and elevated blood pressure. Advised to go to the emergency room. Review of Systems General: Reports: 10 or more systems reviewed and unremarkable except in HPI and below Const: Denies: fever(s) or chills Eyes: Denies: change in vision, blurry vision or blind spots ENMT: Denies: throat pain Card: Denies: chest pain or palpitations Resp: Denies: dyspnea GI: Denies: abdominal pain or nausea Musc: Denies: neck pain Skin/Breast: Denies: rash Neuro: Denies: headache(s) or numbness in extremities Medications/Allergies Home Medications Medication Instructions Recorded Confirmed Last Taken Type Fish Oil 1 cap PO DAILY 01/15/21 01/15/21 Unknown History Vitamin C 1 tab PO DAILY 01/15/21 01/15/21 Unknown History Vitamin D3 1 cap PO DAILY 01/15/21 01/15/21 Unknown History apixaban [Eliquis] 5 mg PO BID 01/15/21 01/15/21 01/14/21 History atorvastatin 40 mg PO BEDTIME 01/15/21 01/15/21 01/14/21 History insulin regular human [Humulin R See Rx Instructions .ROUTE .COMPLEX 01/15/21 01/15/21 01/14/21 History Regular U-100 Insuln] lapatinib 250 mg tablet 1,250 mg PO QAM 01/15/21 01/15/21 01/15/21 11:00 History lorazepam 0.5 - 1 mg PO TID PRN 01/15/21 01/15/21 Unknown History magnesium oxide 400 mg PO DAILY 01/15/21 01/15/21 01/14/21 History melatonin 10 mg capsule 10 mg PO BEDTIME 01/15/21 01/15/21 01/14/21 History metformin 500 mg tablet 500 mg PO BID 01/15/21 01/15/21 01/14/21 History mirtazapine 15 mg PO BEDTIME 01/15/21 01/15/21 01/14/21 History ondansetron 8 mg PO Q8H PRN 01/15/21 01/15/21 Unknown History valsartan 80 mg PO DAILY 01/15/21 01/15/21 01/14/21 History vitamin E 1 cap PO DAILY 01/15/21 01/15/21 Unknown History Allergies Allergy/AdvReac Type Severity Reaction Status Date / Time No Known Allergies Allergy Verified 01/15/21 16:15 PFSH Acute PFSH: Medical History Anxiety disorder Cancer of breast Chemotherapy induced cardiomyopathy Claudication Dyslipidemia History of renal stone Hx of breast cancer -R breast cancer (infiltrating carcinoma) -HER-2/lyndon 3+ positive Hypertension -d/c HCTZ, continue ARB Intracerebral hemorrhage Past intracerebral hemorrhage R parietal lobe seen on MRI brain 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 -on AC with Eliquis Mood disorder due to a general medical condition Port-A-Cath in place Type 2 diabetes mellitus -insulin dependent -last A1c-7.4 Urolithiasis Surgical History Hx of breast biopsy Hx of cystoscopy Hx of hysterectomy Hx of pelvic surgery S/P mastectomy, bilateral Family History Mother Diabetes Heart disease Father Suicide Denies family history of Anesthesia complication Bleeding disorder Social History Smoking and tobacco status: never smoked Second hand smoke exposure: Yes Alcohol intake: never Lives independently: Yes Household members: spouse Marital status: Current occupational status: retired History of recent travel: No Current gender identity: Female Female Reproductive History: Date of last menstrual period: 08/08/20 Vitals/I&O/Wt Last Vital Signs Temp 98.2 F 01/15/21 18:00 Pulse 73 01/15/21 18:00 Resp 16 01/15/21 18:00 BP 140/85 01/15/21 18:00 Pulse Ox 95 01/15/21 18:00 01/15/21 01/15/21 01/15/21 06:59 14:59 22:59 Intake Total 250 / 250 Balance 250 / 250 Weight last 48 hrs Weight 141 lb Physical Exam Const: COMMON NORMALS: no acute distress and patient oriented x3 HENMT: COMMON NORMALS: normocephalic OTHER: Left facial droop Resp: COMMON NORMALS: normal respiratory effort and No retractions Cardio: COMMON NORMALS: regular rate and regular rhythm GI: COMMON NORMALS: Soft to palpation and non-tender Extremity: COMMON NORMALS: normal to inspection, full ROM and no joint enlargement Neuro: COMMON NORMALS: patient oriented x3 SENSORIUM/ORIENTATION: Yes alert CRANIAL NERVES: Yes CN normal except as noted and Yes other (Left facial droop) SENSORY EXAM: Yes extremities MOTOR EXAM: 5/5 motor strength present throughout and Pronator motor function not present Data : 01/15/21 16:10 01/15/21 16:10 Other Labs: CT HEAD NONCONTRAST HISTORY: possible old stroke TECHNIQUE: Contiguous axial imaging performed through the brain in 2.5 mm imaging. Bone and soft tissue windows. Sagittal and coronal reformats reviewed. All CT scans at [facility] use at least one of these dose optimization techniques: automated exposure control; mA and/or kV adjustment per patient size (includes targeted exams where dose is matched to clinical indication); or iterative reconstruction. DLP: 819.58 mGy.cm COMPARISON: 01/10/2020 No acute intracranial hemorrhage, midline shift or mass effect. Mild atrophy and mild chronic microvascular ischemic disease. Remote multiple lacunar infarct in the LEFT thalamus and RIGHT caudate head. Ventricles: Normal size with no hydrocephalus. Paranasal sinuses: As visualized are clear. Mastoid air cells: Well pneumatized. Calvarium and scalp: Skull is intact with no soft tissue edema or swelling. CT/CT head wo con* [id number] IMPRESSION: 1. No acute intracranial hemorrhage or edema. 2. Small remote lacunar infarct in the RIGHT caudate head and LEFT thalamus. A&P Assessment and plan (1) Facial droop: Status: Acute (2) Essential hypertension: Status: Acute (3) Type 2 diabetes mellitus with diabetic polyneuropathy: Status: Acute (4) Jugular vein thrombosis: Status: Chronic (5) Breast CA: Status: Chronic Qualifiers: Breast location: nipple Estrogen receptor status: negative Laterality: right Patient sex: female Qualified Code(s): C50.011 - Malignant neoplasm of nipple and areola, right female breast; Z17.1 - Estrogen receptor negative status [ER-] Additional A&P Information #left facial droop #history of intracerbral hemorrhage --check CTA head neck, MRI brain, ECHO --check FLP, AIC --Neuro checks --continue ASA, statin --PT/OT/ST #IDDM --controlled --AIC 63 09/04 --continue lantus, ssi, fsbs #Jugalar Vein Thrombus #chronic anticoagulation --continue Eliquis #history of breast cancer --Her-2/lyndon 3+ --s/p masectomy --on chemotherapy, follows with Oncology DVT: patt Attestations Medical Necessity Statement*: Jasmin Ortiz's hospital stay will be less than 2 midnights for facial droop Coding Level of Care Code Acute Photoengraving Retoucher for Chg Fwd Diagnoses Facial droop R29.810 Essential hypertension I10 Type 2 diabetes mellitus with diabetic polyneuropathy E11.42 Jugular vein thrombosis I82.890 Breast CA C50.011; Z17.1 Breast location: nipple Estrogen receptor status: negative Laterality: right Patient sex: female
--- NOTE | 2021-01-15 21:24 | PC.NURSE ---
Patient states that she has a history of right-sided facial droop. Currently, patient does not appear to have a facial droop.
--- NOTE | 2021-01-15 22:18 | PC.NURSE ---
BG 238.
--- NOTE | 2021-01-15 22:31 | PC.NURSE ---
When doing patient's stroke scale, patient pauses/ has slight delay before saying words. There is a very slight slurring, however patient is not difficult to understand. Patient is able to answer questions appropriately. Patient states that she is able to feel touch on the left side, but is not able to feel it as well as she does on her right side.
--- NOTE | 2021-01-15 22:37 | PC.NURSE ---
Patient does not have dentures or teeth. Patient states she eats without them at home and is able to eat all types of food as normal.
[2021-01-16] VITALS (8 sets, daily range): BP systolic 143–171; BP diastolic 90–121; PULSE 67–75; RESP 16–20; TEMP 36.7–37; O2SAT 95–98
--- NOTE | 2021-01-16 04:37 | PC.NURSE ---
Shift Note Frequent safety and comfort rounds continue. Orders and/or nursing care completed as indicated. Patient monitored for response to intervention and treatment(s). Education provided includes stroke teaching. 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 Will continue to monitor.
[2021-01-16 05:19] LABS: Basophils # 0.1 10^3/uL (0.0-0.1); Basophils % 0.8 %; Eosinophils # 0.4 10^3/uL (0.0-0.8); Eosinophils % 4.9 %; Hematocrit 26.3 % (37.0-47.0); Hemoglobin 8.6 g/dL (11.5-15.3); Lymphocytes # 2.3 10^3/uL (0.8-4.8); Lymphocytes % 30.2 %; Mean Corpuscular HGB Conc 32.7 g/dL (30.0-36.0); Mean Corpuscular Hemoglobin 30.6 pg (28.0-34.0); Mean Corpuscular Volume 93.6 fl (81-99); Monocytes # 0.5 10^3/uL (0.2-0.9); Monocytes % 6.6 %; Neutrophils % 57.2 %; Nucleated Red Blood Cells % 0 %; Platelet Count 158 10^3/cmm (130-400); Red Blood Count 2.81 10^6/uL (4.1-5.3); Red Cell Distribution Width 14.9 % (12.1-15.1); White Blood Count 7.5 10^3/uL (4.0-10.0)
--- NOTE | 2021-01-16 06:00 | USCV_ITS ---
Jasmin Ortiz Age: 60 Gender: F : 1960 Exam Date: 01/16/2021 06:32 Ordering Phys: Toshia Llanos MD Technologist: Evelyn Roldan [place] [facility] [place]ication: SUSPECTED STROKE BP: 147 / 91 HR: 68 Rhythm: Sinus Technical Quality: Adequate MEASUREMENTS (Male / Female) Normal Values 2D ECHO LV Diastolic Diameter PLAX 3.7 cm 4.2 - 5.9 / 3.9 - 5.3 cm LV Systolic Diameter PLAX 2.7 cm IVS Diastolic Thickness 1.5 cm 0.6 - 1.0 / 0.6 - 0.9 cm IVS Systolic Thickness 2.0 cm LVPW Diastolic Thickness 1.4 cm 0.6 - 1.0 / 0.6 - 0.9 cm LVPW Systolic Thickness 1.8 cm LVOT Diameter 2.0 cm LV Ejection Fraction 2D Teich 60.5 % LV Ejection Fraction MOD 2C 64.1 % LV Ejection Fraction 2C AL 64.5 % LA Diameter 2.9 cm LA Width 2.3 cm LA Height 3.4 cm RA Width 2.8 cm RA Height 3.9 cm Aorta at Sinotubular Diameter 2.2 cm M-MODE Aortic Annulus Diameter 2.8 cm LA Ao Ratio MM 1.0 MV E Point Septal Separation 0.9 cm DOPPLER Right Atrial Pressure 3.0 mmHg FINDINGS Left Ventricle Normal left ventricular cavity size. Moderate left ventricular hypertrophy of concentric type. No regional wall motion abnormalities. Left ventricular ejection fraction is estimated at 65 %. Right Ventricle The right ventricle is normal in size and function. Right Atrium The right atrium is normal in size. Left Atrium The left atrium is normal in size. Mitral Valve Mildly thickened mitral valve. No mitral valve stenosis. Aortic Valve Aortic valve sclerosis without stenosis Tricuspid Valve Structurally normal tricuspid valve without significant stenosis or regurgitation. Pulmonary artery systolic pressure is normal. Pulmonic Valve Cannot assess valvular hemodynamics due to lack of Doppler data Pericardium Normal pericardium without effusion. Aorta Normal ascending aorta dimension. CONCLUSIONS 1-Normal left ventricular cavity size. Moderate left ventricular hypertrophy of concentric type. No regional wall motion abnormalities. Left ventricular ejection fraction is estimated at 65 %. 2-There is no pericardial effusion. 3-All the valves appear to be opening and closing fine without significant stenosis however due to lack of Doppler data cannot assess regurgitation. If clinically indicated please repeat study with complete hemodynamics 4-Right atrial pressure is around 5 mm of mercury. 5-Due to limited study secondary to absence of hemodynamic data, this study cannot be compared with the prior echocardiogram. Dillon Hartley MD (Electronically Signed) Final Date: 16 January 2021 19:10 S
--- NOTE | 2021-01-16 06:00 | CT_ITS ---
WS: [id number] CT ANGIOGRAM CEREBRAL AND CAROTID ARTERIES HISTORY: suspected stroke TECHNIQUE: CT angiogram is performed of the carotid and cerebral arteries. During arterial injection imaging is obtained from the skull vertex to the aortic arch in 1.25 mm imaging. Coronal and sagittal reformats are submitted. Additional multi planar reformats of the carotid and cerebral arteries are submitted, MIP imaging also reviewed. NASCET criteria utilized. All CT scans at [facility] us e at least one of these dose optimization techniques: automated exposure control; mA and/or kV adjust ment per patient size (includes targeted exams where dose is matched to clinical indication); or iter ative reconstruction. CONTRAST: Visipaque 320; 95 mL IV. DLP: 1900.47 mGy.cm COMPARISON: 04/21/2020 Carotid Angiogram: Right carotid: Common carotid artery: Arises normally from the innominate artery. No significant plaque or stenosis. Internal carotid artery: No plaque or stenosis. External carotid artery: Patent. Left carotid: Common carotid artery: Arises normally from the aorta. No significant plaque or stenosis. Internal carotid artery: No plaque or stenosis. External carotid artery: Patent. Right vertebral artery: Unremarkable. Left vertebral artery: Unremarkable. Arises normally from the subclavian artery. Subclavian arteries: No stenosis or significant abnormality. Upper thorax: Patient is status post stenting of the LEFT brachiocephalic vein since the prior examin ation. There is also a stent in the RIGHT brachiocephalic vein. Venous opacification is limited as th e study was protocol for arterial evaluation. No significant amount of collaterals identified. There is a filling defect in the LEFT internal jugular vein which could be mixing of the venous and arteria l contrast. Thyroid gland: Normal. Osseous structures: Unremarkable. CEREBRAL ANGIOGRAM: Intracranial vertebral arteries: Normal with no significant atherosclerosis. Basilar artery: No significant stenosis or occlusion. No aneurysm. Intracranial Internal carotid arteries: Demonstrates no significant stenosis or plaque. Middle cerebral arteries: Normal. Anterior cerebral arteries and ACOM: Normal. Posterior cerebral arteries and PCOM's: Normal. Dural venous sinuses are normally enhancing. Mastoid air cells: Normal. Paranasal sinuses: Normal. Calvarium: Normal. CT/CT angio headneck* [id number] IMPRESSION: 1. No significant carotid artery stenosis. 2. Interval placement of stents in the bilateral brachiocephalic veins. These stents are patent. 3. Filling defect in the LEFT internal jugular vein may be mixing of venous an d arterial blood. Venous thrombosis is not excluded. 4. Negative [place] angiogram.
[2021-01-16 06:03] LABS: Alanine Aminotransferase 7 U/L (0-33); Albumin Level 3.4 g/dL (3.5-5.2); Alkaline Phosphatase 48 IU/L (35-105); Anion Gap 13.4 (5-19); Aspartate Amino Transferase 10 U/L (0-32); Blood Urea Nitrogen 15 mg/dL (8-23); Calcium 8.6 mg/dL (8.5-10.5); Carbon Dioxide 23 mmol/L (22-29); Chloride 110 mmol/L (98-107); Chol HDL Ratio 2.76 mg/dL (0.0-4.40); Cholesterol 105 mg/dL (0-200); Globulin 2.4 g/dL (1.3-4.6); Glomerular Filtration Rate 50.5 mL/min (90-130); Glucose 103 mg/dL (65-115); HDL Cholesterol 38 mg/dL (60-100); LDL Cholesterol Calculated 27 mg/dL (50-129); LDL HDL Ratio 0.71 RATIO (0.00-3.22); Osmolality Calculated 297 mOsm/kg (285-295); Potassium 3.4 mmol/L (3.5-5.1); Sodium 143 mmol/L (136-145); Thyroid Stimulating Hormone 3.41 uIU/mL (0.27-4.20); Total Bilirubin 0.5 mg/dL (0.15-1.2); Total Protein 5.8 g/dL (6.6-8.7); Triglycerides 200 mg/dL (0-150)
[2021-01-16 06:04] LABS: Creatinine Clr Calc Pharmacy 46.0069
[2021-01-16 06:19] LABS: Estmated Average Glucose 111; Hemoglobin A1C 5.5 % (4.0-6.0)
[2021-01-16 06:40] LABS: Glucose Point of Care 161 mg/dL (70-110)
[2021-01-16] MEDS: iodixanol 320 mg/mL 100mL Btl IV (08:44)
--- NOTE | 2021-01-16 09:26 | PC.NURSE ---
Notifed Dr. Roblero of elevated BP 148/102 HR 72. No orders at this time.
--- NOTE | 2021-01-16 10:15 | MR_ITS ---
WS: [id number] MRA ANGIOGRAPHY [place] HISTORY: suspected stroke COMPARISON: None available. TECHNIQUE: 3-D MR angiography is performed of the [place] of [place]. All images are reviewed including source images. Distal vertebral and basilar arteries are intact with no significant stenosis or plaque. Posterior ce rebral arteries are normal course and caliber. Posterior communicating arteries are both patent. Intracranial portion of the internal carotid arteries are normal course and caliber. No significant a therosclerosis, stenosis or aneurysm identified. Middle and anterior cerebral arteries are both paten t with no significant disease. Anterior communicating artery is also normal. MR/MR angio head wo con [id number] IMPRESSION: Normal MRA [place] of [place].
--- NOTE | 2021-01-16 10:20 | PC.CHAP ---
Pastoral Care Encounter/Spiritual Assessment Type of Contact [] Declined senior instructional designer visit [] Patient/Family/Request visit [] Outpatient visit [] Follow-up visit [] Physician referral [] Code/Alert [x] Routine visit [] Staff referral [] Actively dying [] Patient sleeping [] Family support [] [] Out of room [] Palliative care [] [x] Receiving care in room [] Pre-surgical visit [] Trauma [x] Long length of stay [] ICU visit [] Other: Relational/Emotional Strength [x] Patient feels connected with others/family/visitors/staff [] Distress [] Loneliness/isolation [] Abandonment Spirituality of Patient [x] Person of Alicia [] Attends Protestant of their Alicia [x] Believes in Prayer [] Reads Bible or Judaism materials [] There are Spiritual issues to be addressed Boom Boss Interventions [x] Prayer [x] Active listening [x] Non-anxious presence [x] Spiritual/emotional support [] Crisis/trauma care [x] Spiritual counseling [] Bereavement support [] Provided bereavement packet [] Provided Bible/devotional materials [] Provided toy/stuffed animal, coloring book to patient or family member [] Provided Communion [] Anointing/[place] [] Salvation [x] Completed spiritual assessment [] Other: Impact on Illness or Injury [] Angry [x] Fearful [] Anxious [] Often cries [] Exhaustion [x] Unable to work [] Unable to attend sabianism [] Unable to walk/stand [] Unable to read [] Unable to drive [] Unable to eat/drink [] Unable to sleep [] Unable to be with family [] Patient intubated [] Other: Summary checking to see if she had a strock, waiting on tests and doctors report, negative about her health wants to go home soon Time spent with patient 10 mins
[2021-01-16] MEDS: aspirin 81 mg EC Tablet PO (11:12)
--- NOTE | 2021-01-16 11:42 | PC.NURSE ---
Notified Dr. Roblero of elevated BP 182/110. HR 69. Dr Roblero is allowing for permissive perfusion. No orders at this time.
[2021-01-16 13:31] LABS: Glucose Point of Care 277 mg/dL (70-110)
--- NOTE | 2021-01-16 17:49 | P.PN_ITS ---
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 Upon arrival to emergency room patient did not have any notable deficits. Symptom had apparently been ongoing for 6 days prior to arrival.Head CT without contrast did not show any evidence of acute intracranial hemorrhage or edema. Small remote lacunar infarct in the right caudate head and left thalamus was seen.Head and neck CTA was performed which showed a filling defect in the left internal jugular vein suspicious for thrombus.Patient was given aspirin 325 mg p.o. x1.MRA of head was performed today which showed normal [place]. Also patient recently had b/l brachiocephalic stents placed which were noted on CTA. Patient was still complaining of intermittent episodes of facial droop however this was not noted at the time of my evaluation. Also noted to be hypertensive. Antihypertensive medications were resumed. Medications: Reviewed: Yes Vitals/I&O/Wt Last Vital Signs Temp 98.5 F 01/16/21 15:40 Pulse 67 01/16/21 15:40 Resp 20 H 01/16/21 15:40 BP 169/106 01/16/21 15:40 Pulse Ox 98 01/16/21 15:40 01/16/21 01/16/21 01/16/21 06:59 14:59 22:59 Intake Total 400 / 650 250 / 250 Balance 400 / 650 250 / 250 Weight last 48 hrs Weight 63.957 kg Weight 63.957 kg Physical Exam Const: COMMON NORMALS: no acute distress, patient oriented x3 and alert HENMT: COMMON NORMALS: normocephalic HEAD & SCALP: normocephalic OTHER: No facial droop was seen. Speech normal. Resp: COMMON NORMALS: normal respiratory effort and No retractions Cardio: COMMON NORMALS: regular rate and regular rhythm RATE: regular rate RHYTHM: regular rhythm GI: COMMON NORMALS: Soft to palpation and non-tender PALPATION: Yes Soft to palpation Extremity: COMMON NORMALS: normal to inspection, full ROM and no joint enlargement Neuro: COMMON NORMALS: patient oriented x3 SENSORIUM/ORIENTATION: Yes alert CRANIAL NERVES: Yes CN normal except as noted and Yes other (Left facial droop) SENSORY EXAM: Yes extremities MOTOR EXAM: 5/5 motor strength present throughout and Pronator motor function not present Data : 01/16/21 04:58 01/16/21 04:58 A&P Assessment and plan (1) Facial droop: Status: Acute (2) Essential hypertension: Status: Acute (3) Type 2 diabetes mellitus with diabetic polyneuropathy: Status: Acute (4) Jugular vein thrombosis: Status: Chronic (5) Breast CA: Status: Chronic Qualifiers: Breast location: nipple Estrogen receptor status: negative Laterality: right Patient sex: female Qualified Code(s): C50.011 - Malignant neoplasm of nipple and areola, right female breast; Z17.1 - Estrogen receptor negative status [ER-] Additional A&P Information #left facial droop #history of intracerbral hemorrhage --CT head, CTA head and neck, MRA head no acute stroke noted --Neuro checks --Discontinue aspirin --Will resume eliquis as prior --Lipitor 40 mg po qhs --Will d/w Neurology - arrange for close outpatient f/u --ECHO noted --PT/OT/ST #Hypertension --Resume Valsartan 80 mg daily ( formulary equivelant) #IDDM --controlled --AIC 63 09/04 --continue lantus, ssi, fsbs #Jugalar Vein Thrombus #chronic anticoagulation --continue Eliquis #history of breast cancer --Her-2/lyndon 3+ --s/p masectomy --on chemotherapy, follows with Oncology DVT: eliquis Attestations Medical Necessity Statement*: will continue hospitalization for neurological workup and hypertension management Time Spent in Patient Care: Greater than 35 minutes (>than 50% of time spent in counselling and/or direct pt care on unit) . Coding Level of Care Code Acute Supervisor Correspondence Section for Chg Fwd Diagnoses Facial droop R29.810 Essential hypertension I10 Type 2 diabetes mellitus with diabetic polyneuropathy E11.42 Jugular vein thrombosis I82.890 Breast CA C50.011; Z17.1 Breast location: nipple Estrogen receptor status: negative Laterality: right Patient sex: female
[2021-01-16 18:03] LABS: Glucose Point of Care 123 mg/dL (70-110)
[2021-01-16 21:31] LABS: Glucose Point of Care 175 mg/dL (70-110)
[2021-01-16] MEDS: atorvastatin 40 mg Tablet PO (22:18)
[2021-01-16] MEDS: apixaban 5 mg Tablet PO (22:18)
[2021-01-17] VITALS (7 sets, daily range): BP systolic 129–172; BP diastolic 86–121; PULSE 67–74; RESP 16–19; TEMP 36.8–36.9; O2SAT 97
--- NOTE | 2021-01-17 07:57 | PC.NURSE ---
Patients BP continues to be elevated. Manual BP 172/[address] Roblero notified.
[2021-01-17] MEDS: losartan 50 mg Tablet 25 MG PO (09:36)
[2021-01-17] MEDS: apixaban 5 mg Tablet PO (09:36)
[2021-01-17] MEDS: amlodipine 5 mg Tablet PO (11:14)
--- NOTE | 2021-01-17 14:30 | PC.NURSE ---
Discharge Note Patient discharged to home via private vehicle accompanied by . Discharge instructions reviewed with patient and/or wire rope sales representative. Mobile pharmacy medications and/or prescriptions provided. Belongings/home medications returned. Patient was A & O, had no C/O of pain, or voiced any needs. All discharge instructions verbalized by patient and spouse
--- NOTE | 2021-01-17 16:49 | PM.DCS ---
Discharge Providers Date of Admission: 01/16/21 17:54 Date of Discharge: January 17, 2021 Attending Provider at Admission: Toshia Llanos MD Attending Provider at Discharge: La Roblero Primary Care Provider: Nichelle Stephenson MD Diagnoses at Discharge Discharge Diagnosis (1) Facial droop: Status: Acute (2) Essential hypertension: Status: Acute (3) Type 2 diabetes mellitus with diabetic polyneuropathy: Status: Acute (4) Jugular vein thrombosis: Status: Chronic Permanent problem details: -R jugular and innominate vein thrombosis with port-A-cath in place -on AC with Eliquis (5) Breast CA: Status: Chronic Permanent problem details: -HER-2/lyndon 3+ positive, ER/AR negative -biopsy proven ductal carcinoma -s/p short course of chemotherapy (discontinued after 3 out of 6 cycles, TCH (P), due to persistent and progressive side effects. On maintenance therapy with Herceptin/Perjeta q3 weeks; last dose on 03/31 -follows up with Dr. 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 Upon arrival to emergency room patient did not have any notable deficits. Symptom had apparently been ongoing for 6 days prior to arrival.Head CT without contrast did not show any evidence of acute intracranial hemorrhage or edema. Small remote lacunar infarct in the right caudate head and left thalamus was seen.Head and neck CTA was performed which showed a filling defect in the left internal jugular vein suspicious for thrombus.Patient was given aspirin 325 mg p.o. x1.MRA of head was performed today which showed normal [place] of [place]. Also patient recently had b/l brachiocephalic stents placed which were noted on CTA. Patient was still complaining of intermittent episodes of facial droop however this was not noted at the time of my evaluation. Also noted to be hypertensive. Antihypertensive medications were resumed. Patient was discharge in stable condition. Outpatient neurology consult was requested. Advised to return to ER if any recurrence of symptoms or new neurological deficits. Physical Exam Narrative: EXAM NARRATIVE: Head: Atraumatic Eyes: PERRL, conjunctiva without injection ENT: Mucous membrane moist NECK: Supple, ROM intact LUNGS: LCTAB, no crackles/rhonchi CV: RRR ABDOMEN: Soft, nontender in all quadrants EXTREMITY: Normal ROM SKIN: No rash or erythema NEURO: No new neuo deficits. Mental status?WNL Language? Speech is fluent without word-finding difficulties.? Intact naming, expression, entry level receptionist, and repetition.? ? Cranial nerves? 2,3,4,6: PERRL, EOMI with no nystagmus. 5: +decreased sensation to touch R, +L intact 7: No evidence of facial droop 8: Hearing grossly intact.? 9,10: Normal palate movement.? 11: Normal strength in trapezius bilaterally 12: Tongue protrudes midline.? ? Motor examination? Normal bulk & tone. Strength as follows (R/L): Delts (5/5), Biceps (5/5), Triceps (5/5), Wrist ext (5/5), hip flexors (5/5), plantarflexors (5/5), dorsiflexors (5/5). ? Sensation? Light Touch: Grossly intact and equal in upper and lower extremities bilaterally? Romberg: Negative.? Distal joint position sense intact ? Coordination? Umnids-wy-ahkz-finger movements intact without dysmetria or past-pointing.? Rapid fingertaps: preserved amplitude without decriment.? No tremor, myoclonus or truncal ataxia.? ? Gait/stance? +wide stance gait PSYCH: Normal mood and affect HENMT: OTHER: No facial droop was seen. Speech normal. Neuro: SENSORY EXAM: Yes extremities MOTOR EXAM: 5/5 motor strength present throughout and Pronator motor function not present Discharge Data Data Completed and Pending: Completed Studies During Hospitalization Category Date Time Status CT angio headneck * 08885/38718 Rout ine Cat Scan 01/16/21 06:[address] head wo con* 7 0450 Urgent Cat Scan 01/15/21 15:18 Completed MR angio head wo con [id number] Routine MRI 01/16/21 10:15 Completed CV echo limited 9 4817 Routine Ultrasound 01/16/21 06:00 Completed Vitals: Last Vital Signs Temp 98.2 F 01/17/21 07:58 Pulse 72 01/17/21 14:04 Resp 18 01/17/21 14:04 BP 129/86 01/17/21 14:04 Pulse Ox 97 01/17/21 07:58 Discharge Plan Discharge Patient Disposition: Home Condition: Stable Prescriptions: Continued melatonin 10 mg capsule 10 mg PO BEDTIME RF: 0 metformin 500 mg tablet 500 mg PO BID RF: 0 lapatinib 250 mg tablet 1,250 mg PO QAM RF: 0 ondansetron 8 mg tablet,disintegrating 8 mg PO Q8H PRN (Reason: Nausea) RF: 0 magnesium oxide 400 mg (241.3 mg magnesium) tablet 400 mg PO DAILY RF: 0 Humulin R Regular U-100 Insuln 100 unit/mL solution See Rx Instructions .ROUTE .COMPLEX RF: 0 lorazepam 1 mg tablet 0.5 - 1 mg PO TID PRN (Reason: Nausea) RF: 0 Fish Oil 1 cap PO DAILY RF: 0 Vitamin C 1 tab PO DAILY RF: 0 Vitamin D3 1 cap PO DAILY RF: 0 vitamin E 1 cap PO DAILY RF: 0 atorvastatin 40 mg tablet 40 mg PO BEDTIME RF: 0 valsartan 80 mg tablet 80 mg PO DAILY RF: 0 mirtazapine 15 mg tablet 15 mg PO BEDTIME RF: 0 Eliquis 5 mg tablet 5 mg PO BID RF: 0 Discharge Orders: Discharge Order (Routine); Ordered 01/17/21 Ordered By: La Roblero Referrals: Shira Ruffin MD [Physician] - 4-7 days Nichelle Stephenson MD [Primary Care Provider] - 01/27/21 9:00 am (You have a hospital followup with Dr. Stephenson at [facility] on January 27 at 9:00am) Discharge Diet: Advance as tolerated Discharge Activity: Increase activity as tolerated Patient Instructions: Chronic Hypertension (DC), Opioid Safety, Stroke Stoplight Discharge Attestations Time Spent in Discharge Care*: greater than 30 min Specific Discharge Activities: educating patient, educating and/or supporting family/caregiver, discussing with pcp/other providers, discussing with shoe parts caser/social workers/dc planners, documenting/other paperwork and evaluating patient/reviewing data Status at Discharge: Cognitive status at discharge: cognitively intact, Behavioral status at discharge: cooperative, Functional status at discharge: independent ambulation Overall status at discharge: patient is back to baseline Quality Metrics Clinical Quality Measures During this hospital stay, did patient experience: None Coding Level of Care Code Acute Chg FW DC note Diagnoses Facial droop R29.810 Essential hypertension I10 Type 2 diabetes mellitus with diabetic polyneuropathy E11.42 Jugular vein thrombosis I82.890 Breast CA C50.011; Z17.1 Breast location: nipple Estrogen receptor status: negative Laterality: right Patient sex: female
[2021-01-19 07:59] LABS: Glucose Point of Care 243 mg/dL (70-110)
--- NOTE | 2021-01-21 08:59 | PC.SOCIAL ---
Discharge follow up call made. Spoke with pts , patient is feeling ok. Has follow up appointment with PCP. Appointment made with Duane Gant NP and appointment date and time given to patients spouse.
== END 2021-01-17 14:31 | disposition home or self-care (01) | DRG 92 ==
LOC: ER 16:05 → CSU 16:21
PROVIDERS: Admitting Provider Internal Medicine; Emergency Provider Emergency Medicine; PCP Family Medicine; Visit Provider Hospitalist
DX: R29.810 Facial weakness (principal); I82.C21 Chronic embolism and thrombosis of right internal jugular vein; I69.134 Monoplegia of upper limb following nontraumatic intracerebral hemorrhage affecting left non-dominant side; C50.011 Malignant neoplasm of nipple and areola, right female breast; Z17.1 Estrogen receptor negative status [ER-]; E11.9 Type 2 diabetes mellitus without complications; E78.5 Hyperlipidemia, unspecified; Z95.828 Presence of other vascular implants and grafts; Z79.899 Other long term (current) drug therapy; Z90.13 Acquired absence of bilateral breasts and nipples; Z82.49 Family history of ischemic heart disease and other diseases of the circulatory system; Z79.01 Long term (current) use of anticoagulants; Z79.4 Long term (current) use of insulin; Z90.710 Acquired absence of both cervix and uterus
CPT/HCPCS: 36415; 36416; 70450; 70496; 70498; 70544; 80053; 80061; 82962; 83036; 83690; 84443; 84484; 85025; 85610; 85730; 92523; 93005; 93308; 96372; 97110; 97161; 97165; 97530; 99285; G0378; J1815; Q9967

== ENCOUNTER → 2021-01-27 12:31 | Outpatient (BNVA) | payer MEDICAID, SELFPAY | PROVIDERS: PCP Family Medicine; Referring Provider Hospitalist; Visit Provider Nurse Practitioner | DX: I69.398 Other sequelae of cerebral infarction (principal); R26.89 Other abnormalities of gait and mobility; Z79.01 Long term (current) use of anticoagulants | CPT/HCPCS: 99204 ==

== ENCOUNTER 2021-04-07 13:16 | Outpatient (CLI) | payer MEDICARE, MEDICAID, SELFPAY ==
[2021-04-07 14:19] LABS: Basophils # 0.1 10^3/uL (0.0-0.1); Eosinophils # 0.5 10^3/uL (0.0-0.8); Eosinophils % 6.1 %; Hematocrit 35.3 % (37.0-47.0); Lymphocytes # 2.1 10^3/uL (0.8-4.8); Lymphocytes % 24.7 %; Mean Corpuscular Hemoglobin 30.6 pg (28.0-34.0); Mean Corpuscular Volume 90.1 fl (81-99); Mean Platelet Volume 11.3 fL (7.4-10.4); Monocytes # 0.6 10^3/uL (0.2-0.9); Monocytes % 7.2 %; Neutrophils # 5.05 10^3/uL (1.8-7.7); Neutrophils % 60.5 %; Nucleated Red Blood Cells % 0 %; Platelet Count 176 10^3/cmm (130-400); Red Blood Count 3.92 10^6/uL (4.1-5.3); Red Cell Distribution Width 14.2 % (12.1-15.1); White Blood Count 8.3 10^3/uL (4.0-10.0)
[2021-04-07 14:23] LABS: Alanine Aminotransferase 13 U/L (0-33); Albumin Level 3.7 g/dL (3.5-5.2); Alkaline Phosphatase 78 IU/L (35-105); Aspartate Amino Transferase 14 U/L (0-32); Blood Urea Nitrogen 19 mg/dL (8-23); Calcium 8.5 mg/dL (8.5-10.5); Carbon Dioxide 21 mmol/L (22-29); Chloride 103 mmol/L (98-107); Globulin 2.5 g/dL (1.3-4.6); Glomerular Filtration Rate 38.2 mL/min (90-130); Glucose 125 mg/dL (65-115); Osmolality Calculated 290 mOsm/kg (285-295); Sodium 138 mmol/L (136-145); Total Protein 6.2 g/dL (6.6-8.7)
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
== END 2021-04-07 13:17 | disposition home or self-care (01) ==
LOC: ONCMED 13:18
PROVIDERS: PCP Family Medicine; Visit Provider Internal Medicine Hematology & Oncology
DX: C50.811 Malignant neoplasm of overlapping sites of right female breast (principal); Z17.1 Estrogen receptor negative status [ER-]; Z90.13 Acquired absence of bilateral breasts and nipples; F43.21 Adjustment disorder with depressed mood; Z79.818 Long term (current) use of other agents affecting estrogen receptors and estrogen levels; Z92.21 Personal history of antineoplastic chemotherapy; Z92.3 Personal history of irradiation
CPT/HCPCS: 36415; 80053; 85025; 99214

== ENCOUNTER 2021-04-25 09:46 | Outpatient (CLI) | payer MEDICARE, MEDICAID, SELFPAY ==
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
== END 2021-04-25 09:47 | disposition home or self-care (01) ==
LOC: ONCMED 09:49
PROVIDERS: PCP Family Medicine; Visit Provider Internal Medicine Hematology & Oncology
DX: Z08 Encounter for follow-up examination after completed treatment for malignant neoplasm (principal); Z85.3 Personal history of malignant neoplasm of breast; Z90.13 Acquired absence of bilateral breasts and nipples; Z85.038 Personal history of other malignant neoplasm of large intestine; F43.21 Adjustment disorder with depressed mood; Z92.21 Personal history of antineoplastic chemotherapy; Z79.899 Other long term (current) drug therapy
CPT/HCPCS: 99214

== ENCOUNTER 2021-05-06 07:24 | Outpatient (CLI) | payer MEDICARE, MEDICAID, SELFPAY ==
--- NOTE | 2021-05-06 07:31 | USCV_ITS ---
Jasmin Ortiz Age: 60 Gender: F : 1960 Exam Date: 05/06/2021 07:52 Ordering Phys: Linwood Vaughan MD Technologist: BL Exam Location[place] [facility] [place]: f/u chemo for breast CA BP: / HR: 70 Rhythm: Sinus Technical Quality: Adequate MEASUREMENTS (Male / Female) Normal Values 2D ECHO LV Diastolic Diameter PLAX 3.8 cm 4.2 - 5.9 / 3.9 - 5.3 cm LV Systolic Diameter PLAX 2.2 cm IVS Diastolic Thickness 1.1 cm 0.6 - 1.0 / 0.6 - 0.9 cm IVS Systolic Thickness 1.9 cm LVPW Diastolic Thickness 1.1 cm 0.6 - 1.0 / 0.6 - 0.9 cm LVPW Systolic Thickness 1.6 cm LVOT Diameter 1.8 cm LV Ejection Fraction 2D Teich 73.9 % LV Ejection Fraction MOD 2C 63.5 % LV Ejection Fraction 2C AL 64.6 % LA Diameter 3.0 cm LA Width 2.7 cm LA Height 4.6 cm RA Width 3.5 cm RA Height 4.1 cm Aorta at Sinotubular Diameter 2.8 cm M-MODE Aortic Annulus Diameter 2.7 cm LA Ao Ratio MM 1.1 MV E Point Septal Separation 0.3 cm DOPPLER AV Peak Velocity 129.0 cm/s LVOT Peak Velocity 112.0 cm/s AV Area Cont Eq vti 2.5 cm squared AV Area Cont Eq pk 2.2 cm squared MV Peak Velocity 101.0 cm/s MV Area PHT 2.6 cm squared Mitral E to A Ratio 0.6 MV E' Velocity 35.0 cm/s Mitral E to MV E' Ratio 7.7 Mitral E to LV E' Lateral Ratio 6.8 Mitral E to LV E' Septal Ratio 8.8 TR Peak Velocity 248.3 cm/s TR Peak Gradient 24.7 mmHg TV Peak E Velocity 74.0 cm/s Right Atrial Pressure 5.0 mmHg Pulmonary Artery Systolic Pressu 29.7 mmHg PV Peak Velocity 109.0 cm/s RV Acceleration Time 0.1 s RV Ejection Time 0.3 s RV AcT/ET 0.2 FINDINGS Left Ventricle Normal left ventricular size. LV systolic function is normal with EF of 60-65%. No regional wall motion abnormalities. Grade 1 diastolic dysfunction Right Ventricle The right ventricle is normal in size and function. Right Atrium The right atrium is normal in size. Left Atrium The left atrium is normal in size. Mitral Valve Structurally normal mitral valve without significant stenosis or prolapse. There is trace mitral regurgitation. Aortic Valve No significant sclerosis or stenosis. There is no aortic regurgitation. Tricuspid Valve Structurally normal tricuspid valve without significant stenosis or regurgitation. Insufficient TR jet to calculate RVSP Pulmonic Valve Structurally normal pulmonic valve without significant stenosis. There is no pulmonic regurgitation. Pericardium Normal pericardium without effusion. Aorta Normal ascending aorta dimension. CONCLUSIONS LV systolic function is normal with EF of 60-65% Grade 1 diastolic dysfunction Trace mitral regurgitaion Compared to prior echocardiogram from 01/16/2021, no significant change is noted Josiah Zazueta MD (Electronically Signed) Final Date: 07 May 2021 10:48 S
== END 2021-05-06 07:25 | disposition home or self-care (01) ==
LOC: RAD 07:26
PROVIDERS: PCP Family Medicine; Visit Provider Internal Medicine Medical Oncology
DX: C50.411 Malignant neoplasm of upper-outer quadrant of right female breast (principal); I34.0 Nonrheumatic mitral (valve) insufficiency
CPT/HCPCS: 93306

== ENCOUNTER → 2021-05-28 15:14 | Outpatient (BNVA) | payer MEDICARE, MEDICAID, SELFPAY | PROVIDERS: PCP Family Medicine; Visit Provider Family Medicine | DX: C50.011 Malignant neoplasm of nipple and areola, right female breast (principal); E11.42 Type 2 diabetes mellitus with diabetic polyneuropathy; E78.5 Hyperlipidemia, unspecified; G43.909 Migraine, unspecified, not intractable, without status migrainosus; G47.09 Other insomnia; I10 Essential (primary) hypertension; Z17.1 Estrogen receptor negative status [ER-]; C50.919 Malignant neoplasm of unspecified site of unspecified female breast; Z17.0 Estrogen receptor positive status [ER+] | CPT/HCPCS: 80053; 80061; 83036; 84443; 85025 ==

== ENCOUNTER 2021-07-08 13:56 | Outpatient (CLI) | payer MEDICARE, MEDICAID, SELFPAY ==
--- NOTE | 2021-07-08 13:30 | XR_ITS ---
WS: [id number] Exam: XR KUB [id number] Date/Time of Exam: 07/08/2021 2:02 PM Reason For Exam: UROLITHIASIS No sign of bowel obstruction or free air. No sign of organ enlargement. Pelvic calcifications are not ed which are probably phleboliths. Bony structures are intact. Old compression deformity of L4. XR/XR KUB [id number] IMPRESSION: 1. No acute abdominal process. 2. No obvious calcifications superimposing the renal silhouettes. Surgical sutu res in the right and left pelvis.
== END 2021-07-08 13:57 | disposition home or self-care (01) ==
LOC: RAD 13:58
PROVIDERS: PCP Family Medicine; Visit Provider Urology
DX: N20.9 Urinary calculus, unspecified (principal)
CPT/HCPCS: 74018; 81003

== ENCOUNTER 2021-09-03 12:10 | Outpatient (CLI) | payer MEDICARE, MEDICAID, SELFPAY ==
[2021-09-03 12:38] LABS: Basophils # 0.1 10^3/uL (0.0-0.1); Basophils % 0.8 %; Eosinophils # 0.3 10^3/uL (0.0-0.8); Eosinophils % 3.5 %; Hemoglobin 11.4 g/dL (11.5-15.3); Lymphocytes # 1.9 10^3/uL (0.8-4.8); Lymphocytes % 25.1 %; Mean Corpuscular HGB Conc 33.5 g/dL (30.0-36.0); Mean Corpuscular Hemoglobin 30.8 pg (28.0-34.0); Mean Corpuscular Volume 91.9 fl (81-99); Mean Platelet Volume 10.9 fL (7.4-10.4); Monocytes # 0.6 10^3/uL (0.2-0.9); Monocytes % 7.8 %; Neutrophils % 62.5 %; Nucleated Red Blood Cells % 0 %; Platelet Count 185 10^3/cmm (130-400); Red Cell Distribution Width 13.9 % (12.1-15.1); White Blood Count 7.5 10^3/uL (4.0-10.0)
[2021-09-03 13:13] LABS: Alanine Aminotransferase 22 U/L (0-33); Albumin Level 4.2 g/dL (3.5-5.2); Alkaline Phosphatase 80 IU/L (35-105); Anion Gap 17.4 (5-19); Aspartate Amino Transferase 19 U/L (0-32); Blood Urea Nitrogen 18 mg/dL (8-23); Calcium 9.5 mg/dL (8.5-10.5); Carbon Dioxide 24 mmol/L (22-29); Chloride 101 mmol/L (98-107); Globulin 2.3 g/dL (1.3-4.6); Glomerular Filtration Rate 45.7 mL/min (90-130); Glucose 286 mg/dL (65-115); Osmolality Calculated 300 mOsm/kg (285-295); Potassium 3.4 mmol/L (3.5-5.1); Sodium 139 mmol/L (136-145); Total Bilirubin 0.8 mg/dL (0.15-1.2); Total Protein 6.5 g/dL (6.6-8.7)
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
== END 2021-09-03 12:11 | disposition home or self-care (01) ==
LOC: ONCMED 12:15
PROVIDERS: PCP Family Medicine; Visit Provider Internal Medicine Hematology & Oncology
DX: C50.911 Malignant neoplasm of unspecified site of right female breast (principal); Z17.1 Estrogen receptor negative status [ER-]; F43.23 Adjustment disorder with mixed anxiety and depressed mood; Z86.718 Personal history of other venous thrombosis and embolism; Z79.01 Long term (current) use of anticoagulants
CPT/HCPCS: 36415; 80053; 85025; 99214

== ENCOUNTER 2022-01-27 11:47 | Oncology outpatient (recurring) (ONCR) | payer MEDICARE, MEDICAID, SELFPAY ==
[2022-01-27 12:21] LABS: Basophils # 0.1 10^3/uL (0.0-0.1); Basophils % 0.7 %; Eosinophils # 0.2 10^3/uL (0.0-0.8); Hematocrit 39.4 % (37.0-47.0); Hemoglobin 12.8 g/dL (11.5-15.3); Lymphocytes # 1.6 10^3/uL (0.8-4.8); Lymphocytes % 20.8 %; Mean Corpuscular HGB Conc 32.5 g/dL (30.0-36.0); Mean Corpuscular Hemoglobin 29.6 pg (28.0-34.0); Mean Corpuscular Volume 91.2 fl (81-99); Mean Platelet Volume 11.7 fL (7.4-10.4); Monocytes # 0.5 10^3/uL (0.2-0.9); Monocytes % 6.7 %; Neutrophils # 5.11 10^3/uL (1.8-7.7); Neutrophils % 68.5 %; Nucleated Red Blood Cells % 0 %; Platelet Count 215 10^3/cmm (130-400); Red Blood Count 4.32 10^6/uL (4.1-5.3); Red Cell Distribution Width 13.7 % (12.1-15.1); White Blood Count 7.5 10^3/uL (4.0-10.0)
[2022-01-27 12:38] LABS: Estmated Average Glucose 128; Hemoglobin A1C 6.1 % (4.0-6.0)
[2022-01-27 12:59] LABS: 25 Hydroxy Vitamin D 45 ng/mL (30-100); Alanine Aminotransferase 65 U/L (0-33); Alkaline Phosphatase 144 U/L (35-105); Blood Urea Nitrogen 25 mg/dL (8-23); CA 15-3 28.9 U/mL (0-25); Calcium 9.4 mg/dL (8.5-10.5); Carbon Dioxide 20 mmol/L (22-29); Chloride 102 mmol/L (98-107); Chol HDL Ratio 4.32 mg/dL (0.0-4.40); Cholesterol 134 mg/dL (0-200); Globulin 3.6 g/dL (1.3-4.6); Glomerular Filtration Rate 41.5 mL/min (90-130); Glucose 142 mg/dL (65-115); HDL Cholesterol 31 mg/dL (60-100); LDL Cholesterol Calculated 62 mg/dL (50-129); Osmolality Calculated 291 mOsm/kg (285-295); Sodium 137 mmol/L (136-145); Thyroid Stimulating Hormone 3.32 uIU/mL (0.27-4.20); Total Bilirubin 0.6 mg/dL (0.15-1.2); Total Protein 7.6 g/dL (6.6-8.7); Triglycerides 207 mg/dL (0-150)
[2022-01-27 13:01] LABS: Anion Gap 19.1 (5-19); Aspartate Amino Transferase 89 U/L (0-32); Potassium 4.1 mmol/L (3.5-5.1); Vitamin B12 > 2000 pg/mL (232-1245)
== END 2022-02-13 23:59 | disposition home or self-care (01) ==
PROVIDERS: Nurse Practitioner; PCP Family Medicine; Visit Provider Internal Medicine Hematology & Oncology
DX: C50.011 Malignant neoplasm of nipple and areola, right female breast (principal); Z17.1 Estrogen receptor negative status [ER-]; Z90.13 Acquired absence of bilateral breasts and nipples; R11.2 Nausea with vomiting, unspecified; E86.0 Dehydration; R45.86 Emotional lability; F17.210 Nicotine dependence, cigarettes, uncomplicated; Z79.899 Other long term (current) drug therapy; Z92.21 Personal history of antineoplastic chemotherapy
CPT/HCPCS: 36415; 80053; 80061; 82306; 82607; 83036; 84443; 85025; 86300; 99214

== ENCOUNTER 2022-01-27 14:24 | Emergency (ER) | payer MEDICARE, MEDICAID, SELFPAY ==
[2022-01-27 14:30] VITALS: BP 165/117; PULSE 84; RESP 18; TEMP 36.8; O2SAT 91; BMI 25.2
--- NOTE | 2022-01-27 17:59 | USR_ITS ---
PROCEDURE INFORMATION: Exam: US Abdomen, Limited; Right Upper Quadrant Exam date and time: 01/27/2022 6:34 PM Age: 61 years old Clinical indication: Nausea and vomiting and other: Diarrhea x 1-2 weeks; Patient HX: 1. Small, 4mm thick-walled, contracted gb. 2. Last meal 6 hrs prior. 3. Negative murphys. 4. Mildly heterogeneous liver; Additional info: N/v/d abd pain TECHNIQUE: Imaging protocol: Real time ultrasound of the abdomen with image documentation. Limited exam focused on the right upper quadrant. COMPARISON: Today's CT abdomen pelvis, CT abdomen pelvis w con* [id number] 04/15/2020 2:36 PM FINDINGS: Liver: The left hepatic abnormalities seen on today's CT are not readily visualized on ultrasound but the parenchyma appears somewhat heterogeneous. The liver measures up to 18.6 cm. Gallbladder: The gallbladder is contracted which limits wall evaluation. No stones or surrounding edema. Biliary ducts: The common bile duct measures 5 mm which is normal. Pancreas: Visualized pancreas is unremarkable. Right kidney: The right kidney measures up to 10.2 cm and has normal echogenicity. Aorta: The abdominal aorta is normal in size measuring less than 3 cm. Portal venous: The main portal vein is patent. Other findings: No visible mass. US/US gall bladder [id number] IMPRESSION: 1. Contracted gallbladder. 2. No mass or biliary obstruction
--- NOTE | 2022-01-27 17:59 | CTR_ITS ---
PROCEDURE INFORMATION: Exam: CT Abdomen And Pelvis With Contrast Exam date and time: 01/27/2022 7:02 PM Age: 61 years old Clinical indication: Nausea and vomiting; Abdominal pain; Generalized; Prior surgery; Surgery date: 6+ months; Surgery type: Hyster; Patient HX: HX of breast cancer 3 yrs ago; Additional info: Elevated liver enzymes, n/v/d TECHNIQUE: Imaging protocol: Computed tomography of the abdomen and pelvis with contrast. Radiation optimization: All CT scans at this facility use at least one of these dose optimization techniques: automated exposure control; mA and/or kV adjustment per patient size (includes targeted exams where dose is matched to clinical indication); or iterative reconstruction. Contrast material: OMNI 350; Contrast volume: 80 ml; Contrast route: INTRAVENOUS (IV); COMPARISON: CT abdomen pelvis w con* [id number] 04/15/2020 2:36 PM RADIATION DOSE METRICS: Total DLP (mGy-cm): 453.2 FINDINGS: Liver: Since the prior scan hepatic segments 4A, 4B and 3 are now abnormal with altered density and enhancement, likely due to diffuse fatty infiltration. There is also new occlusion of the hepatic veins draining the segments (left hepatic vein and branches of the middle hepatic vein). Chronicity of this occlusion is uncertain but given the parenchymal changes is probably not acute. The left portal vein is now abnormally small but is still proximally perfused although distally evaluation is more difficult. The right hepatic lobe remains normal. Gallbladder and bile ducts: Normal. No calcified stones. No ductal dilation. Pancreas: Normal. No ductal dilation. Spleen: The spleen remains mildly enlarged up to 14 cm. Adrenal glands: Normal. No mass. Kidneys and ureters: Mild dilatation of the right renal collecting system is similar to the prior study. No obstructing stone. Stomach and bowel: Unremarkable. No obstruction. No mucosal thickening. Appendix: No evidence of appendicitis. Intraperitoneal space: Unremarkable. No free air. No significant fluid collection. Vasculature: The right hepatic vein is patent and the main middle hepatic vein remains patent Lymph nodes: Unremarkable. No enlarged lymph nodes. Urinary bladder: Unremarkable as visualized. Reproductive: The uterus is absent and the ovaries are not seen. Bones/joints: Chronic L3 fracture. Soft tissues: Unremarkable. CT/CT abdomen pelvis w con* [id number] IMPRESSION: 1. New abnormalities of the left hepatic lobe. 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 No convincing evidence of metastatic disease. 2. Chronic mild splenomegaly. 3. Other chronic findings as described
--- NOTE | 2022-01-27 18:01 | W.ED.NAVMDI ---
HPI - Nausea/Vomiting/Diarrhea General: Chief complaint: Nausea/Vomiting/Diarrhea Stated complaint: Dehydrated, sent in by Dr. Vela Time Seen by Provider: 01/27/22 17:58 History of Present Illness: 61-year-old female comes in today for complaints of nausea and vomiting with diarrhea for 5 to 7 days. Patient has a history of breast cancer. Patient also reports some upper back pain with the start of illness. Patient appears chronically ill. Patient appears in mild to moderate pain. Patient denies any abdominal surgeries. Associated nausea: Yes Associated symtoms: Reports chest pain (Right shoulder) and nausea; Denies palpitations Review of Systems General: Reports: 10 or more systems reviewed and unremarkable except in HPI and below Card: Reports: chest pain (Right shoulder); Denies: palpitations Resp: Denies: dyspnea GI: Reports: nausea, vomiting and diarrhea PFSH ED PFSH: Medical History Anxiety disorder Cancer of breast Chemotherapy induced cardiomyopathy Claudication Dyslipidemia Frequent falls History of renal stone Hx of breast cancer -R breast cancer (infiltrating carcinoma) -HER-2/lyndon 3+ positive Hypertension -d/c HCTZ, continue ARB Intracerebral hemorrhage Past intracerebral hemorrhage R parietal lobe seen on MRI brain 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 -on AC with Eliquis Mood disorder due to a general medical condition Port-A-Cath in place Type 2 diabetes mellitus -insulin dependent -last A1c-7.4 Urolithiasis Surgical History Hx of breast biopsy Hx of cystoscopy Hx of hysterectomy Hx of pelvic surgery S/P mastectomy, bilateral Family History Mother , AT AGE 64 Diabetes Heart disease Father Suicide Denies family history of Anesthesia complication Bleeding disorder Social History Smoking and tobacco status: current every day smoker (Occational cigarette, past 4 years) Second hand smoke exposure: Yes Alcohol intake: never Lives independently: Yes Household members: spouse Marital status: Current occupational status: retired History of recent travel: No Current gender identity: Female Female Reproductive History: Date of last menstrual period: 08/08/20 Physical Exam Const: COMMON NORMALS: alert HENMT: COMMON NORMALS: normocephalic HEAD & SCALP: normocephalic Neck/C-Spine: COMMON NORMALS: full ROM Resp: COMMON NORMALS: normal respiratory effort and clear to auscultation bilaterally AUSCULTATION: clear to auscultation bilaterally Cardio: COMMON NORMALS: regular rate and regular rhythm RATE: regular rate RHYTHM: regular rhythm GI: COMMON NORMALS: Soft to palpation AUSCULTATION: Yes normoactive bowel sounds PALPATION: Yes Soft to palpation and Yes Tenderness to palpation present (GI) (Mild generalized tenderness) Extremity: COMMON NORMALS: no pedal edema Neuro: SENSORIUM/ORIENTATION: Yes alert Skin: COMMON NORMALS: turgor normal (Decreased) GENERAL SKIN EXAM: turgor normal (Decreased) Course Vital Signs: Vital signs: Vital Signs Temperature 98.3 F 01/27/22 14:30 Pulse Rate 84 01/27/22 14:30 Respiratory Rate 16 01/27/22 19:24 Blood Pressure 165/117 01/27/22 14:30 Pulse Oximetry 91 01/27/22 14:30 Oxygen Delivery Me thod 01/27/22 14:30 MDM - Nausea/Vomiting/Diarrhea Medical Decision Making 61-year-old female comes in today with complaints of nausea vomiting and diarrhea for 7 days. Patient is a cancer patient for breast cancer. Patient sees Dr. Vela. Dr. Vela wanted patient seen in the ER due to the persistent symptoms and concern for dehydration. Patient appears in mild to moderate pain. Abdomen soft bowel sounds are present. Patient does have some mild tenderness to the right upper quadrant on palpation. Skin is warm and dry and slightly pale. Differential diagnosis includes dehydration, gallbladder disease, gastroenteritis, nausea and vomiting related to cancer. Laboratory values were notable for some bump in the liver enzymes. Gallbladder ultrasound was unremarkable. CT of the abdomen pelvis did note a nonacute venous thrombosis of the liver. Patient is at this time on the apixaban and will continue her medication. Recommend patient follow-up with specialist or primary care for further evaluation and treatment. Return to ER for worsening symptoms such as inability to hold fluids down, fever, or severe pain. Patient reported understanding agreed to plan. Patient was improved after 1 L of IV fluids, ondansetron, and morphine. Lab Data : 01/27/22 18:30 09/13/22 18:30 Radiology Impressions Abdomen/Pelvis CT 01/27/22 17:59 IMPRESSION: 1. New abnormalities of the left hepatic lobe. 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 No convincing evidence of metastatic disease. 2. Chronic mild splenomegaly. 3. Other chronic findings as described Gallbladder Ultrasound 01/27/22 17:59 IMPRESSION: 1. Contracted gallbladder. 2. No mass or biliary obstruction Laboratory Results WBC 9.0 10^3/uL (4.0-10.0) 01/27/22 18:30 RBC 4.33 10^6/uL (4.1-5.3) 01/27/22 18:30 Hgb 13.0 g/dL (11.5-15.3) 01/27/22 18:30 Hct 39.8 % (37.0-47.0) 01/27/22 18:30 MCV 91.9 fl (81-99) 01/27/22 18:30 MCH 30.0 pg (28.0-34.0) 01/27/22 18:30 MCHC 32.7 g/dL (30.0-36.0) 01/27/22 18:30 RDW 13.7 % (12.1-15.1) 01/27/22 18:30 Plt Count 217 10^3/cmm (130-400) 01/27/22 18:30 MPV 11.6 fL (7.4-10.4) H 01/27/22 18:30 Neut % (Auto) 63.9 % 01/27/22 18:30 Lymph % (Auto) 24.9 % 01/27/22 18:30 Steele % (Auto) 7.8 % 01/27/22 18:30 Eos % (Auto) 2.5 % 01/27/22 18:30 Baso % (Auto) 0.6 % 01/27/22 18:30 Neut # (Auto) 5.74 10^3/uL (1.8-7.7) 01/27/22 18:30 Lymph # (Auto) 2.2 10^3/uL (0.8-4.8) 01/27/22 18:30 Steele # (Auto) 0.7 10^3/uL (0.2-0.9) 01/27/22 18:30 Eos # (Auto) 0.2 10^3/uL (0.0-0.8) 01/27/22 18:30 Baso # (Auto) 0.1 10^3/uL (0.0-0.1) 01/27/22 18:30 Nucleated RBC % (auto) 0 % 01/27/22 18: Nucleated RBCs # 0.0 /100WBC 01/27/22 18:30 Sodium 134 mmol/L (136-145) L 01/27/22 18:30 Potassium 4.2 mmol/L (3.5-5.1) 01/27/22 18:30 Chloride 100 mmol/L (98-107) 01/27/22 18:30 Carbon Dioxide 20 mmol/L (22-29) L 01/27/22 18:30 Anion Gap 18.2 (5-19) 01/27/22 18:30 BUN 25 mg/dL (8-23) H 01/27/22 18:30 Creatinine 1.2 mg/dL (0.5-0.9) H 01/27/22 18:30 GFR Calculation 45.5 mL/min (90-130) L 01/27/22 18:30 Glucose 125 mg/dL (65-115) H 01/27/22 18:30 Calculated Osmolality 284 mOsm/kg (285-295) L 01/27/22 18:30 Calcium 9.7 mg/dL (8.5-10.5) 01/27/22 18: Magnesium 1.8 mg/dL (1.7-2.3) 01/27/22 18:30 Total Bilirubin 0.5 mg/dL (0.15-1.2) 01/27/22 18:30 AST 86 U/L (0-32) H 01/27/22 18:30 ALT 64 U/L (0-33) H 01/27/22 18:30 Alkaline Phosphatase 137 U/L (35-105) H 01/27/22 18:30 Total Protein 7.7 g/dL (6.6-8.7) 01/27/22 18:30 Albumin 3.8 g/dL (3.5-5.2) 01/27/22 18:30 Globulin 3.9 g/dL (1.3-4.6) 01/27/22 18:30 Lipase 34 U/L (13-60) 01/27/22 18:30 Discharge Plan Discharge Patient Disposition: Home Clinical Impression: Nausea & vomiting Qualifiers: Vomiting type: unspecified Qualified Code(s): R11.2 - Nausea with vomiting, unspecified Breast CA Qualifiers: Breast location: unspecified site of breast Estrogen receptor status: unspecified Patient sex: female Laterality: bilateral Qualified Code(s): C50.911 - Malignant neoplasm of unspecified site of right female breast Condition: Stable Prescriptions: New ondansetron 4 mg tablet,disintegrating 4 mg PO Q8H PRN (Reason: nausea and vomiting) Qty: 10 0RF No Action (DME) bra prosthesis See Rx Instructions .Route .MEDSUPPLY Qty: 1 0RF Rx Instructions: As directed. Had double masectomy. melatonin 10 mg capsule 10 mg PO BEDTIME meclizine 25 mg tablet 25 mg PO TID PRN (Reason: dizziness) Qty: 30 1RF lorazepam 1 mg tablet 0.5 - 1 mg PO TID PRN (Reason: Nausea) Qty: 90 1RF ondansetron 8 mg tablet,disintegrating 8 mg PO Q8H PRN (Reason: Nausea) Qty: 30 1RF Pataday Once Daily Relief 0.7 % drops 1 drp ophthalmic (eye) QAM Qty: 5 1RF loratadine [Claritin] 10 mg tablet 10 mg PO DAILY 90 Days Qty: 90 0RF atorvastatin 40 mg tablet 40 mg PO BEDTIME Qty: 30 2RF Eliquis 5 mg tablet See Rx Instructions .ROUTE .COMPLEX Qty: 180 3RF Dose Instruction: Take 1 tablet by mouth twice daily Rx Instructions: Take 1 tablet by mouth twice daily cyclobenzaprine 10 mg tablet See Rx Instructions .ROUTE .COMPLEX Qty: 30 1RF Dose Instruction: TAKE ONE TABLET BY MOUTH THREE TIMES DAILY FOR MUSCLE SPASMS Rx Instructions: TAKE ONE TABLET BY MOUTH THREE TIMES DAILY FOR MUSCLE SPASMS mirtazapine 15 mg tablet See Rx Instructions .ROUTE .COMPLEX Qty: 30 1RF Dose Instruction: TAKE ONE TABLET BY MOUTH AT BEDTIME Rx Instructions: TAKE ONE TABLET BY MOUTH AT BEDTIME metformin 500 mg tablet See Rx Instructions .ROUTE .COMPLEX Qty: 60 1RF Dose Instruction: TAKE ONE TABLET BY MOUTH TWICE DAILY Rx Instructions: TAKE ONE TABLET BY MOUTH TWICE DAILY valsartan 160 mg tablet See Rx Instructions .ROUTE .COMPLEX Qty: 60 0RF Dose Instruction: TAKE TWO TABLETS BY MOUTH EVERY DAY Rx Instructions: TAKE TWO TABLETS BY MOUTH EVERY DAY magnesium oxide 400 mg (241.3 mg magnesium) tablet 400 mg PO DAILY Humulin R Regular U-100 Insuln 100 unit/mL solution See Rx Instructions .ROUTE .COMPLEX Rx Instructions: USE DIRECTED SLIDING SCALE QID Fish Oil 1 cap PO DAILY Vitamin C 1 tab PO DAILY Vitamin D3 1 cap PO DAILY vitamin E 1 cap PO DAILY Discharge Orders: Discharge ED (Routine); Ordered 01/27/22 Ordered By: Jj Osorio Referrals: Nichelle Stephenson MD [Primary Care Provider] - Patient Instructions: Acute Nausea and Vomiting (ED) Activity Restrictions/Additional Instructions: Drink frequent sips of water to maintain hydration. Use ondansetron to help control nausea and vomiting. Follow-up with primary care or specialist for further treatment and evaluation. Return to ER for worsening symptoms such as severe pain, shortness of breath, fever greater than 100.4, or new concerns. Coding Level of Care Code ED Transitional Care Manager for Mig Fwd Exam Comprehensive
[2022-01-27 18:38] LABS: Basophils # 0.1 10^3/uL (0.0-0.1); Basophils % 0.6 %; Eosinophils # 0.2 10^3/uL (0.0-0.8); Eosinophils % 2.5 %; Hematocrit 39.8 % (37.0-47.0); Lymphocytes # 2.2 10^3/uL (0.8-4.8); Lymphocytes % 24.9 %; Mean Corpuscular HGB Conc 32.7 g/dL (30.0-36.0); Mean Corpuscular Volume 91.9 fl (81-99); Mean Platelet Volume 11.6 fL (7.4-10.4); Monocytes # 0.7 10^3/uL (0.2-0.9); Monocytes % 7.8 %; Neutrophils # 5.74 10^3/uL (1.8-7.7); Neutrophils % 63.9 %; Nucleated Red Blood Cells % 0 %; Platelet Count 217 10^3/cmm (130-400); Red Blood Count 4.33 10^6/uL (4.1-5.3); Red Cell Distribution Width 13.7 % (12.1-15.1)
[2022-01-27] MEDS: iohexol 350 mg/mL 100 mL Btl IV (19:06)
[2022-01-27 19:19] LABS: Alanine Aminotransferase 64 U/L (0-33); Albumin Level 3.8 g/dL (3.5-5.2); Alkaline Phosphatase 137 U/L (35-105); Blood Urea Nitrogen 25 mg/dL (8-23); Calcium 9.7 mg/dL (8.5-10.5); Carbon Dioxide 20 mmol/L (22-29); Chloride 100 mmol/L (98-107); Globulin 3.9 g/dL (1.3-4.6); Glomerular Filtration Rate 45.5 mL/min (90-130); Glucose 125 mg/dL (65-115); Lipase 34 U/L (13-60); Magnesium 1.8 mg/dL (1.7-2.3); Osmolality Calculated 284 mOsm/kg (285-295); Sodium 134 mmol/L (136-145); Total Bilirubin 0.5 mg/dL (0.15-1.2); Total Protein 7.7 g/dL (6.6-8.7)
[2022-01-27 19:24] VITALS: RESP 16
[2022-01-27] MEDS: ondansetron 2 mg/ML SDV 2 mL 4 MG IVP (19:24)
[2022-01-27] MEDS: morphine 4 mg/mL SDV 1 mL IVP (19:24)
[2022-01-27] MEDS: sodium chloride 0.9% 1,000 ML 999 ML IV (19:24)
[2022-01-27 19:38] LABS: Anion Gap 18.2 (5-19); Aspartate Amino Transferase 86 U/L (0-32); Potassium 4.2 mmol/L (3.5-5.1)
--- NOTE | 2022-01-27 21:00 | PC.NURSE ---
2030- upon discharge patient vitals obtained . reji found to have low spo2 of 88% and elevated blood pressure. Provider isak notified and at bedside. patient warmed up using warm blankets and spo2 improved to 91%. Reji instructed of need to take blood pressure medication upon arriving at home. patient insistent on going home.
[2022-01-27 21:02] VITALS: BP 165/113; PULSE 85; RESP 16; TEMP 36.5; O2SAT 90
== END 2022-01-27 21:03 | disposition home or self-care (01) ==
PROVIDERS: Emergency Medicine; Emergency Provider Nurse Practitioner Family; PCP Family Medicine
DX: R11.2 Nausea with vomiting, unspecified (principal); C50.911 Malignant neoplasm of unspecified site of right female breast; Z79.01 Long term (current) use of anticoagulants; Z79.84 Long term (current) use of oral hypoglycemic drugs; Z79.4 Long term (current) use of insulin; F17.210 Nicotine dependence, cigarettes, uncomplicated; E78.5 Hyperlipidemia, unspecified; I10 Essential (primary) hypertension; E11.9 Type 2 diabetes mellitus without complications; Z92.21 Personal history of antineoplastic chemotherapy
CPT/HCPCS: 36415; 74177; 76705; 80053; 80061; 82306; 82607; 83036; 83690; 83735; 84443; 85025; 86300; 96361; 96374; 96375; 99214; 99285; J2270; J2405; J7030; Q9967

== ENCOUNTER 2022-02-02 11:43 | Inpatient (IN) | payer MEDICARE, MEDICAID, SELFPAY ==
[2022-02-02] VITALS (7 sets, daily range): BP systolic 141–182; BP diastolic 86–116; PULSE 68–96; RESP 16–24; TEMP 36.3–36.9; O2SAT 92–97; BMI 21.4
--- NOTE | 2022-02-02 11:57 | ECG_ITS ---
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 Measurements Intervals [place] Rate: 66 P: 9 MT: 148 QRS: -3 QRSD: 91 T: 17 QT: 407 QTc: 428 Interpretive Statements SINUS RHYTHM MODERATE VOLTAGE CRITERIA FOR LVH, CONSIDER NORMAL VARIANT [MEETS CRITERIA IN ONE OF: R(aVL), S(V1), R(V5), R(V5/V6)+S(V1)] Compared to ECG 01/15/2021 15:36:12 No significant changes Electronically Signed On 02-02-2022 18:33:46 CDT by Josiah Zazueta M.D. [id number]
--- NOTE | 2022-02-02 11:57 | XRR_ITS ---
PROCEDURE INFORMATION: Exam: XR Chest Exam date and time: 02/02/2022 12:06 PM Age: 61 years old Clinical indication: Shortness of breath; Patient HX: HX of breast cancer; Additional info: SOB TECHNIQUE: Imaging protocol: Radiologic exam of the chest. Views: 1 view. Total images: 2 COMPARISON: CT chest w con* [id number] 04/21/2020 5:39 PM FINDINGS: Lungs: Unremarkable. No consolidation. Pleural spaces: Unremarkable. No pleural effusion. No pneumothorax. Heart/Mediastinum: Unremarkable. No cardiomegaly. Vasculature: Vascular stents extending from right subclavian vein and left brachiocephalic vein to SVC. Bones/joints: Unremarkable. XR/XR chest 1V portable [id number] IMPRESSION: No acute cardiopulmonary process.
[2022-02-02 12:08] LABS: Basophils # 0.1 10^3/uL (0.0-0.1); Basophils % 0.8 %; Eosinophils # 0.2 10^3/uL (0.0-0.8); Eosinophils % 2.9 %; Hematocrit 36.5 % (37.0-47.0); Hemoglobin 11.7 g/dL (11.5-15.3); Lymphocytes # 1.6 10^3/uL (0.8-4.8); Lymphocytes % 22.5 %; Mean Corpuscular HGB Conc 32.1 g/dL (30.0-36.0); Mean Corpuscular Hemoglobin 29.5 pg (28.0-34.0); Mean Corpuscular Volume 91.9 fl (81-99); Mean Platelet Volume 11.8 fL (7.4-10.4); Monocytes # 0.5 10^3/uL (0.2-0.9); Neutrophils # 4.83 10^3/uL (1.8-7.7); Neutrophils % 66.4 %; Nucleated Red Blood Cells % 0 %; Platelet Count 177 10^3/cmm (130-400); Red Blood Count 3.97 10^6/uL (4.1-5.3); Red Cell Distribution Width 14.3 % (12.1-15.1); White Blood Count 7.3 10^3/uL (4.0-10.0)
--- NOTE | 2022-02-02 12:22 | ED_ITS ---
HPI - SOB/Dyspnea General: Chief Complaint: Shortness of Breath/Dyspnea Stated Complaint: LOW O2 SATS/ SOB Time Seen by Provider: 02/02/22 11:49 Source: patient and EMS Mode of arrival: EMS Limitations: no limitations History of Present Illness: HPI Narrative: 61-year-old female who states that she been having shortness of breath over the last 2 days with much worse today she called EMS states she is having a very hard time breathing when they arrived her pulse ox was in the 70s had placed her on 6 L of oxygen. She denies any history of CHF or COPD she states she has not been feeling well denies any cough denies any fever denies any chest pain. Associated symptoms: Deny abdominal pain, chest pain, fever(s), nausea or vomiting Review of Systems Const: Denies: fever(s), chills, body aches or change in appetite Eyes: Denies: blurry vision or eye discomfort ENMT: Denies: throat pain or dental pain Card: Denies: chest pain Resp: Reports: dyspnea GI: Denies: abdominal pain, nausea, vomiting or diarrhea : Denies: dysuria Musc: Denies: neck pain or back pain Skin/Breast: Denies: rash Neuro: Denies: headache(s) Psych: Denies: depression Dougie/Lymph: Denies: easy bruising All/Imm: Denies: urticaria PFSH ED PFSH: Medical History Anxiety disorder Cancer of breast Chemotherapy induced cardiomyopathy Claudication Dyslipidemia Frequent falls History of renal stone Hx of breast cancer -R breast cancer (infiltrating carcinoma) -HER-2/lyndon 3+ positive Hypertension -d/c HCTZ, continue ARB Intracerebral hemorrhage Past intracerebral hemorrhage R parietal lobe seen on MRI brain 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 -on AC with Eliquis Mood disorder due to a general medical condition Port-A-Cath in place Type 2 diabetes mellitus -insulin dependent -last A1c-7.4 Urolithiasis Surgical History Hx of breast biopsy Hx of cystoscopy Hx of hysterectomy Hx of pelvic surgery S/P mastectomy, bilateral Family History Mother , AT AGE 64 Diabetes Heart disease Father Suicide Denies family history of Anesthesia complication Bleeding disorder Social History Smoking and tobacco status: current every day smoker (Occational cigarette, past 4 years) Second hand smoke exposure: Yes Alcohol intake: never Lives independently: Yes Household members: spouse Marital status: Current occupational status: retired History of recent travel: No Current gender identity: Female Female Reproductive History: Date of last menstrual period: 08/08/20 Physical Exam Const: COMMON NORMALS: patient oriented x3 GENERAL APPEARANCE: in distress and ill appearing HENMT: COMMON NORMALS: normocephalic and atraumatic HEAD & SCALP: normocephalic and atraumatic Eye: COMMON NORMALS: Equal, round and reactive pupils present and EOMs intact bilaterally PUPIL: Yes Equal, round and reactive pupils present Neck/C-Spine: COMMON NORMALS: full ROM and supple Chest: COMMONS NORMALS: normal inspection of the chest and normal palpation of entire chest wall Resp: COMMON NORMALS: No retractions, No use of accessory muscles and clear to auscultation bilaterally EFFORT & INSPECTION: Yes tachypneic and Yes respiratory distress AUSCULTATION: clear to auscultation bilaterally Cardio: COMMON NORMALS: regular rate, regular rhythm and No murmurs present (Cardio) RATE: regular rate RHYTHM: regular rhythm GI: COMMON NORMALS: Normal to inspection, nondistended, normoactive bowel sounds present, Soft to palpation, non-tender and no masses PALPATION: Yes Soft to palpation Extremity: COMMON NORMALS: normal to inspection and full ROM Neuro: COMMON NORMALS: patient oriented x3, moves all extremities and no focal motor deficits Psych: COMMON NORMALS: mental status grossly normal, Normal thought process present and cooperative THOUGHT PROCESS: Normal thought process present Skin: COMMON NORMALS: no rashes or lesions noted and no wounds GENERAL SKIN EXAM: no rashes or lesions noted Course Vital Signs: Vital signs: Vital Signs Pulse Rate 68 02/02/22 12:05 Respiratory Rate 19 H 02/02/22 12:05 Blood Pressure 182/116 02/02/22 12:05 Pulse Oximetry 94 02/02/22 12:05 Oxygen Delivery Me thod 02/02/22 12:05 MDM - SOB/Dyspnea Medical Decision Making Patient presents here shortness of breath likely due to pulmonary emboli. Patient has no signs of heart strain her troponin here is negative I spoke to the hospitalist will admit at this time patient given Lovenox here. Lab Data : 02/02/22 11:58 02/02/22 11:58 Labs/Radiology: Radiology Impressions Chest X-Ray 02/02/22 11:57 IMPRESSION: No acute cardiopulmonary process. Laboratory Results WBC 7.3 10^3/uL (4.0-10.0) 02/02/22 11:58 RBC 3.97 10^6/uL (4.1-5.3) L 02/02/22 11:58 Hgb 11.7 g/dL (11.5-15.3) 02/02/22 11:58 Hct 36.5 % (37.0-47.0) L 02/02/22 11:58 MCV 91.9 fl (81-99) 02/02/22 11:58 MCH 29.5 pg (28.0-34.0) 02/02/22 11:58 MCHC 32.1 g/dL (30.0-36.0) 02/02/22 11:58 RDW 14.3 % (12.1-15.1) 02/02/22 11:58 Plt Count 177 10^3/cmm (130-400) 02/02/22 11:58 MPV 11.8 fL (7.4-10.4) H 02/02/22 11:58 Neut % (Auto) 66.4 % 02/02/22 11:58 Lymph % (Auto) 22.5 % 02/02/22 11:58 Treasure % (Auto) 7.0 % 02/02/22 11:58 Eos % (Auto) 2.9 % 02/02/22 11:58 Baso % (Auto) 0.8 % 02/02/22 11:58 Neut # (Auto) 4.83 10^3/uL (1.8-7.7) 02/02/22 11:58 Lymph # (Auto) 1.6 10^3/uL (0.8-4.8) 02/02/22 11:58 [place] # (Auto) 0.5 10^3/uL (0.2-0.9) 02/02/22 11:58 Eos # (Auto) 0.2 10^3/uL (0.0-0.8) 02/02/22 11:58 Baso # (Auto) 0.1 10^3/uL (0.0-0.1) 02/02/22 11:58 Nucleated RBC % (auto) 0 % 02/02/22 11:58 Nucleated RBCs # 0.0 /100WBC 02/02/22 11:58 PT 19.40 SECONDS (12.1-14.9) H 02/02/22 11:58 INR 1.60 (0.8-1.2) H 02/02/22 11:58 D-Dimer 4.45 ug/mIFEU (0-0.59) H 02/02/22 11:58 Specimen Type Arterial 02/02/22 14:30 Sample Site Radial, left 02/02/22 14:30 ABG pH 7.41 (7.35-7.45) 02/02/22 14:30 ABG pCO2 34.0 mmHg (35-45) L 02/02/22 14:30 ABG pO2 69.1 mmHg (80.0-100.0) L 02/02/22 14:30 ABG HCO3 21.4 mmol/L (22-26) L 02/02/22 14:30 ABG Base Excess -2.8 mmol/L (-2.0-2.0) L 02/02/22 14:30 Tristen Test Pos 02/02/22 14:30 Hematocrit 33.8 % (37-47) L 02/02/22 14:30 O2 Delivery Device Nc 02/02/22 14:30 O2 Liters/Min 3.0 % 02/02/22 14:30 Ticket Broker ID Hinja 02/02/22 14:30 Sodium 137 mmol/L (136-145) 02/02/22 11:58 Potassium 4.1 mmol/L (3.5-5.1) 02/02/22 11:58 Chloride 102 mmol/L (98-107) 02/02/22 11:58 Carbon Dioxide 22 mmol/L (22-29) 02/02/22 11:58 Anion Gap 17.1 (5-19) 02/02/22 11:58 BUN 23 mg/dL (8-23) 02/02/22 11:58 Creatinine 1.6 mg/dL (0.5-0.9) H 02/02/22 11:58 GFR Calculation 32.7 mL/min (90-130) L 02/02/22 11:58 Glucose 131 mg/dL (65-115) H 02/02/22 11:58 Calculated Osmolality 289 mOsm/kg (285-295) 02/02/22 11:58 Calcium 9.4 mg/dL (8.5-10.5) 02/02/22 11:58 Total Bilirubin 0.7 mg/dL (0.15-1.2) 02/02/22 11:58 AST 103 U/L (0-32) H 02/02/22 11:58 ALT 62 U/L (0-33) H 02/02/22 11:58 Alkaline Phosphatase 128 U/L (35-105) H 02/02/22 11:58 Troponin T Baseline 20 ng/L (0-10) H 02/02/22 11:58 Troponin T 120 Minute 19.48 ng/L (0-10) H 02/02/22 13:39 Delta Troponin T -0.52 ABS# (0-10) L 02/02/22 13:39 NT-Pro-B Natriuret Pep 414 pg/mL (0-125) H 02/02/22 11:58 Total Protein 7.0 g/dL (6.6-8.7) 02/02/22 11:58 Albumin 3.6 g/dL (3.5-5.2) 02/02/22 11:58 Globulin 3.4 g/dL (1.3-4.6) 02/02/22 11:58 EKG Data EKG 1: EKG Interpretation Date: 02/02/22 EKG interpretation time: 12:16 Interpretation: nsr hr [address] or t wave abnormalities qrs 91 qtc 420 Discharge Plan Discharge Patient Disposition: Admitted As Inpatient Clinical Impression: Pulmonary embolism, Acute hypoxemic respiratory failure Condition: Stable Prescriptions: No Action (DME) bra prosthesis See Rx Instructions .Route .MEDSUPPLY Qty: 1 0RF Rx Instructions: As directed. Had double masectomy. lorazepam 1 mg tablet 0.5 - 1 mg PO TID PRN (Reason: Nausea) Qty: 90 1RF loratadine [Claritin] 10 mg tablet 10 mg PO DAILY 90 Days Qty: 90 0RF atorvastatin 40 mg tablet 40 mg PO BEDTIME Qty: 30 2RF magnesium oxide 400 mg (241.3 mg magnesium) tablet 400 mg PO DAILY Fish Oil 100-160-1,000 mg Capsule 1 cap PO DAILY Qty: 0 vitamin E 200 unit Capsule 200 unit PO DAILY Vitamin C 500 mg Tablet 250 mg PO DAILY Vitamin D3 25 mcg (1,000 unit) Tablet 25 mcg PO DAILY cyclobenzaprine 10 mg tablet 10 mg PO TID metformin 500 mg tablet 500 mg PO BID mirtazapine 15 mg tablet 15 mg PO BEDTIME valsartan 160 mg tablet 320 mg PO DAILY Eliquis 5 mg tablet 5 mg PO BID ondansetron 4 mg tablet,disintegrating 4 mg PO Q8H PRN (Reason: nausea and vomiting) Qty: 10 0RF Referrals: Nichelle Stephenson MD [Primary Care Provider] - Coding Level of Care Code ED Curriculum Advisory Teacher for Chg Fwd Exam Comprehensive
--- NOTE | 2022-02-02 12:24 | PC.NURSE ---
PT PLACED ON CONTINUOUS NIBP ,SPO2, AND CM
[2022-02-02 12:31] LABS: D Dimer 4.45 ug/mIFEU (0-0.59)
[2022-02-02 12:36] LABS: Alanine Aminotransferase 62 U/L (0-33); Albumin Level 3.6 g/dL (3.5-5.2); Alkaline Phosphatase 128 U/L (35-105); Anion Gap 17.1 (5-19); Aspartate Amino Transferase 103 U/L (0-32); Blood Urea Nitrogen 23 mg/dL (8-23); Calcium 9.4 mg/dL (8.5-10.5); Carbon Dioxide 22 mmol/L (22-29); Chloride 102 mmol/L (98-107); Globulin 3.4 g/dL (1.3-4.6); Glomerular Filtration Rate 32.7 mL/min (90-130); Glucose 131 mg/dL (65-115); NT Pro B Type Natriuretic Pept 414 pg/mL (0-125); Osmolality Calculated 289 mOsm/kg (285-295); Potassium 4.1 mmol/L (3.5-5.1); Sodium 137 mmol/L (136-145); Total Bilirubin 0.7 mg/dL (0.15-1.2)
[2022-02-02 13:05] LABS: Troponin(5th) Baseline 20 ng/L (0-10)
--- NOTE | 2022-02-02 13:44 | CT_ITS ---
WS: [id number] CTA OF THE CHEST WITH PULMONARY EMBOLISM PROTOCOL TECHNIQUE: High-resolution contrast enhanced CTA of the chest with coronal and sagittal reformatted i mages with pulmonary embolism protocol. MIP images are also reviewed. CLINICAL INFORMATION: sob COMPARISON: CT chest April 21, 2020 DLP: 303.[address] scans at [facility] use at least one of these dose optimization techniques: automated e xposure control; mA and/or kV adjustment per patient size (includes targeted exams where dose is matc hed to clinical indication); or iterative reconstruction. FINDINGS: Proximal main pulmonary arteries are normal. Small filling defects in the segmental and subsegmental pulmonary arteries bilaterally compatible with pulmonary embolus worse in the RIGHT lung. Proximal ma in pulmonary arteries are normal. No evidence of RIGHT heart strain. Chronic emphysematous changes. No acute pulmonary infiltrates. Slight atelectasis in the lung bases. Normal caliber thoracic aorta. No mediastinal or hilar lymphadenopathy. Prior postoperative changes b ilateral mastectomy. Normal GE junction. Adrenal glands are normal. Hepatomegaly. Splenomegaly. Diffuse low-attenuation change LEFT hepatic lobe better evaluated on the recent CT abdomen pelvis. RIGHT innominate and proximal subclavian stent. LEFT brachiocephalic stent. CT/CT angio chest PE protcl [id number] IMPRESSION: 1. Small RIGHT greater than LEFT acute subsegmental pulmonary emboli. 2. Proximal main pulmonary arteries are normal. 3. No evidence of RIGHT heart strain. 4. Both lungs are well aerated. 5. LEFT brachiocephalic and RIGHT innominate stents. LEFT brachiocephalic sten t appears patent. Suspected occlusion of the RIGHT innominate and proximal RIGH T subclavian stent. This can be followed up with ultrasound if indicated. Notified Nicolette Plaza MD at 02/02/2022 2:51 PM.
--- NOTE | 2022-02-02 13:57 | ECG_ITS ---
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 Measurements Intervals [place] Rate: 66 P: 13 KS: 146 QRS: 0 QRSD: 92 T: 23 QT: 406 QTc: 426 Interpretive Statements SINUS RHYTHM MODERATE VOLTAGE CRITERIA FOR LVH, CONSIDER NORMAL VARIANT [MEETS CRITERIA IN ONE OF: R(aVL), S(V1), R(V5), R(V5/V6)+S(V1)] Compared to ECG 02/02/2022 12:16:54 No significant changes Electronically Signed On 02-02-2022 18:34:59 CDT by Josiah Zazueta M.D. [id number]
[2022-02-02 14:02] LABS: Troponin 5 2HR 19.48 ng/L (0-10)
[2022-02-02] MEDS: iohexol 350 mg/mL 100 mL Btl IV (14:07)
[2022-02-02 14:08] LABS: Troponin 5 2HR Delta -0.52 ABS# (0-10)
[2022-02-02 14:36] LABS: ABG PH Result 7.41 (7.35-7.45); Arterial Blood Gas Hematocrit 33.8 % (37-47); Base Excess ABG -2.8 mmol/L (-2.0-2.0); Blood Gas Allen Test Pos; Blood Gas Sample Site Radial, left; Blood Gas Sample Type Arterial; HCO3 ABG 21.4 mmol/L (22-26); Oxygen Device NC; PO2 ABG 69.1 mmHg (80.0-100.0)
--- NOTE | 2022-02-02 14:47 | P.HP_ITS ---
Providers/Chief Complaint Primary Care Provider: Nichelle Stephenson MD Chief Complaint: LOW O2 SATS/ SOB History of Present Illness Jasmin Ortiz is a 61 year old female Medications/Allergies Home Medications Medication Instructions Recorded Confirmed Last Taken Type magnesium oxide 400 mg (241.3 mg 400 mg PO DAILY 01/15/21 02/02/22 02/02/22 History magnesium) tablet omega 3-lko-prc-fish oil 100 1 cap PO DAILY ##0 01/15/21 02/02/22 02/02/22 History mg-160 mg-1,000 mg capsule (Fish Oil) lorazepam 1 mg tablet 0.5 - 1 mg PO TID PRN Nausea #90 02/24/21 02/02/22 Unknown Rx tabs bra prosthesis #1 ea 05/28/21 02/02/22 Unknown Rx atorvastatin 40 mg tablet 40 mg PO BEDTIME #30 tabs 08/25/21 02/02/22 02/01/22 Rx loratadine 10 mg tablet (Claritin) 10 mg PO DAILY 90 days #90 tabs 10/03/21 02/02/22 02/02/22 Rx ondansetron 4 mg disintegrating 4 mg PO Q8H PRN nausea and 01/27/22 02/02/22 Unknown Rx tablet vomiting #10 tabs apixaban 5 mg tablet (Eliquis) 5 mg PO BID 02/02/22 02/02/22 02/02/22 History ascorbic acid (vitamin C) 500 mg 250 mg PO DAILY 02/02/22 02/02/22 02/02/22 History tablet (Vitamin C) cholecalciferol (vitamin D3) 25 25 mcg PO DAILY 02/02/22 02/02/22 02/02/22 History mcg (1,000 unit) tablet (Vitamin D3) cyclobenzaprine 10 mg tablet 10 mg PO TID 02/02/22 02/02/22 02/01/22 History metformin 500 mg tablet 500 mg PO BID 02/02/22 02/02/22 02/02/22 History mirtazapine 15 mg tablet 15 mg PO BEDTIME 02/02/22 02/02/22 02/01/22 History valsartan 160 mg tablet 320 mg PO DAILY 02/02/22 02/02/22 02/02/22 History vitamin E 200 unit capsule 200 unit PO DAILY 0902/02/22 02/02/22 History Allergies Allergy/AdvReac Type Severity Reaction Status Date / Time No Known Allergies Allergy Verified 02/02/22 13:07 PFSH Acute PFSH: Medical History Anxiety disorder Cancer of breast Chemotherapy induced cardiomyopathy Claudication Dyslipidemia Frequent falls History of renal stone Hx of breast cancer -R breast cancer (infiltrating carcinoma) -HER-2/lyndon 3+ positive Hypertension -d/c HCTZ, continue ARB Intracerebral hemorrhage Past intracerebral hemorrhage R parietal lobe seen on MRI brain 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 -on AC with Eliquis Mood disorder due to a general medical condition Port-A-Cath in place Type 2 diabetes mellitus -insulin dependent -last A1c-7.4 Urolithiasis Surgical History Hx of breast biopsy Hx of cystoscopy Hx of hysterectomy Hx of pelvic surgery S/P mastectomy, bilateral Family History Mother , AT AGE 64 Diabetes Heart disease Father Suicide Denies family history of Anesthesia complication Bleeding disorder Social History Smoking and tobacco status: current every day smoker (Occational cigarette, past 4 years) Second hand smoke exposure: Yes Alcohol intake: never Lives independently: Yes Household members: spouse Marital status: Current occupational status: retired History of recent travel: No Current gender identity: Female Female Reproductive History: Date of last menstrual period: 08/08/20 Vitals/I&O/Wt Last Vital Signs Pulse 68 02/02/22 12:05 Resp 19 H 02/02/22 12:05 BP 182/116 02/02/22 12:05 Pulse Ox 94 02/02/22 12:05 O2 Del Method 02/02/22 12:05 Weight last 48 hrs Weight 56.699 kg Data : 02/02/22 11:58 02/02/22 11:58 Coding Level of Care Code Acute Living Nurse for Dakota Farr
[2022-02-02] MEDS: enoxaparin 80 mg/0.8 mL Syringe 60 MG SUBCUT (14:54)
[2022-02-02] MEDS: hyDRALAzine 20 mg/mL INJ 1 mL 10 MG IVP (15:03)
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
--- NOTE | 2022-02-02 15:17 | USCV_ITS ---
Jasmin Ortiz Age: 61 Gender: F : 1960 Exam Date: 02/02/2022 16:00 Ordering Phys: Mirna Sabillon MD Technologist: Jerman Martinez Exam Location: [facility] [place] Indication: PE BP: 167 / 108 HR: 91 Rhythm: Sinus Technical Quality: Adequate MEASUREMENTS (Male / Female) Normal Values 2D ECHO LV Diastolic Diameter PLAX 3.6 cm 4.2 - 5.9 / 3.9 - 5.3 cm LV Systolic Diameter PLAX 2.2 cm IVS Diastolic Thickness 1.5 cm 0.6 - 1.0 / 0.6 - 0.9 cm IVS Systolic Thickness 1.5 cm LVPW Diastolic Thickness 1.2 cm 0.6 - 1.0 / 0.6 - 0.9 cm LVPW Systolic Thickness 1.4 cm LVOT Diameter 2.0 cm LV Ejection Fraction 2D Teich 71.7 % LV Ejection Fraction MOD 2C 78.4 % LV Ejection Fraction 2C AL 79.3 % LA Diameter 3.0 cm LA Width 2.4 cm LA Height 3.6 cm RA Width 2.7 cm RA Height 3.5 cm Aorta at Sinotubular Diameter 2.4 cm IVC Diameter 1.6 cm M-MODE Aortic Annulus Diameter 2.4 cm LA Ao Ratio MM 1.3 MV E Point Septal Separation 0.6 cm DOPPLER AV Peak Velocity 164.0 cm/s LVOT Peak Velocity 137.3 cm/s AV Area Cont Eq vti 2.4 cm squared AV Area Cont Eq pk 2.6 cm squared MV Peak Velocity 101.0 cm/s MV Area PHT 6.3 cm squared Mitral E to A Ratio 0.6 MV E' Velocity 31.5 cm/s Mitral E to MV E' Ratio 4.6 Mitral E to LV E' Lateral Ratio 4.2 Mitral E to LV E' Septal Ratio 5.2 TR Peak Velocity 429.0 cm/s TR Peak Gradient 73.6 mmHg TR Mean Velocity 285.6 cm/s TR Mean Gradient 35.0 mmHg TR Velocity Time Integral 71.1 cm Right Atrial Pressure 3.0 mmHg Pulmonary Artery Systolic Pressu 76.6 mmHg PV Peak Velocity 96.8 cm/s RV Acceleration Time 0.1 s RV Ejection Time 0.3 s RV AcT/ET 0.4 FINDINGS Left Ventricle Normal left ventricular size and systolic function, EF 80 %. Mild to moderate concentric left ventricular hypertrophy. Grade I/IV diastolic dysfunction (abnormal relaxation filling pattern), normal to mildly elevated filling pressures. Right Ventricle Normal right ventricular size and systolic function. Right Atrium The right atrium is normal in size. Left Atrium The left atrium is normal in size. Mitral Valve Structurally normal mitral valve without significant stenosis or prolapse. There is no mitral regurgitation. Aortic Valve Thickened aortic valve. Tricuspid Valve Moderate tricuspid valve regurgitation. Estimated pulmonary artery peak systolic pressure 77 mmHg Pulmonic Valve Mild pulmonary valve regurgitation. Pericardium No pericardial effusion. Aorta Normal ascending aorta dimension. IVC The inferior vena cava appears normal. CONCLUSIONS Normal left ventricular size and systolic function, EF 80 %. Mild to moderate concentric left ventricular hypertrophy. Grade I/IV diastolic dysfunction (abnormal relaxation filling pattern), normal to mildly elevated filling pressures. Moderate tricuspid valve regurgitation. Severe pulmonary hypertension with an estimated pulmonary artery peak systolic pressure of 77 mmHg. Normal RV size and ejection fraction. Normal right atrial size Estimated right atrial pressure of 3 mmHg. Mild pulmonary valve regurgitation. There is no pericardial effusion. There are no intracardiac masses. Compared to the study from 05/06/2021, the pulmonary hypertension appears to be new Dr Evaristo Castillo MD [facility] (Electronically Signed) Final Date: 03 February 2022 00:07 S
--- NOTE | 2022-02-02 15:18 | USR_ITS ---
PROCEDURE INFORMATION: Exam: US Duplex Lower Extremity Veins, Bilateral Exam date and time: 02/02/2022 5:22 PM Age: 61 years old Clinical indication: Condition or disease; Other: Pe; Additional info: R/O dvt TECHNIQUE: Imaging protocol: Real-time Duplex ultrasound of the bilateral extremities with 2-D hastings scale, color Doppler flow and spectral waveform analysis with image documentation. Complete exam focused on the bilateral lower extremity veins. COMPARISON: CT abdomen pelvis w con* [id number] 01/27/2022 7:02 PM FINDINGS: Right deep veins: Unremarkable. The common femoral, femoral, proximal profunda femoral, popliteal, posterior tibial and peroneal veins are patent without thrombus. Normal Doppler waveforms. Normal compressibility and/or augmentation response. Right superficial veins: Saphenofemoral junction is patent without thrombus. Left deep veins: Unremarkable. The common femoral, femoral, proximal profunda femoral, popliteal, posterior tibial and peroneal veins are patent without thrombus. Normal Doppler waveforms. Normal compressibility and/or augmentation response. Left superficial veins: Saphenofemoral junction is patent without thrombus. Soft tissues: Unremarkable. US/CV venous duplex [facility] [id number] IMPRESSION: No sonographic evidence of deep vein thrombosis.
[2022-02-02] MEDS: pantoprazole 40 mg SDV IVP (15:32)
[2022-02-02] MEDS: sodium chloride 0.9% 1,000 ML 75 ML IV (15:32)
[2022-02-02 16:05] LABS: Thyroid Stimulating Hormone 7.31 uIU/mL (0.27-4.20)
[2022-02-02 17:26] LABS: Glucose Point of Care 190 mg/dL (70-110)
[2022-02-02] MEDS: FUROsemide 20 mg Tablet PO (18:02)
[2022-02-02] MEDS: amlodipine 10 mg Tablet PO (18:02)
[2022-02-02] MEDS: ondansetron 2 mg/ML SDV 2 mL 4 MG IVP (18:03)
[2022-02-02 18:44] LABS: Troponin 5 6HR 17.61 ng/L (0-10)
[2022-02-02 18:50] LABS: Troponin 5 6HR Delta -2.39 ng/L (0-12)
[2022-02-02] MEDS: hyDRALAzine 25 mg Tablet PO (21:06)
[2022-02-03] VITALS (10 sets, daily range): BP systolic 115–143; BP diastolic 74–88; PULSE 50–88; RESP 15–17; TEMP 36.6–37; O2SAT 90–96
[2022-02-03] MEDS: acetaminophen 325 mg Tablet 650 MG PO ×3 (00:20→21:03)
[2022-02-03 05:02] LABS: Basophils % 0.6 %; Eosinophils # 0.2 10^3/uL (0.0-0.8); Eosinophils % 3.4 %; Hematocrit 34.2 % (37.0-47.0); Hemoglobin 10.8 g/dL (11.5-15.3); Lymphocytes # 1.5 10^3/uL (0.8-4.8); Lymphocytes % 22.7 %; Mean Corpuscular HGB Conc 31.6 g/dL (30.0-36.0); Mean Corpuscular Hemoglobin 29.8 pg (28.0-34.0); Mean Corpuscular Volume 94.2 fl (81-99); Monocytes # 0.4 10^3/uL (0.2-0.9); Monocytes % 6.5 %; Neutrophils # 4.28 10^3/uL (1.8-7.7); Neutrophils % 66.5 %; Nucleated Red Blood Cells % 0 %; Platelet Count 154 10^3/cmm (130-400); Red Blood Count 3.63 10^6/uL (4.1-5.3); Red Cell Distribution Width 14.2 % (12.1-15.1); White Blood Count 6.4 10^3/uL (4.0-10.0)
[2022-02-03 05:35] LABS: Alanine Aminotransferase 57 U/L (0-33); Albumin Level 3.5 g/dL (3.5-5.2); Alkaline Phosphatase 120 U/L (35-105); Anion Gap 17.6 (5-19); Aspartate Amino Transferase 95 U/L (0-32); Blood Urea Nitrogen 19 mg/dL (8-23); Calcium 9.6 mg/dL (8.5-10.5); Carbon Dioxide 21 mmol/L (22-29); Chloride 101 mmol/L (98-107); Globulin 2.9 g/dL (1.3-4.6); Glomerular Filtration Rate 35.2 mL/min (90-130); Glucose 137 mg/dL (65-115); Magnesium 1.6 mg/dL (1.7-2.3); Osmolality Calculated 286 mOsm/kg (285-295); Potassium 3.6 mmol/L (3.5-5.1); Sodium 136 mmol/L (136-145); Total Bilirubin 0.6 mg/dL (0.15-1.2); Total Protein 6.4 g/dL (6.6-8.7)
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
[2022-02-03] MEDS: amlodipine 10 mg Tablet PO (08:03)
[2022-02-03] MEDS: hyDRALAzine 25 mg Tablet PO ×3 (08:03→21:04)
[2022-02-03] MEDS: sennosides-docusate Tablet 1 TAB PO (08:04)
[2022-02-03] MEDS: FUROsemide 20 mg Tablet PO (08:04)
[2022-02-03] MEDS: enoxaparin 60 mg/0.6 mL Syringe SUBCUT (14:31)
[2022-02-03] MEDS: pantoprazole 40 mg SDV IVP (14:31)
[2022-02-03] MEDS: HYDROcodone-acetaminophen 5-325 mg Tablet 1 TAB PO (14:35)
--- NOTE | 2022-02-03 17:48 | PC.NURSE ---
Patient using IS at bedside, education and encouragement given, pt denies needs at this time, denies pain, pt pleasant.
--- NOTE | 2022-02-03 19:30 | PC.NURSE ---
On 02/02/[address] Ybarra over [facility]. Pt was asking for food and when I looked at diet she had clear liquids. I ask if she could have food and his reply was no clear liquids.
[2022-02-03] MEDS: ondansetron 2 mg/ML SDV 2 mL 4 MG IVP (21:01)
[2022-02-03] MEDS: hyDROXYzine 25 mg Capsule PO (21:40)
[2022-02-04] VITALS (42 sets, daily range): BP systolic 121–139; BP diastolic 76–87; PULSE 50–106; RESP 0–26; TEMP 36.8–36.9; O2SAT 66–98
[2022-02-04 04:42] LABS: Basophils % 0.7 %; Eosinophils # 0.3 10^3/uL (0.0-0.8); Eosinophils % 5.7 %; Hematocrit 33.9 % (37.0-47.0); Hemoglobin 10.3 g/dL (11.5-15.3); Lymphocytes # 1.4 10^3/uL (0.8-4.8); Lymphocytes % 24.6 %; Mean Corpuscular HGB Conc 30.4 g/dL (30.0-36.0); Mean Corpuscular Hemoglobin 28.9 pg (28.0-34.0); Mean Corpuscular Volume 95.2 fl (81-99); Mean Platelet Volume 12.3 fL (7.4-10.4); Monocytes # 0.4 10^3/uL (0.2-0.9); Monocytes % 7.1 %; Neutrophils # 3.46 10^3/uL (1.8-7.7); Neutrophils % 61.5 %; Nucleated Red Blood Cells % 0 %; Platelet Count 146 10^3/cmm (130-400); Red Blood Count 3.56 10^6/uL (4.1-5.3); Red Cell Distribution Width 14.2 % (12.1-15.1); White Blood Count 5.6 10^3/uL (4.0-10.0)
[2022-02-04 05:06] LABS: Anion Gap 15.6 (5-19); Blood Urea Nitrogen 23 mg/dL (8-23); Calcium 9.1 mg/dL (8.5-10.5); Carbon Dioxide 22 mmol/L (22-29); Chloride 107 mmol/L (98-107); Glomerular Filtration Rate 32.7 mL/min (90-130); Glucose 152 mg/dL (65-115); Osmolality Calculated 299 mOsm/kg (285-295); Potassium 3.6 mmol/L (3.5-5.1); Sodium 141 mmol/L (136-145)
--- NOTE | 2022-02-04 05:36 | PC.NURSE ---
Pt in bed asleep, pt had requested a medication to help her rest, I ask the oncall doctor for something and it was given per JUL. Bed is low and locked, call light in reach
[2022-02-04] MEDS: sennosides-docusate Tablet 1 TAB PO (08:34)
[2022-02-04] MEDS: FUROsemide 20 mg Tablet PO (08:34)
[2022-02-04] MEDS: amlodipine 10 mg Tablet PO (08:34)
[2022-02-04] MEDS: hyDRALAzine 25 mg Tablet PO ×3 (08:35→21:22)
--- NOTE | 2022-02-04 10:46 | US_ITS ---
WS: [id number] RENAL ULTRASOUND HISTORY: ckd COMPARISON: 01/27/2022 TECHNIQUE: 2-D and color Doppler imaging of the kidney submitted. Right kidney: 10.2 cm x 5.5 cm x 5.1 cm. Normal size kidney. There is very small amount of fluid in the renal pelvis indicating a mild hydrone phrosis. This mild dilatation of the renal pelvis was also described on the CT of 01/27/2022. No progr ession is evident. No stone was identified within the ureter. No solid renal mass. Left kidney: 10.2 cm x 5.8 cm x 4.5 cm. Normal echogenicity with no hydronephrosis or mass. Aorta: Normal. Urinary Bladder: Normal distention. US/US renal BI* [id number] IMPRESSION: 1. Very minimal splitting of the RIGHT renal pelvis consistent with a very mil d hydronephrosis. This was also seen on the prior CT of 01/27/2022. No obstructi ng stone was identified. 2. LEFT kidney is negative.
[2022-02-04 11:21] LABS: Iron 34 ug/dL (37-145); Percent Saturation 13.6 % (20-50); Total Iron Binding Capacity 249 mcg/dl; Unsaturated Iron Binding 215 ug/dL (112-347)
[2022-02-04 11:27] LABS: Free T4 Free Thyroxine 1.15 ng/dL (0.82-1.77); T3 Free 2.1 PG/ML (2.0-4.4)
[2022-02-04] MEDS: magnesium hydroxide 30 mL UDC PO (13:21)
[2022-02-04] MEDS: docusate sodium 100 mg Capsule PO ×2 (13:21→21:22)
--- NOTE | 2022-02-04 13:50 | PC.CHAP ---
Pastoral Care Encounter/Spiritual Assessment Type of Contact [] Declined meter reading clerk visit [] Patient/Family/Request visit [] Outpatient visit [] Follow-up visit [] Physician referral [] Code/Alert [x] Routine visit [] Staff referral [] Actively dying [] Patient sleeping [] Family support [] [] Out of room [] Palliative care [] [] Receiving care in room [] Pre-surgical visit [] Trauma [] Long length of stay [] ICU visit [] Other: Relational/Emotional Strength x] Patient feels connected with others/family/visitors/staff [] Distress [] Loneliness/isolation [] Abandonment Spirituality of Patient x [x] Person of Alicia [] Attends Anabaptist of their Alicia [x] Believes in Prayer [x] Reads Bible or Restorationist materials [] There are Spiritual issues to be addressed Steam Cleaner Interventions [x] Prayer []x Active listening [x] Non-anxious presence [x] Spiritual/emotional support [] Crisis/trauma care [] Spiritual counseling [] Bereavement support [] Provided bereavement packet [] Provided Bible/devotional materials [] Provided toy/stuffed animal, coloring book to patient or family member [] Provided Communion [] Anointing/Breese [] Salvation x[x]x Completed spiritual assessment [] Other: Impact on Illness or Injury [] Angry [] Fearful [] Anxious [] Often cries [] Exhaustion [] Unable to work [] Unable to attend adventist [] Unable to walk/stand [] Unable to read [] Unable to drive [] Unable to eat/drink [] Unable to sleep [] Unable to be with family [] Patient intubated [] Other: Summary Time spent with patient 10 min
--- NOTE | 2022-02-04 15:17 | PM.PN ---
Subjective Subjective: Hospital course, labs appreciated on examination patient on 3 L saturating 97%. Patient just came back to bedside commode. States on coming back from commode she is feeling extremely short of breath. Patient mildly tachypneic on examination. Otherwise has remained hemodynamically stable and afebrile. Denies any nausea, vomiting, headache, chest pain. Vitals/I&O/Wt Last Vital Signs Temp 98.3 F 02/04/22 11:11 Pulse 92 02/04/22 11:11 Resp 18 02/04/22 11:11 BP 123/79 02/04/22 11:11 Pulse Ox 97 02/04/22 11:11 O2 Del Method 02/04/22 11:11 O2 Flow Rate 4 02/04/22 11:11 02/04/22 02/04/22 02/04/22 06:59 14:59 22:59 Intake Total 120 / 120 Balance 120 / 120 Physical Exam Narrative: Pleasant cooperative female, patient very tearful this morning. She is also swearing, screaming and quite upset Currently looks euvolemic Currently on 4 L nasal cannula No acute shortness of breath or chest pain Abdomen soft S1, S2 no murmur appreciated, variable heart rhythm Nonfocal neuro exam EOMI, PERRLA No signs of edema of legs No signs of cellulitis Data : 02/04/22 04:06 02/04/22 04:06 A&P Assessment and plan (1) Pulmonary embolism: Status: Acute (2) Acute hypoxemic respiratory failure: Status: Acute (3) Chest pain: Status: Acute (4) Nausea & vomiting: Status: Inactive Qualifiers: Vomiting type: unspecified Qualified Code(s): R11.2 - Nausea with vomiting, unspecified Plan Bilateral pulmonary embolism -Symptomatic PE Echocardiogram done shows grade 1 diastolic dysfunction, LVH, EF 80 % with severe pulmonary hypertension, moderate TR.-No signs of right heart strain or hypertension She was taking Eliquis at home. As per the patient dose was recently decreased to 5 mg daily as per oncology within last 1 month. Doubt Eliquis failure given this information. For now continue with Lovenox 1 mg/kg body weight daily as per creatinine clearance. We will switch to Xarelto after given 10 days of Lovenox. Hypoxia: Most likely secondary to pulmonary embolism along with mild CHF. Keep saturation over 88%. Check procalcitonin, proBNP, chest x-ray. Continued oral Lasix. Give 20 mg IV Lasix one-time dose. Strict input output charting. Mild CHF preserved action fraction heart failure exacerbation Abnormal transaminases are chronic, etiology is unclear PET scan from [address] negative for [address] Consider CT scan of abdomen pelvis to rule out hepatic mets #Acute on chronic kidney disease Medical reconciliation for nephrotoxic drugs. Could be secondary cardiorenal syndrome. Hold off on valsartan. IV Lasix as above. Monitor BMP daily for now. Hypertension: Goal blood pressure less than 140/90 mmHg. Holding off on valsartan given DEBORAH. Continue with amlodipine and hydralazine. Elevated TSH more than 7. Check free T3, free T4. DNR/DNI Cardiac diet DVT prophylaxis currently on therapeutic once a day regimen of Lovenox Protonix for PUD prophylaxis Attestations Medical Necessity Statement*: Requires further hospitalization for management of hypoxia secondary bilateral pulmonary embolism Time Spent in Patient Care: Greater than 35 minutes Coding Level of Care Code Acute Strategic Partnership Specialist for [facility] Diagnoses Pulmonary embolism I26.99 Acute hypoxemic respiratory failure J96.01 Chest pain R07.9 Nausea & vomiting R11.2 Vomiting type: unspecified
--- NOTE | 2022-02-04 15:20 | XR_ITS ---
WS: [id number] Portable AP upright chest, 02/04/2022 Clinical Data: sob Comparison: Portable chest, 02/02/2022 Findings: No nodules, masses or effusions are seen. The heart is normal. The pulmonary vascularity is not increased. No pneumonia or pneumothorax is seen. There are vascular stents, one on the right fro m the subclavian vein to the superior vena cava and the other on the left from the brachiocephalic ve in to the vena cava. The aortic arch and descending thoracic aorta show tortuosity. Monitor leads are on the chest wall. XR/XR chest 1V portable [id number] Impression: Negative for acute cardiopulmonary disease.
[2022-02-04 16:07] LABS: Potassium, Radom Urine 24 mmol/L; Urine Creatinine 47 mg/dL (28-217); Urine Random Chloride 116 mmol/L; Urine Random Sodium 110 mmol/L
[2022-02-04] MEDS: enoxaparin 60 mg/0.6 mL Syringe SUBCUT (16:33)
[2022-02-04] MEDS: pantoprazole 40 mg SDV IVP (16:33)
[2022-02-04] MEDS: FUROsemide 10 mg/mL SDV 2mL 20 MG IVP (16:33)
[2022-02-04 17:18] LABS: Eosinophil Urine No Eosinophils Seen; Urine Eosinophil Count 0 (0-0)
[2022-02-04 17:32] LABS: NT Pro B Type Natriuretic Pept 297 pg/mL (0-125); Procalcitonin 0.55 ng/mL (0-0.5)
[2022-02-05] VITALS (89 sets, daily range): BP systolic 85–156; BP diastolic 58–108; PULSE 55–160; RESP 2–36; TEMP 36.4–36.6; O2SAT 82–99
--- NOTE | 2022-02-05 02:55 | ECG_ITS ---
[facility] Test Date: 2022-02-05 Pat Name: Jasmin Ortiz Department: Room: ICU11 Gender: Female Supervisor Offset Plate Preparation: : 1960 Requested By: Adam Ybarra Order Number: [id number] Janice MD: Evaristo Castillo M.D. Measurements Intervals [place] Rate: 155 P: MS: QRS: 29 QRSD: 91 T: -61 QT: 227 QTc: 365 Interpretive Statements SUPRAVENTRICULAR TACHYCARDIA MARKED ST DEPRESSION, CONSIDER SUBENDOCARDIAL INJURY [0.2+ mV ST DEPRESSION] ACUTE CO INTERPRETATION BASED ON A DEFAULT AGE OF 40 YEARS Compared to ECG 02/02/2022 13:31:45 ST (T wave) deviation now present Sinus rhythm no longer present Electronically Signed On 02-05-2022 20:42:01 CDT by Evaristo Castillo M.D. [id number]
[2022-02-05] MEDS: adenosine 3 mg/mL SDV 2mL 6 MG IVP (03:00)
--- NOTE | 2022-02-05 03:03 | XRR_ITS ---
PROCEDURE INFORMATION: Exam: XR Chest Exam date and time: 02/05/2022 3:16 AM Age: 61 years old Clinical indication: Shortness of breath; Prior surgery; Surgery type: Double mastectomy. Upper thoracic vascular stents. Double mastectomy. Patient HX: SOB. Sudden onset of svt. History of breast cancer. TECHNIQUE: Imaging protocol: Radiologic exam of the chest. Views: 1 view. COMPARISON: CR XR chest 1V portable [id number] 02/04/2022 3:32 PM FINDINGS: Lungs: There are small lung volumes with mild perihilar interstitial opacities, suggestive of pulmonary vascular congestion. No confluent airspace opacities in the lungs. Pleural spaces: No pleural effusions or pneumothorax. Heart/Mediastinum: The heart size is normal. There is an unchanged mildly tortuous thoracic aorta. The trachea is midline. Unchanged brachiocephalic and right subclavian vascular stents are seen. Bones/joints: No acute osseous abnormalities seen. Soft tissues: Multiple external densities are seen overlying the chest, limiting assessment. XR/XR chest 1V portable [id number] IMPRESSION: Small lung volumes with mild perihilar interstitial opacities, suggestive of pulmonary vascular congestion.
--- NOTE | 2022-02-05 03:07 | PM.CCNAC ---
Critical Care Event Note The high probability of a clinically significant, sudden or life threatening deterioration of the patient's [] system(s) required my full and direct attention, intervention and personal management. The critical care time is as shown. This time is in addition to time spent performing any reported procedures but includes the following: [x] Data and vital sign review and interpretation [x] Patient assessment, examination and intervention [x] Documentation [x] Medication orders and management Critical Care Time Code activated: No Critical Care Time (min): 25 Additional information about critical care time: Response was called, patient was found without her oxygen cannula on, in the room, she was tachypneic, placed on her 4 L, O2 sats in the low 80s, patient on 15 L nonrebreather, still tachypneic breathing 20-30 times a minute, heart rates in the 150s, no chest pain, complaining of shortness of breath, she was alert oriented x3, following all commands, no chest pain complaints, no lightheadedness, dizziness, just complaining of shortness of breath, EKG was performed, showed ST depressions in lateral leads, with evidence of SVT, she denies a history of CVA, carotid massage and ice packs did not improve heart rates, still in the 160s, SVT, she was given 6 mg of adenosine, heart rates improved to the low 100s, repeat EKG shows sinus tachycardia with a heart rates in the 100s, she is alert oriented x3, following all commands, ABG shows mild hypercarbia, she is alkalotic, elevated PO2, I have advised nursing staff to move patient down to ICU for closer monitoring, repeat blood work, chest x-ray, titrate oxygen down, cardiac monitoring, troponin series. Coding Level of Care Code Acute Pulmonologist Intensivist for [facility]
[2022-02-05 03:12] LABS: Glucose Point of Care 267 mg/dL (70-110)
[2022-02-05 03:29] LABS: Basophils % 0.3 %; Eosinophils # 0.1 10^3/uL (0.0-0.8); Eosinophils % 0.8 %; Hematocrit 35.7 % (37.0-47.0); Hemoglobin 11.7 g/dL (11.5-15.3); Lymphocytes # 1.1 10^3/uL (0.8-4.8); Lymphocytes % 11.6 %; Mean Corpuscular HGB Conc 32.8 g/dL (30.0-36.0); Mean Corpuscular Hemoglobin 29.5 pg (28.0-34.0); Mean Corpuscular Volume 90.2 fl (81-99); Mean Platelet Volume 12.5 fL (7.4-10.4); Monocytes # 0.6 10^3/uL (0.2-0.9); Monocytes % 5.9 %; Neutrophils # 7.71 10^3/uL (1.8-7.7); Nucleated Red Blood Cells % 0 %; Platelet Count 176 10^3/cmm (130-400); Red Blood Count 3.96 10^6/uL (4.1-5.3); Red Cell Distribution Width 14.3 % (12.1-15.1); White Blood Count 9.5 10^3/uL (4.0-10.0)
[2022-02-05 03:36] LABS: Alanine Aminotransferase 69 U/L (0-33); Albumin Level 3.3 g/dL (3.5-5.2); Alkaline Phosphatase 134 U/L (35-105); Anion Gap 18.1 (5-19); Aspartate Amino Transferase 107 U/L (0-32); Blood Urea Nitrogen 24 mg/dL (8-23); Calcium 8.9 mg/dL (8.5-10.5); Carbon Dioxide 21 mmol/L (22-29); Chloride 100 mmol/L (98-107); Globulin 3.4 g/dL (1.3-4.6); Glomerular Filtration Rate 35.2 mL/min (90-130); Glucose 222 mg/dL (65-115); Osmolality Calculated 293 mOsm/kg (285-295); Potassium 3.1 mmol/L (3.5-5.1); Sodium 136 mmol/L (136-145); Total Bilirubin 0.8 mg/dL (0.15-1.2); Total Protein 6.7 g/dL (6.6-8.7)
--- NOTE | 2022-02-05 03:39 | PC.NURSE ---
Patient had telemetry wires pulled off. Nurse went in to place them back on. Patient was found to have oxygen pulled off as well. Patient stated she was short of breath and felt like her heart was going to pound out of her chest. Oxygen saturation 78 percent and heart rate 160 ST. Placed patietn back on oxygen of 4 L NC and saturation did not come up. Rapid response called at 0253. Patient placed on 15 liter oxymask. Patient's oxygen saturation up to 98 percent. Patient placed on zoll monitor. Dr. Ybarra at bedside giving verbal orders: ABG, EKG, labs. Dr. Ybarra tried ice pack on patient. Heart rate still 160. Adenosine 6 given from crash cart at 0300. Another EKG taken. Patient's heart rate 106. Patient transferred to ICU. Attempt to contact .
[2022-02-05 03:42] LABS: ABG PCO2 30.2 mmHg (35-45); ABG PH Result 7.47 (7.35-7.45); Base Excess ABG -1.1 mmol/L (-2.0-2.0); HCO3 ABG 21.8 mmol/L (22-26); Oxygen Saturation ABG 99.5
[2022-02-05 03:43] LABS: Potassium Level - ABG 3.1 mmol/L (3.5-5.0)
[2022-02-05 03:44] LABS: Arterial Blood Gas Hematocrit 39.2 % (37-47); Carboxyhemoglobin 1.3 %THgb (0.4-20.1); HGB O2 Sat 97.4 % (95-100); Ionized Calcium Level - ABG 1.1 mmol/L (1.1-1.4); Total Hemoglobin 12.8 g/dL (12-16)
[2022-02-05 03:45] LABS: Methemoglobin 0.9 % (0.4-1.5)
[2022-02-05 03:47] LABS: Alanine Aminotransferase 69 U/L (0-33); Albumin Level 3.4 g/dL (3.5-5.2); Alkaline Phosphatase 131 U/L (35-105); Anion Gap 19.2 (5-19); Aspartate Amino Transferase 107 U/L (0-32); Blood Urea Nitrogen 24 mg/dL (8-23); Calcium 8.8 mg/dL (8.5-10.5); Carbon Dioxide 20 mmol/L (22-29); Chloride 101 mmol/L (98-107); Chol HDL Ratio 4.06 mg/dL (0.0-4.40); Cholesterol 130 mg/dL (0-200); Free T4 Free Thyroxine 1.14 ng/dL (0.82-1.77); Globulin 3.2 g/dL (1.3-4.6); Glomerular Filtration Rate 35.2 mL/min (90-130); Glucose 215 mg/dL (65-115); HDL Cholesterol 32 mg/dL (60-100); LDL Cholesterol Calculated 59 mg/dL (50-129); Magnesium 1.5 mg/dL (1.7-2.3); NT Pro B Type Natriuretic Pept 753 pg/mL (0-125); Osmolality Calculated 295 mOsm/kg (285-295); Phosphorus 2.4 mg/dL (2.5-4.5); Potassium 3.2 mmol/L (3.5-5.1); Sodium 137 mmol/L (136-145); Thyroid Stimulating Hormone 4.54 uIU/mL (0.27-4.20); Total Bilirubin 0.8 mg/dL (0.15-1.2); Total Protein 6.6 g/dL (6.6-8.7); Triglycerides 195 mg/dL (0-150); VLDL Cholestrol Calculation 39 mg/dL (0-30)
[2022-02-05 03:50] LABS: Troponin(5th) Baseline 24 ng/L (0-10)
--- NOTE | 2022-02-05 03:53 | PC.NURSE ---
Patient settled in room. vitals obtained,assessment preformed. During assessment after receiving patient from rapid response patient showing guarding and verbalized pain in RUQ of ABD and tenderness in LLQ of ABD. MD Amada called to report findings @ [phone]
--- NOTE | 2022-02-05 04:17 | ECG_ITS ---
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 Measurements Intervals [place] Rate: 101 P: 57 CO: 136 QRS: -3 QRSD: 81 T: 9 QT: 361 QTc: 469 Interpretive Statements SINUS TACHYCARDIA LEFT VENTRICULAR HYPERTROPHY AND ST-T CHANGE [VOLTAGE CRITERIA PLUS ST/T ABNORMALITY] Compared to ECG 02/05/2022 02:55:15 Left ventricular hypertrophy now present Supraventricular tachycardia no longer present ST (T wave) deviation still present Electronically Signed On 02-05-2022 20:42:13 CDT by Evaristo Castillo M.D. [email or web address] [email or web address] [email or web address].[employer]/[id number]
[2022-02-05] MEDS: morphine 4 mg/mL SDV 1 mL 1 MG IVP ×2 (04:32→05:36)
[2022-02-05] MEDS: lidocaine 1% 5 ML in potassium chloride premix 100 ML 25 ML IV (04:43)
[2022-02-05] MEDS: FUROsemide 10 mg/mL SDV 4mL 40 MG IVP ×2 (04:44→08:38)
[2022-02-05] MEDS: magnesium sulfate premix 4 GM/100 ML PREMIX IV (04:46)
[2022-02-05 06:08] LABS: Troponin 5 2HR 58.32 ng/L (0-10)
[2022-02-05] MEDS: ondansetron 2 mg/ML SDV 2 mL 4 MG IVP (06:25)
[2022-02-05 06:31] LABS: Troponin 5 2HR Delta 34.32 ABS# (0-10)
[2022-02-05 07:35] LABS: Glucose Point of Care 198 mg/dL (70-110)
[2022-02-05] MEDS: FUROsemide 20 mg Tablet PO (08:12)
[2022-02-05] MEDS: hyDRALAzine 25 mg Tablet PO (08:12)
[2022-02-05] MEDS: amlodipine 10 mg Tablet PO (08:12)
[2022-02-05] MEDS: aspirin 81 mg EC Tablet PO (08:12)
--- NOTE | 2022-02-05 08:32 | CT_ITS ---
WS: [id number] CT CHEST, ABDOMEN, AND PELVIS TECHNIQUE: Noncontrast CT of the chest, abdomen, and pelvis with coronal and sagittal reformatted susan ges. CLINICAL INFORMATION: sob COMPARISON: None. DLP: 558.[address] scans at [facility] use at least one of these dose optimization techniques: automated e xposure control; mA and/or kV adjustment per patient size (includes targeted exams where dose is matc hed to clinical indication); or iterative reconstruction. CT CHEST: Chronic emphysematous changes. Slight suggestion of tree-in-bud opacities in the RIGHT middle lobe an d both lower lobes likely inflammatory. No focal pneumonia or pleural fluid. Slight atelectasis in th e lung bases. Normal caliber thoracic aorta. No mediastinal or hilar lymphadenopathy. Prior postopera tive changes bilateral mastectomy. Normal GE junction. Adrenal glands are normal. RIGHT innominate an d proximal subclavian stent. LEFT brachiocephalic stent. 5 mm noncalcified nodule RIGHT upper lobe. CT ABDOMEN AND PELVIS: Hepatomegaly. Splenomegaly. Diffuse low-attenuation change LEFT hepatic lobe better evaluated on the recent contrast-enhanced CT abdomen pelvis. Noncontrast pancreas appears normal. Vicarious excretion of contrast in the gallbladder. Adrenal glan ds are normal. Bilateral renal cortical atrophy. No hydronephrosis in either kidney. No obstructing r enal or ureteral calculi. Stone catheter. Normal caliber abdominal aorta. Dense sigmoid constipation. A few diverticuli. No evidence of acute diverticulitis. No high-grade small or large bowel obstructi on. Fecal retention in the RIGHT colon and cecum. Chronic compression deformity L4 vertebral body. CT/[place] [id number] IMPRESSION: 1. Slight suggestion of tree-in-bud opacities in the RIGHT middle lobe and bot h lower lobes likely inflammatory. No focal pneumonia or pleural fluid. 2. 5 mm noncalcified nodule RIGHT upper lobe. Recommend [address] follo w-up. 3. No mediastinal or hilar lymphadenopathy. 4. Hepatomegaly and mild splenomegaly. Diffuse low-attenuation in the LEFT hep atic lobe better evaluated on the prior contrast-enhanced CT abdomen pelvis. 5. Constipation within the RIGHT colon, cecum, and sigmoid colon. 6. Stone catheter. No hydronephrosis. 7. No acute findings in the abdomen or pelvis.
[2022-02-05] MEDS: metoprolol tartrate 25 mg Tablet PO ×2 (08:38→21:23)
[2022-02-05 09:57] LABS: Troponin 5 6HR 100.7 ng/L (0-10); Troponin 5 6HR Delta 76.7 ng/L (0-12)
--- NOTE | 2022-02-05 10:35 | ECG_ITS ---
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 Measurements Intervals [place] Rate: 57 P: 8 VT: 160 QRS: 26 QRSD: 84 T: -22 QT: 462 QTc: 451 Interpretive Statements SINUS BRADYCARDIA NONSPECIFIC T-WAVE ABNORMALITY Compared to ECG 02/05/2022 04:17:36 T-wave abnormality now present Sinus tachycardia no longer present Left ventricular hypertrophy no longer present ST (T wave) deviation no longer present Electronically Signed On 02-05-2022 20:49:52 CDT by Evaristo Castillo M.D. [email or web address].[id number]
[2022-02-05] MEDS: LORazepam 1 mg Tablet PO (10:41)
[2022-02-05] MEDS: heparin 5,000 unit/mL INJ 1 mL IV (11:33)
[2022-02-05] MEDS: heparin drip 25,000 UNIT/500 ML PREMIX 16 UNIT IV (11:34)
--- NOTE | 2022-02-05 13:22 | USCV_ITS ---
Jasmin Ortiz Age: 61 Gender: F : 1960 Exam Date: 02/05/2022 14:24 Ordering Phys: Geovanny Vance MD Technologist: Óscar Chin [place] [facility] [place]: Evaluation of right ventricle BP: 103 / 68 HR: 69 Rhythm: Sinus Technical Quality: Adequate MEASUREMENTS (Male / Female) Normal Values 2D ECHO LV Diastolic Diameter PLAX 3.0 cm 4.2 - 5.9 / 3.9 - 5.3 cm LV Systolic Diameter PLAX 1.8 cm IVS Diastolic Thickness 1.4 cm 0.6 - 1.0 / 0.6 - 0.9 cm IVS Systolic Thickness 1.5 cm LVPW Diastolic Thickness 1.3 cm 0.6 - 1.0 / 0.6 - 0.9 cm LVPW Systolic Thickness 1.6 cm LVOT Diameter 2.2 cm LV Ejection Fraction 2D Teich 74.0 % LV Ejection Fraction MOD 2C 66.8 % LV Ejection Fraction 2C AL 67.4 % LA Diameter 3.1 cm IVC Diameter 1.5 cm M-MODE Aortic Annulus Diameter 3.1 cm LA Ao Ratio MM 1.2 MV E Point Septal Separation 0.5 cm DOPPLER TR Peak Velocity 321.3 cm/s TR Peak Gradient 41.3 mmHg TV Peak E Velocity 93.0 cm/s Right Atrial Pressure 3.0 mmHg Pulmonary Artery Systolic Pressu 44.3 mmHg RV Acceleration Time 0.1 s FINDINGS Left Ventricle Normal left ventricular cavity size and systolic function. Moderately increased left ventricle wall thickness. Moderate concentric left ventricle systolic function. Left ventricular ejection fraction is estimated at 60 %. No regional wall motion abnormalities. Right Ventricle Probably upper normal right ventricular size and mildly to moderately decreased systolic function. Right ventricular systolic pressure 49 mmHg. Right Atrium Normal right atrial size. Left Atrium Normal left atrial size. Mitral Valve Mildly thickened mitral valve. Aortic Valve Structurally normal trileaflet aortic valve. Tricuspid Valve Structurally normal tricuspid valve. Trace to mild tricuspid valve regurgitation. Pulmonic Valve Structurally normal pulmonic valve. No pulmonary valve stenosis. Trace pulmonary valve regurgitation. Pericardium No pericardial effusion. Aorta Normal size aortic root and proximal ascending aorta. IVC Normal IVC dimension with <50% respiratory change of the inferior vena cava. CONCLUSIONS 1. Normal left ventricular cavity size and systolic function. Moderate concentric left ventricle systolic function. Left ventricular ejection fraction is estimated at 60 %. No regional wall motion abnormalities. 2. Probably upper normal right ventricular size and mildly to moderately decreased systolic function. 3. Moderate pulmonary hypertension pulmonary pressure estimated at 49 mmHg. Assessment limited by poor TR velocity profile. 4. When compared to previous echocardiogram dated 02/02/2022, right ventricle systolic function seems to have decreased. Anh Clark MD (Electronically Signed) Final Date: 05 February 2022 17:04 Amended: 05 February 2022 17:16 C
--- NOTE | 2022-02-05 13:41 | P.PN_ITS ---
Subjective Subjective: Overnight patient had an episode of shortness of breath and tachycardia when she was found to have SVT, patient received dose of adenosine after which she converted to normal sinus rhythm. Overnight oxygen requirements went up. Currently she is on heated high flow 75% 40 L. Vitals/I&O/Wt Last Vital Signs Temp 97.8 F 02/05/22 03:45 Pulse 63 02/05/22 12:00 Resp 14 02/05/22 12:00 BP 86/58 02/05/22 12:00 Pulse Ox 94 02/05/22 11:45 O2 Del Method 02/05/22 08:00 O2 Flow Rate 30 02/05/22 11:45 FiO2 45 02/05/22 11:45 02/04/22 02/05/22 02/05/22 22:59 06:59 14:59 Intake Total 240 / 360 100 / 460 360 / 360 Output Total 1400 / 1400 250 / 1650 Balance -1160 / -1040 -150 / -1190 360 / 360 Physical Exam Narrative: General: No acute distress, AO x3, pleasant, chronically sick appearing on heated high flow HEENT: PERRLA, pupils bilaterally equal and reactive Chest: Normal vesicular breath sounds, bilateral fine crackles present in middle zone, equal good air entry bilaterally CVS: S1-S2 regular, no murmurs, no tachycardia, no gallops, no rubs Abdomen: Soft, tenderness in right upper quadrant, no Salgado sign, hepatomegaly, bowel sounds present Neuro: No focal deficits, no facial deformity, AO x3, power 5/5 in all limbs Urinary Catheter Management: Stone: Cath Placed During This Visit: yes Reason for Continuing Indwelling Catheter: Accurate Measurement of Urinary Output in Critically Ill Patients Urinary Catheter Date of Insertion: 02/05/22 Urinary Catheter Time of Insertion: 03:49 Data : 02/05/22 03:12 02/05/22 03:12 A&P Assessment and plan (1) Acute hypoxemic respiratory failure: Most likely secondary to bilateral pulmonary embolism along with diastolic congestive heart failure. Wean off oxygen keeping saturation over 88%. Denies any known history of COPD in the past. Status: Acute (2) Pulmonary embolism: At home she is on Eliquis 5 mg once daily which was recently changed from twice daily dose with the last 1 month. Currently has been on Lovenox 1 mg/kg body weight daily as per creatinine clearance. Worsening oxygen supplementation requirement overnight. Switch to heparin drip for now. Repeat echocardiogram limited to rule out RV strain. Status: Acute (3) SVT (supraventricular tachycardia): Overnight on 02/12 midnight. Telemetry monitoring Start metoprolol 25 mg twice daily. Status: Acute (4) Elevated troponin: Could be secondary to stress related/demand from SVT overnight. Positive delta. Patient is already on a heparin drip and aspirin along with statin. Repeat troponins. If patient has chest pain or worsening of troponins we will consult cardiology for possible intervention. For now we will continue with medical management. Will do limited echocardiogram to rule out regional wall motion abnormality and compare with recent echocardiogram done during this hospitalization. Status: Acute (5) Essential hypertension: Goal blood pressure less than 140/90 mmHg with mean over 65. Blood pressure soft. Hold off on hydralazine for now. Status: Acute (6) Type 2 diabetes mellitus with diabetic polyneuropathy: A1c 6.3. Carb consistent diet. Monitor sugars daily. Hold off on sliding scale. 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 Appreciate lipid panel and A1c. Aspirin 81 mg daily, atorvastatin 20 mg daily. Status: Chronic (8) Chest pain: Present on admission. Not present anymore. Could be secondary pulm embolism on admission. Status: Acute (9) CKD (chronic kidney disease): Baseline creatinine 1.3-1.6. Medical reconciliation for nephrotoxic drugs. Currently 1.5 today. Continue to monitor fluid status and dose Lasix accordingly. Status: Acute Plan Analgesia: Tylenol as needed, morphine 1 mg every 4 hours as needed Glycemic control: Not needed. A1c 6.1. Nutrition: Carb consistent diet CODE STATUS: DNR/DNI PUD prophylaxis: Protonix DVT prophylaxis: Heparin drip will suffice as DVT prophylaxis Discharge planning: Home health once medically cleared. Continue with care at ICU. Plan for the day: Start heparin drip. Stop Lovenox. Hold off on hydralazine. Start metoprolol 25 mg twice daily. Aspirin, statin. Continue with Advair, Spiriva. Wean off oxygen supplementation keeping saturation over 88%. CT chest, abdomen pelvis. Bowel regimen. IV Lasix 40 mg once. Strict input output charting. Incentive spirometry, out of bed to chair. This documentation was created by [employer] environmental marketer software. Every effort was made to ensure accuracy of environmental marketer. Any obvious errors or omissions should be clarified with the author of the document. Attestations Medical Necessity Statement*: Further hospitalization required for hypoxic respiratory failure from pulmonary embolism, diastolic heart failure, overnight SVT Critical Care Time: The high probability of a clinically significant, sudden or life threatening deterioration of the patient's [cardiac, renal, pulmonary] system(s) required my full and direct attention, intervention and personal management. The critical care time is as shown. This time is in addition to time spent performing any reported procedures but includes the following: [x] Data and vital sign review and interpretation [x] Patient assessment, examination and intervention [x] Documentation [x] Medication orders and management Critical Care Time (min): 50 Coding Level of Care Code Acute Debt And Budget Counselor for [facility] Fwd Diagnoses Acute hypoxemic respiratory failure J96.01 Pulmonary embolism I26.99 SVT (supraventricular tachycardia) I47.1 Elevated troponin R77.8 Essential hypertension I10 Type 2 diabetes mellitus with diabetic polyneuropathy E11.42 Diabetes mellitus skilled nursing insulin use: without intermediate school teacher use Jugular vein thrombosis I82.890 Chest pain R07.9 CKD (chronic kidney disease) N18.9
[2022-02-05 14:10] LABS: Troponin T (5th) Once 97 ng/L (0-10)
[2022-02-05] MEDS: pantoprazole 40 mg SDV IVP (15:54)
[2022-02-05 18:38] LABS: Partial Thromboplastin Time 105.5 SECONDS (23.9-36.7)
--- NOTE | 2022-02-05 19:21 | PC.NURSE ---
Patient had pulled oxygen off and o2 was reading in the 60's. This nurse entered room and patient was sitting on the side of the bed. Non rebreather was placed and oxygen went back up to 90's. Patient was able to transfer to a chair and and placed back on HHF. Dr. Vance was called and order for ABG was entered.
[2022-02-05 19:42] LABS: ABG PCO2 33.4 mmHg (35-45); Arterial Blood Gas Hematocrit 37.9 % (37-47); Base Excess ABG -3.6 mmol/L (-2.0-2.0); Blood Gas Allen Test Pos; Blood Gas Operator Identificat JB; Blood Gas Sample Site Radial, right; Blood Gas Sample Type Arterial; Carboxyhemoglobin 1.1 %THgb (0.4-20.1); HCO3 ABG 20.5 mmol/L (22-26); HGB O2 Sat 95.5 % (95-100); Ionized Calcium Level - ABG 1.2 mmol/L (1.1-1.4); Methemoglobin < 0.0 % (0.4-1.5); Oxygen Device HAG; Oxygen Saturation ABG 95.3; PO2 ABG 74.9 mmHg (80.0-100.0); Potassium Level - ABG 3.9 mmol/L (3.5-5.0); Total Hemoglobin 12.4 g/dL (12-16)
[2022-02-05 19:43] LABS: Alveolar-Arterial Oxygen Gradi 26.7 mmHg (5-10)
[2022-02-05] MEDS: atorvastatin 40 mg Tablet PO (21:23)
[2022-02-05] MEDS: LORazepam 0.5 mg Tablet PO (22:43)
[2022-02-06] VITALS (97 sets, daily range): BP systolic 70–132; BP diastolic 47–88; PULSE 63–100; RESP 7–38; TEMP 36.4–36.8; O2SAT 79–100
[2022-02-06 01:00] LABS: Partial Thromboplastin Time 82.5 SECONDS (23.9-36.7)
[2022-02-06 01:43] LABS: Partial Thromboplastin Time 82.5 SECONDS (23.9-36.7)
--- NOTE | 2022-02-06 03:17 | CTR_ITS ---
PROCEDURE INFORMATION: Exam: CT Head Without Contrast Exam date and time: 02/06/2022 3:36 AM Age: 61 years old Clinical indication: Altered mental status/memory loss and weakness, extremity; Patient HX: New onset of left side weakness with confusion. History of breast cancer. ; Additional info: CVA TECHNIQUE: Imaging protocol: Computed tomography of the head without contrast. Radiation optimization: All CT scans at this facility use at least one of these dose optimization techniques: automated exposure control; mA and/or kV adjustment per patient size (includes targeted exams where dose is matched to clinical indication); or iterative reconstruction. COMPARISON: CT head wo con* [id number] 01/15/2021 3:24 PM RADIATION DOSE METRICS: Total DLP (mGy-cm): 991.68 FINDINGS: Brain: There is mild parenchymal atrophy and chronic small vessel disease. No cerebral/cerebellar infarct. No brain parenchymal or extra-axial hemorrhage. Cerebral ventricles: No ventriculomegaly. Paranasal sinuses: Paranasal sinuses are clear. No air-fluid level. Mastoid air cells: Visualized mastoid air cells are clear. Bones/joints: No calvarial or skull base fracture. Soft tissues: Unremarkable. CT/CT head wo con* [id number] IMPRESSION: 1. No acute infarct or hemorrhage. 2. No calvarial or skull base fracture. 3. Mild parenchymal atrophy and chronic small vessel disease.
[2022-02-06 03:22] LABS: Alanine Aminotransferase 72 U/L (0-33); Albumin Level 3.2 g/dL (3.5-5.2); Alkaline Phosphatase 114 U/L (35-105); Anion Gap 18.6 (5-19); Aspartate Amino Transferase 110 U/L (0-32); Blood Urea Nitrogen 34 mg/dL (8-23); Calcium 8.6 mg/dL (8.5-10.5); Carbon Dioxide 23 mmol/L (22-29); Chloride 99 mmol/L (98-107); Globulin 3.2 g/dL (1.3-4.6); Glomerular Filtration Rate 23.9 mL/min (90-130); Glucose 156 mg/dL (65-115); Osmolality Calculated 295 mOsm/kg (285-295); Potassium 3.6 mmol/L (3.5-5.1); Sodium 137 mmol/L (136-145); Total Bilirubin 0.5 mg/dL (0.15-1.2); Total Protein 6.4 g/dL (6.6-8.7)
[2022-02-06 03:33] LABS: ABG PCO2 33.3 mmHg (35-45); ABG PH Result 7.44 (7.35-7.45); Alveolar-Arterial Oxygen Gradi 36.2 mmHg (5-10); Base Excess ABG -1.1 mmol/L (-2.0-2.0); Blood Gas Allen Test Pos; Blood Gas Operator Identificat JB; Blood Gas Sample Site Radial, right; Blood Gas Sample Type Arterial; Carboxyhemoglobin 1.2 %THgb (0.4-20.1); HCO3 ABG 22.5 mmol/L (22-26); HGB O2 Sat 94.3 % (95-100); Ionized Calcium Level - ABG 1.1 mmol/L (1.1-1.4); Methemoglobin 0.2 % (0.4-1.5); Oxygen Device HAG; Oxygen Saturation ABG 95.6; PO2 ABG 73.7 mmHg (80.0-100.0); Potassium Level - ABG 3.5 mmol/L (3.5-5.0); Total Hemoglobin 12.1 g/dL (12-16)
[2022-02-06 04:05] LABS: Basophils % 0.4 %; Eosinophils # 0.1 10^3/uL (0.0-0.8); Eosinophils % 1.2 %; Hematocrit 34.9 % (37.0-47.0); Hemoglobin 10.9 g/dL (11.5-15.3); Lymphocytes # 2.1 10^3/uL (0.8-4.8); Lymphocytes % 18.8 %; Mean Corpuscular HGB Conc 31.2 g/dL (30.0-36.0); Mean Corpuscular Hemoglobin 29.6 pg (28.0-34.0); Mean Corpuscular Volume 94.8 fl (81-99); Monocytes # 0.8 10^3/uL (0.2-0.9); Monocytes % 7.5 %; Neutrophils # 7.99 10^3/uL (1.8-7.7); Neutrophils % 71.7 %; Nucleated Red Blood Cells % 0 %; Platelet Count 173 10^3/cmm (130-400); Red Blood Count 3.68 10^6/uL (4.1-5.3); Red Cell Distribution Width 14.8 % (12.1-15.1); White Blood Count 11.2 10^3/uL (4.0-10.0)
--- NOTE | 2022-02-06 04:23 | PM.CCNAC ---
Critical Care Event Note The high probability of a clinically significant, sudden or life threatening deterioration of the patient's [] system(s) required my full and direct attention, intervention and personal management. The critical care time is as shown. This time is in addition to time spent performing any reported procedures but includes the following: [x] Data and vital sign review and interpretation [x] Patient assessment, examination and intervention [x] Documentation [x] Medication orders and management Critical Care Time Code activated: No Critical Care Time (min): 30 Additional information about critical care time: I was called to evaluate patient at roughly 3 AM on 02/06/2022, as there was concerns for left-sided weakness, left facial droop which was new. According to nursing staff, sometime throughout the evening, she had episode of nonresponsiveness. Currently her mentation is fluctuating. When I came to evaluate patient, she is on heated high flow loose to sats in the low 90s, she is alert to person, to place, not to time she is able to smile for me, I cannot discern facial droop. However she is significantly encephalopathic, she does not follow commands consistently, she has spontaneous movement of her upper and lower extremities, she is not keeping her pulse ox on. In terms of her strength, it was very difficult to discern her strength, due to significant encephalopathy and difficult to follow commands, I felt more weakness on the right side than on the left side. On the left lower extremity she is unable to follow commands, both feet fell to the bed against gravity. She was able to say a few words but no slurring of words. I cannot test visual carbone. Given her severe encephalopathic complaints hard for me to give her an NIH stroke scale, encephalopathy due to hypoxia, pulmonary embolism, ICU syndrome. However I reviewed patient's records, and at least back in 2019 she complained of left arm numbness, it was documented that it was due to history of stroke, but it was not exactly clear. She had an MRI apparently at [facility] which potentially showed previous subarachnoid hemorrhage versus possible trauma versus prior ischemia. Plan is to order neurochecks, keep n.p.o., night stroke scale allow for permissive hypertension, monitor mentation closely, Precedex drip for agitation. I have ordered a stat CT of the head, she is on heparin, with PTT in the 80s, Coding Level of Care Code Acute [employer] Travel Counselor for Dakota Farr
[2022-02-06] MEDS: dexmedeTOMIDine 0.9 % NaCL 400 MCG/100 ML PREMIX IV (05:13)
--- NOTE | 2022-02-06 05:20 | PC.NURSE ---
Left Sided Weakness Throughout night, patient alert and oriented presenting with agitation, removing heated high flow cannula multiple times. When removed, patient's oxygen saturation decreased to as low as 78%. Upon placing HHF back on patient, saturation would recover to mid 90s. At 0214, patient became less responsive and confused, answering questions incorrectly with garbled speech. Additionally, when asked to make fists with her hands, patient's right it applications analyst was greater than her left. Very minimal left sided facial droop noted. Pupils equal and reactive bilaterally. Facial droop and left sided weakness verified with CLAYTON Barboza. Dr. Ybarra notified, vitals relayed; order received for an ABG and neurological checks Q30min. At 0303, patient's left sided weakness still present with her agitation increasing. Patient pulling off HHF cannula increasingly more with oxygen saturations decreasing to low 80s. Dr. Ybarra contacted. Dr. Ybarra at bedside, orders received for precedex, head CT, NIHSS assessments, and to hold metoprolol until further notice. At 0400, Dr. Ybarra contacted to verify continuation of heparin drip. Verification received. See MAR for details.
[2022-02-06] MEDS: ipratropium-albuterol 3 mL Neb INHALATION ×3 (07:48→20:35)
[2022-02-06] MEDS: haloperidol inj 5 mg/mL INJ 1 mL 2 MG IVP (08:30)
[2022-02-06 08:34] LABS: Ammonia 62 umol/L (11-51)
[2022-02-06 08:34] LABS: Base Excess ABG -5.6 mmol/L (-2.0-2.0); Blood Gas Allen Test Pos; Blood Gas Sample Site Radial, right; Blood Gas Sample Type Arterial
[2022-02-06] MEDS: LORazepam 2 mg/mL INJ 1 mL IVP (08:35)
[2022-02-06 08:37] LABS: Partial Thromboplastin Time 69.8 SECONDS (23.9-36.7)
--- NOTE | 2022-02-06 08:42 | USCV_ITS ---
Jasmin Ortiz Age: 61 Gender: F : 1960 Exam Date: 02/06/2022 11:04 Ordering Phys: Geovanny Vance MD Technologist: STAR Exam Location: [facility] [place] Indication: STENOSIS Risk Factors: Previous Vascular Surgery: Right Brachial BP: / Left Brachial BP: / Right Left Velocity (cm/s) Spectral Plaque Velocity (cm/s) Spectral Plaque Syst/Diast Broadening Syst/Diast Broadening 26.10/ 9.00 Prox CCA 31.50 / 10.90 29.90/ 9.80 Mid CCA 28.00 / 9.70 22.30/ 6.20 Distal CCA 31.80 / 5.80 13.80/ 6.20 Prox ICA 21.00 / 11.70 33.20/ 11.50 Mid ICA 40.10 / 18.20 23.30/ 12.80 Distal ICA 30.40 / 12.30 30.90 ECA 35.00 1.11 ICA/CCA 1.26 Vertebral 28.90/ 11.20 cm/s 29.40/ 15.00 cm/s Subclavian 41.20 37.30 CONCLUSIONS Right ICA stenosis <50%. Left ICA stenosis <50%. Normal antegrade Doppler flow noted in the right vertebral artery. Normal antegrade Doppler flow noted in the left vertebral artery. Wu Sepulveda MD (Electronically Signed) Final Date: 06 February 2022 11:55 S
[2022-02-06] MEDS: folic acid 1 MG, multivitamin inj 10 ML, thiamine 100 MG in sodium chloride 0.9% 1,000 ML 50 MG IV (09:52)
[2022-02-06] MEDS: lactulose oral liq 20 gm/30 mL UDC 200 GM PR ×2 (09:53→17:50)
[2022-02-06 10:24] LABS: Hepatitis A Antibody IgM Non-Reactive (Nonreactive); Hepatitis B Core AB, Total Non-Reactive (Nonreactive); Hepatitis B Surface AB 20.5 (11.5-1000); Hepatitis B Surface Antigen Non-Reactive (Nonreactive); Hepatitis C Virus Antibody Non-Reactive (Nonreactive)
[2022-02-06] MEDS: sodium chloride 0.9% 500 ML 999 ML IV (12:00)
--- NOTE | 2022-02-06 12:19 | XR_ITS ---
WS: [id number] Portable AP supine chest, 02/06/2022 Clinical Data: hypoxia Comparison: Portable chest, 02/05/2022. Findings: No nodules, masses or effusions are seen. The heart is normal. The pulmonary vascularity is not increased. No pneumonia or pneumothorax is seen. The brachiocephalic and right subclavian vascul ar stents remain the same. The aortic arch and descending thoracic aorta show tortuosity. Monitor sandee ds are on the chest wall. XR/XR chest 1V portable [id number] Impression: Atherosclerosis.
[2022-02-06 12:54] LABS: Blood Gas Allen Test Pos; Blood Gas Operator Identificat WALCI; Blood Gas Sample Site Radial, right; Blood Gas Sample Type Arterial; Oxygen Device NRB
[2022-02-06 12:55] LABS: ABG PCO2 27.4 mmHg (35-45); ABG PH Result 7.42 (7.35-7.45); Alveolar-Arterial Oxygen Gradi 2.5 mmHg (5-10); Carboxyhemoglobin 1.2 %THgb (0.4-20.1); HCO3 ABG 17.7 mmol/L (22-26); HGB O2 Sat 96.2 % (95-100); Ionized Calcium Level - ABG 1.1 mmol/L (1.1-1.4); Oxygen Saturation ABG 98.3; PO2 ABG 95.2 mmHg (80.0-100.0); Potassium Level - ABG 3.9 mmol/L (3.5-5.0); Total Hemoglobin 11.1 g/dL (12-16)
[2022-02-06 13:21] LABS: ABG PCO2 27.1 mmHg (35-45); ABG PH Result 7.21 (7.35-7.45); Alveolar-Arterial Oxygen Gradi 24.3 mmHg (5-10); Arterial Blood Gas Hematocrit 35.2 % (37-47); Base Excess ABG -15.7 mmol/L (-2.0-2.0); Blood Gas Allen Test Pos; Blood Gas Operator Identificat CAK; Blood Gas Sample Site Radial, right; Blood Gas Sample Type Arterial; Carboxyhemoglobin 1.1 %THgb (0.4-20.1); HCO3 ABG 10.8 mmol/L (22-26); Ionized Calcium Level - ABG 1.1 mmol/L (1.1-1.4); Methemoglobin 0.9 % (0.4-1.5); Oxygen Device BIPAP; Oxygen Saturation ABG 86.7; PO2 ABG 63.8 mmHg (80.0-100.0); Potassium Level - ABG 4.4 mmol/L (3.5-5.0); Total Hemoglobin 11.5 g/dL (12-16)
[2022-02-06] MEDS: haloperidol inj 5 mg/mL INJ 1 mL 1 MG IVP ×2 (14:30→20:24)
--- NOTE | 2022-02-06 14:43 | PM.PN ---
Subjective Subjective: Overnight patient had episodes of confusion and agitation. During the whole day yesterday patient was comfortable with oxygen requirements coming down but overnight during confusion patient's oxygen supplementation had gone up. There was concern for CVA versus encephalopathy for which CT head was done which is negative for stroke. Patient was placed on BiPAP early in the morning. Seen multiple times during the day. Central line was placed because of borderline blood pressures and requirement of Levophed and for IV access. Patient's care discussed in detail with at bedside. Patient had multiple episodes of agitation today requiring doses of Haldol and Precedex. Urine output during the day has been minimal. Did have episodes of hypotension with mean arterial pressure running around 60s for which she required 500 cc of IV fluid bolus after which Levophed was started Vitals/I&O/Wt Last Vital Signs Temp 98.2 F 02/06/22 04:15 Pulse 84 02/06/22 12:45 Resp 20 H 02/06/22 12:30 BP 76/56 02/06/22 12:30 Pulse Ox 98 02/06/22 12:45 O2 Del Method 02/06/22 08:00 O2 Flow Rate 40 02/06/22 04:19 FiO2 40 02/06/22 12:45 02/05/22 02/06/22 02/06/22 22:59 06:59 14:59 Intake Total 114.133 / 474.133 296.638 / 770.771 Output Total 550 / 550 Balance 114.133 / 474.133 -253.362 / 220.771 Physical Exam Narrative: General: No acute distress, AO x3, pleasant, chronically sick appearing on heated high flow HEENT: PERRLA, pupils bilaterally equal and reactive Chest: Normal vesicular breath sounds, bilateral fine crackles present in middle zone, equal good air entry bilaterally CVS: S1-S2 regular, no murmurs, no tachycardia, no gallops, no rubs Abdomen: Soft, tenderness in right upper quadrant, no Salgado sign, hepatomegaly, bowel sounds present Neuro: No focal deficits, no facial deformity, AO x3, power 5/5 in all limbs Urinary Catheter Management: Stone: Cath Placed During This Visit: yes Reason for Continuing Indwelling Catheter: Accurate Measurement of Urinary Output in Critically Ill Patients Urinary Catheter Date of Insertion: 02/05/22 Urinary Catheter Time of Insertion: 03:49 Data : 02/06/22 02:41 02/06/22 02:41 A&P Assessment and plan (1) Cardiogenic shock: No source of infection currently. Patient has remained afebrile. For now hold off on antibiotics. Check urinalysis, sputum culture. Chest x-ray. Keep mean artery pressure between 65 and 70. Fluid boluses up to 1 L and if no response will start on Levophed keeping mean arterial pressure at goal. Status: Acute (2) Encephalopathy: Multifactorial etiology most likely. Could be secondary to hepatic encephalopathy along with dose of Ativan and hypotension. CVA ruled out with negative CT head. Check carotid Dopplers given history of carotid artery stenosis. Cannot do CTA given DEBORAH on CKD. Check ammonia levels. Patient does have deranged LFTs. Will start on lactulose accordingly. No electrolyte abnormality. BUN slightly elevated to 34. Will not explain acute encephalopathy. Patient would benefit for MRI but cannot do it given the respiratory status Status: Acute (3) Acute hypoxemic respiratory failure: Most likely secondary to bilateral pulmonary embolism along with diastolic congestive heart failure. Wean off oxygen keeping saturation over 88%. Denies any known history of COPD in the past. For now start patient on DuoNebs every 6 hour, desonide twice daily. Stop Advair, Spiriva. Check ABG. Status: Acute (4) Pulmonary embolism: At home she is on Eliquis 5 mg once daily which was recently changed from twice daily dose with the last 1 month. Continue with heparin drip for now. Limited echocardiogram appreciated. Shows slight worsening of RV function. Status: Acute (5) CKD (chronic kidney disease): Baseline creatinine 1.3-1.6. DEBORAH on CKD today. Creatinine 2.1. Could be secondary to overdiuresis given poor oral intake. Restart on IV fluids. Banana bag at 50 cc for now will monitor for fluid overload. Recheck BMP in the evening. Check urine lites, urine creatinine, urine eosinophils. Status: Acute (6) SVT (supraventricular tachycardia): Overnight on 02/12 midnight. Telemetry monitoring C/w metoprolol 25 mg twice daily. Status: Acute (7) Elevated troponin: Could be secondary to stress related/demand from SVT overnight. Positive delta. Patient is already on a heparin drip and aspirin along with statin. Repeat troponins. If patient has chest pain or worsening of troponins we will consult cardiology for possible intervention. For now we will continue with medical management. Will do limited echocardiogram to rule out regional wall motion abnormality and compare with recent echocardiogram done during this hospitalization. Status: Acute (8) Essential hypertension: Goal blood pressure less than 140/90 mmHg with mean over 65. Blood pressure soft. Hold off on hydralazine for now. Status: Acute (9) Type 2 diabetes mellitus with diabetic polyneuropathy: A1c 6.3. Monitor sugars daily. Hold off on sliding scale. 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 Appreciate lipid panel and A1c. Aspirin 81 mg daily, atorvastatin 20 mg daily. Status: Chronic (11) Chest pain: Present on admission. Not present anymore. Could be secondary pulm embolism on admission. Status: Acute (12) Transaminitis: Status: Acute Plan Analgesia: Tylenol as needed, morphine 1 mg every 4 hours as needed Glycemic control: Not needed. A1c 6.1. Nutrition: Carb consistent diet CODE STATUS: DNR/DNI PUD prophylaxis: Protonix DVT prophylaxis: Heparin drip will suffice as DVT prophylaxis Discharge planning: Home health once medically cleared. Continue with care at ICU. This documentation was created by [employer] radiation control health physicist software. Every effort was made to ensure accuracy of radiation control health physicist. Any obvious errors or omissions should be clarified with the author of the document. Attestations Medical Necessity Statement*: Requires further hospitalization for management of shock, encephalopathy, hypoxia in setting of bilateral pulmonary emboli, DEBORAH on CKD Critical Care Time: The high probability of a clinically significant, sudden or life threatening deterioration of the patient's [cardiac neurological, pulmonary, renal] system(s) required my full and direct attention, intervention and personal management. The critical care time is as shown. This time is in addition to time spent performing any reported procedures but includes the following: [x] Data and vital sign review and interpretation [x] Patient assessment, examination and intervention [x] Documentation [x] Medication orders and management Critical Care Time (min): 90 Procedures Time out/Consent Time Out Performed: Yes Consent for Procedure: Consent obtained from other (indicate), Risks & Benefits reviewed and Agrees to proceed with procedure Central Line Placement^ Left IJ: Time out performed: Yes Patient placed on monitor/pulse ox: Yes MD prep: mask, gown and gloves Central line prep: Chlorhexidine scrub and sterile drapes applied Local anesthesia used: lidocaine 1% Amount of anesthesia used (ml): 10 Ultrasound used for placement: Yes Central line lumen inserted: triple Post procedure: sutured in place, good blood return, all ports aspirated, flushed, capped and sterile dressing applied Post procedure x-ray: tip of catheter in good position Patient tolerated procedure: well and no complications Additional comments: [id number] [address] [address]: Geovanny Vance MD Ordering Provider/Ordering MD: Geovanny Vance MD Date of Service: 02/06/22 Procedure(s): XR chest 1V portable [id number] Accession Number(s): [id number] Report Number: [id number] WS: [id number] Portable AP supine chest, 02/06/2022, 1502 hours. Clinical Data: central line placement Comparison: Portable chest, 02/06/2022, 1320 hours Findings: The left internal jugular venous catheter ends in the superior vena cava. No nodules, masses or effusions are seen. The heart is normal. The pulmonary vascularity is not increased. No pneumonia or pneumothorax is seen. The right subclavian and left brachiocephalic stents are seen. No acute cardiopulmonary pulmonary change is noted. There are monitor leads on the chest wall XR/XR chest 1V portable [id number] Impression: Insertion of internal jugular venous catheter ending in the superior vena cava. ? Dictated By: Cyndi Tran MD Signed By: Cyndi Tran MD Signed Date/Time: 02/06/221513 DD/ 151 Coding Level of Care Code Acute Data Processing Systems Project Planner for Chg Fwd Diagnoses Cardiogenic shock R57.0 Encephalopathy G93.40 Acute hypoxemic respiratory failure J96.01 Pulmonary embolism I26.99 CKD (chronic kidney disease) N18.9 SVT (supraventricular tachycardia) I47.1 Elevated troponin R77.8 Essential hypertension I10 Type 2 diabetes mellitus with diabetic polyneuropathy E11.42 Diabetes mellitus termite exterminator helper insulin use: without skilled nursing use Jugular vein thrombosis I82.890 Chest pain R07.9 Transaminitis R74.01
--- NOTE | 2022-02-06 14:50 | XR_ITS ---
WS: [id number] Portable AP supine chest, 02/06/2022, 1502 hours. Clinical Data: central line placement Comparison: Portable chest, 02/06/2022, 1320 hours Findings: The left internal jugular venous catheter ends in the superior vena cava. No nodules, cecilia s or effusions are seen. The heart is normal. The pulmonary vascularity is not increased. No pneumoni a or pneumothorax is seen. The right subclavian and left brachiocephalic stents are seen. No acute ca rdiopulmonary pulmonary change is noted. There are monitor leads on the chest wall XR/XR chest 1V portable [id number] Impression: Insertion of internal jugular venous catheter ending in the superior vena cava.
--- NOTE | 2022-02-06 16:38 | PC.NURSE ---
This shift patient has been confused, withdrawing from painful stimuli and pulling oxygen tubing and wires off. When oxygen is taken off oxygen sats drop into the 60's and she is combative with staff. Dr. Vance has been at bedside throughout shift. New orders and a central line has been placed. has been at bedside and updated on patients condition.
[2022-02-06 16:49] LABS: Alanine Aminotransferase 174 U/L (0-33); Albumin Level 3.1 g/dL (3.5-5.2); Alkaline Phosphatase 106 U/L (35-105); Anion Gap 19.3 (5-19); Aspartate Amino Transferase 200 U/L (0-32); Blood Urea Nitrogen 42 mg/dL (8-23); Calcium 8.1 mg/dL (8.5-10.5); Carbon Dioxide 20 mmol/L (22-29); Chloride 100 mmol/L (98-107); Globulin 2.9 g/dL (1.3-4.6); Glomerular Filtration Rate 19.5 mL/min (90-130); Glucose 268 mg/dL (65-115); Osmolality Calculated 300 mOsm/kg (285-295); Potassium 4.3 mmol/L (3.5-5.1); Sodium 135 mmol/L (136-145); Total Bilirubin 0.6 mg/dL (0.15-1.2)
[2022-02-06] MEDS: pantoprazole 40 mg SDV IVP (17:51)
[2022-02-06 18:12] LABS: Specific Gravity, Urine 1.025 (1.005-1.030); Urine Appearance Cloudy (CLEAR); Urine Color Yellow (Yellow); pH Urine 5 (5-7)
[2022-02-06 18:13] LABS: Bilirubin Urine 1+ (Negative); Blood Urine 3+ (Negative); Glucose Urine UA Norm (Normal); Ketones Urine Negative (Negative); Leukocyte Esterase Urine 2+ (Negative); Nitrate Urine Negative (Negative); Protein Urine 1+ (Negative); RBC Urine 15-25 /hpf (0-2); Urobilinogen Urine 1 mg/dL (Negative); WBC Urine 15-25 /hpf (0-5)
[2022-02-06 18:14] LABS: Bacteria Urine 3+ /hpf
[2022-02-06 18:15] LABS: Add Urine Culture? Yes
[2022-02-06 18:19] LABS: Potassium, Radom Urine 72 mmol/L; Urine Creatinine 232 mg/dL (28-217); Urine Random Chloride 20 mmol/L; Urine Random Sodium 38 mmol/L
--- NOTE | 2022-02-06 18:27 | PC.NURSE ---
Small amounts of stool are a dark red color. Dr. Rajiv sanchez.
[2022-02-06 18:44] LABS: Eosinophil Urine No Eosinophils Seen; Urine Eosinophil Count 0 (0-0)
[2022-02-06] MEDS: dexmedeTOMIDine 0.9 % NaCL 400 MCG/100 ML PREMIX 7.09 MCG IV (19:41)
[2022-02-06] MEDS: budesonide 0.5 mg/2 mL Neb INHALATION (20:35)
[2022-02-06] MEDS: morphine 4 mg/mL SDV 1 mL 1 MG IVP (20:47)
--- NOTE | 2022-02-06 21:33 | PC.NURSE ---
PO Medication PO medications not administered due to patient's mental status and inability to swallow. Dr. Ybarra notified.
[2022-02-06 21:50] LABS: Glucose Point of Care 295 mg/dL (70-110)
--- NOTE | 2022-02-06 22:20 | PC.NURSE ---
Glucose Patient's glucose level 295 at 2145 with last anion gap checked at 1615 with a result of 19.3, urine negative for ketones. Dr. Ybarra contacted and orders placed for insulin lispro TIDWM, first dose to be administered now. Medication administered per JUL.
[2022-02-06] MEDS: insulin lispro 100 unit/1 mL 8 UNIT SUBCUT (22:24)
[2022-02-06 23:30] LABS: Partial Thromboplastin Time 81.8 SECONDS (23.9-36.7)
[2022-02-06] MEDS: piperacillin-tazobactam 3.375 GM in sodium chloride 0.9% (plus) 50 ML IV (23:50)
[2022-02-07] VITALS (108 sets, daily range): BP systolic 70–134; BP diastolic 47–93; PULSE 71–176; RESP 10–38; TEMP 36.4–37.1; O2SAT 75–100
[2022-02-07] MEDS: lactulose oral liq 20 gm/30 mL UDC 200 GM PR ×4 (00:25→18:25)
--- NOTE | 2022-02-07 01:30 | PC.NURSE ---
Urine Output Patient's urine output remains minimal with only 150 ml out since beginning of shift; 50 ml charted for all of previous shift. Additionally, crackles auscultated in bilateral lung bases. Dr. Ybarra notified, no new orders received.
[2022-02-07] MEDS: ipratropium-albuterol 3 mL Neb INHALATION ×4 (02:10→20:52)
[2022-02-07] MEDS: heparin drip 25,000 UNIT/500 ML PREMIX 11 UNIT IV (02:29)
[2022-02-07] MEDS: morphine 4 mg/mL SDV 1 mL 1 MG IVP ×6 (03:41→22:24)
[2022-02-07] MEDS: dexmedeTOMIDine 0.9 % NaCL 400 MCG/100 ML PREMIX 14.18 MCG IV ×3 (04:28→18:32)
--- NOTE | 2022-02-07 05:05 | PC.NURSE ---
NIHSS NIHSS performance incomplete due to patient's mental status being confused and on precedex for agitation/anxiety. Patient not following commands at this time.
[2022-02-07 05:08] LABS: Basophils % 0.3 %; Hemoglobin 9.8 g/dL (11.5-15.3); Lymphocytes # 1.2 10^3/uL (0.8-4.8); Lymphocytes % 9.3 %; Mean Corpuscular HGB Conc 31.6 g/dL (30.0-36.0); Mean Corpuscular Hemoglobin 29.8 pg (28.0-34.0); Mean Corpuscular Volume 94.2 fl (81-99); Mean Platelet Volume 13.6 fL (7.4-10.4); Monocytes # 1.1 10^3/uL (0.2-0.9); Neutrophils # 10.76 10^3/uL (1.8-7.7); Neutrophils % 81.8 %; Nucleated Red Blood Cells % 0 %; Platelet Count 116 10^3/cmm (130-400); Red Blood Count 3.29 10^6/uL (4.1-5.3); Red Cell Distribution Width 14.9 % (12.1-15.1); White Blood Count 13.2 10^3/uL (4.0-10.0)
[2022-02-07] MEDS: haloperidol inj 5 mg/mL INJ 1 mL 1 MG IVP ×3 (05:26→17:52)
[2022-02-07 05:28] LABS: Ammonia 36 umol/L (11-51)
[2022-02-07 05:30] LABS: Alanine Aminotransferase 326 U/L (0-33); Albumin Level 3.2 g/dL (3.5-5.2); Alkaline Phosphatase 116 U/L (35-105); Anion Gap 18.6 (5-19); Aspartate Amino Transferase 419 U/L (0-32); Blood Urea Nitrogen 51 mg/dL (8-23); Calcium 8.5 mg/dL (8.5-10.5); Carbon Dioxide 21 mmol/L (22-29); Chloride 106 mmol/L (98-107); Globulin 2.8 g/dL (1.3-4.6); Glomerular Filtration Rate 21.5 mL/min (90-130); Glucose 202 mg/dL (65-115); Osmolality Calculated 313 mOsm/kg (285-295); Potassium 3.6 mmol/L (3.5-5.1); Slide Review Slide Review Perform; Sodium 142 mmol/L (136-145); Total Bilirubin 0.7 mg/dL (0.15-1.2)
[2022-02-07 07:23] LABS: Glucose Point of Care 267 mg/dL (70-110)
[2022-02-07] MEDS: budesonide 0.5 mg/2 mL Neb INHALATION ×2 (08:06→20:52)
--- NOTE | 2022-02-07 08:15 | PC.RESP ---
unable to obtain a sputum sample at this time
[2022-02-07] MEDS: pantoprazole 40 mg SDV IVP ×2 (09:00→18:04)
[2022-02-07] MEDS: insulin lispro 100 unit/1 mL SUBCUT ×3 (09:11→18:06)
[2022-02-07] MEDS: mirtazapine 15 mg Tablet PO (10:12)
[2022-02-07] MEDS: lactated ringers 1,000 ML 999 ML IV (10:14)
--- NOTE | 2022-02-07 10:16 | PC.NURSE ---
Patient has reddened area on buttocks. Nurse has made attempts to reposition patient, but when doing so she becomes very agitated and repositions her self undoing any body position changes the nurse makes. Nurse will continue to attempt repositioning to relieve pressure points.
[2022-02-07] MEDS: sodium chloride 0.45% 1,000 ML 75 ML IV (10:45)
[2022-02-07 11:04] LABS: Glucose Point of Care 259 mg/dL (70-110)
[2022-02-07 11:33] LABS: Partial Thromboplastin Time 58.7 SECONDS (23.9-36.7)
[2022-02-07] MEDS: piperacillin-tazobactam 3.375 GM in sodium chloride 0.9% (plus) 50 ML IV (12:52)
--- NOTE | 2022-02-07 13:37 | P.PN_ITS ---
Subjective Subjective: Seen multiple times during the day. Overnight no acute events. Patient today morning on examination seems slightly more comfortable. Opening up her eyes to verbal cue. Still having episodes occasional episodes of agitation. Continued on Precedex. Currently on 1.2 turned down to 0.9 during the day. Levophed have remained between 4-6. Maps have remained around 65-70 during the day overnight have been running on the lower side between 60 and 65. Urine output has remained minimal. Responding well to lactulose. Having multiple soft bowel movements. Patient having having occasional episodes of cauterants but more so confused but less agitated today. Vitals/I&O/Wt Last Vital Signs Temp 98.3 F 02/07/22 08:15 Pulse 78 02/07/22 11:00 Resp 16 02/07/22 08:15 BP 84/62 02/07/22 08:15 Pulse Ox 97 02/07/22 08:15 O2 Del Method 02/07/22 08:15 O2 Flow Rate 40 02/07/22 08:15 FiO2 50 02/07/22 08:15 02/06/22 02/07/22 02/07/22 22:59 06:59 14:59 Intake Total 81.179 / 373.584 7079.298 / 2453.511 5369.977 / 1618.977 Output Total 50 / 50 300 / 350 Balance 31.179 / 80.830 1018.298 / 3076.820 2363.977 / 1618.977 Physical Exam Narrative: General: No acute distress, on heated high flow, less agitated, on Precedex, occasional episodes of Derick's sign which she is AO x1-2 HEENT: PERRLA, pupils bilaterally equal and reactive Chest: Normal vesicular breath sounds, bilateral fine crackles present in middle zone, equal good air entry bilaterally CVS: S1-S2 regular, no murmurs, no tachycardia, no gallops, no rubs Abdomen: Soft, tenderness in right upper quadrant, no Salgado sign, hepatomegaly, bowel sounds present Neuro: No focal deficits, no facial deformity, AO x3, power 5/5 in all limbs Urinary Catheter Management: Stone: Cath Placed During This Visit: yes Reason for Continuing Indwelling Catheter: Accurate Measurement of Urinary Output in Critically Ill Patients Urinary Catheter Date of Insertion: 02/05/22 Urinary Catheter Time of Insertion: 03:49 Data : 02/07/22 05:00 02/07/22 05:00 Micro: Microbiology 02/06/22 16:40 Urine Culture - Preliminary Urine,Clean Catch Gram Negative Rods A&P Assessment and plan (1) Cardiogenic shock: No source of infection currently. Patient has remained afebrile. For now hold off on antibiotics. Check urinalysis, sputum culture. Chest x- ray. Keep mean artery pressure between 65 and 70. Wean off Levophed according to maps. Continue with half NS at 75 cc/h while monitoring for fluid overload. (2) Encephalopathy: Most likely secondary to combination of hepatic encephalopathy, uremia and possible cardiogenic shock. CT head negative for any acute abnormality. Continue with lactulose per rectal 3 times a day. Ammonia levels trending down. Continue to target around 2-3 soft bowel movements daily for now. Wean Precedex accordingly. Restart home dose of mirtazapine. For uremia start on IV fluids as above. Monitor BMP daily. Patient would benefit for MRI but cannot do it given the respiratory status (3) Acute hypoxemic respiratory failure: Most likely secondary to bilateral pulmonary embolism along with diastolic congestive heart failure. Wean off oxygen keeping saturation over 88%. Denies any known history of COPD in the past. Continue with DuoNebs every 6 hour, desonide twice daily. Stop Advair, Spiriva. ABG appreciated. No new consolidation on chest imaging. Start on IV fluids and monitor for fluid overload. (4) Pulmonary embolism: At home she is on Eliquis 5 mg once daily which was recently changed from twice daily dose with the last 1 month. Continue with heparin drip for now. Limited echocardiogram appreciated. Shows slight worsening of RV function. (5) CKD (chronic kidney disease): Baseline creatinine 1.3-1.6. DEBORAH on CKD currently. Oliguric. Creatinine stable to slightly better than yesterday but still elevated. BUN worsening. Could be secondary to overdiuresis given poor oral intake. Half NS at 75 cc/h. After maintaining mean arterial pressure over 65 for around 4 to 5 hours with fluid can give Lasix challenge. Recheck BMP in the evening. (6) SVT (supraventricular tachycardia): Overnight on 02/12 midnight. Telemetry monitoring Holding of metoprolol given cardiogenic shock. Continue to monitor electrolytes. Keep magnesium over 2, potassium over 4. (7) Elevated troponin: Could be secondary to stress related/demand from SVT overnight. Positive delta. Patient is already on a heparin drip and aspirin along with statin. Repeat troponins. If patient has chest pain or worsening of troponins we will c onsult cardiology for possible intervention. For now we will continue with medical management. Will do limited echocardiogram to rule out regional wall motion abnormality and compare with recent echocardiogram done during this hospitalization. (8) Essential hypertension: Goal blood pressure less than 140/90 mmHg with mean over 65. Blood pressure soft. Hold off on hydralazine for now. (9) Type 2 diabetes mellitus with diabetic polyneuropathy: A1c 6.3. Monitor sugars daily. Hold off on sliding scale. 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 Appreciate lipid panel and A1c. Aspirin 81 mg daily, atorvastatin 20 mg daily. (11) Chest pain: Present on admission. Not present anymore. Could be secondary pulm embolism on admission. (12) Transaminitis: Plan Analgesia: Tylenol as needed, morphine 1 mg every 4 hours as needed Glycemic control: Not needed. A1c 6.1. Nutrition: Carb consistent diet CODE STATUS: DNR/DNI PUD prophylaxis: Protonix DVT prophylaxis: Heparin drip will suffice as DVT prophylaxis Discharge planning: Home health versus SNF after physical therapy evaluation once medically cleared. Continue with care at ICU. Plan for the day: Wean off Precedex as possible. Maintain mean arterial pressure around 65-70. Titrate Levophed accordingly. 1 L Ringer lactate bolus followed by half NS at 75 cc/h via monitor for fluid overload. Once pressures have maintained MAP over 65 oral diuretic challenge in 4 to 5 hours. Monitor CMP every 12 hourly. Normal Ativan. Haldol as needed. Continue with Zosyn for possible UTI as per urinalysis. Follow-up urine culture. MRSA swab sent yesterday. Patient has remained afebrile so we will hold off on blood cultures. Care discussed in detail with patient's at bedside. All the questions were answered. This documentation was created by [employer] senior clinical data analyst software. Every effort was made to ensure accuracy of senior clinical data analyst. Any obvious errors or omissions should be clarified with the author of the document. Attestations Medical Necessity Statement*: Requires further hospitalization for management of encephalopathy in setting of hepatic dysfunction, DEBORAH on CKD, pulmonary embolism leading to acute hypoxia Critical Care Time: The high probability of a clinically significant, sudden or life threatening deterioration of the patient's [, neurological, renal cardiac] system(s) required my full and direct attention, intervention and personal management. The critical care time is as shown. This time is in addition to time spent performing any reported procedures but includes the following: [x] Data and vital sign review and interpretation [x] Patient assessment, examination and intervention [x] Documentation [x] Medication orders and management Critical Care Time (min): 60 Coding Level of Care Code Acute Religious Education Coordinator for g Fwd Diagnoses Cardiogenic shock R57.0 Encephalopathy G93.40 Acute hypoxemic respiratory failure J96.01 Pulmonary embolism I26.99 CKD (chronic kidney disease) N18.9 SVT (supraventricular tachycardia) I47.1 Elevated troponin R77.8 Essential hypertension I10 Type 2 diabetes mellitus with diabetic polyneuropathy E11.42 Diabetes mellitus meterman insulin use: without meterman use Jugular vein thrombosis I82.890 Chest pain R07.9 Transaminitis R74.01
[2022-02-07] MEDS: FUROsemide 10 mg/mL SDV 10mL 80 MG IVP ×2 (14:02→16:39)
[2022-02-07] MEDS: cyclobenzaprine 10 mg Tablet PO (14:27)
--- NOTE | 2022-02-07 14:36 | PC.NURSE ---
Patient has been in bilateral wrist restraints due to removing oxygen and attempting to pull out Central line in the IJ. Patient continues to be agitated despite redirection, 1:1 sitter, reduction of stimulation, and medication. Patient is frequently getting legs caught in bed rails and twisting them when thrashing about. NUrse recieved orders from Dr ni to apply 4 point restraints to prevent patient form injuring themselves.
--- NOTE | 2022-02-07 15:43 | PC.NURSE ---
NUrse has noticed that patient's work of breathing has increased compared to this morning, and oxygen saturations are not 89-90% where as this morning they were 93-95% on the same oxygen. NUrse alerted Dr ni and received orders for albumin.
--- NOTE | 2022-02-07 16:44 | PC.NURSE ---
Patient went into SVT. Heart rate in the 190's. Nurse alerted Dr ni and recieved orders to give Adenosine. NUrse administered adenosine and patient's heart rate quickly dropped to 120. Patient became less agitated and heart rate continued to drop. Heart rate stabilized in the 70's-80's
[2022-02-07] MEDS: FUROsemide 100 MG in sodium chloride 0.9% 40 ML IV (16:51)
[2022-02-07 17:04] LABS: Alanine Aminotransferase 335 U/L (0-33); Albumin Level 3.3 g/dL (3.5-5.2); Alkaline Phosphatase 120 U/L (35-105); Anion Gap 25.5 (5-19); Aspartate Amino Transferase 328 U/L (0-32); Blood Urea Nitrogen 49 mg/dL (8-23); Calcium 8.5 mg/dL (8.5-10.5); Carbon Dioxide 13 mmol/L (22-29); Chloride 102 mmol/L (98-107); Globulin 3.1 g/dL (1.3-4.6); Glomerular Filtration Rate 17.1 mL/min (90-130); Glucose 233 mg/dL (65-115); Osmolality Calculated 302 mOsm/kg (285-295); Potassium 4.5 mmol/L (3.5-5.1); Sodium 136 mmol/L (136-145); Total Bilirubin 0.7 mg/dL (0.15-1.2); Total Protein 6.4 g/dL (6.6-8.7)
[2022-02-07] MEDS: adenosine 3 mg/mL SDV 2mL 6 MG IVP (17:04)
[2022-02-07 17:14] LABS: Glucose Point of Care 260 mg/dL (70-110)
[2022-02-07 17:47] LABS: Partial Thromboplastin Time 56.3 SECONDS (23.9-36.7)
[2022-02-07] MEDS: sodium bicarbonate 8.4% 1 mEq/mL 50mL Syr 150 MEQ IVP (18:08)
--- NOTE | 2022-02-07 19:20 | PC.NURSE ---
SHift Summary: Patient Slept throughout the day, but had multiple periods of agitation. During agitated periods, she would attempt to get out of bed, pull off oxygen, attempt to remove Central line, and toss and turn in a manner that could hurt hurt as she frequently would get legs caught in the bed rails. Verbal deescalation was sometimes possible, but haldol or morphine was needed to calm patient at times. 4 point restraints applied to protect patient from harming themselves. multiple liquid bowel movements. Urine output has only been 130 mL during shift despite getting 160mg of lasix and she was started on a lasix drip. Levophed requirements varied between 6-8 mcg, and she was started on dobutamine. Patient went into SVT with a rate in the 180s-200s and required adenosine. Oxygen requirements have gone down and she is currently on 35L/50% HHF. Patient seems to do better with a lower flow rate as it is less physical stimulus and she has fewer periods of agitation where she is removing her oxygen. Dr ni is requesting a call at 9pm to discuss patient condition and this has been relayed to the nurse.
[2022-02-07 21:01] LABS: ABG PCO2 32.6 mmHg (35-45); Arterial Blood Gas Hematocrit 30.4 % (37-47); Base Excess ABG -14.2 mmol/L (-2.0-2.0); Blood Gas Allen Test Pos; Blood Gas Sample Type Arterial; Carboxyhemoglobin 1.2 %THgb (0.4-20.1); HCO3 ABG 12.7 mmol/L (22-26); HGB O2 Sat 94.3 % (95-100); Ionized Calcium Level - ABG 1.1 mmol/L (1.1-1.4); Methemoglobin 0.5 % (0.4-1.5); PO2 ABG 89.8 mmHg (80.0-100.0); Potassium Level - ABG 4.2 mmol/L (3.5-5.0); Total Hemoglobin 9.9 g/dL (12-16)
[2022-02-07 21:02] LABS: Blood Gas Operator Identificat MONRO; Blood Gas Sample Site Radial, right; Oxygen Device NC
[2022-02-07 21:58] LABS: Glucose Point of Care 186 mg/dL (70-110)
[2022-02-07] MEDS: atorvastatin 40 mg Tablet PO (22:00)
--- NOTE | 2022-02-07 22:50 | PC.NURSE ---
Family Update Upon assessment, patient has become unresponsive to painful stimuli, mottling has worsened in majority of the body, and patient's breathing pattern has become agonal with a BP MAP decreasing into the 50s. Abdiel Ortiz, , called and updated on critical change in patient health status. stated Well, I've been drinking since 9 this evening so I can't drink and drive. I'll probably come tomorrow after I wake up. Nurse replied with the statement Do not drink and drive. Further inquiry made to see if had any family/friends that could help him get to the hospital to which he replied no. then asked questions regarding patient's health stating I didn't realize she was this bad. She was ok a few days ago. Further education on patient's critical status provided; verbalized understanding. then stated I can drink some coffee then drive up to see her. Nurse reiterated Do not drink and drive, to which he replied Ok. reassured that if further changes in patient's status occurs, he will be called and updated. Dr. Ybarra aware of family contact.
--- NOTE | 2022-02-07 23:07 | PC.NURSE ---
Patient appears more mottled in all extremities and is unresponsive to sternal rub or voice. Breathing pattern is more agonal without apneic periods. Patient map declined into the low 60s. Levophed was titrated up and Hospitalist notified as map trended into the 50s. Verbal order to stop precedex and lasix was taken by phone. Verbal order to max out Levo was given as well as in person order to titrate Dobutamine to 5mcg/kg/min. Vasopressin order was taken and started per protocol. Hospitalist adjusted HHF to 100%fi02 and 50 liters at bedside. Family was notified of change in patient.
[2022-02-08] VITALS: BP 99/74; PULSE 108; RESP 22; TEMP 36.7; O2SAT 100
[2022-02-08 00:03] LABS: Cortisol Random 74.22 ug/dL (2.47-19.5)
[2022-02-08 00:15] VITALS: BP 96/64; PULSE 109; RESP 22; O2SAT 100
[2022-02-08] MEDS: sodium chloride 0.45% 1,000 ML 75 ML IV (00:18)
[2022-02-08 00:30] VITALS: BP 110/61; PULSE 112; RESP 29; O2SAT 100
--- NOTE | 2022-02-08 00:30 | P.PNCC_ITS ---
Critical Care Event Note The high probability of a clinically significant, sudden or life threatening deterioration of the patient's [] system(s) required my full and direct attention, intervention and personal management. The critical care time is as shown. This time is in addition to time spent performing any reported procedures but includes the following: [x] Data and vital sign review and interpretation [x] Patient assessment, examination and intervention [x] Documentation [x] Medication orders and management Critical Care Time Code activated: No Critical Care Time (min): 30 Additional information about critical care time: - I examined patient multiple times throughout the night, -Reported evening, was told by nursing staff, the patient was on 15 of Levophed, 2.5 dobutamine, suffering hypotensive episodes, agonal he breathing, nonresponsive -Upon evaluation, patient was in moderate respiratory distress, agonal he breathing, had central cyanosis, nonresponsive, does not withdraw from pain, does not respond to sternal rub,, 15 Levophed 2.5 dobutamine, Precedex, Lasix drip, has not been on any urine -Her O2 sats were in the mid 80s -I placed her on 100% oxygen 50 L, asked nursing staff to order her back symptoms Levophed increase dobutamine to 5 placed on vasopressin stop Precedex and monitor mentation -However patient's mentation did not improve, she georgie nonresponsive, agonal breathing, does not withdraw from pain, no response to sternal rub, maps are hovering around 65, however remains 100%, still has evidence of central cyanosis, has mottling all the way up to the level of the abdomen, nonresponsive -In my opinion patient is in acute respiratory distress syndrome, acute respiratory failure, likely multifactorial from pulmonary embolism, cardiogenic shock, fluid overload, now has evidence of acute renal failure, decreased urine output, acute encephalopathy, likely due to hypoxia -According to nursing staff patient had voiced earlier in the morning that she just wanted to be comfortable, she want to stop all intervention -I was told by Dr. Pierson that there was discussions about comfort care however they want to continue medical interventions for now to see if she would improve -However based upon what I saw this evening, patient was in cardiogenic shock, acute respiratory failure, acute renal failure, her prognosis is poor, and based upon her wishes she wanted everything to be stopped -Patient's was at bedside, I went over the case in detail with , he wanted everything to be stopped -During this time patient was nonresponsive, again agonal breathing, now 0 65 on maximal dose pressors, 100% FiO2 -As patient is DNR/DNI, she did not want to have any aggressive measures, I advised that we have on maximal medical therapy, and currently given her agonal breathing, and how she looks I am concerned that she may be suffering, and that medical interventions currently are futile -After discussing risk and benefits of comfort care, voiced understanding all questions answered, he wanted everything to be stopped, he wanted his to be placed on comfort care -Discussed comfort care, discussed risk and benefits, he boisterously, presents for COVID to proceed with comfort care -Comfort care was initiated Coding Level of Care Code Acute Weight And Balance Control Agent for Dakota Farr
[2022-02-08] MEDS: morphine 4 mg/mL SDV 1 mL 1 MG IVP (00:35)
[2022-02-08 00:45] VITALS: BP 96/57; PULSE 113; RESP 32; O2SAT 87
--- NOTE | 2022-02-08 00:59 | PC.NURSE ---
Addendum entered by Ilya Farmer RN 02/08/22 01:50: Hospitalist notified of time of . Original Note: Spouse arrived on unit around 0015. Hospitalist visited and Spouse agreed to go to comfort care measures. RT adjusted 02 support. Hemodynamic support was stopped and comfort measures implemented. At 0054 patient heart rhythm presented asystole. Ilya RN and Lala RN Auscultated Apical site for Pulse for 1 min. Time of 00502/08/22. Spouse took 3 rings from patient's person, glasses, and belongings bag. Room was searched with spouse for any other items.
--- NOTE | 2022-02-08 02:10 | PC.NURSE ---
MTS called to confirm the patient is not a candidate for tissue donation. [facility] will follow up with their findings.
--- NOTE | 2022-02-08 02:21 | PC.NURSE ---
MTS Patient at 0054. Nurse called [facility] to report patient expiration at 0123. Spoke with community health representative Kathryn, reference number received from Treva Dowling: [id number].
--- NOTE | 2022-02-08 02:51 | PC.NURSE ---
[facility] called to update nursing staff. Patient is candidate for donation. They are attempting to contact family at this time. Patient is to be moved to facility [facility] [place].
--- NOTE | 2022-02-08 03:32 | PC.NURSE ---
Patient transported to [facility] at 0300.
--- NOTE | 2022-02-08 10:12 | PM.DDS ---
Discharge Providers DDS Date of Admission: 02/03/22 15:47 Date Summary Completed: 02/19/22 Attending Provider at Admission: Mirna Sabillon MD Time of : 00:54 Attending Provider at Discharge: Geovanny Vance MD Primary Care Provider: Nichelle Stephenson MD DS Diagnoses Hospital Diagnoses (1) Cardiogenic shock: (2) Encephalopathy: (3) Acute hypoxemic respiratory failure: (4) Pulmonary embolism: (5) CKD (chronic kidney disease): (6) SVT (supraventricular tachycardia): (7) Elevated troponin: (8) Essential hypertension: (9) Type 2 diabetes mellitus with diabetic polyneuropathy: Qualifiers: Diabetes mellitus shelter insulin use: without buttermilk drier operator use Qualified Code(s): E11.42 - Type 2 diabetes mellitus with diabetic polyneuropathy (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 Vela for breast cancer her-2/nue positive completed 1 year of anti-HER2/lyndon therapy as compassionate therapy, lost to follow-up, she is not under any treatment for her breast cancer as per the patient, her echo shows EF 60 to 65%, presented to the hospital with chief complaint of shortness of breath.? Patient is stating that for last 2 weeks she has been experiencing intermittent shortness of breath.? She has not noticed any fever, sputum production but it is associated with some chest discomfort which she is describing as a few seconds of sharp pain which feels as heaviness.? She has been experiencing 1 episode of emesis on daily basis for last 10 days along with diarrhea.? No fever, diaphoresis or rigors.? Today she went to her PCP for shortness of breath who sent her to the ER. Patient was under the hospital for further evaluation of pulmonary embolism. She was started on Lovenox which was later transitioned to heparin drip. On admission there were no signs of right heart strain on echocardiogram. On admission patient had acute kidney injury which was being managed by managing fluid status. Hospitalization course complicated by patient developing SVT after which she developed cardiogenic shock, congestive heart failure, altered mental status secondary to hepatic encephalopathy, worsening of renal functions leading to oliguria. Because of follow above patient required to be transferred to ICU where right now she required pressor support, Precedex along with lactulose for altered mental status. Her urine output remains minimal. Family decided against dialysis. On 02/08 patient had worsening of her condition with patient requiring multiple pressors and developing PEA. Goals of care discussion were done with family again and they wished for patient to be transitioned over to comfort measures. Patient in comfortable status on 02/08 at 12:54 AM. Additional Data Advance directives?: No Discharge Plan Discharge Patient Disposition: At Medical Facility Condition: Stable Prescriptions: No Action (DME) bra prosthesis See Rx Instructions .Route .MEDSUPPLY Qty: 1 0RF Rx Instructions: As directed. Had double masectomy. lorazepam 1 mg tablet 0.5 - 1 mg PO TID PRN (Reason: Nausea) Qty: 90 1RF loratadine [Claritin] 10 mg tablet 10 mg PO DAILY 90 Days Qty: 90 0RF atorvastatin 40 mg tablet 40 mg PO BEDTIME Qty: 30 2RF magnesium oxide 400 mg (241.3 mg magnesium) tablet 400 mg PO DAILY Fish Oil 100-160-1,000 mg Capsule 1 cap PO DAILY Qty: 0 vitamin E 200 unit Capsule 200 unit PO DAILY Vitamin C 500 mg Tablet 250 mg PO DAILY Vitamin D3 25 mcg (1,000 unit) Tablet 25 mcg PO DAILY cyclobenzaprine 10 mg tablet 10 mg PO TID metformin 500 mg tablet 500 mg PO BID mirtazapine 15 mg tablet 15 mg PO BEDTIME valsartan 160 mg tablet 320 mg PO DAILY Eliquis 5 mg tablet 5 mg PO BID ondansetron 4 mg tablet,disintegrating 4 mg PO Q8H PRN (Reason: nausea and vomiting) Qty: 10 0RF Referrals: Nichelle Stephenson MD [Primary Care Provider] - Probable Cause of Probable cause of : Cardiogenic shock DS Attestations Time Spent in /Discharge Care*: greater than 30 min Quality - AMI: AMI present?: No Quality - Stroke: CVA present?: No Symptom Onset Unknown: No Quality - VTE: VTE present?: Yes Coding Level of Care Code Acute Tax Associate for Chg Fwd Diagnoses Cardiogenic shock R57.0 Encephalopathy G93.40 Acute hypoxemic respiratory failure J96.01 Pulmonary embolism I26.99 CKD (chronic kidney disease) N18.9 SVT (supraventricular tachycardia) I47.1 Elevated troponin R77.8 Essential hypertension I10 Type 2 diabetes mellitus with diabetic polyneuropathy E11.42 Diabetes mellitus buttermilk drier operator insulin use: without buttermilk drier operator use Jugular vein thrombosis I82.890 Chest pain R07.9 Transaminitis R74.01
--- NOTE | 2022-02-09 04:30 | PC.NURSE ---
[facility] released from [facility] due to them unable to make contact with pt . Dean in [place] notified, will slate picker body in AM.
== END 2022-02-08 03:00 | disposition expired | DRG 175 ==
LOC: ER 14:50 → MEDSURG 19:41 → ER 02-03 23:07 → ICU 02-05 03:51
PROVIDERS: Family Medicine; Admitting Provider Internal Medicine; Emergency Provider Emergency Medicine; PCP Family Medicine; Visit Provider Student in an Organized Health Care Education/Training Program
DX: I26.94 Multiple subsegmental thrombotic pulmonary emboli without acute cor pulmonale (principal); I50.33 Acute on chronic diastolic (congestive) heart failure; J96.01 Acute respiratory failure with hypoxia; N17.9 Acute kidney failure, unspecified; I47.1 Supraventricular tachycardia; I82.C11 Acute embolism and thrombosis of right internal jugular vein; I13.0 Hypertensive heart and chronic kidney disease with heart failure and stage 1 through stage 4 chronic kidney disease, or unspecified chronic kidney disease; N39.0 Urinary tract infection, site not specified; R57.0 Cardiogenic shock; K72.90 Hepatic failure, unspecified without coma; C50.911 Malignant neoplasm of unspecified site of right female breast; E11.22 Type 2 diabetes mellitus with diabetic chronic kidney disease; N18.9 Chronic kidney disease, unspecified; R74.01 Elevation of levels of liver transaminase levels; R77.8 Other specified abnormalities of plasma proteins; I95.9 Hypotension, unspecified; E78.5 Hyperlipidemia, unspecified; I27.20 Pulmonary hypertension, unspecified; R11.2 Nausea with vomiting, unspecified; R19.7 Diarrhea, unspecified; R29.810 Facial weakness; R53.1 Weakness; E11.42 Type 2 diabetes mellitus with diabetic polyneuropathy; F17.210 Nicotine dependence, cigarettes, uncomplicated; Z66 Do not resuscitate; Z17.0 Estrogen receptor positive status [ER+]; Z51.5 Encounter for palliative care; Z92.21 Personal history of antineoplastic chemotherapy; Z90.13 Acquired absence of bilateral breasts and nipples; Z90.710 Acquired absence of both cervix and uterus; Z79.01 Long term (current) use of anticoagulants; Z91.410 Personal history of adult physical and sexual abuse
CPT/HCPCS: 36415; 36416; 36592; 36600; 51702; 70450; 71045; 71250; 71275; 74176; 76770; 80048; 80051; 80053; 80061; 81001; 82140; 82330; 82436; 82533; 82570; 82803; 82805; 82962; 83540; 83550; 83735; 83880; 84100; 84133; 84145; 84300; 84439; 84443; 84481; 84484; 85025; 85378; 85610; 85730; 85999; 86705; 86706; 86709; 86803; 87077; 87086; 87186; 87340; 87641; 93005; 93306; 93308; 93325; 93880; 93970; 94640; 94660; 94664; 94760; 96372; 99285; C1751; C9113; G0378; J0153; J0360; J1250; J1630; J1644; J1650; J1815; J1940; J2060; J2270; J2405; J2543; J3411; J3475; J3480; J3490; J7030; J7040; J7626; P9047; Q9967